=== PATIENT | female | born 1955 | race Caucasian/White ===

== ENCOUNTER → 2016-05-21 | Outpatient (CLI) | payer BC ==
--- NOTE | 2016-05-25 10:00 | BTN ---
SERVICE DATE: 05/25/2016 PATIENT #: [id number] #: NOT DICTATED IDENTIFYING INFORMATION: Zahra is a 60-year-old female, who is here today for a followup. I last saw her in November of 2015. CURRENT MEDICATIONS: Pristiq 100 mg a day, Abilify 5 mg a day. ALLERGIES: She has allergies to codeine and Demerol. SUBJECTIVE: Zahra states that she also takes gabapentin 400 in the morning and 400 at bedtime, that was prescribed by, I believe, her primary care doctor and it is to help her with sobriety. PHQ-9 score is 6, JOVANI-7 score is 7. She said she is doing pretty well. The divorce has been started and she said there is a lot of stuff that has to be done and when she has to interact with Jim, she starts to get a little bit of panicky feelings. Other than those times, she feels she is doing really well. She is going to AA on a regular basis and is getting out and seeing people, so she feels good about that. She has also recently started the Nutrisystem and she has lost about 12 pounds and that also helps her feel better about things. She is fairly close to her sons. Her and have been for 38 years and they are now going through divorce and she is going through some grieving with that. REVIEW OF SYSTEMS: She has hypothyroidism. She also has a hiatal hernia that they are looking at, that they have to repair, but they wanted her to get some weight off first. She also has some chronic anemia. Her hemoglobin is now back down to 7, so she is going to be seeing a aircraft engine mechanic supervisor. OBJECTIVE: VITAL SIGNS: Blood pressure is 124/78, heart rate is 100, respirations 18, temperature is 97.4, weight is 186.2 pounds, height 62 inches. MENTAL STATUS EXAM: Zahra' affect is euthymic. She is very pleasant, well groomed, appears her stated age. Speech is clear and appropriate. I do not see any delusions, psychosis, pressured speech, or tangential speech. She is alert and oriented x3. Recent and remote memory appear intact. Insight and judgment appear good. Eye contact is good. DIAGNOSES: Parmelee I: Dysthymia, F34.1. Parmelee II: No diagnosis. Parmelee III: Chronic anemia, hiatal hernia, and hypothyroidism. Parmelee IV: Biggest stressor right now is the divorce. Parmelee V: Current Global Assessment of Functioning score is 70. TREATMENT PLAN: She will continue with the Pristiq 100 mg a day and Abilify 5 mg a day. I am going to add a little bit of hydroxyzine pamoate 25 mg that she can take when she is going to have to be around the ex- to hopefully decrease her anxiety around him. I am going to see her back in a month. Approximately, 15 minutes of today's visit was done for some cognitive restructuring and medication information. /[id number]
== END | disposition home or self-care (01) ==
LOC: MW.CHOBGYN 13:38
PROVIDERS: ATTEND Nurse Practitioner Women's Health
DX: D64.9 Anemia, unspecified (principal)
CPT/HCPCS: 36415; 85014; 85018

== ENCOUNTER → 2016-06-15 | Outpatient (CLI) | payer BC ==
[2016-06-15 09:32] LABS: CHLORIDE,CL 107 mmol/L (98-110); SODIUM,NA 140 mmol/L (136-146)
== END ==
LOC: MW.CHIM 08:46
PROVIDERS: ATTEND Internal Medicine
DX: Z00.00 Encounter for general adult medical examination without abnormal findings (principal); D50.0 Iron deficiency anemia secondary to blood loss (chronic)
CPT/HCPCS: 36415; 80053; 82607; 82728; 83550; 85025; 86340

== ENCOUNTER 2017-11-20 18:49 | Emergency (ER) | payer SELFPAY ==
[2017-11-20] MEDS ORDERED: Sodium Chloride 0.9% 10 ML Syringe FLUSH PRN (19:22)
[2017-11-20] MEDS ORDERED: Sodium Chloride 0.9% 2.5 ML Syringe FLUSH PRN (19:22)
[2017-11-20] MEDS ORDERED: MVI, Adult with Vitamin K 10 ML, Thiamine 100 MG, Folic Acid 1 MG in Sodium Chloride 0.... IV ONE ×4 (19:23)
[2017-11-20] MEDS ORDERED: Sodium Chloride 0.9% 1,000 ML IV ONE (19:23)
--- NOTE | 2017-11-20 19:28 | EDM.PDOC ---
ED HPI GENERAL MEDICAL PROBLEM - General Chief Complaint: Drug or Alcohol Abuse Stated Complaint: INTOXICATION Time Seen by Provider: 11/20/17 19:16 - History of Present Illness INITIAL COMMENTS - FREE TEXT/NARRATIVE: HISTORY AND PHYSICAL: History of present illness: The patient is a 62-year-old female who arrives grossly intoxicated and was found on a welfare check at home sitting in an empty tub and had a bruise to her left orbital area. The patient says she is drinking on a regular basis and did drink heavily but she denies any suicidal or homicidal ideation to nursing and to me. She does have a history of depression which does make her drink heavily. Police reported that she was text in her friend that she wanted to hurt herself when they arrived for the welfare check the patient here is denying that she wants to harm herself but she does want help. She says she has done rehabilitation programs in the past but they have not been successful. She is not very forthcoming about her past medical history but per the computer she does have a long-standing history of alcohol use and abuse depression and hypertension. The patient doesn't complain of any chest pain shortness of breath abdominal pain and she is not nauseated nor she had any vomiting. She denies any extremity complaints she has no headache neck pain or back pain. The patient has a small bruise at her lower left orbit and she is unsure how that happened and it doesn't hurt her. She does not snore how she hit or if she fell. It is unclear when she last ate. It appears from the history that we are piecing together that she does live alone which is why police were sent for a welfare check. Review of systems: As per history of present illness and below otherwise all systems reviewed and negative. Past medical history: As per history of present illness and as reviewed below otherwise noncontributory. Surgical history: As per history of present illness and as reviewed below otherwise noncontributory. Social history: No reported history of drug or alcohol abuse. Family history: As per history of present illness and as reviewed below otherwise noncontributory. Physical exam: General: Well-developed well-nourished overweight female who is nontoxic and not very talkative with me. She has injected sclera and she moves all extremities spontaneously. She is tearful intermittently with my questions. HEENT: Atraumatic except for a small area of soft tissue swelling and ecchymosis at the lateral left orbit, normocephalic, pupils reactive, EOMs are intact negative for conjunctival pallor or scleral icterus, mucous membranes moist, throat clear, neck supple, nontender, trachea midline. There is no scalp defects deformities or tenderness and no midline step-offs tenderness or defects of the cervical spine Lungs: Clear to auscultation, breath sounds equal bilaterally, chest nontender. Heart: S1S2, regular rhythm and slightly tachycardic rate on my evaluation, negative for clicks, rubs, or JVD. Abdomen: Soft, nondistended, nontender. Negative for masses or hepatosplenomegaly. Negative for costovertebral tenderness. Pelvis: Stable nontender. No lateral hip tenderness Genitourinary: Deferred. Rectal: Deferred. Extremities: Atraumatic, no pedal edema, full range of motion without defects deformities or tenderness and no evidence of any soft tissue injuries that I can appreciate Neurovascular unremarkable. Neuro: Awake, alert, oriented. Motor and sensory unremarkable throughout. Exam nonfocal. Back: There are no midline step-offs tenderness or defects of the thoracic or lumbar spine no posterior rib tenderness no posterior pelvis tenderness and no evidence of any soft tissue injuries are appreciated on the skin. Diagnostics: Accu-Chek EKG CT scan of the head CBC CMP INR magnesium level UA UDS alcohol level Therapeutics: IV fluids, banana bag Teleradiology has called me and the patient has a small subdural in her left interhemispheric fissure as well as several areas of small traumatic subarachnoid the most noteworthy is in the left frontoparietal area. A c-collar was placed on this patient and the case was discussed with Dr. Tejeda at [facility] in [place] at 2050 p.m. he excepts the patient for transfer. We will arrange for a flight team to go and route. Patient remains drowsy from her intoxication but moving all extremities and following directions. Impression: Small subdural hemorrhage and traumatic subarachnoid hemorrhage status post fall left orbital contusion, Alcohol intoxication with history of alcohol abuse and depression depressive mood Definitive disposition and diagnosis as appropriate pending reevaluation and review of above. - Related Data Allergies Allergy/AdvReac Type Severity Reaction Status Date / Time codeine Allergy Nausea and Verified 11/20/17 18:52 Vomiting meperidine HCl [From Demerol] Allergy Nausea and Verified 11/20/17 18:52 Vomiting Home Meds: Home Meds Cyanocobalamin (Vitamin B-12) [Cyanocobalamin Injection] 1 ml IM Q30D 08/27/14 [ History] Fluticasone Propionate [Flonase Allergy Relief] 1 spray NS DAILY PRN 08/27/14 [ History] hydroCHLOROthiazide [Hydrochlorothiazide] 25 mg PO DAILY 08/27/14 [History] Desvenlafaxine [Pristiq] 100 mg PO DAILY 03/02/15 [History] Gabapentin [Neurontin] 200 mg PO QID 03/02/15 [History] ARIPiprazole [Abilify] 5 mg PO DAILY 06/13/15 [History] Albuterol Sulfate [Proair Hfa] 2 inh IH Q4H PRN 06/13/15 [History] amLODIPine [Norvasc] 5 mg PO DAILY 06/13/15 [History] Pantoprazole [ProTONIX] 40 mg PO ACBREAKFAST #30 tab.cr 06/15/15 [Rx] Cetirizine [ZyrTEC] 1 tab PO DAILY PRN 07/25/15 [History] Potassium Chloride [Klor-Con 10] 1 cap PO DAILY 07/25/15 [History] Past Medical History HEENT History: Reports: Allergic Rhinitis Other HEENT History: wears glasses Cardiovascular History: Reports: High Cholesterol, Hypertension Respiratory History: Reports: Asthma Gastrointestinal History: Reports: GERD Other Gastrointestinal History: gallbladder problems-states needs it out. Genitourinary History: Reports: Urinary Incontinence NURSING COORDINATOR History: Reports: Musculoskeletal History: Reports: Fibromyalgia Neurological History: Reports: None Other Neuro History: Fibromyalgia Psychiatric History: Reports: Anxiety, Depression Other Psychiatric History: etoh abuse Endocrine/Metabolic History: Reports: Obesity/BMI 30+ Hematologic History: Reports: Blood Transfusion(s) Other Hematologic History: received 4 units of blood during recent hospitalizaton Immunologic History: Reports: None Oncologic (Cancer) History: Reports: None Dermatologic History: Reports: None - Infectious Disease History Infectious Disease History: Reports: Chicken Pox - Past Surgical History Head Surgeries/Procedures: Reports: None HEENT Surgical History: Reports: Naso-Sinus Surgery, Oral Surgery Respiratory Surgical History: Reports: None Female Surgical History: Reports: Hysterectomy, Other (See Below) Endocrine Surgical History: Reports: None Musculoskeletal Surgical History: Reports: None Oncologic Surgical History: Reports: None Dermatological Surgical History: Reports: None Social & Family History - Family History Family Medical History: Unobtainable Cardiac: Reports: Heart Failure - Tobacco Use Smoking Status *Q: Unknown Ever Smoked - Caffeine Use Caffeine Use Comment: unable to obtain ED ROS GENERAL - Review of Systems Review Of Systems: ROS reveals no pertinent complaints other than HPI. ED EXAM, GENERAL - Physical Exam Exam: See Below (See dictation) Course - Vital Signs Last Recorded V/S: Last Vital Signs Temp 36.9 C 11/20/17 18:52 Pulse 118 H 11/20/17 20:12 Resp 20 11/20/17 20:12 BP 149/78 H 11/20/17 20:12 Pulse Ox 94 L 11/20/17 20:12 - Orders/Labs/Meds Orders: Active Orders 24 hr Category Date Time Status Blood Glucose Check, Bedside [RC] ONETIME Care 11/20/17 19:22 Active Cardiac Monitoring [RC] . DIRECTED Care 11/20/17 19:22 Active Communication Order [RC] STAT Care 11/20/17 20:52 Ordered EKG Documentation Completion [RC] STAT Care 11/20/17 19:22 Active Oxygen Therapy, ED [RC] ASDIRECTED Care 11/20/17 19:22 Active Pulse Oximetry [RC] ASDIRECTED Care 11/20/17 19:22 Active Head wo Cont [CT] Stat Exams 11/20/17 19:23 Taken DRUG SCREEN, URINE [URCHEM] Stat Lab 11/20/17 20:44 Received UA W/MICROSCOPIC [URIN] Stat Lab 11/20/17 20:44 Received MVI, Adult with Vitamin K [Infuvite Adult] 10 ml Med 11/20/17 19:23 Active Thiamine [Vitamin B-1] 100 mg Folic Acid 1 mg Sodium Chloride 0.9% [Normal Saline] 1,000 ml IV ONETIME Sodium Chloride 0.9% [Saline Flush] Med 11/20/17 19:22 Active 10 ml FLUSH ASDIRECTED PRN Sodium Chloride 0.9% [Saline Flush] Med 11/20/17 19:22 Active 2.5 ml FLUSH ASDIRECTED PRN Saline Lock Insert [OM.PC] Stat Oth 11/20/17 19:22 Ordered Medication Orders Multivitamins/Minerals 10 ml/Thiamine HCl 100 mg/ Folic Acid 1 mg/ Sodium Chloride 1,011.2 mls @ 150 mls/hr IV ONETIME ONE Stop: 11/21/17 02:07 Last Admin: 11/20/17 19:49 Dose: 150 mls/hr Sodium Chloride (Saline Flush) 10 ml FLUSH ASDIRECTED PRN PRN Reason: Keep Vein Open Sodium Chloride (Saline Flush) 2.5 ml FLUSH ASDIRECTED PRN PRN Reason: Keep Vein Open Labs: Laboratory Tests 11/20/17 11/20/17 11/20/17 Range/Units 19:25 19:56 19:56 WBC 6.85 (4.0-11.0) K/uL RBC 4.86 (4.30-5.90) M/uL Hgb 15.3 (12.0-16.0) g/dL Hct 47.2 H (36.0-46.0) % MCV 97.1 (80.0-98.0) fL MCH 31.5 (27.0-32.0) pg MCHC 32.4 (31.0-37.0) g/dL RDW Std Deviation 55.2 (28.0-62.0) fl RDW Coeff of Cintia 15 (11.0-15.0) % Plt Count 299 (150-400) K/uL MPV 9.70 (7.40-12.00) fL Neut % (Auto) 72.7 (48.0-80.0) % Lymph % (Auto) 23.8 (16.0-40.0) % [place] % (Auto) 2.8 (0.0-15.0) % Eos % (Auto) 0.4 (0.0-7.0) % Baso % (Auto) 0.3 (0.0-1.5) % Neut # (Auto) 5.0 (1.4-5.7) K/uL Lymph # (Auto) 1.6 (0.6-2.4) K/uL [place] # (Auto) 0.2 (0.0-0.8) K/uL Eos # (Auto) 0.0 (0.0-0.7) K/uL Baso # (Auto) 0.0 (0.0-0.1) K/uL Nucleated RBC % 0.0 /100WBC Nucleated RBCs # 0 K/uL INR 0.97 Sodium (136-145) mmol/L Potassium (3.5-5.1) mmol/L Chloride (98-107) mmol/L Carbon Dioxide (21.0-32.0) mmol/L BUN (7.0-18.0) mg/dL Creatinine (0.6-1.0) mg/dL Est Cr Clr Drug Dosing Estimated GFR (MDRD) ml/min Glucose (74-106) mg/dL POC Glucose 122 H (60-110) mg/dL Calcium (8.5-10.1) mg/dL Magnesium (1.8-2.4) mg/dL Total Bilirubin (0.2-1.0) mg/dL AST (15-37) IU/L ALT (14-63) IU/L Alkaline Phosphatase (46-116) U/L Total Protein (6.4-8.2) g/dL Albumin (3.4-5.0) g/dL Globulin (2.0-3.5) g/dL Albumin/Globulin Ratio (1.3-2.8) Ethyl Alcohol mg/dL 11/20/17 Range/Units 19:56 WBC (4.0-11.0) K/uL RBC (4.30-5.90) M/uL Hgb (12.0-16.0) g/dL Hct (36.0-46.0) % MCV (80.0-98.0) fL MCH (27.0-32.0) pg MCHC (31.0-37.0) g/dL RDW Std Deviation (28.0-62.0) fl RDW Coeff of Cintia (11.0-15.0) % Plt Count (150-400) K/uL MPV (7.40-12.00) fL Neut % (Auto) (48.0-80.0) % Lymph % (Auto) (16.0-40.0) % [place] % (Auto) (0.0-15.0) % Eos % (Auto) (0.0-7.0) % Baso % (Auto) (0.0-1.5) % Neut # (Auto) (1.4-5.7) K/uL Lymph # (Auto) (0.6-2.4) K/uL [place] # (Auto) (0.0-0.8) K/uL Eos # (Auto) (0.0-0.7) K/uL Baso # (Auto) (0.0-0.1) K/uL Nucleated RBC % /100WBC Nucleated RBCs # K/uL INR Sodium 144 (136-145) mmol/L Potassium 4.2 (3.5-5.1) mmol/L Chloride 104 (98-107) mmol/L Carbon Dioxide 28.5 (21.0-32.0) mmol/L BUN 11 (7.0-18.0) mg/dL Creatinine 0.8 (0.6-1.0) mg/dL Est Cr Clr Drug Dosing TNP Estimated GFR (MDRD) > 60.0 ml/min Glucose 136 H (74-106) mg/dL POC Glucose (60-110) mg/dL Calcium 8.8 (8.5-10.1) mg/dL Magnesium 2.3 (1.8-2.4) mg/dL Total Bilirubin 0.2 (0.2-1.0) mg/dL AST 21 (15-37) IU/L ALT 27 (14-63) IU/L Alkaline Phosphatase 98 (46-116) U/L Total Protein 8.5 H (6.4-8.2) g/dL Albumin 3.9 (3.4-5.0) g/dL Globulin 4.6 H (2.0-3.5) g/dL Albumin/Globulin Ratio 0.9 L (1.3-2.8) Ethyl Alcohol 330 mg/dL Meds: Medications Generic Name Dose Route Start Last Admin Trade Name Freq PRN Reason Stop Dose Admin Multivitamins/Minerals 10 ml/ 1,011.2 mls @ 150 mls/hr 11/20/17 19:23 19:49 Thiamine HCl 100 mg/ Folic IV 11/21/17 02:07 150 mls/hr Acid 1 mg/ Sodium Chloride ONETIME ONE Administration Sodium Chloride 10 ml 11/20/17 19:22 Saline Flush FLUSH ASDIRECTED PRN Keep Vein Open Sodium Chloride 2.5 ml 11/20/17 19:22 Saline Flush FLUSH ASDIRECTED PRN Keep Vein Open Discontinued Medications Generic Name Dose Route Start Last Admin Trade Name Lauren PRN Reason Stop Dose Admin Sodium Chloride 1,000 mls @ 999 mls/hr 11/20/17 19:23 11/20/17 19:37 Normal Saline IV 11/20/17 20:23 999 mls/hr STAT ONE Administration Departure - Departure Time of Disposition: 20:54 Disposition: DC/Tfer to Acute Hospital 02 Condition: Good Clinical Impression: Alcohol abuse, Intoxication, Subdural hemorrhage Depressed Qualifiers: Depression Type: unspecified Qualified Code(s): F32.9 - Major depressive disorder, single episode, unspecified Traumatic subarachnoid hemorrhage Qualifiers: Encounter type: initial encounter Loss of consciousness presence/duration: with LOC of unspecified duration Qualified Code(s): S06.6X9A - Traumatic subarachnoid hemorrhage with loss of consciousness of unspecified duration, initial encounter - Discharge Information Forms: ED Department Discharge - My Orders Last 24 Hours: My Active Orders 11/20/17 19:22 Blood Glucose Check, Bedside [RC] ONETIME Cardiac Monitoring [RC] . DIRECTED EKG Documentation Completion [RC] STAT Oxygen Therapy, ED [RC] ASDIRECTED Pulse Oximetry [RC] ASDIRECTED Sodium Chloride 0.9% [Saline Flush] 10 ml FLUSH ASDIRECTED PRN Sodium Chloride 0.9% [Saline Flush] 2.5 ml FLUSH ASDIRECTED PRN Saline Lock Insert [OM.PC] Stat 11/20/17 19:23 Head wo Cont [CT] Stat MVI, Adult with Vitamin K [Infuvite Adult] 10 ml Thiamine [Vitamin B-1] 100 mg Folic Acid 1 mg Sodium Chloride 0.9% [Normal Saline] 1,000 ml IV ONETIME 11/20/17 20:44 DRUG SCREEN, URINE [URCHEM] Stat UA W/MICROSCOPIC [URIN] Stat 11/20/17 20:52 Communication Order [RC] STAT - Assessment/Plan Last 24 Hours: My Active Orders 11/20/17 19:22 Blood Glucose Check, Bedside [RC] ONETIME Cardiac Monitoring [RC] . DIRECTED EKG Documentation Completion [RC] STAT Oxygen Therapy, ED [RC] ASDIRECTED Pulse Oximetry [RC] ASDIRECTED Sodium Chloride 0.9% [Saline Flush] 10 ml FLUSH ASDIRECTED PRN Sodium Chloride 0.9% [Saline Flush] 2.5 ml FLUSH ASDIRECTED PRN Saline Lock Insert [OM.PC] Stat 11/20/17 19:23 Head wo Cont [CT] Stat MVI, Adult with Vitamin K [Infuvite Adult] 10 ml Thiamine [Vitamin B-1] 100 mg Folic Acid 1 mg Sodium Chloride 0.9% [Normal Saline] 1,000 ml IV ONETIME 11/20/17 20:44 DRUG SCREEN, URINE [URCHEM] Stat UA W/MICROSCOPIC [URIN] Stat 11/20/17 20:52 Communication Order [RC] STAT
[2017-11-20 20:34] LABS: CHLORIDE,CL 104 mmol/L (98-107); SODIUM,NA 144 mmol/L (136-145)
[2017-11-20 23:28] VITALS: BP 146/89
--- NOTE | 2017-11-21 10:52 | CT ---
EXAM DATE: 11/20/17 PATIENT'S AGE: 62 Patient: DIGNA CREWS Facility: [place], [place] Site . Site : [id number] Study: CT Head [id number]/19/2018 8:33:31 PM Ordering Physician: Enriqueta Link Final Report: INDICATION: PT CAME TO ER BY EMS. WAS INTOXICATED AND FOUND IN HER BATHTUB BUT THE TUB WAS REPORTED EMPTY. REPORTED POSSIBLE THOUGHTS OF SELF HARM FROM A FRIEND. CT HEAD WITHOUT CONTRAST TECHNIQUE: Multiple axial CT images were performed through the head without intravenous contrast administration. COMPARISON: No previous studies are currently available for comparison. FINDINGS: There is a very small acute subdural hematoma in the anterior interhemispheric fissure along the left side of the falx, measuring 3 millimeters in thickness. Mild subarachnoid hemorrhage is present within the right sylvian fissure. A small amount of subarachnoid hemorrhage is seen within a sulcus over the right frontoparietal region on image 34-35 of series 201, and a trace amount of subarachnoid hemorrhage is seen over the left frontoparietal region on images 31-32 of series 201. There is questionable minimal extra-axial blood along the inferomedial frontal lobes. There is no mass effect or midline shift. Ventricles are normal in size and configuration. Brain parenchyma appears normal with unremarkable alfonso-white differentiation. There is subcutaneous edema/ hemorrhage over the lateral left periorbital region. Osseous structures are within normal limits and no fractures are seen. Included portions of the paranasal sinuses and mastoid air cells are normally aerated. IMPRESSION: 1. Small acute subdural hematoma in the anterior interhemispheric fissure along the left side of the falx measuring 3 millimeters in thickness. 2. Scattered areas of mild subarachnoid hemorrhage, greatest in the right sylvian fissure. 3. No mass effect or midline shift. 4. Mild left periorbital edema/hemorrhage. No fracture is seen. Results were called to Dr. Robison at 8:48 p.m. on 11/20/2017. ANAYELI GRIFFIN MD [employer] Dictated by Jonh Griffin MD @ 11/20/2017 8:51:01 PM Dictated by: Jonh Griffin MD @ 11/20/2017 20:53:53 (Electronic Signature) Report Signed by Proxy. MTDD
== END 2017-11-20 21:30 ==
LOC: MW.ED 18:49
DX: S06.6X9A Traumatic subarachnoid hemorrhage with loss of consciousness of unspecified duration, initial encounter (principal); S06.5X9A Traumatic subdural hemorrhage with loss of consciousness of unspecified duration, initial encounter; S05.12XA Contusion of eyeball and orbital tissues, left eye, initial encounter; F10.129 Alcohol abuse with intoxication, unspecified; F32.9 Major depressive disorder, single episode, unspecified; I10 Essential (primary) hypertension; E66.9 Obesity, unspecified; Z79.899 Other long term (current) drug therapy; Z88.5 Allergy status to narcotic agent; Y90.8 Blood alcohol level of 240 mg/100 ml or more; X58.XXXA Exposure to other specified factors, initial encounter
CPT/HCPCS: 36415; 70450; 80053; 80305; 81001; 82962; 83735; 85025; 85610; 96361; 96365; 99285; G0480; J3411; J7040

== ENCOUNTER 2019-07-15 10:11 | Inpatient (IN) | payer MEDICAID, OTHER ==
[2019-07-15] MEDS ORDERED: Sodium Chloride 0.9% 10 ML Syringe FLUSH PRN (10:14)
[2019-07-15] MEDS ORDERED: Sodium Chloride 0.9% 2.5 ML Syringe FLUSH PRN ×2 (10:14→12:59)
--- NOTE | 2019-07-15 10:16 | EDM.PDOC ---
ED HPI GENERAL MEDICAL PROBLEM - General Chief Complaint: General Stated Complaint: VERTIGO Time Seen by Provider: 07/15/19 10:15 Source of Information: Reports: Patient History Limitations: Reports: No Limitations - History of Present Illness INITIAL COMMENTS - FREE TEXT/NARRATIVE: HISTORY AND PHYSICAL: History of present illness: Patient is a 64-year-old female presents to the ED via EMS for "vertigo." Per EMS, patient was at the liquor store this morning and was unsteady on her feet so they called PD. Police pulled her over and they called EMS to bring her to the ED. Patient states she has been falling for the past 3 days. She states she just can't "get her feet underneath her" and having to hold on to the hutson to walk. She states she is not dizzy or feeling like the room is spinning. She states she has hit her head at least once during a fall. She reports a headache. Denies any fevers, chills, nausea, vomiting, diarrhea, abdominal pain , black or bloody stools, chest pain, shortness of breath. Patient slow to answer questions but alert and oriented to person, place, and time. She states she "made a mistake" this morning. States she had 5 oz of wine and took her anxiety medication this morning around 5am stating she only took one of her anxiety pills. She reports drinking on and off for years and has been drinking the past 3 days but can not tell me how much. Review of systems: As per history of present illness and below otherwise all systems reviewed and negative. Past medical history: As per history of present illness and as reviewed below otherwise noncontributory. Surgical history: As per history of present illness and as reviewed below otherwise noncontributory. Social history: No reported history of drug or alcohol abuse. Family history: As per history of present illness and as reviewed below otherwise noncontributory. Physical exam: General: Patient sitting comfortably in no acute distress and nontoxic appearing HEENT: Atraumatic, normocephalic, pupils reactive, negative for conjunctival pallor or scleral icterus, mucous membranes moist, throat clear, neck supple, nontender, trachea midline. No meningeal signs. Lungs: Clear to auscultation, breath sounds equal bilaterally, chest nontender. Heart: S1S2, regular, negative for clicks, rubs, or overt murmur. Abdomen: Soft, nondistended, nontender. Negative for masses or hepatosplenomegaly. Negative for costovertebral tenderness. No rigidity, rebound , guarding. Pelvis: Stable nontender. Genitourinary: Deferred. Rectal: positive Hemoccult Extremities: Atraumatic, negative for cords or calf pain. Neurovascular unremarkable. Neuro: Awake, alert, oriented. Cranial nerves II through XII unremarkable. Cerebellum unremarkable. Motor and sensory unremarkable throughout. Exam nonfocal. Notes: Diagnostics: CBC, CMP, troponin, PT/INR, EKG, Head CT, UDS Hemoccult positive Therapeutics: 1L NS IV 1g Rocephin IV Prescriptions: Impression: GI bleed, anemia, UTI Plan: Discussed with Dr. Bonilla, patient will be admitted to observation Definitive disposition and diagnosis as appropriate pending reevaluation and review of above. generalized Pain Score (Numeric/FACES): 5 - Related Data Allergies Allergy/AdvReac Type Severity Reaction Status Date / Time codeine Allergy Nausea and Verified 07/15/19 10:20 Vomiting meperidine HCl [From Demerol] Allergy Nausea and Verified 07/15/19 10:20 Vomiting Home Meds: Home Meds Cyanocobalamin (Vitamin B-12) [Cyanocobalamin Injection] 1 ml IM Q30D 08/27/14 [ History] Fluticasone Propionate [Flonase Allergy Relief] 1 spray NS DAILY PRN 08/27/14 [ History] hydroCHLOROthiazide [Hydrochlorothiazide] 25 mg PO DAILY 08/27/14 [History] Desvenlafaxine [Pristiq] 100 mg PO DAILY 03/02/15 [History] Gabapentin [Neurontin] 200 mg PO QID 03/02/15 [History] ARIPiprazole [Abilify] 5 mg PO DAILY 06/13/15 [History] Albuterol Sulfate [Proair Hfa] 2 inh IH Q4H PRN 06/13/15 [History] amLODIPine [Norvasc] 5 mg PO DAILY 06/13/15 [History] Pantoprazole [ProTONIX] 40 mg PO ACBREAKFAST #30 tab.cr 06/15/15 [Rx] Cetirizine [ZyrTEC] 1 tab PO DAILY PRN 07/25/15 [History] Potassium Chloride [Klor-Con 10] 1 cap PO DAILY 07/25/15 [History] Past Medical History HEENT History: Reports: Allergic Rhinitis Other HEENT History: wears glasses Cardiovascular History: Reports: High Cholesterol, Hypertension Respiratory History: Reports: Asthma Gastrointestinal History: Reports: GERD Other Gastrointestinal History: gallbladder problems-states needs it out. 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: Musculoskeletal History: Reports: Fibromyalgia Neurological History: Reports: None Other Neuro History: Fibromyalgia Psychiatric History: Reports: Anxiety, Depression Other Psychiatric History: etoh abuse Endocrine/Metabolic History: Reports: Obesity/BMI 30+ Hematologic History: Reports: Blood Transfusion(s) Other Hematologic History: received 4 units of blood during recent hospitalizaton Immunologic History: Reports: None Oncologic (Cancer) History: Reports: None Dermatologic History: Reports: None - Infectious Disease History Infectious Disease History: Reports: Chicken Pox - Past Surgical History Head Surgeries/Procedures: Reports: None HEENT Surgical History: Reports: Naso-Sinus Surgery, Oral Surgery Respiratory Surgical History: Reports: None Female Surgical History: Reports: Hysterectomy, Other (See Below) Endocrine Surgical History: Reports: None Musculoskeletal Surgical History: Reports: None Oncologic Surgical History: Reports: None Dermatological Surgical History: Reports: None Social & Family History - Family History Family Medical History: Unobtainable Cardiac: Reports: Heart Failure - Caffeine Use Caffeine Use Comment: unable to obtain ED ROS GENERAL - Review of Systems Review Of Systems: Comprehensive ROS is negative, except as noted in HPI. ED EXAM, GENERAL - Physical Exam Exam: See Below (see dictation) Course - Vital Signs Last Recorded V/S: Last Vital Signs Temp 96.6 F L 07/15/19 10:14 Pulse 85 07/15/19 11:00 Resp 18 07/15/19 11:00 BP 126/68 07/15/19 11:00 Pulse Ox 95 07/15/19 11:00 - Orders/Labs/Meds Orders: Active Orders 24 hr Category Date Time Status EKG Documentation Completion [RC] STAT Care 07/15/19 10:15 Active CULTURE URINE [RM] Stat Lab 07/15/19 11:20 Received TYPE AND SCREEN [BBK] Stat Lab 07/15/19 11:37 Received cefTRIAXone [Rocephin in Dextrose,Iso-Osm 1 GM/50 ML] 1 Med 07/15/19 12:25 Ordered gm Premix Bag 1 bag IV ONETIME Medication Orders Ceftriaxone Sodium/Dextrose 1 (gm/ Premix) 50 mls @ 100 mls/hr IV ONETIME ONE Stop: 07/15/19 12:54 Labs: Laboratory Tests 07/15/19 07/15/19 07/15/19 Range/Units 10:30 10:30 10:30 WBC 8.13 (4.0-11.0) K/uL RBC 3.06 L (4.30-5.90) M/uL Hgb 7.5 L (12.0-16.0) g/dL Hct 26.0 L (36.0-46.0) % MCV 85.0 (80.0-98.0) fL MCH 24.5 L (27.0-32.0) pg MCHC 28.8 L (31.0-37.0) g/dL RDW Std Deviation 51.3 (28.0-62.0) fl RDW Coeff of Cintia 17 H (11.0-15.0) % Plt Count 319 (150-400) K/uL MPV 8.80 (7.40-12.00) fL Neut % (Auto) 74.7 (48.0-80.0) % Lymph % (Auto) 14.8 L (16.0-40.0) % [place] % (Auto) 9.6 (0.0-15.0) % Eos % (Auto) 0.7 (0.0-7.0) % Baso % (Auto) 0.2 (0.0-1.5) % Neut # (Auto) 6.1 H (1.4-5.7) K/uL Lymph # (Auto) 1.2 (0.6-2.4) K/uL [place] # (Auto) 0.8 (0.0-0.8) K/uL Eos # (Auto) 0.1 (0.0-0.7) K/uL Baso # (Auto) 0.0 (0.0-0.1) K/uL Nucleated RBC % 0.4 /100WBC Nucleated RBCs # 0 K/uL INR 1.00 Sodium 139 (136-145) mmol/L Potassium 4.1 (3.5-5.1) mmol/L Chloride 101 (98-107) mmol/L Carbon Dioxide 23.9 (21.0-32.0) mmol/L BUN 7 (7.0-18.0) mg/dL Creatinine 0.8 (0.6-1.0) mg/dL Est Cr Clr Drug Dosing 56.93 mL/min Estimated GFR (MDRD) > 60.0 ml/min Glucose 118 H (74-106) mg/dL Calcium 8.9 (8.5-10.1) mg/dL Total Bilirubin 0.6 (0.2-1.0) mg/dL AST 357 H (15-37) IU/L ALT 219 H (14-63) IU/L Alkaline Phosphatase 87 (46-116) U/L Troponin I < 0.050 (0.000-0.056) ng/mL Total Protein 7.5 (6.4-8.2) g/dL Albumin 3.6 (3.4-5.0) g/dL Globulin 3.9 (2.6-4.0) g/dL Albumin/Globulin Ratio 0.9 (0.9-1.6) Urine Color Urine Appearance Urine pH (5.0-8.0) Ur Specific [place] (1.001-1.035) Urine Protein (NEGATIVE) mg/dL Urine Glucose (UA) (NEGATIVE) mg/dL Urine Ketones (NEGATIVE) mg/dL Urine Occult Blood (NEGATIVE) Urine Nitrite (NEGATIVE) Urine Bilirubin (NEGATIVE) Urine Urobilinogen (<2.0) EU/dL Ur Leukocyte Esterase (NEGATIVE) Urine RBC (0-2/HPF) Urine WBC (0-5/HPF) Ur Epithelial Cells (NONE-FEW) Urine Bacteria (NEGATIVE) Urine Opiates Screen (NEGATIVE) Ur Oxycodone Screen (NEGATIVE) Urine Methadone Screen (NEGATIVE) Ur Barbiturates Screen (NEGATIVE) Ur Phencyclidine Scrn (NEGATIVE) Ur Amphetamine Screen (NEGATIVE) U Methamphetamines Scrn (NEGATIVE) U Benzodiazepines Scrn (NEGATIVE) U Cocaine Metab Screen (NEGATIVE) U Marijuana (THC) Screen (NEGATIVE) Ethyl Alcohol < 3.0 mg/dL 07/15/19 07/15/19 Range/Units 11:20 11:20 WBC (4.0-11.0) K/uL RBC (4.30-5.90) M/uL Hgb (12.0-16.0) g/dL Hct (36.0-46.0) % MCV (80.0-98.0) fL MCH (27.0-32.0) pg MCHC (31.0-37.0) g/dL RDW Std Deviation (28.0-62.0) fl RDW Coeff of [place] (11.0-15.0) % Plt Count (150-400) K/uL MPV (7.40-12.00) fL Neut % (Auto) (48.0-80.0) % Lymph % (Auto) (16.0-40.0) % [place] % (Auto) (0.0-15.0) % Eos % (Auto) (0.0-7.0) % Baso % (Auto) (0.0-1.5) % Neut # (Auto) (1.4-5.7) K/uL Lymph # (Auto) (0.6-2.4) K/uL [place] # (Auto) (0.0-0.8) K/uL Eos # (Auto) (0.0-0.7) K/uL Baso # (Auto) (0.0-0.1) K/uL Nucleated RBC % /100WBC Nucleated RBCs # K/uL INR Sodium (136-145) mmol/L Potassium (3.5-5.1) mmol/L Chloride (98-107) mmol/L Carbon Dioxide (21.0-32.0) mmol/L BUN (7.0-18.0) mg/dL Creatinine (0.6-1.0) mg/dL Est Cr Clr Drug Dosing mL/min Estimated GFR (MDRD) ml/min Glucose (74-106) mg/dL Calcium (8.5-10.1) mg/dL Total Bilirubin (0.2-1.0) mg/dL AST (15-37) IU/L ALT (14-63) IU/L Alkaline Phosphatase (46-116) U/L Troponin I (0.000-0.056) ng/mL Total Protein (6.4-8.2) g/dL Albumin (3.4-5.0) g/dL Globulin (2.6-4.0) g/dL Albumin/Globulin Ratio (0.9-1.6) Urine Color YELLOW Urine Appearance SLT CLOUDY Urine pH 6.0 (5.0-8.0) Ur Specific [place] >= 1.030 (1.001-1.035) Urine Protein NEGATIVE (NEGATIVE) mg/dL Urine Glucose (UA) NEGATIVE (NEGATIVE) mg/dL Urine Ketones 15 H (NEGATIVE) mg/dL Urine Occult Blood NEGATIVE (NEGATIVE) Urine Nitrite POSITIVE H (NEGATIVE) Urine Bilirubin NEGATIVE (NEGATIVE) Urine Urobilinogen 0.2 (<2.0) EU/dL Ur Leukocyte Esterase SMALL H (NEGATIVE) Urine RBC 0-5 (0-2/HPF) Urine WBC 15-25 (0-5/HPF) Ur Epithelial Cells RARE (NONE-FEW) Urine Bacteria 3+ H (NEGATIVE) Urine Opiates Screen NEGATIVE (NEGATIVE) Ur Oxycodone Screen NEGATIVE (NEGATIVE) Urine Methadone Screen NEGATIVE (NEGATIVE) Ur Barbiturates Screen NEGATIVE (NEGATIVE) Ur Phencyclidine Scrn NEGATIVE (NEGATIVE) Ur Amphetamine Screen NEGATIVE (NEGATIVE) U Methamphetamines Scrn NEGATIVE (NEGATIVE) U Benzodiazepines Scrn POSITIVE (NEGATIVE) U Cocaine Metab Screen NEGATIVE (NEGATIVE) U Marijuana (THC) Screen NEGATIVE (NEGATIVE) Ethyl Alcohol mg/dL Meds: Medications Generic Name Dose Route Start Last Admin Trade Name Freq PRN Reason Stop Dose Admin Ceftriaxone Sodium/Dextrose 1 50 mls @ 100 mls/hr 07/15/19 12:25 gm/ Premix IV 07/15/19 12:54 ONETIME ONE Discontinued Medications Generic Name Dose Route Start Last Admin Trade Name Freq PRN Reason Stop Dose Admin Sodium Chloride 1,000 mls @ 999 mls/hr 07/15/19 10:27 07/15/19 10:35 Normal Saline IV 07/15/19 11:27 999 mls/hr STAT ONE Administration Sodium Chloride 10 ml 07/15/19 10:14 Saline Flush FLUSH ASDIRECTED PRN Keep Vein Open Sodium Chloride 2.5 ml 07/15/19 10:14 Saline Flush FLUSH ASDIRECTED PRN Keep Vein Open Departure - Departure Time of Disposition: 12:28 Disposition: Refer to Observation Condition: Good Clinical Impression: UTI (urinary tract infection) Anemia Qualifiers: Iron deficiency anemia type: chronic blood loss GI bleed Qualifiers: GI bleed type/associated pathology: unspecified gastrointestinal hemorrhage type Qualified Code(s): K92.2 - Gastrointestinal hemorrhage, unspecified - Discharge Information Referrals: PCP,None [Primary Care Provider] - Forms: ED Department Discharge Sepsis Event Note - Focused Exam Vital Signs: Vital Signs Temp Pulse Resp BP Pulse Ox 07/15/19 11:00 85 18 126/68 95 07/15/19 10:14 96.6 F L 103 H 20 141/70 H 93 L Date Exam was Performed: 07/15/19 Time Exam was Performed: 12:25 - My Orders Last 24 Hours: My Active Orders 07/15/19 10:15 EKG Documentation Completion [RC] STAT 07/15/19 11:20 CULTURE URINE [RM] Stat 07/15/19 11:37 TYPE AND SCREEN [BBK] Stat 07/15/19 12:25 cefTRIAXone [Rocephin in Dextrose,Iso-Osm 1 GM/50 ML] 1 gm Premix Bag 1 bag IV ONETIME - Assessment/Plan Last 24 Hours: My Active Orders 07/15/19 10:15 EKG Documentation Completion [RC] STAT 07/15/19 11:20 CULTURE URINE [RM] Stat 07/15/19 11:37 TYPE AND SCREEN [BBK] Stat 07/15/19 12:25 cefTRIAXone [Rocephin in Dextrose,Iso-Osm 1 GM/50 ML] 1 gm Premix Bag 1 bag IV ONETIME
[2019-07-15] MEDS ORDERED: Sodium Chloride 0.9% 1,000 ML IV ONE (10:27)
[2019-07-15 11:10] LABS: BLOOD UREA NITROGEN,BUN 7 mg/dL (7.0-18.0); CARBON DIOXIDE,CO2 23.9 mmol/L (21.0-32.0); CHLORIDE,CL 101 mmol/L (98-107); GLUCOSE RANDOM 118 mg/dL (74-106); POTASSIUM,K 4.1 mmol/L (3.5-5.1); SODIUM,NA 139 mmol/L (136-145)
--- NOTE | 2019-07-15 11:16 | CT ---
Head CT Technique: Multiple axial sections through the brain were obtained. Intravenous contrast was not utilized. Comparison: Prior head CT study of 11/20/17. Findings: Ventricles along with basal cisterns and sulci over the convexities are mildly prominent. No abnormal parenchymal densities are seen. No evidence of intracranial hemorrhage. No midline shift or mass-effect is seen. Bone window settings were reviewed. Visualized mastoid sinuses and paranasal sinuses show nothing acute. No acute calvarial abnormality is appreciated. Impression: 1. Mild generalized atrophy. 2. No acute intracranial abnormality is identified. Diagnostic code #2 This report was dictated in MDT
[2019-07-15] MEDS ORDERED: cefTRIAXone 1 GM in Premix Bag 1 BAG IV ONE (12:25)
[2019-07-15] MEDS ORDERED: Ondansetron 4 MG/2 ML SDV IVPUSH PRN (12:59)
[2019-07-15] MEDS ORDERED: LORazepam 2 MG/ML SDV IVPUSH PRN (13:09)
--- NOTE | 2019-07-15 13:13 | PCM.HP.2 ---
H&P History of Present Illness - General Date of Service: 07/15/19 Admit Problem/Dx: Admission Diagnosis/Problem Admission Diagnosis/Problem GI bleed not requiring more than 4 units of blood in 24 hours, ICU, or surgery Source of Information: Patient, Old Records History Limitations: Reports: No Limitations - History of Present Illness Initial Comments - Free Text/Narative: This 64 year old female with pmh of alcohol abuse, hypertension, hypothyroidism , anemia, anxiety, depression, and fibromyalgia presented to the ED with EMS after a plant clerk was concerned for her. The police were called because the despatching and receiving clerk though Zahra was altered and had unsteady gait. Zahra reports she made a bad mistake this morning, she drank alcohol and took her anxiety medications and depression medications together. She reports feeling more depressed with Mother's day recently and her children not reaching out to her. She reports she has been binge drinking recently, over the last 3 days. She denies bleeding, no black or bloody BMs. No coffee ground emesis. She reports feeling very lightheaded and dizzy especially when she is getting up and has been falling a lot at home. She denies chest pain or SOB. No abdominal pain. No dysuria. Denies headaches or visual concerns. She has been in treatment for alcohol in the past, but relapses frequently due to mental health concerns. She denies tobacco use or recreational drug use. In the ED no leukocytosis noted. Hgb 7.5 Hct 26.0, BMP WNL. INR 1.0, AST 357, ALT 219, ETOH <3.0, UA positive for nitrites, small LE, WBC 15-25 and +3 bacteria. U tox positive for benzodiazepines. Head CT obtained, which was negative. Hemoccult positive stool. She will be admitted with GI bleeding, UTI and alcohol withdrawal PCP, Dr Bueno generalized Pain Score (Numeric/FACES): 5 - Related Data Allergies/Adverse Reactions: Allergies Allergy/AdvReac Type Severity Reaction Status Date / Time codeine Allergy Nausea and Verified 07/15/19 10:20 Vomiting meperidine HCl [From Demerol] Allergy Nausea and Verified 07/15/19 10:20 Vomiting Home Medications: Home Meds ARIPiprazole [Abilify] 1 tab PO BEDTIME 07/15/19 [History] Albuterol [Proair HFA] 2 puff INH Q4H PRN 07/15/19 [History] Cholecalciferol (Vitamin D3) [Vitamin D] 1 tab PO DAILY 07/15/19 [History] DULoxetine [Cymbalta] 60 mg PO DAILY 07/15/19 [History] Gabapentin [Neurontin] 1 cap PO TID 07/15/19 [History] Iron 1 tab PO BID 07/15/19 [History] Levothyroxine 1 tab PO DAILY 07/15/19 [History] Omeprazole 20 mg PO DAILY 07/15/19 [History] Potassium Chloride 1 cap PO BID 07/15/19 [History] amLODIPine [Norvasc] 2 tab PO DAILY 07/15/19 [History] hydrOXYzine pamoate [Hydroxyzine Pamoate] 1 cap PO QID 07/15/19 [History] Past Medical History HEENT History: Reports: Allergic Rhinitis Other HEENT History: wears glasses Cardiovascular History: Reports: High Cholesterol, Hypertension. Denies: Afib, Blood Clots/VTE/DVT, CAD Respiratory History: Reports: Asthma. Denies: COPD Gastrointestinal History: Reports: GERD, Hiatal Hernia Other Gastrointestinal History: gallbladder problems-states needs it out. 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 TECH History: Reports: Musculoskeletal History: Reports: Fibromyalgia Neurological History: Reports: None Other Neuro History: Fibromyalgia Psychiatric History: Reports: Addiction, Anxiety, Depression Other Psychiatric History: etoh abuse Endocrine/Metabolic History: Reports: Obesity/BMI 30+ Hematologic History: Reports: Blood Transfusion(s) Other Hematologic History: received 4 units of blood during recent hospitalizaton Immunologic History: Reports: None Oncologic (Cancer) History: Reports: None Dermatologic History: Reports: None - Infectious Disease History Infectious Disease History: Reports: Chicken Pox - Past Surgical History Head Surgeries/Procedures: Reports: None HEENT Surgical History: Reports: Naso-Sinus Surgery, Oral Surgery Respiratory Surgical History: Reports: None Female Surgical History: Reports: Hysterectomy Endocrine Surgical History: Reports: None Musculoskeletal Surgical History: Reports: None Oncologic Surgical History: Reports: None Dermatological Surgical History: Reports: None Social & Family History - Family History Family Medical History: Unobtainable Cardiac: Reports: Heart Failure - Tobacco Use Smoking Status *Q: Never Smoker - Caffeine Use Caffeine Use Comment: unable to obtain - Alcohol Use Days Per Week of Alcohol Use: 3 Number of Drinks Per Day: 2 Total Drinks Per Week: 6 Alcohol Use Frequency: Binges, Daily - Recreational Drug Use Recreational Drug Use: No H&P Review of Systems - Review of Systems: Review Of Systems: See Below General: Reports: Weakness, Fatigue. Denies: Fever, Chills HEENT: Reports: Vertigo. Denies: Ear Pain, Headaches Pulmonary: Denies: Shortness of Breath, Pleuritic Chest Pain, Cough Cardiovascular: Reports: Lightheadedness. Denies: Chest Pain Gastrointestinal: Reports: No Symptoms. Denies: Abdominal Pain, Black Stool, Bloody Stool, Nausea, Vomiting Genitourinary: Reports: No Symptoms. Denies: Dysuria, Frequency, Burning Musculoskeletal: Reports: No Symptoms Skin: Reports: Bruising Psychiatric: Reports: Depression. Denies: Suicidal Ideation, Homicidal Ideation , Hallucinations (Auditory) Neurological: Reports: No Symptoms Hematologic/Lymphatic: Reports: No Symptoms Immunologic: Reports: No Symptoms Exam - Exam Exam: See Below - Vital Signs Vital Signs: Last Vital Signs Temp 96.6 F L 07/15/19 10:14 Pulse 85 07/15/19 11:00 Resp 18 07/15/19 11:00 BP 126/68 07/15/19 11:00 Pulse Ox 95 07/15/19 11:00 Weight: 90.718 kg - Exam General: Alert, Oriented, Cooperative HEENT: Conjunctiva Clear, Mucosa Moist & [place], Posterior Pharynx Clear Lungs: Clear to Auscultation, Normal Respiratory Effort Cardiovascular: Regular Rate, Regular Rhythm, Normal S1, Normal S2, Systolic Murmur GI/Abdominal Exam: Normal Bowel Sounds, Soft, Non-Tender, Other (obese abdomen) Rectal (Female) Exam: Heme + Stool Back Exam: Normal Inspection, Full Range of Motion Extremities: Normal Inspection, Normal Range of Motion, No Pedal Edema Skin: Ecchymosis (multiple bruises to bilateral loewr extremities. Abrasion to bridge of nose and bruising to face. reports falling at home) Neuro Extensive - Mental Status: Alert, Oriented x3, Normal Mood/Affect Neuro Extensive - Motor, Sensory, Reflexes: CN II-XII Intact Psychiatric: Alert, Normal Affect, Anxious, Depressed (tearful) - Patient Data Lab Results Last 24 hrs: Laboratory Results - last 24 hr 07/15/19 07/15/19 07/15/19 Range/Units 10:30 10:30 10:30 WBC 8.13 (4.0-11.0) K/uL RBC 3.06 L (4.30-5.90) M/uL Hgb 7.5 L (12.0-16.0) g/dL Hct 26.0 L (36.0-46.0) % MCV 85.0 (80.0-98.0) fL MCH 24.5 L (27.0-32.0) pg MCHC 28.8 L (31.0-37.0) g/dL RDW Std Deviation 51.3 (28.0-62.0) fl RDW Coeff of Cintia 17 H (11.0-15.0) % Plt Count 319 (150-400) K/uL MPV 8.80 (7.40-12.00) fL Neut % (Auto) 74.7 (48.0-80.0) % Lymph % (Auto) 14.8 L (16.0-40.0) % [place] % (Auto) 9.6 (0.0-15.0) % Eos % (Auto) 0.7 (0.0-7.0) % Baso % (Auto) 0.2 (0.0-1.5) % Neut # (Auto) 6.1 H (1.4-5.7) K/uL Lymph # (Auto) 1.2 (0.6-2.4) K/uL [place] # (Auto) 0.8 (0.0-0.8) K/uL Eos # (Auto) 0.1 (0.0-0.7) K/uL Baso # (Auto) 0.0 (0.0-0.1) K/uL Nucleated RBC % 0.4 /100WBC Nucleated RBCs # 0 K/uL Smear Path Review INR 1.00 Sodium 139 (136-145) mmol/L Potassium 4.1 (3.5-5.1) mmol/L Chloride 101 (98-107) mmol/L Carbon Dioxide 23.9 (21.0-32.0) mmol/L BUN 7 (7.0-18.0) mg/dL Creatinine 0.8 (0.6-1.0) mg/dL Est Cr Clr Drug Dosing 56.93 mL/min Estimated GFR (MDRD) > 60.0 ml/min Glucose 118 H (74-106) mg/dL Calcium 8.9 (8.5-10.1) mg/dL Total Bilirubin 0.6 (0.2-1.0) mg/dL AST 357 H (15-37) IU/L ALT 219 H (14-63) IU/L Alkaline Phosphatase 87 (46-116) U/L Troponin I < 0.050 (0.000-0.056) ng/mL Total Protein 7.5 (6.4-8.2) g/dL Albumin 3.6 (3.4-5.0) g/dL Globulin 3.9 (2.6-4.0) g/dL Albumin/Globulin Ratio 0.9 (0.9-1.6) Urine Color Urine Appearance Urine pH (5.0-8.0) Ur Specific [place] (1.001-1.035) Urine Protein (NEGATIVE) mg/dL Urine Glucose (UA) (NEGATIVE) mg/dL Urine Ketones (NEGATIVE) mg/dL Urine Occult Blood (NEGATIVE) Urine Nitrite (NEGATIVE) Urine Bilirubin (NEGATIVE) Urine Urobilinogen (<2.0) EU/dL Ur Leukocyte Esterase (NEGATIVE) Urine RBC (0-2/HPF) Urine WBC (0-5/HPF) Ur Epithelial Cells (NONE-FEW) Urine Bacteria (NEGATIVE) Urine Opiates Screen (NEGATIVE) Ur Oxycodone Screen (NEGATIVE) Urine Methadone Screen (NEGATIVE) Ur Barbiturates Screen (NEGATIVE) Ur Phencyclidine Scrn (NEGATIVE) Ur Amphetamine Screen (NEGATIVE) U Methamphetamines Scrn (NEGATIVE) U Benzodiazepines Scrn (NEGATIVE) U Cocaine Metab Screen (NEGATIVE) U Marijuana (THC) Screen (NEGATIVE) Ethyl Alcohol < 3.0 mg/dL Blood Type Antibody Screen Crossmatch 07/15/19 07/15/19 07/15/19 Range/Units 10:30 11:20 11:20 WBC (4.0-11.0) K/uL RBC (4.30-5.90) M/uL Hgb (12.0-16.0) g/dL Hct (36.0-46.0) % MCV (80.0-98.0) fL MCH (27.0-32.0) pg MCHC (31.0-37.0) g/dL RDW Std Deviation (28.0-62.0) fl RDW Coeff of Cintia (11.0-15.0) % Plt Count (150-400) K/uL MPV (7.40-12.00) fL Neut % (Auto) (48.0-80.0) % Lymph % (Auto) (16.0-40.0) % [place] % (Auto) (0.0-15.0) % Eos % (Auto) (0.0-7.0) % Baso % (Auto) (0.0-1.5) % Neut # (Auto) (1.4-5.7) K/uL Lymph # (Auto) (0.6-2.4) K/uL [place] # (Auto) (0.0-0.8) K/uL Eos # (Auto) (0.0-0.7) K/uL Baso # (Auto) (0.0-0.1) K/uL Nucleated RBC % /100WBC Nucleated RBCs # K/uL Smear Path Review SENT TO PATHOLOGY INR Sodium (136-145) mmol/L Potassium (3.5-5.1) mmol/L Chloride (98-107) mmol/L Carbon Dioxide (21.0-32.0) mmol/L BUN (7.0-18.0) mg/dL Creatinine (0.6-1.0) mg/dL Est Cr Clr Drug Dosing mL/min Estimated GFR (MDRD) ml/min Glucose (74-106) mg/dL Calcium (8.5-10.1) mg/dL Total Bilirubin (0.2-1.0) mg/dL AST (15-37) IU/L ALT (14-63) IU/L Alkaline Phosphatase (46-116) U/L Troponin I (0.000-0.056) ng/mL Total Protein (6.4-8.2) g/dL Albumin (3.4-5.0) g/dL Globulin (2.6-4.0) g/dL Albumin/Globulin Ratio (0.9-1.6) Urine Color YELLOW Urine Appearance SLT CLOUDY Urine pH 6.0 (5.0-8.0) Ur Specific [place] >= 1.030 (1.001-1.035) Urine Protein NEGATIVE (NEGATIVE) mg/dL Urine Glucose (UA) NEGATIVE (NEGATIVE) mg/dL Urine Ketones 15 H (NEGATIVE) mg/dL Urine Occult Blood NEGATIVE (NEGATIVE) Urine Nitrite POSITIVE H (NEGATIVE) Urine Bilirubin NEGATIVE (NEGATIVE) Urine Urobilinogen 0.2 (<2.0) EU/dL Ur Leukocyte Esterase SMALL H (NEGATIVE) Urine RBC 0-5 (0-2/HPF) Urine WBC 15-25 (0-5/HPF) Ur Epithelial Cells RARE (NONE-FEW) Urine Bacteria 3+ H (NEGATIVE) Urine Opiates Screen NEGATIVE (NEGATIVE) Ur Oxycodone Screen NEGATIVE (NEGATIVE) Urine Methadone Screen NEGATIVE (NEGATIVE) Ur Barbiturates Screen NEGATIVE (NEGATIVE) Ur Phencyclidine Scrn NEGATIVE (NEGATIVE) Ur Amphetamine Screen NEGATIVE (NEGATIVE) U Methamphetamines Scrn NEGATIVE (NEGATIVE) U Benzodiazepines Scrn POSITIVE (NEGATIVE) U Cocaine Metab Screen NEGATIVE (NEGATIVE) U Marijuana (THC) Screen NEGATIVE (NEGATIVE) Ethyl Alcohol mg/dL Blood Type Antibody Screen Crossmatch 07/15/19 Range/Units 11:37 WBC (4.0-11.0) K/uL RBC (4.30-5.90) M/uL Hgb (12.0-16.0) g/dL Hct (36.0-46.0) % MCV (80.0-98.0) fL MCH (27.0-32.0) pg MCHC (31.0-37.0) g/dL RDW Std Deviation (28.0-62.0) fl RDW Coeff of Cintia (11.0-15.0) % Plt Count (150-400) K/uL MPV (7.40-12.00) fL Neut % (Auto) (48.0-80.0) % Lymph % (Auto) (16.0-40.0) % [place] % (Auto) (0.0-15.0) % Eos % (Auto) (0.0-7.0) % Baso % (Auto) (0.0-1.5) % Neut # (Auto) (1.4-5.7) K/uL Lymph # (Auto) (0.6-2.4) K/uL [place] # (Auto) (0.0-0.8) K/uL Eos # (Auto) (0.0-0.7) K/uL Baso # (Auto) (0.0-0.1) K/uL Nucleated RBC % /100WBC Nucleated RBCs # K/uL Smear Path Review INR Sodium (136-145) mmol/L Potassium (3.5-5.1) mmol/L Chloride (98-107) mmol/L Carbon Dioxide (21.0-32.0) mmol/L BUN (7.0-18.0) mg/dL Creatinine (0.6-1.0) mg/dL Est Cr Clr Drug Dosing mL/min Estimated GFR (MDRD) ml/min Glucose (74-106) mg/dL Calcium (8.5-10.1) mg/dL Total Bilirubin (0.2-1.0) mg/dL AST (15-37) IU/L ALT (14-63) IU/L Alkaline Phosphatase (46-116) U/L Troponin I (0.000-0.056) ng/mL Total Protein (6.4-8.2) g/dL Albumin (3.4-5.0) g/dL Globulin (2.6-4.0) g/dL Albumin/Globulin Ratio (0.9-1.6) Urine Color Urine Appearance Urine pH (5.0-8.0) Ur Specific [place] (1.001-1.035) Urine Protein (NEGATIVE) mg/dL Urine Glucose (UA) (NEGATIVE) mg/dL Urine Ketones (NEGATIVE) mg/dL Urine Occult Blood (NEGATIVE) Urine Nitrite (NEGATIVE) Urine Bilirubin (NEGATIVE) Urine Urobilinogen (<2.0) EU/dL Ur Leukocyte Esterase (NEGATIVE) Urine RBC (0-2/HPF) Urine WBC (0-5/HPF) Ur Epithelial Cells (NONE-FEW) Urine Bacteria (NEGATIVE) Urine Opiates Screen (NEGATIVE) Ur Oxycodone Screen (NEGATIVE) Urine Methadone Screen (NEGATIVE) Ur Barbiturates Screen (NEGATIVE) Ur Phencyclidine Scrn (NEGATIVE) Ur Amphetamine Screen (NEGATIVE) U Methamphetamines Scrn (NEGATIVE) U Benzodiazepines Scrn (NEGATIVE) U Cocaine Metab Screen (NEGATIVE) U Marijuana (THC) Screen (NEGATIVE) Ethyl Alcohol mg/dL Blood Type O POSITIVE Antibody Screen NEGATIVE Crossmatch See Detail Result Diagrams: 07/15/19 10:30 07/15/19 10:30 Sepsis Event Note - Evaluation Sepsis Screening Result: No Definite Risk - Focused Exam Vital Signs: Vital Signs Temp Pulse Resp BP Pulse Ox 07/15/19 11:00 85 18 126/68 95 07/15/19 10:14 96.6 F L 103 H 20 141/70 H 93 L Date Exam was Performed: 07/15/19 Time Exam was Performed: 14:20 - Problem List (1) GI bleed SNOMED Code(s): 48170482 ICD Code: K92.2 - GASTROINTESTINAL HEMORRHAGE, UNSPECIFIED Status: Acute Current Visit: No Qualifiers: GI bleed type/associated pathology: unspecified gastrointestinal hemorrhage type Qualified Code(s): K92.2 - Gastrointestinal hemorrhage, unspecified (2) UTI (urinary tract infection) SNOMED Code(s): 08597030 ICD Code: N39.0 - URINARY TRACT INFECTION, SITE NOT SPECIFIED Status: Acute Current Visit: No (3) Anemia SNOMED Code(s): 384392034 ICD Code: D64.9 - ANEMIA, UNSPECIFIED Status: Acute Priority: High Current Visit: No Qualifiers: Iron deficiency anemia type: chronic blood loss (4) HTN (hypertension) SNOMED Code(s): 46169273 ICD Code: I10 - ESSENTIAL (PRIMARY) HYPERTENSION Status: Chronic Current Visit: Yes Qualifiers: Hypertension type: essential hypertension Qualified Code(s): I10 - Essential (primary) hypertension (5) Anxiety SNOMED Code(s): 65306440 ICD Code: F41.9 - ANXIETY DISORDER, UNSPECIFIED Status: Chronic Current Visit: Yes (6) Hypothyroidism SNOMED Code(s): 43655753 ICD Code: E03.9 - HYPOTHYROIDISM, UNSPECIFIED Status: Chronic Current Visit: Yes (7) Restless leg syndrome SNOMED Code(s): 48460705 ICD Code: G25.81 - RESTLESS LEGS SYNDROME Status: Chronic Current Visit: Yes (8) Alcohol abuse SNOMED Code(s): 31083310 ICD Code: F10.10 - ALCOHOL ABUSE, UNCOMPLICATED Status: Chronic Priority : Low Current Visit: No (9) Depressed SNOMED Code(s): 58475696 ICD Code: F32.9 - MAJOR DEPRESSIVE DISORDER, SINGLE EPISODE, UNSPECIFIED Status: Chronic Current Visit: No Qualifiers: Depression Type: unspecified Qualified Code(s): F32.9 - Major depressive disorder, single episode, unspecified Problem List Initiated/Reviewed/Updated: Yes Orders Last 24hrs: Active Orders 24 hr Category Date Time Status Patient Status [ADT] Stat ADT 07/15/19 12:56 Active Antiembolic Devices [RC] PER UNIT ROUTINE Care 07/15/19 13:00 Ordered CIWAA Assessment [RC] Q4H Care 07/15/19 13:04 Ordered Communication Order [RC] ROUTINE Care 07/15/19 12:58 Active Communication Order [RC] ROUTINE Care 07/15/19 13:11 Ordered EKG Documentation Completion [RC] STAT Care 07/15/19 10:15 Active Intake and Output [RC] QSHIFT Care 07/15/19 13:00 Ordered Notify Provider Consults [RC] ASDIRECTED Care 07/15/19 12:59 Ordered Oxygen Therapy [RC] PRN Care 07/15/19 13:00 Ordered Telemetry Monitoring [Cardiac Monitoring] [RC] . Care 07/15/19 12:58 Active DIRECTED Up With Assistance [RC] ASDIRECTED Care 07/15/19 12:59 Ordered VTE/DVT Education [RC] PER UNIT ROUTINE Care 07/15/19 13:00 Ordered Vital Signs [RC] Q4H Care 07/15/19 13:00 Ordered Consult to Physician [CONS] Routine Cons 07/15/19 12:58 Ordered Clear Liquid Diet [DIET] Diet 07/15/19 Lunch Ordered Abdomen Ltd [US] Urgent Exams 07/15/19 12:59 Ordered CBC WITH AUTO DIFF [HEME] AM Lab 07/16/19 05:11 Ordered CBC WITH AUTO DIFF [HEME] AM Lab 07/17/19 05:11 Ordered CBC WITH AUTO DIFF [HEME] AM Lab 07/18/19 05:11 Ordered COMPREHENSIVE METABOLIC PN,CMP [CHEM] AM Lab 07/16/19 05:11 Ordered COMPREHENSIVE METABOLIC PN,CMP [CHEM] AM Lab 07/17/19 05:11 Ordered COMPREHENSIVE METABOLIC PN,CMP [CHEM] AM Lab 07/18/19 05:11 Ordered CULTURE BLOOD [BC] Stat Lab 07/15/19 12:51 Ordered CULTURE BLOOD [BC] Stat Lab 07/15/19 12:51 Ordered CULTURE URINE [RM] Stat Lab 07/15/19 11:20 Received FERRITIN [CHEM] Stat Lab 07/15/19 10:30 Received FOLIC ACID [CHEM] Routine Lab 07/15/19 11:37 Received HEPATITIS PANEL (4) [REF] Routine Lab 07/15/19 12:35 Ordered IRON/TIBC [CHEM] Routine Lab 07/15/19 10:30 Received MAGNESIUM [CHEM] AM Lab 07/16/19 05:11 Ordered MAGNESIUM [CHEM] AM Lab 07/17/19 05:11 Ordered MAGNESIUM [CHEM] AM Lab 07/18/19 05:11 Ordered PHOSPHORUS [CHEM] AM Lab 07/16/19 05:11 Ordered PHOSPHORUS [CHEM] AM Lab 07/17/19 05:11 Ordered PHOSPHORUS [CHEM] AM Lab 07/18/19 05:11 Ordered RED BLOOD CELLS LP [BBK] Routine Lab 07/15/19 13:11 Ordered RETICULOCYTE COUNT [HEME] Routine Lab 07/15/19 10:30 Received TRANSFERRIN [CHEM] Routine Lab 07/15/19 10:30 Received TYPE AND SCREEN [BBK] Stat Lab 07/15/19 11:37 Results VITAMIN B12 [CHEM] Routine Lab 07/15/19 11:37 Received Folic Acid Med 07/15/19 13:15 Ordered 1 mg SUBCUT DAILY LORazepam [Ativan] Med 07/15/19 13:09 Ordered See Protocol IVPUSH Q4H PRN Ondansetron [Zofran] Med 07/15/19 12:59 Ordered 4 mg IVPUSH Q4H PRN Pantoprazole [ProTONIX IV] 40 mg Med 07/15/19 12:45 Active Sodium Chloride 0.9% [Normal Saline] 10 ml IV Q12H Sodium Chloride 0.9% [Saline Flush] Med 07/15/19 12:59 Ordered 2.5 ml FLUSH ASDIRECTED PRN Thiamine [Vitamin B-1] 100 mg Med 07/15/19 13:15 Ordered Sodium Chloride 0.9% [Normal Saline] 100 ml IV DAILY cefTRIAXone [Rocephin in Dextrose,Iso-Osm 1 GM/50 ML] 1 Med 07/15/19 13:15 Ordered gm Premix Bag 1 bag IV Q24H Blood Culture x2 Reflex Set [OM.PC] Stat Oth 07/15/19 12:51 Ordered Saline Lock Insert [OM.PC] Routine Oth 07/15/19 12:59 Ordered Sequential Compression Device [OM.PC] Per Unit Routine Oth 07/15/19 13:00 Ordered Transfuse Red Blood Cells [COMM] Routine Oth 07/15/19 13:10 Ordered Resuscitation Status Routine Resus Stat 07/15/19 12:59 Ordered Medication Orders Folic Acid (Folic Acid) 1 mg SUBCUT DAILY KAILYN Pantoprazole Sodium 40 mg/ (Sodium Chloride) 10 mls @ 300 mls/hr IV Q12H KAILYN Ceftriaxone Sodium/Dextrose 1 (gm/ Premix) 50 mls @ 100 mls/hr IV Q24H KAILYN Thiamine HCl 100 mg/ Sodium (Chloride) 101 mls @ 202 mls/hr IV DAILY KAILYN Lorazepam (Ativan) 0 mg IVPUSH Q4H PRN; Protocol PRN Reason: CIWAA Ondansetron HCl (Zofran) 4 mg IVPUSH Q4H PRN PRN Reason: Nausea Sodium Chloride (Saline Flush) 2.5 ml FLUSH ASDIRECTED PRN PRN Reason: Keep Vein Open Assessment/Plan Comment:: This 64 year female admitted with acute GI bleeding, UTI and alcohol withdrawal 1. Acute GI bleeding, likely upper - Consult Dr Smart, general surgery - Plan for dual endoscopy Saturday, will start prep per Dr Smart instructions - CL diet - Protonix 40 mg BID IV - Transfuse to goal of 10 hgb. 2 units PRBCs now - Hemoccult positive in ED - Iron studies and peripheral smear for anemia - Poor IV access, Dr Smart to place central line - Monitor on telemetry 2. UTI - UC and BC obtained in ED - Rocephin 1 gm IV daily 3. Alcohol withdrawal - CIWAA with Ativan Protocol PRN - Thiamine and folic acid supplementation 4. Anxiety/depression - Continue home medications - Discuss further psychiatric needs when more alert in am, consider telepysch consult if patient agrees 5. HTN: - Stable, monitor with GI bleeding VTE prophylaxis: SCDs only due to acute bleeding Code Status: Full code Dispo: 3 days - Mortality Measure Prognosis:: Good
--- NOTE | 2019-07-15 13:37 | PCM.SN.2 ---
- Free Text/Narrative Note: Called by [employer]UDIES DIRECTOR for IV access. Pt has multiple IV attempts previously. Rt AC attempted x 2 with 20g IV without success. No other veins are appreciated at this time. Called to Dr Smart and discussed with him. He will return at [address] CVL.
[2019-07-15] MEDS: cefTRIAXone 1 GM in Premix Bag 1 BAG IV SCH (14:33)
[2019-07-15] MEDS: Folic Acid 50 MG/10 ML MDV SUBCUT SCH (14:40)
[2019-07-15] MEDS: Pantoprazole 40 MG in Sodium Chloride 0.9% 10 ML IV SCH (14:42)
--- NOTE | 2019-07-15 14:58 | PCM.SN.2 ---
- Free Text/Narrative Note: a 20G iv was in. Will put off CVL placement for the time being; plan continue the same. agressive resucsitation; plan dual scope Saturday;
[2019-07-15] MEDS ORDERED: Iron Sucrose Complex 200 MG in Sodium Chloride 0.9% 100 ML IV ONE (15:00)
[2019-07-15] MEDS: Thiamine 100 MG in Sodium Chloride 0.9% 100 ML IV SCH (15:14)
[2019-07-15] MEDS ORDERED: hydrOXYzine Pamoate 25 MG Cap PO PRN (15:52)
--- NOTE | 2019-07-15 16:58 | US ---
Addendum: Voice recognition error identified within the impression. 1st sentence of the impression should read as follows: 1. Enlarged left lobe of the liver is noted. No discrete mass is appreciated within the liver. Difficult to exclude early cirrhosis. --- Addendum1 above dictated on [07/18/2019 11:22] by [Mary Bradshaw, Logan Palacio] --- --- Addendum1 above signed on [07/18/2019 11:22] by [Mary Bradshaw Hilton J.] --- --- Original report below dictated on [07/15/2019 15:55] by [Mary Bradshaw Hilton J.] --- --- Original report below signed on [07/15/2019 15:56] by [Mary Bradshaw, Logan Palacio] --- Limited abdominal ultrasound: Multiple real-time images of the upper right abdomen were obtained. Visualized pancreas shows no discrete abnormality. Single large gallstone is seen within the gallbladder measuring 2.1 cm. Gallbladder shows no wall thickening or biliary duct dilatation. Right kidney shows no hydronephrosis or mass. Right kidney measures 9.5 cm in length. Enlarged left lobe of the liver is noted. Impression: 1. Enlarged left lota but of the liver is noted. No discrete mass is appreciated within the liver. Difficult to exclude early cirrhosis. 2. Single large gallstone without gallbladder wall thickening or biliary duct dilatation. 3. No additional abnormality appreciated on right upper quadrant abdominal ultrasound. Diagnostic code #3 This report was dictated in MDT --- Addendum1 signed ---
[2019-07-15] MEDS: Nystatin Topical Powder 15 GM Bottle TOP SCH (17:26)
[2019-07-15] MEDS: ARIPiprazole 10 MG Tab PO SCH (22:01)
[2019-07-15] MEDS: Gabapentin 300 MG Cap PO SCH (22:02)
[2019-07-16] MEDS: Pantoprazole 40 MG in Sodium Chloride 0.9% 10 ML IV SCH ×2 (00:31→14:51)
[2019-07-16] MEDS: Nystatin Topical Powder 15 GM Bottle TOP SCH ×5 (00:32→23:56)
[2019-07-16 06:18] LABS: BLOOD UREA NITROGEN,BUN 5 mg/dL (7.0-18.0); CARBON DIOXIDE,CO2 27.4 mmol/L (21.0-32.0); CHLORIDE,CL 103 mmol/L (98-107); GLUCOSE RANDOM 109 mg/dL (74-106); POTASSIUM,K 3.6 mmol/L (3.5-5.1); SODIUM,NA 137 mmol/L (136-145)
[2019-07-16] MEDS: Gabapentin 300 MG Cap PO SCH ×3 (06:27→21:20)
[2019-07-16] MEDS: Levothyroxine 150 MCG Tab PO SCH (06:27)
[2019-07-16] MEDS ORDERED: Iron Sucrose Complex 200 MG in Sodium Chloride 0.9% 100 ML IV ONE (07:57)
--- NOTE | 2019-07-16 07:58 | PCM.PN ---
- General Info Date of Service: 07/16/19 Admission Dx/Problem (Free Text): Admission Diagnosis/Problem Admission Diagnosis/Problem GI bleed not requiring more than 4 units of blood in 24 hours, ICU, or surgery Subjective Update: Sleepy today, feeling better. No concerns this morning, asking for chicken broth. Functional Status: Reports: Pain Controlled, Ambulating, Urinating - Review of Systems HEENT: Reports: No Symptoms. Denies: Headaches, Sore Throat Pulmonary: Reports: No Symptoms. Denies: Shortness of Breath Cardiovascular: Reports: No Symptoms. Denies: Chest Pain Gastrointestinal: Reports: No Symptoms. Denies: Abdominal Pain, Nausea, Vomiting Genitourinary: Reports: No Symptoms Musculoskeletal: Reports: No Symptoms Skin: Reports: No Symptoms Neurological: Reports: No Symptoms Psychiatric: Reports: No Symptoms - Patient Data Vitals - Most Recent: Last Vital Signs Temp 98.7 F 07/16/19 04:00 Pulse 75 07/16/19 04:00 Resp 18 07/16/19 04:00 BP 130/83 07/16/19 04:00 Pulse Ox 95 07/16/19 04:00 Weight - Most Recent: 88.9 kg I&O - Last 24 Hours: Intake & Output 07/15/19 07/16/19 07/16/19 22:59 06:59 14:59 Intake Total 760 350 Output Total 0 Balance 760 350 Lab Results Last 24 Hours: Laboratory Results - last 24 hr 07/15/19 07/15/19 07/15/19 Range/Units 10:30 10:30 10:30 WBC 8.13 (4.0-11.0) K/uL RBC 3.06 L (4.30-5.90) M/uL Hgb 7.5 L (12.0-16.0) g/dL Hct 26.0 L (36.0-46.0) % MCV 85.0 (80.0-98.0) fL MCH 24.5 L (27.0-32.0) pg MCHC 28.8 L (31.0-37.0) g/dL RDW Std Deviation 51.3 (28.0-62.0) fl RDW Coeff of Cintia 17 H (11.0-15.0) % Plt Count 319 (150-400) K/uL MPV 8.80 (7.40-12.00) fL Neut % (Auto) 74.7 (48.0-80.0) % Lymph % (Auto) 14.8 L (16.0-40.0) % [place] % (Auto) 9.6 (0.0-15.0) % Eos % (Auto) 0.7 (0.0-7.0) % Baso % (Auto) 0.2 (0.0-1.5) % Neut # (Auto) 6.1 H (1.4-5.7) K/uL Lymph # (Auto) 1.2 (0.6-2.4) K/uL [place] # (Auto) 0.8 (0.0-0.8) K/uL Eos # (Auto) 0.1 (0.0-0.7) K/uL Baso # (Auto) 0.0 (0.0-0.1) K/uL Nucleated RBC % 0.4 /100WBC Nucleated RBCs # 0 K/uL Smear Path Review Absolute Retic (20-80) K/uL Percent Retic (0.5-1.5) % Immature Retic Fraction % INR 1.00 Sodium 139 (136-145) mmol/L Potassium 4.1 (3.5-5.1) mmol/L Chloride 101 (98-107) mmol/L Carbon Dioxide 23.9 (21.0-32.0) mmol/L BUN 7 (7.0-18.0) mg/dL Creatinine 0.8 (0.6-1.0) mg/dL Est Cr Clr Drug Dosing 56.93 mL/min Estimated GFR (MDRD) > 60.0 ml/min Glucose 118 H (74-106) mg/dL Calcium 8.9 (8.5-10.1) mg/dL Phosphorus (2.6-4.7) mg/dL Magnesium (1.8-2.4) mg/dL Iron (50-175) ug/dL TIBC (250-450) ug/dL % Saturation (20-55) % Transferrin Ferritin (8-252) ng/mL Total Bilirubin 0.6 (0.2-1.0) mg/dL AST 357 H (15-37) IU/L ALT 219 H (14-63) IU/L Alkaline Phosphatase 87 (46-116) U/L Troponin I < 0.050 (0.000-0.056) ng/mL Total Protein 7.5 (6.4-8.2) g/dL Albumin 3.6 (3.4-5.0) g/dL Globulin 3.9 (2.6-4.0) g/dL Albumin/Globulin Ratio 0.9 (0.9-1.6) Vitamin B12 (193-986) pg/mL Folate (8.60-58.90) ng/mL Urine Color Urine Appearance Urine pH (5.0-8.0) Ur Specific [place] (1.001-1.035) Urine Protein (NEGATIVE) mg/dL Urine Glucose (UA) (NEGATIVE) mg/dL Urine Ketones (NEGATIVE) mg/dL Urine Occult Blood (NEGATIVE) Urine Nitrite (NEGATIVE) Urine Bilirubin (NEGATIVE) Urine Urobilinogen (<2.0) EU/dL Ur Leukocyte Esterase (NEGATIVE) Urine RBC (0-2/HPF) Urine WBC (0-5/HPF) Ur Epithelial Cells (NONE-FEW) Urine Bacteria (NEGATIVE) Urine Opiates Screen (NEGATIVE) Ur Oxycodone Screen (NEGATIVE) Urine Methadone Screen (NEGATIVE) Ur Barbiturates Screen (NEGATIVE) Ur Phencyclidine Scrn (NEGATIVE) Ur Amphetamine Screen (NEGATIVE) U Methamphetamines Scrn (NEGATIVE) U Benzodiazepines Scrn (NEGATIVE) U Cocaine Metab Screen (NEGATIVE) U Marijuana (THC) Screen (NEGATIVE) Ethyl Alcohol < 3.0 mg/dL SARS-CoV-2 RNA (RT-PCR) (NEGATIVE) Blood Type Antibody Screen Crossmatch 07/15/19 07/15/19 07/15/19 Range/Units 10:30 10:30 10:30 WBC (4.0-11.0) K/uL RBC 3.06 L (4.30-5.90) M/uL Hgb (12.0-16.0) g/dL Hct (36.0-46.0) % MCV (80.0-98.0) fL MCH (27.0-32.0) pg MCHC (31.0-37.0) g/dL RDW Std Deviation (28.0-62.0) fl RDW Coeff of Cintia (11.0-15.0) % Plt Count (150-400) K/uL MPV (7.40-12.00) fL Neut % (Auto) (48.0-80.0) % Lymph % (Auto) (16.0-40.0) % [place] % (Auto) (0.0-15.0) % Eos % (Auto) (0.0-7.0) % Baso % (Auto) (0.0-1.5) % Neut # (Auto) (1.4-5.7) K/uL Lymph # (Auto) (0.6-2.4) K/uL [place] # (Auto) (0.0-0.8) K/uL Eos # (Auto) (0.0-0.7) K/uL Baso # (Auto) (0.0-0.1) K/uL Nucleated RBC % /100WBC Nucleated RBCs # K/uL Smear Path Review SENT TO PATHOLOGY Absolute Retic 65.50 (20-80) K/uL Percent Retic 2.1 H (0.5-1.5) % Immature Retic Fraction 18 % INR Sodium (136-145) mmol/L Potassium (3.5-5.1) mmol/L Chloride (98-107) mmol/L Carbon Dioxide (21.0-32.0) mmol/L BUN (7.0-18.0) mg/dL Creatinine (0.6-1.0) mg/dL Est Cr Clr Drug Dosing mL/min Estimated GFR (MDRD) ml/min Glucose (74-106) mg/dL Calcium (8.5-10.1) mg/dL Phosphorus (2.6-4.7) mg/dL Magnesium (1.8-2.4) mg/dL Iron 15 L (50-175) ug/dL TIBC 425 (250-450) ug/dL % Saturation 3.53 L (20-55) % Transferrin 297.5 Ferritin 134 (8-252) ng/mL Total Bilirubin (0.2-1.0) mg/dL AST (15-37) IU/L ALT (14-63) IU/L Alkaline Phosphatase (46-116) U/L Troponin I (0.000-0.056) ng/mL Total Protein (6.4-8.2) g/dL Albumin (3.4-5.0) g/dL Globulin (2.6-4.0) g/dL Albumin/Globulin Ratio (0.9-1.6) Vitamin B12 (193-986) pg/mL Folate (8.60-58.90) ng/mL Urine Color Urine Appearance Urine pH (5.0-8.0) Ur Specific [place] (1.001-1.035) Urine Protein (NEGATIVE) mg/dL Urine Glucose (UA) (NEGATIVE) mg/dL Urine Ketones (NEGATIVE) mg/dL Urine Occult Blood (NEGATIVE) Urine Nitrite (NEGATIVE) Urine Bilirubin (NEGATIVE) Urine Urobilinogen (<2.0) EU/dL Ur Leukocyte Esterase (NEGATIVE) Urine RBC (0-2/HPF) Urine WBC (0-5/HPF) Ur Epithelial Cells (NONE-FEW) Urine Bacteria (NEGATIVE) Urine Opiates Screen (NEGATIVE) Ur Oxycodone Screen (NEGATIVE) Urine Methadone Screen (NEGATIVE) Ur Barbiturates Screen (NEGATIVE) Ur Phencyclidine Scrn (NEGATIVE) Ur Amphetamine Screen (NEGATIVE) U Methamphetamines Scrn (NEGATIVE) U Benzodiazepines Scrn (NEGATIVE) U Cocaine Metab Screen (NEGATIVE) U Marijuana (THC) Screen (NEGATIVE) Ethyl Alcohol mg/dL SARS-CoV-2 RNA (RT-PCR) (NEGATIVE) Blood Type Antibody Screen Crossmatch 07/15/19 07/15/19 07/15/19 Range/Units 11:20 11:20 11:37 WBC (4.0-11.0) K/uL RBC (4.30-5.90) M/uL Hgb (12.0-16.0) g/dL Hct (36.0-46.0) % MCV (80.0-98.0) fL MCH (27.0-32.0) pg MCHC (31.0-37.0) g/dL RDW Std Deviation (28.0-62.0) fl RDW Coeff of Cintia (11.0-15.0) % Plt Count (150-400) K/uL MPV (7.40-12.00) fL Neut % (Auto) (48.0-80.0) % Lymph % (Auto) (16.0-40.0) % [place] % (Auto) (0.0-15.0) % Eos % (Auto) (0.0-7.0) % Baso % (Auto) (0.0-1.5) % Neut # (Auto) (1.4-5.7) K/uL Lymph # (Auto) (0.6-2.4) K/uL [place] # (Auto) (0.0-0.8) K/uL Eos # (Auto) (0.0-0.7) K/uL Baso # (Auto) (0.0-0.1) K/uL Nucleated RBC % /100WBC Nucleated RBCs # K/uL Smear Path Review Absolute Retic (20-80) K/uL Percent Retic (0.5-1.5) % Immature Retic Fraction % INR Sodium (136-145) mmol/L Potassium (3.5-5.1) mmol/L Chloride (98-107) mmol/L Carbon Dioxide (21.0-32.0) mmol/L BUN (7.0-18.0) mg/dL Creatinine (0.6-1.0) mg/dL Est Cr Clr Drug Dosing mL/min Estimated GFR (MDRD) ml/min Glucose (74-106) mg/dL Calcium (8.5-10.1) mg/dL Phosphorus (2.6-4.7) mg/dL Magnesium (1.8-2.4) mg/dL Iron (50-175) ug/dL TIBC (250-450) ug/dL % Saturation (20-55) % Transferrin Ferritin (8-252) ng/mL Total Bilirubin (0.2-1.0) mg/dL AST (15-37) IU/L ALT (14-63) IU/L Alkaline Phosphatase (46-116) U/L Troponin I (0.000-0.056) ng/mL Total Protein (6.4-8.2) g/dL Albumin (3.4-5.0) g/dL Globulin (2.6-4.0) g/dL Albumin/Globulin Ratio (0.9-1.6) Vitamin B12 (193-986) pg/mL Folate (8.60-58.90) ng/mL Urine Color YELLOW Urine Appearance SLT CLOUDY Urine pH 6.0 (5.0-8.0) Ur Specific [place] >= 1.030 (1.001-1.035) Urine Protein NEGATIVE (NEGATIVE) mg/dL Urine Glucose (UA) NEGATIVE (NEGATIVE) mg/dL Urine Ketones 15 H (NEGATIVE) mg/dL Urine Occult Blood NEGATIVE (NEGATIVE) Urine Nitrite POSITIVE H (NEGATIVE) Urine Bilirubin NEGATIVE (NEGATIVE) Urine Urobilinogen 0.2 (<2.0) EU/dL Ur Leukocyte Esterase SMALL H (NEGATIVE) Urine RBC 0-5 (0-2/HPF) Urine WBC 15-25 (0-5/HPF) Ur Epithelial Cells RARE (NONE-FEW) Urine Bacteria 3+ H (NEGATIVE) Urine Opiates Screen NEGATIVE (NEGATIVE) Ur Oxycodone Screen NEGATIVE (NEGATIVE) Urine Methadone Screen NEGATIVE (NEGATIVE) Ur Barbiturates Screen NEGATIVE (NEGATIVE) Ur Phencyclidine Scrn NEGATIVE (NEGATIVE) Ur Amphetamine Screen NEGATIVE (NEGATIVE) U Methamphetamines Scrn NEGATIVE (NEGATIVE) U Benzodiazepines Scrn POSITIVE (NEGATIVE) U Cocaine Metab Screen NEGATIVE (NEGATIVE) U Marijuana (THC) Screen NEGATIVE (NEGATIVE) Ethyl Alcohol mg/dL SARS-CoV-2 RNA (RT-PCR) (NEGATIVE) Blood Type O POSITIVE Antibody Screen NEGATIVE Crossmatch See Detail 07/15/19 07/15/19 07/16/19 Range/Units 11:37 15:30 00:31 WBC (4.0-11.0) K/uL RBC (4.30-5.90) M/uL Hgb 9.2 L (12.0-16.0) g/dL Hct 29.3 L (36.0-46.0) % MCV (80.0-98.0) fL MCH (27.0-32.0) pg MCHC (31.0-37.0) g/dL RDW Std Deviation (28.0-62.0) fl RDW Coeff of Cintia (11.0-15.0) % Plt Count (150-400) K/uL MPV (7.40-12.00) fL Neut % (Auto) (48.0-80.0) % Lymph % (Auto) (16.0-40.0) % [place] % (Auto) (0.0-15.0) % Eos % (Auto) (0.0-7.0) % Baso % (Auto) (0.0-1.5) % Neut # (Auto) (1.4-5.7) K/uL Lymph # (Auto) (0.6-2.4) K/uL [place] # (Auto) (0.0-0.8) K/uL Eos # (Auto) (0.0-0.7) K/uL Baso # (Auto) (0.0-0.1) K/uL Nucleated RBC % /100WBC Nucleated RBCs # K/uL Smear Path Review Absolute Retic (20-80) K/uL Percent Retic (0.5-1.5) % Immature Retic Fraction % INR Sodium (136-145) mmol/L Potassium (3.5-5.1) mmol/L Chloride (98-107) mmol/L Carbon Dioxide (21.0-32.0) mmol/L BUN (7.0-18.0) mg/dL Creatinine (0.6-1.0) mg/dL Est Cr Clr Drug Dosing mL/min Estimated GFR (MDRD) ml/min Glucose (74-106) mg/dL Calcium (8.5-10.1) mg/dL Phosphorus (2.6-4.7) mg/dL Magnesium (1.8-2.4) mg/dL Iron (50-175) ug/dL TIBC (250-450) ug/dL % Saturation (20-55) % Transferrin Ferritin (8-252) ng/mL Total Bilirubin (0.2-1.0) mg/dL AST (15-37) IU/L ALT (14-63) IU/L Alkaline Phosphatase (46-116) U/L Troponin I (0.000-0.056) ng/mL Total Protein (6.4-8.2) g/dL Albumin (3.4-5.0) g/dL Globulin (2.6-4.0) g/dL Albumin/Globulin Ratio (0.9-1.6) Vitamin B12 1455 H (193-986) pg/mL Folate 17.90 (8.60-58.90) ng/mL Urine Color Urine Appearance Urine pH (5.0-8.0) Ur Specific [place] (1.001-1.035) Urine Protein (NEGATIVE) mg/dL Urine Glucose (UA) (NEGATIVE) mg/dL Urine Ketones (NEGATIVE) mg/dL Urine Occult Blood (NEGATIVE) Urine Nitrite (NEGATIVE) Urine Bilirubin (NEGATIVE) Urine Urobilinogen (<2.0) EU/dL Ur Leukocyte Esterase (NEGATIVE) Urine RBC (0-2/HPF) Urine WBC (0-5/HPF) Ur Epithelial Cells (NONE-FEW) Urine Bacteria (NEGATIVE) Urine Opiates Screen (NEGATIVE) Ur Oxycodone Screen (NEGATIVE) Urine Methadone Screen (NEGATIVE) Ur Barbiturates Screen (NEGATIVE) Ur Phencyclidine Scrn (NEGATIVE) Ur Amphetamine Screen (NEGATIVE) U Methamphetamines Scrn (NEGATIVE) U Benzodiazepines Scrn (NEGATIVE) U Cocaine Metab Screen (NEGATIVE) U Marijuana (THC) Screen (NEGATIVE) Ethyl Alcohol mg/dL SARS-CoV-2 RNA (RT-PCR) NEGATIVE (NEGATIVE) Blood Type Antibody Screen Crossmatch 07/16/19 07/16/19 Range/Units 05:43 05:43 WBC 6.50 (4.0-11.0) K/uL RBC 3.66 L (4.30-5.90) M/uL Hgb 9.4 L (12.0-16.0) g/dL Hct 30.9 L (36.0-46.0) % MCV 84.4 (80.0-98.0) fL MCH 25.7 L (27.0-32.0) pg MCHC 30.4 L (31.0-37.0) g/dL RDW Std Deviation 48.1 (28.0-62.0) fl RDW Coeff of Cintia 16 H (11.0-15.0) % Plt Count 198 (150-400) K/uL MPV 9.30 (7.40-12.00) fL Neut % (Auto) 69.5 (48.0-80.0) % Lymph % (Auto) 17.4 (16.0-40.0) % [place] % (Auto) 9.4 (0.0-15.0) % Eos % (Auto) 3.4 (0.0-7.0) % Baso % (Auto) 0.3 (0.0-1.5) % Neut # (Auto) 4.5 (1.4-5.7) K/uL Lymph # (Auto) 1.1 (0.6-2.4) K/uL [place] # (Auto) 0.6 (0.0-0.8) K/uL Eos # (Auto) 0.2 (0.0-0.7) K/uL Baso # (Auto) 0.0 (0.0-0.1) K/uL Nucleated RBC % 0.0 /100WBC Nucleated RBCs # 0 K/uL Smear Path Review Absolute Retic (20-80) K/uL Percent Retic (0.5-1.5) % Immature Retic Fraction % INR Sodium 137 (136-145) mmol/L Potassium 3.6 (3.5-5.1) mmol/L Chloride 103 (98-107) mmol/L Carbon Dioxide 27.4 (21.0-32.0) mmol/L BUN 5 L (7.0-18.0) mg/dL Creatinine 0.8 (0.6-1.0) mg/dL Est Cr Clr Drug Dosing 56.93 mL/min Estimated GFR (MDRD) > 60.0 ml/min Glucose 109 H (74-106) mg/dL Calcium 8.0 L (8.5-10.1) mg/dL Phosphorus 3.5 (2.6-4.7) mg/dL Magnesium 2.1 (1.8-2.4) mg/dL Iron (50-175) ug/dL TIBC (250-450) ug/dL % Saturation (20-55) % Transferrin Ferritin (8-252) ng/mL Total Bilirubin 1.0 (0.2-1.0) mg/dL AST 151 H (15-37) IU/L ALT 155 H (14-63) IU/L Alkaline Phosphatase 73 (46-116) U/L Troponin I (0.000-0.056) ng/mL Total Protein 6.2 L (6.4-8.2) g/dL Albumin 2.7 L (3.4-5.0) g/dL Globulin 3.5 (2.6-4.0) g/dL Albumin/Globulin Ratio 0.8 L (0.9-1.6) Vitamin B12 (193-986) pg/mL Folate (8.60-58.90) ng/mL Urine Color Urine Appearance Urine pH (5.0-8.0) Ur Specific [place] (1.001-1.035) Urine Protein (NEGATIVE) mg/dL Urine Glucose (UA) (NEGATIVE) mg/dL Urine Ketones (NEGATIVE) mg/dL Urine Occult Blood (NEGATIVE) Urine Nitrite (NEGATIVE) Urine Bilirubin (NEGATIVE) Urine Urobilinogen (<2.0) EU/dL Ur Leukocyte Esterase (NEGATIVE) Urine RBC (0-2/HPF) Urine WBC (0-5/HPF) Ur Epithelial Cells (NONE-FEW) Urine Bacteria (NEGATIVE) Urine Opiates Screen (NEGATIVE) Ur Oxycodone Screen (NEGATIVE) Urine Methadone Screen (NEGATIVE) Ur Barbiturates Screen (NEGATIVE) Ur Phencyclidine Scrn (NEGATIVE) Ur Amphetamine Screen (NEGATIVE) U Methamphetamines Scrn (NEGATIVE) U Benzodiazepines Scrn (NEGATIVE) U Cocaine Metab Screen (NEGATIVE) U Marijuana (THC) Screen (NEGATIVE) Ethyl Alcohol mg/dL SARS-CoV-2 RNA (RT-PCR) (NEGATIVE) Blood Type Antibody Screen Crossmatch Kel Results Last 24 Hours: Microbiology 07/15/19 15:02 Anaerobic Blood Culture - Final Blood - Venous - Lab Draw 07/15/19 13:08 Anaerobic Blood Culture - Final Blood - Venous Med Orders - Current: Current Medications Albuterol/Ipratropium (Duoneb 3.0-0.5 Mg/3 Ml) 3 ml NEB Q4HRRT PRN PRN Reason: SOB/wheezing Aripiprazole (Abilify) 5 mg PO BEDTIME [facility] Last Admin: 07/15/19 22:01 Dose: 5 mg Bisacodyl (Dulcolax) 20 mg PO ONETIME ONE Stop: 07/16/19 14:01 Duloxetine HCl (Cymbalta) 60 mg PO DAILY [facility] Folic Acid (Folic Acid) 1 mg SUBCUT DAILY [facility] Last Admin: 07/15/19 14:40 Dose: 1 mg Gabapentin (Neurontin) 300 mg PO TID [facility] Last Admin: 07/16/19 06:27 Dose: 300 mg Hydroxyzine Pamoate (Vistaril) 25 mg PO QID PRN PRN Reason: Anxiety Pantoprazole Sodium 40 mg/ (Sodium Chloride) 10 mls @ 300 mls/hr IV Q12H [facility] Last Admin: 07/16/19 00:31 Dose: 300 mls/hr Ceftriaxone Sodium/Dextrose 1 (gm/ Premix) 50 mls @ 100 mls/hr IV Q24H [facility] Last Admin: 07/15/19 14:33 Dose: 100 mls/hr Thiamine HCl 100 mg/ Sodium (Chloride) 101 mls @ 202 mls/hr IV DAILY [facility] Last Admin: 07/15/19 15:14 Dose: 202 mls/hr Iron Sucrose 200 mg/ Sodium (Chloride) 110 mls @ 400 mls/hr IV ONETIME ONE Stop: 07/16/19 08:12 Levothyroxine Sodium (Levothyroxine) 150 mcg PO DAILY@0700 [facility] Last Admin: 07/16/19 06:27 Dose: 150 mcg Lorazepam (Ativan) 0 mg IVPUSH Q4H PRN; Protocol PRN Reason: CIWAA Nystatin (Nystop) 0 gm TOP QID [facility] Last Admin: 07/16/19 06:27 Dose: 1 applic Ondansetron HCl (Zofran) 4 mg IVPUSH Q4H PRN PRN Reason: Nausea Polyethylene Glycol (Miralax) 238 gm PO ONETIME ONE Stop: 07/16/19 14:01 Sodium Chloride (Saline Flush) 2.5 ml FLUSH ASDIRECTED PRN PRN Reason: Keep Vein Open Discontinued Medications Sodium Chloride (Normal Saline) 1,000 mls @ 999 mls/hr IV STAT ONE Stop: 07/15/19 11:27 Last Admin: 07/15/19 10:35 Dose: 999 mls/hr Ceftriaxone Sodium/Dextrose 1 (gm/ Premix) 50 mls @ 100 mls/hr IV ONETIME ONE Stop: 07/15/19 12:54 Last Admin: 07/15/19 14:02 Dose: Not Given Iron Sucrose 200 mg/ Sodium (Chloride) 110 mls @ 400 mls/hr IV ONETIME ONE Stop: 07/15/19 15:16 Last Admin: 07/15/19 15:49 Dose: 400 mls/hr Sodium Chloride (Saline Flush) 10 ml FLUSH ASDIRECTED PRN PRN Reason: Keep Vein Open Sodium Chloride (Saline Flush) 2.5 ml FLUSH ASDIRECTED PRN PRN Reason: Keep Vein Open - Exam General: Alert, Oriented, Cooperative, Other (sleepy, but easily arousable and oriented) Lungs: Clear to Auscultation, Normal Respiratory Effort Cardiovascular: Regular Rate, Regular Rhythm GI/Abdominal Exam: Normal Bowel Sounds, Soft, Non-Tender, Other (obese abdomen) Back Exam: Normal Inspection, Full Range of Motion Extremities: Normal Inspection, Normal Range of Motion Skin: Ecchymosis (brusing continues, no new brusing noted.) Neurological: No New Focal Deficit Psy/Mental Status: Alert, Normal Affect, Normal Mood Sepsis Event Note - Evaluation Sepsis Screening Result: No Definite Risk - Focused Exam Vital Signs: Vital Signs Temp Temp Pulse Resp BP Pulse Ox 07/16/19 04:00 98.7 F 75 18 130/83 95 07/16/19 00:00 98.2 F 82 18 129/63 96 07/15/19 22:56 98 F 82 18 130/63 96 07/15/19 20:31 98.4 F 86 17 128/60 96 07/15/19 20:16 98.2 F 84 17 129/74 96 07/15/19 20:01 98 F 86 18 130/69 96 07/15/19 20:00 97.9 F 86 18 130/69 96 Date Exam was Performed: 07/16/19 Time Exam was Performed: 10:38 - Problem List & Annotations (1) GI bleed SNOMED Code(s): 60799268 Code(s): K92.2 - GASTROINTESTINAL HEMORRHAGE, UNSPECIFIED Status: Acute Current Visit: No Qualifiers: GI bleed type/associated pathology: unspecified gastrointestinal hemorrhage type Qualified Code(s): K92.2 - Gastrointestinal hemorrhage, unspecified (2) UTI (urinary tract infection) SNOMED Code(s): 62733779 Code(s): N39.0 - URINARY TRACT INFECTION, SITE NOT SPECIFIED Status: Acute Current Visit: No (3) Anemia SNOMED Code(s): 986293704 Code(s): D64.9 - ANEMIA, UNSPECIFIED Status: Acute Priority: High Current Visit: No Qualifiers: Iron deficiency anemia type: chronic blood loss (4) HTN (hypertension) SNOMED Code(s): 60201262 Code(s): I10 - ESSENTIAL (PRIMARY) HYPERTENSION Status: Chronic Current Visit: Yes Qualifiers: Hypertension type: essential hypertension Qualified Code(s): I10 - Essential (primary) hypertension (5) Anxiety SNOMED Code(s): 27728435 Code(s): F41.9 - ANXIETY DISORDER, UNSPECIFIED Status: Chronic Current Visit: Yes (6) Hypothyroidism SNOMED Code(s): 78245599 Code(s): E03.9 - HYPOTHYROIDISM, UNSPECIFIED Status: Chronic Current Visit: Yes (7) Restless leg syndrome SNOMED Code(s): 84588518 Code(s): G25.81 - RESTLESS LEGS SYNDROME Status: Chronic Current Visit: Yes (8) Alcohol abuse SNOMED Code(s): 32058094 Code(s): F10.10 - ALCOHOL ABUSE, UNCOMPLICATED Status: Chronic Priority: Low Current Visit: No (9) Depressed SNOMED Code(s): 06428311 Code(s): F32.9 - MAJOR DEPRESSIVE DISORDER, SINGLE EPISODE, UNSPECIFIED Status: Chronic Current Visit: No Qualifiers: Depression Type: unspecified Qualified Code(s): F32.9 - Major depressive disorder, single episode, unspecified - Problem List Review Problem List Initiated/Reviewed/Updated: Yes - My Orders Last 24 Hours: My Active Orders 07/15/19 11:37 RED BLOOD CELLS LP [BBK] Routine 07/15/19 12:45 Pantoprazole [ProTONIX IV] 40 mg Sodium Chloride 0.9% [Normal Saline] 10 ml IV Q12H 07/15/19 12:51 Blood Culture x2 Reflex Set [OM.PC] Stat 07/15/19 12:56 Patient Status [ADT] Stat 07/15/19 12:58 Communication Order [RC] ROUTINE Telemetry Monitoring [Cardiac Monitoring] [RC] Q8H Consult to Physician [CONS] Routine 07/15/19 12:59 Notify Provider Consults [RC] ASDIRECTED Up With Assistance [RC] DAILY Ondansetron [Zofran] 4 mg IVPUSH Q4H PRN Sodium Chloride 0.9% [Saline Flush] 2.5 ml FLUSH ASDIRECTED PRN Saline Lock Insert [OM.PC] Routine Resuscitation Status Routine 07/15/19 13:00 Antiembolic Devices [RC] PER UNIT ROUTINE Intake and Output [RC] Q12H Oxygen Therapy [RC] PRN VTE/DVT Education [RC] PER UNIT ROUTINE Vital Signs [RC] Q4H Sequential Compression Device [OM.PC] Per Unit Routine 07/15/19 13:04 CIWAA Assessment [RC] Q4H 07/15/19 13:08 CULTURE BLOOD [BC] Stat HEPATITIS PANEL (4) [REF] Routine 07/15/19 13:09 LORazepam [Ativan] See Protocol IVPUSH Q4H PRN 07/15/19 13:10 Transfuse Red Blood Cells [COMM] Routine 07/15/19 13:11 Communication Order [RC] ROUTINE 07/15/19 13:15 Folic Acid 1 mg SUBCUT DAILY Thiamine [Vitamin B-1] 100 mg Sodium Chloride 0.9% [Normal Saline] 100 ml IV DAILY cefTRIAXone [Rocephin in Dextrose,Iso-Osm 1 GM/50 ML] 1 gm Premix Bag 1 bag IV Q24H 07/15/19 13:52 H PYLORI STOOL ANTIGEN [MREF] Routine 07/15/19 14:21 Albuterol/Ipratropium [DuoNeb 3.0-0.5 MG/3 ML] 3 ml NEB Q4HRRT PRN 07/15/19 14:22 RT Aerosol Therapy [RC] ASDIRECTED 07/15/19 15:02 CULTURE BLOOD [BC] Stat 07/15/19 15:52 hydrOXYzine pamoate [Vistaril] 25 mg PO QID PRN 07/15/19 18:00 Nystatin [Nystop] See Dose Instructions TOP QID 07/15/19 21:00 ARIPiprazole [Abilify] 5 mg PO BEDTIME 07/15/19 22:00 Gabapentin [Neurontin] 300 mg PO TID 07/15/19 Lunch Clear Liquid Diet [DIET] 07/16/19 07:00 Levothyroxine 150 mcg PO DAILY@0700 07/16/19 07:57 Iron Sucrose Complex [Venofer] 200 mg Sodium Chloride 0.9% [Normal Saline] 100 ml IV ONETIME 07/16/19 09:00 DULoxetine [Cymbalta] 60 mg PO DAILY 07/17/19 05:11 CBC WITH AUTO DIFF [HEME] AM COMPREHENSIVE METABOLIC PN,CMP [CHEM] AM MAGNESIUM [CHEM] AM PHOSPHORUS [CHEM] AM 07/18/19 05:11 CBC WITH AUTO DIFF [HEME] AM COMPREHENSIVE METABOLIC PN,CMP [CHEM] AM MAGNESIUM [CHEM] AM PHOSPHORUS [CHEM] AM - Plan Plan:: This 64 year female admitted with acute GI bleeding, UTI and alcohol withdrawal 1. Acute GI bleeding, likely upper - Consult Dr Smart, general surgery - Plan for dual endoscopy Saturday, will start prep per Dr Smart instructions this afternoon - CL diet, NPO this evening - Protonix 40 mg BID IV - Transfuse to goal of 10 hgb. 1 more unit today. - Hemoccult positive in ED - Iron studies show anemia of chronic disease, will supplement iron IV and restart PO supplementation. peripheral smear pending - IV access obtained, no central line needed. - Monitor on telemetry 2. UTI - UC and BC obtained in ED - Rocephin 1 gm IV daily 3. Alcohol withdrawal - CIWAA with Ativan Protocol PRN - Thiamine and folic acid supplementation - Transaminitis noted, likely related to alcohol use. RUQ US shows fatty infiltration, single gallstone with no gallbladder wall thickening. Transaminitis improving today, no elevated bilirubin and no abdominal pain. Hepatitis panel pending. 4. Anxiety/depression - Continue home medications - Discuss further psychiatric needs when more awake, consider telepsych consult if patient agrees 5. HTN: - Stable, monitor with GI bleeding VTE prophylaxis: SCDs only due to acute bleeding Code Status: Full code Dispo: 3 days
[2019-07-16] MEDS: Folic Acid 50 MG/10 ML MDV SUBCUT SCH (08:23)
[2019-07-16] MEDS: Thiamine 100 MG in Sodium Chloride 0.9% 100 ML IV SCH (08:24)
[2019-07-16] MEDS: DULoxetine 60 MG Cap PO SCH (08:24)
[2019-07-16] MEDS ORDERED: Bisacodyl 5 MG Tab PO ONE (14:00)
[2019-07-16] MEDS ORDERED: Polyethylene Glycol 3350 Powder 17 GM Packet PO ONE (14:00)
--- NOTE | 2019-07-16 14:03 | CONS ---
DATE OF CONSULTATION: 07/15/2019 DATE OF : 1955 PRIMARY CARE PHYSICIAN: None PCP REASON FOR CONSULTATION: The patient's consult was called, and the patient was seen shortly after. Consulting question is anemic to 7.5. HISTORY OF PRESENT ILLNESS: The patient is a 64-year-old obese lady and has history of a dual scope [address] Alvarez and found to have basically essentially nothing and now presented to the emergency room with several-day history of loose energy and emergency room workup noted to have H and H of 7.5. The patient denied bright red blood per rectum, denied black tarry stool, denied abdominal pain. The previous colonoscopy showed diverticulosis. PAST MEDICAL HISTORY: Significant for no IA, CVA, hypertension, diabetes, none of those. The patient has history of stomach ulcer and hiatal hernia. FAMILY HISTORY: No malignant hyperthermia. ALLERGIES: Please refer to nursing for details. MEDICATION: Please refer to nursing for details. SURGERIES: Unknown. PHYSICAL EXAMINATION: GENERAL: A very pleasant lady, lying in bed, comfortable, in no acute distress. HEENT: Normocephalic and atraumatic. Sclerae are anicteric. LUNGS: Clear to auscultation. HEART: Regular rate and rhythm. ABDOMEN: Obese, protuberant. No hernia appreciated and nontender. LABORATORY DATA: H and H of 7.5. IMPRESS: Anemic with history of gastric ulcer and diverticulosis. Would benefit from a dual scope. Please proceed with gastrointestinal bleeding protocol, transfuse to above 10. Strict in and out, monitor urine output, and two IV access, avoid anticoagulation. If the patient is resuscitated, would benefit from dual scope on Saturday. Plan is discussed with Dr. Bonilla and Ximena. As always, thank you for the kind referral. JOE / AJ /[id number]
[2019-07-16] MEDS: cefTRIAXone 1 GM in Premix Bag 1 BAG IV SCH (14:56)
--- NOTE | 2019-07-16 16:13 | PCM.SURGPN ---
- General Info Date of Service: 07/16/19 - Review of Systems General: Reports: No Symptoms - Patient Data Vitals - Most Recent: Last Vital Signs Temp 98.3 F 07/16/19 14:35 Pulse 77 07/16/19 14:35 Resp 18 07/16/19 14:35 BP 155/78 H 07/16/19 14:35 Pulse Ox 95 07/16/19 14:35 Weight - Most Recent: 195 lb 15.855 oz I&O - Last 24 Hours: Intake & Output 07/16/19 07/16/19 07/16/19 06:59 14:59 22:59 Intake Total 350 350 Balance 350 350 Lab Results Last 24 Hrs: Laboratory Results - last 24 hr 07/15/19 07/15/19 07/16/19 Range/Units 11:37 15:30 00:31 WBC (4.0-11.0) K/uL RBC (4.30-5.90) M/uL Hgb 9.2 L (12.0-16.0) g/dL Hct 29.3 L (36.0-46.0) % MCV (80.0-98.0) fL MCH (27.0-32.0) pg MCHC (31.0-37.0) g/dL RDW Std Deviation (28.0-62.0) fl RDW Coeff of Cint[place] (11.0-15.0) % Plt Count (150-400) K/uL MPV (7.40-12.00) fL Neut % (Auto) (48.0-80.0) % Lymph % (Auto) (16.0-40.0) % [place] % (Auto) (0.0-15.0) % Eos % (Auto) (0.0-7.0) % Baso % (Auto) (0.0-1.5) % Neut # (Auto) (1.4-5.7) K/uL Lymph # (Auto) (0.6-2.4) K/uL [place] # (Auto) (0.0-0.8) K/uL Eos # (Auto) (0.0-0.7) K/uL Baso # (Auto) (0.0-0.1) K/uL Nucleated RBC % /100WBC Nucleated RBCs # K/uL Sodium (136-145) mmol/L Potassium (3.5-5.1) mmol/L Chloride (98-107) mmol/L Carbon Dioxide (21.0-32.0) mmol/L BUN (7.0-18.0) mg/dL Creatinine (0.6-1.0) mg/dL Est Cr Clr Drug Dosing mL/min Estimated GFR (MDRD) ml/min Glucose (74-106) mg/dL Calcium (8.5-10.1) mg/dL Phosphorus (2.6-4.7) mg/dL Magnesium (1.8-2.4) mg/dL Total Bilirubin (0.2-1.0) mg/dL AST (15-37) IU/L ALT (14-63) IU/L Alkaline Phosphatase (46-116) U/L Total Protein (6.4-8.2) g/dL Albumin (3.4-5.0) g/dL Globulin (2.6-4.0) g/dL Albumin/Globulin Ratio (0.9-1.6) SARS-CoV-2 RNA (RT-PCR) NEGATIVE (NEGATIVE) Blood Type O POSITIVE Antibody Screen NEGATIVE Crossmatch See Detail 07/16/19 07/16/19 Range/Units 05:43 05:43 WBC 6.50 (4.0-11.0) K/uL RBC 3.66 L (4.30-5.90) M/uL Hgb 9.4 L (12.0-16.0) g/dL Hct 30.9 L (36.0-46.0) % MCV 84.4 (80.0-98.0) fL MCH 25.7 L (27.0-32.0) pg MCHC 30.4 L (31.0-37.0) g/dL RDW Std Deviation 48.1 (28.0-62.0) fl RDW Coeff of Cintia 16 H (11.0-15.0) % Plt Count 198 (150-400) K/uL MPV 9.30 (7.40-12.00) fL Neut % (Auto) 69.5 (48.0-80.0) % Lymph % (Auto) 17.4 (16.0-40.0) % [place] % (Auto) 9.4 (0.0-15.0) % Eos % (Auto) 3.4 (0.0-7.0) % Baso % (Auto) 0.3 (0.0-1.5) % Neut # (Auto) 4.5 (1.4-5.7) K/uL Lymph # (Auto) 1.1 (0.6-2.4) K/uL [place] # (Auto) 0.6 (0.0-0.8) K/uL Eos # (Auto) 0.2 (0.0-0.7) K/uL Baso # (Auto) 0.0 (0.0-0.1) K/uL Nucleated RBC % 0.0 /100WBC Nucleated RBCs # 0 K/uL Sodium 137 (136-145) mmol/L Potassium 3.6 (3.5-5.1) mmol/L Chloride 103 (98-107) mmol/L Carbon Dioxide 27.4 (21.0-32.0) mmol/L BUN 5 L (7.0-18.0) mg/dL Creatinine 0.8 (0.6-1.0) mg/dL Est Cr Clr Drug Dosing 56.93 mL/min Estimated GFR (MDRD) > 60.0 ml/min Glucose 109 H (74-106) mg/dL Calcium 8.0 L (8.5-10.1) mg/dL Phosphorus 3.5 (2.6-4.7) mg/dL Magnesium 2.1 (1.8-2.4) mg/dL Total Bilirubin 1.0 (0.2-1.0) mg/dL AST 151 H (15-37) IU/L ALT 155 H (14-63) IU/L Alkaline Phosphatase 73 (46-116) U/L Total Protein 6.2 L (6.4-8.2) g/dL Albumin 2.7 L (3.4-5.0) g/dL Globulin 3.5 (2.6-4.0) g/dL Albumin/Globulin Ratio 0.8 L (0.9-1.6) SARS-CoV-2 RNA (RT-PCR) (NEGATIVE) Blood Type Antibody Screen Crossmatch Kel Results Last 24 Hrs: Microbiology 07/15/19 15:02 Aerobic Blood Culture - Preliminary Blood - Venous - Lab Draw NO GROWTH AFTER 1 DAY Anaerobic Blood Culture - Final 07/15/19 13:08 Aerobic Blood Culture - Preliminary Blood - Venous NO GROWTH AFTER 1 DAY Anaerobic Blood Culture - Final Med Orders - Current: Current Medications Albuterol/Ipratropium (Duoneb 3.0-0.5 Mg/3 Ml) 3 ml NEB Q4HRRT PRN PRN Reason: SOB/wheezing Aripiprazole (Abilify) 5 mg PO BEDTIME [facility] Last Admin: 07/15/19 22:01 Dose: 5 mg Duloxetine HCl (Cymbalta) 60 mg PO DAILY [facility] Last Admin: 07/16/19 08:24 Dose: 60 mg Folic Acid (Folic Acid) 1 mg SUBCUT DAILY [facility] Last Admin: 07/16/19 08:23 Dose: 1 mg Gabapentin (Neurontin) 300 mg PO TID [facility] Last Admin: 07/16/19 14:10 Dose: 300 mg Hydroxyzine Pamoate (Vistaril) 25 mg PO QID PRN PRN Reason: Anxiety Pantoprazole Sodium 40 mg/ (Sodium Chloride) 10 mls @ 300 mls/hr IV Q12H [facility] Last Admin: 07/16/19 14:51 Dose: 300 mls/hr Ceftriaxone Sodium/Dextrose 1 (gm/ Premix) 50 mls @ 100 mls/hr IV Q24H [facility] Last Admin: 07/16/19 14:56 Dose: 100 mls/hr Thiamine HCl 100 mg/ Sodium (Chloride) 101 mls @ 202 mls/hr IV DAILY [facility] Last Admin: 07/16/19 08:24 Dose: 202 mls/hr Levothyroxine Sodium (Levothyroxine) 150 mcg PO DAILY@0700 [facility] Last Admin: 07/16/19 06:27 Dose: 150 mcg Lorazepam (Ativan) 0 mg IVPUSH Q4H PRN; Protocol PRN Reason: CIWAA Nystatin (Nystop) 0 gm TOP QID [facility] Last Admin: 07/16/19 12:32 Dose: 1 applic Ondansetron HCl (Zofran) 4 mg IVPUSH Q4H PRN PRN Reason: Nausea Sodium Chloride (Saline Flush) 2.5 ml FLUSH ASDIRECTED PRN PRN Reason: Keep Vein Open Discontinued Medications Bisacodyl (Dulcolax) 20 mg PO ONETIME ONE Stop: 07/16/19 14:01 Last Admin: 07/16/19 14:11 Dose: 20 mg Sodium Chloride (Normal Saline) 1,000 mls @ 999 mls/hr IV STAT ONE Stop: 07/15/19 11:27 Last Admin: 07/15/19 10:35 Dose: 999 mls/hr Ceftriaxone Sodium/Dextrose 1 (gm/ Premix) 50 mls @ 100 mls/hr IV ONETIME ONE Stop: 07/15/19 12:54 Last Admin: 07/15/19 14:02 Dose: Not Given Iron Sucrose 200 mg/ Sodium (Chloride) 110 mls @ 400 mls/hr IV ONETIME ONE Stop: 07/15/19 15:16 Last Admin: 07/15/19 15:49 Dose: 400 mls/hr Iron Sucrose 200 mg/ Sodium (Chloride) 110 mls @ 400 mls/hr IV ONETIME ONE Stop: 07/16/19 08:12 Last Admin: 07/16/19 08:43 Dose: 400 mls/hr Polyethylene Glycol (Miralax) 238 gm PO ONETIME ONE Stop: 07/16/19 14:01 Last Admin: 07/16/19 14:11 Dose: 238 gm Sodium Chloride (Saline Flush) 10 ml FLUSH ASDIRECTED PRN PRN Reason: Keep Vein Open Sodium Chloride (Saline Flush) 2.5 ml FLUSH ASDIRECTED PRN PRN Reason: Keep Vein Open - Exam GI/Abdominal Exam: Normal Bowel Sounds, Soft, Non-Tender, No Distention Sepsis Event Note - Evaluation Sepsis Screening Result: No Definite Risk - Focused Exam Vital Signs: Vital Signs Temp Temp Pulse Resp BP Pulse Ox Pulse Ox 07/16/19 14:35 98.3 F 77 18 155/78 H 95 07/16/19 11:39 97.8 F 83 19 153/73 H 07/16/19 11:35 99 07/16/19 11:24 97.9 F 80 19 141/78 H 99 07/16/19 08:00 97.4 F 74 18 151/82 H 98 Date Exam was Performed: 07/16/19 Time Exam was Performed: 16:12 - Problem List Review Problem List Initiated/Reviewed/Updated: Yes - My Orders Last 24 Hours: Active Orders 24 hr Category Date Time Status Communication Order [RC] ROUTINE Care 07/16/19 14:59 Active Verify Patient Consent Obtain [RC] ASDIRECTED Care 07/17/19 05:00 Active NPO [Nothing Per Oral Diet] [DIET] Diet 07/17/19 Breakfast Active Nothing per Oral After Midnight Diet [DIET] Diet 07/16/19 Dinner Active CBC WITH AUTO DIFF [HEME] AM Lab 07/17/19 05:11 Ordered CBC WITH AUTO DIFF [HEME] AM Lab 07/18/19 05:11 Ordered COMPREHENSIVE METABOLIC PN,CMP [CHEM] AM Lab 07/17/19 05:11 Ordered COMPREHENSIVE METABOLIC PN,CMP [CHEM] AM Lab 07/18/19 05:11 Ordered MAGNESIUM [CHEM] AM Lab 07/17/19 05:11 Ordered MAGNESIUM [CHEM] AM Lab 07/18/19 05:11 Ordered PHOSPHORUS [CHEM] AM Lab 07/17/19 05:11 Ordered PHOSPHORUS [CHEM] AM Lab 07/18/19 05:11 Ordered ARIPiprazole [Abilify] Med 07/15/19 21:00 Active 5 mg PO BEDTIME DULoxetine [Cymbalta] Med 07/16/19 09:00 Active 60 mg PO DAILY Gabapentin [Neurontin] Med 07/15/19 22:00 Active 300 mg PO TID Levothyroxine Med 07/16/19 07:00 Active 150 mcg PO DAILY@0700 Nystatin [Nystop] Med 07/15/19 18:00 Active See Dose Instructions TOP QID hydrOXYzine pamoate [Vistaril] Med 07/15/19 15:52 Active 25 mg PO QID PRN Transfuse Red Blood Cells [COMM] Routine Oth 07/16/19 10:37 Ordered Medication Orders Albuterol/Ipratropium (Duoneb 3.0-0.5 Mg/3 Ml) 3 ml NEB Q4HRRT PRN PRN Reason: SOB/wheezing Aripiprazole (Abilify) 5 mg PO BEDTIME [facility] Last Admin: 07/15/19 22:01 Dose: 5 mg Duloxetine HCl (Cymbalta) 60 mg PO DAILY [facility] Last Admin: 07/16/19 08:24 Dose: 60 mg Folic Acid (Folic Acid) 1 mg SUBCUT DAILY [facility] Last Admin: 07/16/19 08:23 Dose: 1 mg Admin: 07/15/19 14:40 Dose: 1 mg Gabapentin (Neurontin) 300 mg PO TID [facility] Last Admin: 07/16/19 14:10 Dose: 300 mg Admin: 07/16/19 06:27 Dose: 300 mg Admin: 07/15/19 22:02 Dose: 300 mg Hydroxyzine Pamoate (Vistaril) 25 mg PO QID PRN PRN Reason: Anxiety Pantoprazole Sodium 40 mg/ (Sodium Chloride) 10 mls @ 300 mls/hr IV Q12H [facility] Last Admin: 07/16/19 14:51 Dose: 300 mls/hr Infusion: 07/16/19 00:33 Dose: 300 mls/hr Admin: 07/16/19 00:31 Dose: 300 mls/hr Infusion: 07/15/19 14:44 Dose: 300 mls/hr Admin: 07/15/19 14:42 Dose: 300 mls/hr Ceftriaxone Sodium/Dextrose 1 (gm/ Premix) 50 mls @ 100 mls/hr IV Q24H [facility] Last Admin: 07/16/19 14:56 Dose: 100 mls/hr Infusion: 07/15/19 15:03 Dose: 100 mls/hr Admin: 07/15/19 14:33 Dose: 100 mls/hr Thiamine HCl 100 mg/ Sodium (Chloride) 101 mls @ 202 mls/hr IV DAILY [facility] Last Admin: 07/16/19 08:24 Dose: 202 mls/hr Infusion: 07/15/19 15:44 Dose: 202 mls/hr Admin: 07/15/19 15:14 Dose: 202 mls/hr Levothyroxine Sodium (Levothyroxine) 150 mcg PO DAILY@0700 [facility] Last Admin: 07/16/19 06:27 Dose: 150 mcg Lorazepam (Ativan) 0 mg IVPUSH Q4H PRN; Protocol PRN Reason: CIWAA Nystatin (Nystop) 0 gm TOP QID [facility] Last Admin: 07/16/19 12:32 Dose: 1 applic Admin: 07/16/19 06:27 Dose: 1 applic Admin: 07/16/19 00:32 Dose: 1 applic Admin: 07/15/19 17:26 Dose: 1 applic Ondansetron HCl (Zofran) 4 mg IVPUSH Q4H PRN PRN Reason: Nausea Sodium Chloride (Saline Flush) 2.5 ml FLUSH ASDIRECTED PRN PRN Reason: Keep Vein Open - Assessment Assessment (Free Text/Narrative):: dual scope tomorrow, colonoscopy bowel prep today - Plan Plan (Free Text/Narrative):: dual scope tomorrow, colonoscopy bowel prep today
[2019-07-16] MEDS: Albuterol/Ipratropium 3.0-0.5 MG/3 ML Neb Soln NEB PRN (17:58)
[2019-07-16] MEDS: ARIPiprazole 10 MG Tab PO SCH (21:19)
[2019-07-17] MEDS: Pantoprazole 40 MG in Sodium Chloride 0.9% 10 ML IV SCH ×2 (00:30→13:09)
[2019-07-17] MEDS: Nystatin Topical Powder 15 GM Bottle TOP SCH ×3 (05:52→18:35)
[2019-07-17 05:59] LABS: BLOOD UREA NITROGEN,BUN 4 mg/dL (7.0-18.0); CARBON DIOXIDE,CO2 26.3 mmol/L (21.0-32.0); CHLORIDE,CL 103 mmol/L (98-107); GLUCOSE RANDOM 104 mg/dL (74-106); POTASSIUM,K 3.3 mmol/L (3.5-5.1); SODIUM,NA 139 mmol/L (136-145)
[2019-07-17] MEDS: Gabapentin 300 MG Cap PO SCH ×3 (06:13→21:10)
[2019-07-17] MEDS ORDERED: Lidocaine 2% 5 ML SDV ONE (07:22)
[2019-07-17] MEDS ORDERED: Midazolam 1 MG/ML 2 ML SDV ONE (07:22)
[2019-07-17] MEDS ORDERED: Propofol 200 MG/20 ML SDV ONE (07:22)
[2019-07-17] MEDS ORDERED: fentaNYL 100 MCG/2 ML SDV ONE (07:22)
[2019-07-17] MEDS ORDERED: Sodium Chloride 0.9% with KCl 1,000 ML IV ONE (08:12)
--- NOTE | 2019-07-17 08:16 | PCM.PN ---
- General Info Date of Service: 07/17/19 Admission Dx/Problem (Free Text): Admission Diagnosis/Problem Admission Diagnosis/Problem GI bleed not requiring more than 4 units of blood in 24 hours, ICU, or surgery Subjective Update: Feeling improved today, no chest pain or SOB. Feels tired but better. Had rough night with stools for colonoscopy prep. Denies concerns now. Functional Status: Reports: Pain Controlled, Tolerating Diet, Ambulating, Urinating - Review of Systems General: Reports: Weakness, Fatigue HEENT: Reports: No Symptoms Pulmonary: Reports: No Symptoms. Denies: Shortness of Breath Cardiovascular: Reports: No Symptoms. Denies: Chest Pain Gastrointestinal: Reports: No Symptoms. Denies: Abdominal Pain, Nausea, Vomiting Genitourinary: Reports: No Symptoms. Denies: Dysuria, Frequency, Burning Musculoskeletal: Reports: No Symptoms Skin: Reports: No Symptoms Neurological: Reports: No Symptoms Psychiatric: Reports: No Symptoms - Patient Data Vitals - Most Recent: Last Vital Signs Temp 97.6 F 07/17/19 07:15 Pulse 75 07/17/19 07:15 Resp 20 07/17/19 07:15 BP 135/69 07/17/19 07:15 Pulse Ox 94 L 07/17/19 07:15 Weight - Most Recent: 88.9 kg I&O - Last 24 Hours: Intake & Output 07/16/19 07/17/19 07/17/19 22:59 06:59 14:59 Intake Total 1400 210 Output Total 447 645 Balance 953 -435 Lab Results Last 24 Hours: Laboratory Results - last 24 hr 07/15/19 07/17/19 07/17/19 Range/Units 11:37 05:25 05:25 WBC 6.73 (4.0-11.0) K/uL RBC 4.22 L (4.30-5.90) M/uL Hgb 11.0 L (12.0-16.0) g/dL Hct 36.1 (36.0-46.0) % MCV 85.5 (80.0-98.0) fL MCH 26.1 L (27.0-32.0) pg MCHC 30.5 L (31.0-37.0) g/dL RDW Std Deviation 49.2 (28.0-62.0) fl RDW Coeff of Cintia 16 H (11.0-15.0) % Plt Count 198 (150-400) K/uL MPV 9.30 (7.40-12.00) fL Neut % (Auto) 65.7 (48.0-80.0) % Lymph % (Auto) 19.8 (16.0-40.0) % [place] % (Auto) 11.3 (0.0-15.0) % Eos % (Auto) 3.1 (0.0-7.0) % Baso % (Auto) 0.1 (0.0-1.5) % Neut # (Auto) 4.4 (1.4-5.7) K/uL Lymph # (Auto) 1.3 (0.6-2.4) K/uL [place] # (Auto) 0.8 (0.0-0.8) K/uL Eos # (Auto) 0.2 (0.0-0.7) K/uL Baso # (Auto) 0.0 (0.0-0.1) K/uL Nucleated RBC % 0.8 /100WBC Nucleated RBCs # 0 K/uL Sodium 139 (136-145) mmol/L Potassium 3.3 L (3.5-5.1) mmol/L Chloride 103 (98-107) mmol/L Carbon Dioxide 26.3 (21.0-32.0) mmol/L BUN 4 L (7.0-18.0) mg/dL Creatinine 0.8 (0.6-1.0) mg/dL Est Cr Clr Drug Dosing 56.93 mL/min Estimated GFR (MDRD) > 60.0 ml/min Glucose 104 (74-106) mg/dL Calcium 8.4 L (8.5-10.1) mg/dL Phosphorus 4.4 (2.6-4.7) mg/dL Magnesium 2.0 (1.8-2.4) mg/dL Total Bilirubin 0.6 (0.2-1.0) mg/dL AST 58 H (15-37) IU/L ALT 120 H (14-63) IU/L Alkaline Phosphatase 82 (46-116) U/L Total Protein 6.6 (6.4-8.2) g/dL Albumin 2.9 L (3.4-5.0) g/dL Globulin 3.7 (2.6-4.0) g/dL Albumin/Globulin Ratio 0.8 L (0.9-1.6) Blood Type O POSITIVE Antibody Screen NEGATIVE Crossmatch See Detail Kel Results Last 24 Hours: Microbiology 07/15/19 11:20 Urine Culture - Final Urine, Clean Catch Escherichia Coli 07/15/19 15:02 Aerobic Blood Culture - Preliminary Blood - Venous - Lab Draw NO GROWTH AFTER 1 DAY Anaerobic Blood Culture - Final 07/15/19 13:08 Aerobic Blood Culture - Preliminary Blood - Venous NO GROWTH AFTER 1 DAY Anaerobic Blood Culture - Final Med Orders - Current: Current Medications Albuterol/Ipratropium (Duoneb 3.0-0.5 Mg/3 Ml) 3 ml NEB Q4HRRT PRN PRN Reason: SOB/wheezing Last Admin: 07/16/19 17:58 Dose: 3 ml Aripiprazole (Abilify) 5 mg PO BEDTIME [facility] Last Admin: 07/16/19 21:19 Dose: 5 mg Duloxetine HCl (Cymbalta) 60 mg PO DAILY [facility] Last Admin: 07/16/19 08:24 Dose: 60 mg Folic Acid (Folic Acid) 1 mg SUBCUT DAILY [facility] Last Admin: 07/16/19 08:23 Dose: 1 mg Gabapentin (Neurontin) 300 mg PO TID [facility] Last Admin: 07/17/19 06:13 Dose: Not Given Hydroxyzine Pamoate (Vistaril) 25 mg PO QID PRN PRN Reason: Anxiety Pantoprazole Sodium 40 mg/ (Sodium Chloride) 10 mls @ 300 mls/hr IV Q12H [facility] Last Admin: 07/17/19 00:30 Dose: 300 mls/hr Ceftriaxone Sodium/Dextrose 1 (gm/ Premix) 50 mls @ 100 mls/hr IV Q24H [facility] Last Admin: 07/16/19 14:56 Dose: 100 mls/hr Thiamine HCl 100 mg/ Sodium (Chloride) 101 mls @ 202 mls/hr IV DAILY [facility] Last Admin: 07/16/19 08:24 Dose: 202 mls/hr Potassium Chloride/Sodium Chloride (Normal Saline With 40 Meq Kcl) 1,000 mls @ 125 mls/hr IV ONETIME ONE Stop: 07/17/19 16:11 Levothyroxine Sodium (Levothyroxine) 150 mcg PO DAILY@0700 [facility] Last Admin: 07/16/19 06:27 Dose: 150 mcg Lorazepam (Ativan) 0 mg IVPUSH Q4H PRN; Protocol PRN Reason: CIWAA Nystatin (Nystop) 0 gm TOP QID [facility] Last Admin: 07/17/19 05:52 Dose: 1 applic Ondansetron HCl (Zofran) 4 mg IVPUSH Q4H PRN PRN Reason: Nausea Sodium Chloride (Saline Flush) 2.5 ml FLUSH ASDIRECTED PRN PRN Reason: Keep Vein Open Discontinued Medications Bisacodyl (Dulcolax) 20 mg PO ONETIME ONE Stop: 07/16/19 14:01 Last Admin: 07/16/19 14:11 Dose: 20 mg Fentanyl (Sublimaze) Confirm Administered Dose 100 mcg .ROUTE .STK-MED ONE Stop: 07/17/19 07:23 Sodium Chloride (Normal Saline) 1,000 mls @ 999 mls/hr IV STAT ONE Stop: 07/15/19 11:27 Last Admin: 07/15/19 10:35 Dose: 999 mls/hr Ceftriaxone Sodium/Dextrose 1 (gm/ Premix) 50 mls @ 100 mls/hr IV ONETIME ONE Stop: 07/15/19 12:54 Last Admin: 07/15/19 14:02 Dose: Not Given Iron Sucrose 200 mg/ Sodium (Chloride) 110 mls @ 400 mls/hr IV ONETIME ONE Stop: 07/15/19 15:16 Last Admin: 07/15/19 15:49 Dose: 400 mls/hr Iron Sucrose 200 mg/ Sodium (Chloride) 110 mls @ 400 mls/hr IV ONETIME ONE Stop: 07/16/19 08:12 Last Admin: 07/16/19 08:43 Dose: 400 mls/hr Lidocaine (Xylocaine-Mpf 2%) Confirm Administered Dose 5 ml .ROUTE .STK-MED ONE Stop: 07/17/19 07:23 Midazolam HCl (Versed 1 Mg/Ml) Confirm Administered Dose 2 mg .ROUTE .STK-MED ONE Stop: 07/17/19 07:23 Polyethylene Glycol (Miralax) 238 gm PO ONETIME ONE Stop: 07/16/19 14:01 Last Admin: 07/16/19 14:11 Dose: 238 gm Propofol (Diprivan 20 Ml) Confirm Administered Dose 400 mg .ROUTE .crobo-MED ONE Stop: 07/17/19 07:23 Sodium Chloride (Saline Flush) 10 ml FLUSH ASDIRECTED PRN PRN Reason: Keep Vein Open Sodium Chloride (Saline Flush) 2.5 ml FLUSH ASDIRECTED PRN PRN Reason: Keep Vein Open - Exam General: Alert, Oriented, Other (slow at times to respond, but alert) Lungs: Clear to Auscultation, Normal Respiratory Effort Cardiovascular: Regular Rate, Regular Rhythm GI/Abdominal Exam: Normal Bowel Sounds, Soft, Non-Tender Extremities: Normal Inspection, Normal Range of Motion, Non-Tender, No Pedal Edema Neurological: No New Focal Deficit Psy/Mental Status: Alert, Normal Affect, Normal Mood Sepsis Event Note - Evaluation Sepsis Screening Result: No Definite Risk - Focused Exam Vital Signs: Vital Signs Temp Pulse Resp BP Pulse Ox 07/17/19 07:15 97.6 F 75 20 135/69 94 L 07/17/19 04:33 97.9 F 74 17 125/71 95 07/16/19 23:49 97.1 F 80 18 125/76 94 L Date Exam was Performed: 07/17/19 Time Exam was Performed: 10:14 - Problem List & Annotations (1) GI bleed SNOMED Code(s): 95293072 Code(s): K92.2 - GASTROINTESTINAL HEMORRHAGE, UNSPECIFIED Status: Acute Current Visit: No Qualifiers: GI bleed type/associated pathology: unspecified gastrointestinal hemorrhage type Qualified Code(s): K92.2 - Gastrointestinal hemorrhage, unspecified (2) UTI (urinary tract infection) SNOMED Code(s): 27026565 Code(s): N39.0 - URINARY TRACT INFECTION, SITE NOT SPECIFIED Status: Acute Current Visit: No (3) Anemia SNOMED Code(s): 616823364 Code(s): D64.9 - ANEMIA, UNSPECIFIED Status: Acute Priority: High Current Visit: No Qualifiers: Iron deficiency anemia type: chronic blood loss (4) HTN (hypertension) SNOMED Code(s): 18458148 Code(s): I10 - ESSENTIAL (PRIMARY) HYPERTENSION Status: Chronic Current Visit: Yes Qualifiers: Hypertension type: essential hypertension Qualified Code(s): I10 - Essential (primary) hypertension (5) Anxiety SNOMED Code(s): 60108183 Code(s): F41.9 - ANXIETY DISORDER, UNSPECIFIED Status: Chronic Current Visit: Yes (6) Hypothyroidism SNOMED Code(s): 47420318 Code(s): E03.9 - HYPOTHYROIDISM, UNSPECIFIED Status: Chronic Current Visit: Yes (7) Restless leg syndrome SNOMED Code(s): 75144887 Code(s): G25.81 - RESTLESS LEGS SYNDROME Status: Chronic Current Visit: Yes (8) Alcohol abuse SNOMED Code(s): 44577215 Code(s): F10.10 - ALCOHOL ABUSE, UNCOMPLICATED Status: Chronic Priority: Low Current Visit: No (9) Depressed SNOMED Code(s): 59104884 Code(s): F32.9 - MAJOR DEPRESSIVE DISORDER, SINGLE EPISODE, UNSPECIFIED Status: Chronic Current Visit: No Qualifiers: Depression Type: unspecified Qualified Code(s): F32.9 - Major depressive disorder, single episode, unspecified - Problem List Review Problem List Initiated/Reviewed/Updated: Yes - My Orders Last 24 Hours: My Active Orders 07/16/19 09:00 DULoxetine [Cymbalta] 60 mg PO DAILY 07/16/19 10:37 Transfuse Red Blood Cells [COMM] Routine 07/17/19 00:45 H PYLORI STOOL ANTIGEN [MREF] Routine 07/17/19 08:12 Sodium Chloride 0.9% with KCl [Normal Saline with 40 mEq KCl] 1,000 ml IV ONETIME 07/18/19 05:11 CBC WITH AUTO DIFF [HEME] AM COMPREHENSIVE METABOLIC PN,CMP [CHEM] AM MAGNESIUM [CHEM] AM PHOSPHORUS [CHEM] AM - Plan Plan:: This 64 year female admitted with acute GI bleeding, UTI and alcohol withdrawal 1. Acute GI bleeding, likely upper - Consult Dr Smart, general surgery, surgery canceled due to elevated TSH - Follow up with Dr Smart in 1-2 weeks. - FL diet, advance as tolerated. - Protonix 40 mg BID IV - Hemoccult positive in ED - Iron studies show anemia of chronic disease, will supplement iron IV and restart PO supplementation. peripheral smear pending - Monitor on telemetry 2. UTI - UC E coli ruff sensitive. BC negative. - Rocephin 1 gm IV daily 3. Alcohol withdrawal - CIWAA with Ativan Protocol PRN - Thiamine and folic acid supplementation - Transaminitis improving. 4. Anxiety/depression - Continue home medications - Discuss further psychiatric needs when more awake, consider telepsych consult if patient agrees 5. HTN: - Stable, monitor with GI bleeding 6. Hypothyroidism - TSH 66.50, T4 0.56 , T3 1.35 - Reports she has not taken Synthroid for over 1 month, Last clinic check in may TSH 20. - Continue Levothyroxine 150 mg daily - Will need recheck in clinic 4-6 weeks VTE prophylaxis: SCDs only due to acute bleeding Code Status: Full code Dispo: 3 days
[2019-07-17] MEDS: Levothyroxine 150 MCG Tab PO SCH (09:09)
[2019-07-17] MEDS: DULoxetine 60 MG Cap PO SCH (09:09)
[2019-07-17] MEDS: Thiamine 100 MG in Sodium Chloride 0.9% 100 ML IV SCH (09:10)
[2019-07-17] MEDS: Folic Acid 50 MG/10 ML MDV SUBCUT SCH (09:10)
--- NOTE | 2019-07-17 09:11 | PCM.SURGPN ---
- General Info Date of Service: 07/17/19 - Review of Systems General: Reports: No Symptoms (talking v slow; vtach captured yesterday; this morning lytes were normal; denied pain) - Patient Data Vitals - Most Recent: Last Vital Signs Temp 97.6 F 07/17/19 07:15 Pulse 75 07/17/19 07:15 Resp 20 07/17/19 07:15 BP 135/69 07/17/19 07:15 Pulse Ox 94 L 07/17/19 07:15 Weight - Most Recent: 195 lb 15.855 oz I&O - Last 24 Hours: Intake & Output 07/16/19 07/17/19 07/17/19 22:59 06:59 14:59 Intake Total 1400 210 Output Total 447 645 Balance 953 -435 Lab Results Last 24 Hrs: Laboratory Results - last 24 hr 07/15/19 07/17/19 07/17/19 Range/Units 11:37 05:25 05:25 WBC 6.73 (4.0-11.0) K/uL RBC 4.22 L (4.30-5.90) M/uL Hgb 11.0 L (12.0-16.0) g/dL Hct 36.1 (36.0-46.0) % MCV 85.5 (80.0-98.0) fL MCH 26.1 L (27.0-32.0) pg MCHC 30.5 L (31.0-37.0) g/dL RDW Std Deviation 49.2 (28.0-62.0) fl RDW Coeff of Cint[place] 16 H (11.0-15.0) % Plt Count 198 (150-400) K/uL MPV 9.30 (7.40-12.00) fL Neut % (Auto) 65.7 (48.0-80.0) % Lymph % (Auto) 19.8 (16.0-40.0) % [place] % (Auto) 11.3 (0.0-15.0) % Eos % (Auto) 3.1 (0.0-7.0) % Baso % (Auto) 0.1 (0.0-1.5) % Neut # (Auto) 4.4 (1.4-5.7) K/uL Lymph # (Auto) 1.3 (0.6-2.4) K/uL [place] # (Auto) 0.8 (0.0-0.8) K/uL Eos # (Auto) 0.2 (0.0-0.7) K/uL Baso # (Auto) 0.0 (0.0-0.1) K/uL Nucleated RBC % 0.8 /100WBC Nucleated RBCs # 0 K/uL Sodium 139 (136-145) mmol/L Potassium 3.3 L (3.5-5.1) mmol/L Chloride 103 (98-107) mmol/L Carbon Dioxide 26.3 (21.0-32.0) mmol/L BUN 4 L (7.0-18.0) mg/dL Creatinine 0.8 (0.6-1.0) mg/dL Est Cr Clr Drug Dosing 56.93 mL/min Estimated GFR (MDRD) > 60.0 ml/min Glucose 104 (74-106) mg/dL Calcium 8.4 L (8.5-10.1) mg/dL Phosphorus 4.4 (2.6-4.7) mg/dL Magnesium 2.0 (1.8-2.4) mg/dL Total Bilirubin 0.6 (0.2-1.0) mg/dL AST 58 H (15-37) IU/L ALT 120 H (14-63) IU/L Alkaline Phosphatase 82 (46-116) U/L Total Protein 6.6 (6.4-8.2) g/dL Albumin 2.9 L (3.4-5.0) g/dL Globulin 3.7 (2.6-4.0) g/dL Albumin/Globulin Ratio 0.8 L (0.9-1.6) Free T4 (0.76-1.46) ng/dL TSH 3rd Generation (0.36-3.74) uIU/mL Blood Type O POSITIVE Antibody Screen NEGATIVE Crossmatch See Detail 07/17/19 Range/Units 05:25 WBC (4.0-11.0) K/uL RBC (4.30-5.90) M/uL Hgb (12.0-16.0) g/dL Hct (36.0-46.0) % MCV (80.0-98.0) fL MCH (27.0-32.0) pg MCHC (31.0-37.0) g/dL RDW Std Deviation (28.0-62.0) fl RDW Coeff of [place]intia (11.0-15.0) % Plt Count (150-400) K/uL MPV (7.40-12.00) fL Neut % (Auto) (48.0-80.0) % Lymph % (Auto) (16.0-40.0) % [place] % (Auto) (0.0-15.0) % Eos % (Auto) (0.0-7.0) % Baso % (Auto) (0.0-1.5) % Neut # (Auto) (1.4-5.7) K/uL Lymph # (Auto) (0.6-2.4) K/uL [place] # (Auto) (0.0-0.8) K/uL Eos # (Auto) (0.0-0.7) K/uL Baso # (Auto) (0.0-0.1) K/uL Nucleated RBC % /100WBC Nucleated RBCs # K/uL Sodium (136-145) mmol/L Potassium (3.5-5.1) mmol/L Chloride (98-107) mmol/L Carbon Dioxide (21.0-32.0) mmol/L BUN (7.0-18.0) mg/dL Creatinine (0.6-1.0) mg/dL Est Cr Clr Drug Dosing mL/min Estimated GFR (MDRD) ml/min Glucose (74-106) mg/dL Calcium (8.5-10.1) mg/dL Phosphorus (2.6-4.7) mg/dL Magnesium (1.8-2.4) mg/dL Total Bilirubin (0.2-1.0) mg/dL AST (15-37) IU/L ALT (14-63) IU/L Alkaline Phosphatase (46-116) U/L Total Protein (6.4-8.2) g/dL Albumin (3.4-5.0) g/dL Globulin (2.6-4.0) g/dL Albumin/Globulin Ratio (0.9-1.6) Free T4 0.56 L (0.76-1.46) ng/dL TSH 3rd Generation 66.50 H (0.36-3.74) uIU/mL Blood Type Antibody Screen Crossmatch Kel Results Last 24 Hrs: Microbiology 07/15/19 11:20 Urine Culture - Final Urine, Clean Catch Escherichia Coli 07/15/19 15:02 Aerobic Blood Culture - Preliminary Blood - Venous - Lab Draw NO GROWTH AFTER 1 DAY Anaerobic Blood Culture - Final 07/15/19 13:08 Aerobic Blood Culture - Preliminary Blood - Venous NO GROWTH AFTER 1 DAY Anaerobic Blood Culture - Final Med Orders - Current: Current Medications Albuterol/Ipratropium (Duoneb 3.0-0.5 Mg/3 Ml) 3 ml NEB Q4HRRT PRN PRN Reason: SOB/wheezing Last Admin: 07/16/19 17:58 Dose: 3 ml Aripiprazole (Abilify) 5 mg PO BEDTIME [facility] Last Admin: 07/16/19 21:19 Dose: 5 mg Duloxetine HCl (Cymbalta) 60 mg PO DAILY [facility] Last Admin: 07/16/19 08:24 Dose: 60 mg Folic Acid (Folic Acid) 1 mg SUBCUT DAILY [facility] Last Admin: 07/16/19 08:23 Dose: 1 mg Gabapentin (Neurontin) 300 mg PO TID [facility] Last Admin: 07/17/19 06:13 Dose: Not Given Hydroxyzine Pamoate (Vistaril) 25 mg PO QID PRN PRN Reason: Anxiety Pantoprazole Sodium 40 mg/ (Sodium Chloride) 10 mls @ 300 mls/hr IV Q12H [facility] Last Admin: 07/17/19 00:30 Dose: 300 mls/hr Ceftriaxone Sodium/Dextrose 1 (gm/ Premix) 50 mls @ 100 mls/hr IV Q24H [facility] Last Admin: 07/16/19 14:56 Dose: 100 mls/hr Thiamine HCl 100 mg/ Sodium (Chloride) 101 mls @ 202 mls/hr IV DAILY [facility] Last Admin: 07/16/19 08:24 Dose: 202 mls/hr Potassium Chloride/Sodium Chloride (Normal Saline With 40 Meq Kcl) 1,000 mls @ 125 mls/hr IV ONETIME ONE Stop: 07/17/19 16:11 Levothyroxine Sodium (Levothyroxine) 150 mcg PO DAILY@0700 [facility] Last Admin: 07/16/19 06:27 Dose: 150 mcg Lorazepam (Ativan) 0 mg IVPUSH Q4H PRN; Protocol PRN Reason: CIWAA Nystatin (Nystop) 0 gm TOP QID KAILYN Last Admin: 07/17/19 05:52 Dose: 1 applic Ondansetron HCl (Zofran) 4 mg IVPUSH Q4H PRN PRN Reason: Nausea Sodium Chloride (Saline Flush) 2.5 ml FLUSH ASDIRECTED PRN PRN Reason: Keep Vein Open Discontinued Medications Bisacodyl (Dulcolax) 20 mg PO ONETIME ONE Stop: 07/16/19 14:01 Last Admin: 07/16/19 14:11 Dose: 20 mg Fentanyl (Sublimaze) Confirm Administered Dose 100 mcg .ROUTE .STK-MED ONE Stop: 07/17/19 07:23 Sodium Chloride (Normal Saline) 1,000 mls @ 999 mls/hr IV STAT ONE Stop: 07/15/19 11:27 Last Admin: 07/15/19 10:35 Dose: 999 mls/hr Ceftriaxone Sodium/Dextrose 1 (gm/ Premix) 50 mls @ 100 mls/hr IV ONETIME ONE Stop: 07/15/19 12:54 Last Admin: 07/15/19 14:02 Dose: Not Given Iron Sucrose 200 mg/ Sodium (Chloride) 110 mls @ 400 mls/hr IV ONETIME ONE Stop: 07/15/19 15:16 Last Admin: 07/15/19 15:49 Dose: 400 mls/hr Iron Sucrose 200 mg/ Sodium (Chloride) 110 mls @ 400 mls/hr IV ONETIME ONE Stop: 07/16/19 08:12 Last Admin: 07/16/19 08:43 Dose: 400 mls/hr Lidocaine (Xylocaine-Mpf 2%) Confirm Administered Dose 5 ml .ROUTE .STK-MED ONE Stop: 07/17/19 07:23 Midazolam HCl (Versed 1 Mg/Ml) Confirm Administered Dose 2 mg .ROUTE .STK-MED ONE Stop: 07/17/19 07:23 Polyethylene Glycol (Miralax) 238 gm PO ONETIME ONE Stop: 07/16/19 14:01 Last Admin: 07/16/19 14:11 Dose: 238 gm Propofol (Diprivan 20 Ml) Confirm Administered Dose 400 mg .ROUTE .STK-MED ONE Stop: 05/15/20 07:23 Sodium Chloride (Saline Flush) 10 ml FLUSH ASDIRECTED PRN PRN Reason: Keep Vein Open Sodium Chloride (Saline Flush) 2.5 ml FLUSH ASDIRECTED PRN PRN Reason: Keep Vein Open - Exam Neck: Supple Lungs: Clear to Auscultation Cardiovascular: Regular Rate GI/Abdominal Exam: Soft, No Distention Sepsis Event Note - Evaluation Sepsis Screening Result: No Definite Risk - Focused Exam Vital Signs: Vital Signs Temp Pulse Resp BP Pulse Ox 07/17/19 07:15 97.6 F 75 20 135/69 94 L 07/17/19 04:33 97.9 F 74 17 125/71 95 07/16/19 23:49 97.1 F 80 18 125/76 94 L Date Exam was Performed: 07/17/19 Time Exam was Performed: 09:06 - Problem List Review Problem List Initiated/Reviewed/Updated: Yes - My Orders Last 24 Hours: Active Orders 24 hr Category Date Time Status Communication Order [RC] ROUTINE Care 07/16/19 14:59 Active NPO [Nothing Per Oral Diet] [DIET] Diet 07/17/19 Breakfast Active Nothing per Oral After Midnight Diet [DIET] Diet 07/16/19 Dinner Active CBC WITH AUTO DIFF [HEME] AM Lab 07/18/19 05:11 Ordered COMPREHENSIVE METABOLIC PN,CMP [CHEM] AM Lab 07/18/19 05:11 Ordered H PYLORI STOOL ANTIGEN [MREF] Routine Lab 07/17/19 00:45 Received MAGNESIUM [CHEM] AM Lab 07/18/19 05:11 Ordered PHOSPHORUS [CHEM] AM Lab 07/18/19 05:11 Ordered T3 FREE [CHEM] Stat Lab 07/17/19 05:25 Received DULoxetine [Cymbalta] Med 07/16/19 09:00 Active 60 mg PO DAILY Sodium Chloride 0.9% with KCl [Normal Saline with 40 Med 07/17/19 08:12 Active mEq KCl] 1,000 ml IV ONETIME Transfuse Red Blood Cells [COMM] Routine Oth 07/16/19 10:37 Ordered Medication Orders Albuterol/Ipratropium (Duoneb 3.0-0.5 Mg/3 Ml) 3 ml NEB Q4HRRT PRN PRN Reason: SOB/wheezing Last Admin: 07/16/19 17:58 Dose: 3 ml Aripiprazole (Abilify) 5 mg PO BEDTIME [facility] Last Admin: 07/16/19 21:19 Dose: 5 mg Admin: 07/15/19 22:01 Dose: 5 mg Duloxetine HCl (Cymbalta) 60 mg PO DAILY [facility] Last Admin: 07/16/19 08:24 Dose: 60 mg Folic Acid (Folic Acid) 1 mg SUBCUT DAILY [facility] Last Admin: 07/16/19 08:23 Dose: 1 mg Admin: 07/15/19 14:40 Dose: 1 mg Gabapentin (Neurontin) 300 mg PO TID [facility] Last Admin: 07/17/19 06:13 Dose: Admin: 07/16/19 21:20 Dose: 300 mg Admin: 07/16/19 14:10 Dose: 300 mg Admin: 07/16/19 06:27 Dose: 300 mg Admin: 07/15/19 22:02 Dose: 300 mg Hydroxyzine Pamoate (Vistaril) 25 mg PO QID PRN PRN Reason: Anxiety Pantoprazole Sodium 40 mg/ (Sodium Chloride) 10 mls @ 300 mls/hr IV Q12H [facility] Last Admin: 07/17/19 00:30 Dose: 300 mls/hr Infusion: 07/16/19 14:53 Dose: 300 mls/hr Admin: 07/16/19 14:51 Dose: 300 mls/hr Infusion: 07/16/19 00:33 Dose: 300 mls/hr Admin: 07/16/19 00:31 Dose: 300 mls/hr Infusion: 07/15/19 14:44 Dose: 300 mls/hr Admin: 07/15/19 14:42 Dose: 300 mls/hr Ceftriaxone Sodium/Dextrose 1 (gm/ Premix) 50 mls @ 100 mls/hr IV Q24H [facility] Last Admin: 07/16/19 14:56 Dose: 100 mls/hr Infusion: 07/15/19 15:03 Dose: 100 mls/hr Admin: 07/15/19 14:33 Dose: 100 mls/hr Thiamine HCl 100 mg/ Sodium (Chloride) 101 mls @ 202 mls/hr IV DAILY [facility] Last Admin: 07/16/19 08:24 Dose: 202 mls/hr Infusion: 07/15/19 15:44 Dose: 202 mls/hr Admin: 07/15/19 15:14 Dose: 202 mls/hr Potassium Chloride/Sodium Chloride (Normal Saline With 40 Meq Kcl) 1,000 mls @ 125 mls/hr IV ONETIME ONE Stop: 07/17/19 16:11 Levothyroxine Sodium (Levothyroxine) 150 mcg PO DAILY@0700 [facility] Last Admin: 07/16/19 06:27 Dose: 150 mcg Lorazepam (Ativan) 0 mg IVPUSH Q4H PRN; Protocol PRN Reason: CIWAA Nystatin (Nystop) 0 gm TOP QID [facility] Last Admin: 07/17/19 05:52 Dose: 1 applic Admin: 07/16/19 23:56 Dose: 1 applic Admin: 07/16/19 18:40 Dose: 1 applic Admin: 07/16/19 12:32 Dose: 1 applic Admin: 07/16/19 06:27 Dose: 1 applic Admin: 07/16/19 00:32 Dose: 1 applic Admin: 07/15/19 17:26 Dose: 1 applic Ondansetron HCl (Zofran) 4 mg IVPUSH Q4H PRN PRN Reason: Nausea Sodium Chloride (Saline Flush) 2.5 ml FLUSH ASDIRECTED PRN PRN Reason: Keep Vein Open - Assessment Assessment (Free Text/Narrative):: pt received 3 prbc, h/h went from 7.4 to 11.2, no hx of black tarry stool since admission; no drop in h/h, no "hard core" signs of bleeding; tsh 66, procedure cancelled; need more tune up; if discharged; fu w me 1 - 2 wks for possible outpatient endoscope; tks for the consult; will sign off; recall if question. - Plan Plan (Free Text/Narrative):: pt received 3 prbc, h/h went from 7.4 to 11.2, no hx of black tarry stool since admission; no drop in h/h, no "hard core" signs of bleeding; tsh 66, procedure cancelled; need more tune up; if discharged; fu w me 1 - 2 wks for possible outpatient endoscope; tks for the consult; will sign off; recall if question.
--- NOTE | 2019-07-17 09:34 | PCM.PREANE ---
Preanesthetic Assessment - Anesthesia/Transfusion/Family Hx Anesthesia History: Prior Anesthesia Without Reaction Family History of Anesthesia Reaction: No Transfusion History: Prior Transfusion Without Reaction - Review of Systems General: No Symptoms Pulmonary: No Symptoms Cardiovascular: No Symptoms Gastrointestinal: No Symptoms Neurological: Confusion, Pre-Existing Deficit, Trouble Speaking Other: Reports: None - Physical Assessment NPO Status Date: 07/04/19 NPO Status Time: 23:00 Vital Signs: Last Vital Signs Temp 97.6 F 07/17/19 07:15 Pulse 75 07/17/19 07:15 Resp 20 07/17/19 07:15 BP 135/69 07/17/19 07:15 Pulse Ox 94 L 07/17/19 07:15 Height: 5 ft 2 in Weight: 88.9 kg ASA Class: 3 Mental Status: Alert & Oriented x3 Airway Class: Mallampati = 2 Dentition: Reports: Normal Dentition Thyro-Mental Finger Breadths: 2 Mouth Opening Finger Breadths: 2 ROM/Head Extension: Full Lungs: Clear to Auscultation, Normal Respiratory Effort Cardiovascular: Regular Rate, Regular Rhythm - Lab Values: Laboratory Last Values WBC 6.73 K/uL (4.0-11.0) 07/17/19 05:25 RBC 4.22 M/uL (4.30-5.90) L 07/17/19 05:25 Hgb 11.0 g/dL (12.0-16.0) L 07/17/19 05:25 Hct 36.1 % (36.0-46.0) 07/17/19 05:25 MCV 85.5 fL (80.0-98.0) 07/17/19 05:25 MCH 26.1 pg (27.0-32.0) L 07/17/19 05:25 MCHC 30.5 g/dL (31.0-37.0) L 07/17/19 05:25 RDW Std Deviation 49.2 fl (28.0-62.0) 07/17/19 05:25 RDW Coeff of Cintia 16 % (11.0-15.0) H 07/17/19 05:25 Plt Count 198 K/uL (150-400) 07/17/19 05:25 MPV 9.30 fL (7.40-12.00) 07/17/19 05:25 Neut % (Auto) 65.7 % (48.0-80.0) 07/17/19 05:25 Lymph % (Auto) 19.8 % (16.0-40.0) 07/17/19 05:25 [place] % (Auto) 11.3 % (0.0-15.0) 07/17/19 05:25 Eos % (Auto) 3.1 % (0.0-7.0) 07/17/19 05:25 Baso % (Auto) 0.1 % (0.0-1.5) 07/17/19 05:25 Neut # (Auto) 4.4 K/uL (1.4-5.7) 07/17/19 05:25 Lymph # (Auto) 1.3 K/uL (0.6-2.4) 07/17/19 05:25 [place] # (Auto) 0.8 K/uL (0.0-0.8) 07/17/19 05:25 Eos # (Auto) 0.2 K/uL (0.0-0.7) 07/17/19 05:25 Baso # (Auto) 0.0 K/uL (0.0-0.1) 07/17/19 05:25 Nucleated RBC % 0.8 /100WBC 07/17/19 05:25 Nucleated RBCs # 0 K/uL 07/17/19 05:25 Smear Path Review SENT TO PATHOLOGY 07/15/19 10:30 Absolute Retic 65.50 K/uL (20-80) 07/15/19 10:30 Percent Retic 2.1 % (0.5-1.5) H 07/15/19 10:30 Immature Retic Fraction 18 % 07/15/19 10:30 INR 1.00 07/15/19 10:30 Sodium 139 mmol/L (136-145) 07/17/19 05:25 Potassium 3.3 mmol/L (3.5-5.1) L 07/17/19 05:25 Chloride 103 mmol/L (98-107) 07/17/19 05:25 Carbon Dioxide 26.3 mmol/L (21.0-32.0) 07/17/19 05:25 BUN 4 mg/dL (7.0-18.0) L 07/17/19 05:25 Creatinine 0.8 mg/dL (0.6-1.0) 07/17/19 05:25 Est Cr Clr Drug Dosing 56.93 mL/min 07/17/19 05:25 Estimated GFR (MDRD) > 60.0 ml/min 07/17/19 05:25 Glucose 104 mg/dL (74-106) 07/17/19 05:25 Calcium 8.4 mg/dL (8.5-10.1) L 07/17/19 05:25 Phosphorus 4.4 mg/dL (2.6-4.7) 07/17/19 05:25 Magnesium 2.0 mg/dL (1.8-2.4) 07/17/19 05:25 Iron 15 ug/dL (50-175) L 07/15/19 10:30 TIBC 425 ug/dL (250-450) 07/15/19 10:30 % Saturation 3.53 % (20-55) L 07/15/19 10:30 Transferrin 297.5 07/15/19 10:30 Ferritin 134 ng/mL (8-252) 07/15/19 10:30 Total Bilirubin 0.6 mg/dL (0.2-1.0) 07/17/19 05:25 AST 58 IU/L (15-37) H 07/17/19 05:25 ALT 120 IU/L (14-63) H 07/17/19 05:25 Alkaline Phosphatase 82 U/L (46-116) 07/17/19 05:25 Troponin I < 0.050 ng/mL (0.000-0.056) 07/15/19 10:30 Total Protein 6.6 g/dL (6.4-8.2) 07/17/19 05:25 Albumin 2.9 g/dL (3.4-5.0) L 07/17/19 05:25 Globulin 3.7 g/dL (2.6-4.0) 07/17/19 05:25 Albumin/Globulin Ratio 0.8 (0.9-1.6) L 07/17/19 05:25 Vitamin B12 1455 pg/mL (193-986) H 07/15/19 11:37 Folate 17.90 ng/mL (8.60-58.90) 07/15/19 11:37 Free T4 0.56 ng/dL (0.76-1.46) L 07/17/19 05:25 Free T3 1.35 pg/mL (2.18-3.98) L 07/17/19 05:25 TSH 3rd Generation 66.50 uIU/mL (0.36-3.74) H 07/17/19 05:25 Urine Color YELLOW 07/15/19 11:20 Urine Appearance SLT CLOUDY 07/15/19 11:20 Urine pH 6.0 (5.0-8.0) 07/15/19 11:20 Ur Specific [place] >= 1.030 (1.001-1.035) 07/15/19 11:20 Urine Protein NEGATIVE mg/dL (NEGATIVE) 07/15/19 11:20 Urine Glucose (UA) NEGATIVE mg/dL (NEGATIVE) 07/15/19 11:20 Urine Ketones 15 mg/dL (NEGATIVE) H 07/15/19 11:20 Urine Occult Blood NEGATIVE (NEGATIVE) 07/15/19 11:20 Urine Nitrite POSITIVE (NEGATIVE) H 07/15/19 11:20 Urine Bilirubin NEGATIVE (NEGATIVE) 07/15/19 11:20 Urine Urobilinogen 0.2 EU/dL (<2.0) 07/15/19 11:20 Ur Leukocyte Esterase SMALL (NEGATIVE) H 07/15/19 11:20 Urine RBC 0-5 (0-2/HPF) 07/15/19 11:20 Urine WBC 15-25 (0-5/HPF) 07/15/19 11:20 Ur Epithelial Cells RARE (NONE-FEW) 07/15/19 11:20 Urine Bacteria 3+ (NEGATIVE) H 07/15/19 11:20 Urine Opiates Screen NEGATIVE (NEGATIVE) 07/15/19 11:20 Ur Oxycodone Screen NEGATIVE (NEGATIVE) 07/15/19 11:20 Urine Methadone Screen NEGATIVE (NEGATIVE) 07/15/19 11:20 Ur Barbiturates Screen NEGATIVE (NEGATIVE) 07/15/19 11:20 Ur Phencyclidine Scrn NEGATIVE (NEGATIVE) 07/15/19 11:20 Ur Amphetamine Screen NEGATIVE (NEGATIVE) 07/15/19 11:20 U Methamphetamines Scrn NEGATIVE (NEGATIVE) 07/15/19 11:20 U Benzodiazepines Scrn POSITIVE (NEGATIVE) 07/15/19 11:20 U Cocaine Metab Screen NEGATIVE (NEGATIVE) 07/15/19 11:20 U Marijuana (THC) Screen NEGATIVE (NEGATIVE) 07/15/19 11:20 Ethyl Alcohol < 3.0 mg/dL 07/15/19 10:30 Hepatitis A IgM Ab Negative (Negative) 07/15/19 13:08 Hep Bs Antigen Negative (Negative) 07/15/19 13:08 Hep B Core IgM Ab Negative (Negative) 07/15/19 13:08 Hepatitis C Antibody <0.1 s/co ratio (0.0-0.9) 07/15/19 13:08 SARS-CoV-2 RNA (RT-PCR) NEGATIVE (NEGATIVE) 07/15/19 15:30 Blood Type O POSITIVE 07/15/19 11:37 Antibody Screen NEGATIVE 07/15/19 11:37 Crossmatch See Detail 07/15/19 11:37 - Allergies Allergies/Adverse Reactions: Allergies Allergy/AdvReac Type Severity Reaction Status Date / Time codeine Allergy Nausea and Verified 07/15/19 14:28 Vomiting meperidine HCl [From Demerol] Allergy Nausea and Verified 07/15/19 14:28 Vomiting - Anesthesia Plan Free Text/Narrative:: During interview of patient it is noted she remains very sedate appearing. Her responses to questions are significantly slow ans slurred. However, she is answering questions appropriately. After reviewing her chart TSH, T3, and T4 were ordered. During my interview she said Dr Bueno checked them in February and said "They are terrible". After obtaining labs it was noted that her TSH is significantly elevated at 66 and T3/T4 levels are low. Discussed with Dr Smart. At this time Dr Smart says the patient is stable with no acute signs of continued GI bleed. We will cancel surgery and re-evaluate at a later date. - Acknowledgements Anesthesia Type Planned: MAC Pt an Appropriate Candidate for the Planned Anesthesia: No Alternatives and Risks of Anesthesia Discussed w Pt/Guardian: Yes Pt/Guardian Understands and Agrees with Anesthesia Plan: Yes PreAnesthesia Questionnaire HEENT History: Reports: Allergic Rhinitis Other HEENT History: wears glasses Cardiovascular History: Reports: High Cholesterol, Hypertension Respiratory History: Reports: Asthma Gastrointestinal History: Reports: GERD, Hiatal Hernia Other Gastrointestinal History: gallbladder problems-states needs it out. 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: Musculoskeletal History: Reports: Fibromyalgia Neurological History: Reports: None Other Neuro History: Fibromyalgia Psychiatric History: Reports: Addiction, Anxiety, Depression Other Psychiatric History: etoh abuse Endocrine/Metabolic History: Reports: Obesity/BMI 30+ Hematologic History: Reports: Blood Transfusion(s) Other Hematologic History: received 4 units of blood during recent hospitalizaton Immunologic History: Reports: None Oncologic (Cancer) History: Reports: None Dermatologic History: Reports: None - Infectious Disease History Infectious Disease History: Reports: Chicken Pox - Past Surgical History Head Surgeries/Procedures: Reports: None HEENT Surgical History: Reports: Naso-Sinus Surgery, Oral Surgery Respiratory Surgical History: Reports: None Female Surgical History: Reports: Hysterectomy Endocrine Surgical History: Reports: None Musculoskeletal Surgical History: Reports: None Oncologic Surgical History: Reports: None Dermatological Surgical History: Reports: None - SUBSTANCE USE Smoking Status *Q: Never Smoker Tobacco Use Within Last Twelve Months: No Days Per Week of Alcohol Use: 3 Number of Drinks Per Day: 3 Total Drinks Per Week: 9 Date of Last Drink: 07/15/19 Time of Last Drink: 04:00 Recreational Drug Use History: No - HOME MEDS Home Medications: Home Meds ARIPiprazole [Abilify] 1 tab PO BEDTIME 07/15/19 [History] Albuterol [Proair HFA] 2 puff INH Q4H PRN 07/15/19 [History] Cholecalciferol (Vitamin D3) [Vitamin D] 1 tab PO DAILY 07/15/19 [History] DULoxetine [Cymbalta] 60 mg PO DAILY 07/15/19 [History] Gabapentin [Neurontin] 1 cap PO TID 07/15/19 [History] Iron 1 tab PO BID 07/15/19 [History] Levothyroxine 1 tab PO DAILY 07/15/19 [History] Omeprazole 20 mg PO DAILY 07/15/19 [History] Potassium Chloride 1 cap PO BID 07/15/19 [History] amLODIPine [Norvasc] 2 tab PO DAILY 07/15/19 [History] hydrOXYzine pamoate [Hydroxyzine Pamoate] 1 cap PO QID 07/15/19 [History] - CURRENT (IN HOUSE) MEDS Current Meds: Current Medications Albuterol/Ipratropium (Duoneb 3.0-0.5 Mg/3 Ml) 3 ml NEB Q4HRRT PRN PRN Reason: SOB/wheezing Last Admin: 07/16/19 17:58 Dose: 3 ml Aripiprazole (Abilify) 5 mg PO BEDTIME [facility] Last Admin: 07/16/19 21:19 Dose: 5 mg Duloxetine HCl (Cymbalta) 60 mg PO DAILY [facility] Last Admin: 07/17/19 09:09 Dose: 60 mg Folic Acid (Folic Acid) 1 mg SUBCUT DAILY [facility] Last Admin: 07/17/19 09:10 Dose: 1 mg Gabapentin (Neurontin) 300 mg PO TID [facility] Last Admin: 07/17/19 06:13 Dose: Not Given Hydroxyzine Pamoate (Vistaril) 25 mg PO QID PRN PRN Reason: Anxiety Pantoprazole Sodium 40 mg/ (Sodium Chloride) 10 mls @ 300 mls/hr IV Q12H [facility] Last Admin: 07/17/19 00:30 Dose: 300 mls/hr Ceftriaxone Sodium/Dextrose 1 (gm/ Premix) 50 mls @ 100 mls/hr IV Q24H [facility] Last Admin: 07/16/19 14:56 Dose: 100 mls/hr Thiamine HCl 100 mg/ Sodium (Chloride) 101 mls @ 202 mls/hr IV DAILY [facility] Last Admin: 07/17/19 09:10 Dose: 202 mls/hr Potassium Chloride/Sodium Chloride (Normal Saline With 40 Meq Kcl) 1,000 mls @ 125 mls/hr IV ONETIME ONE Stop: 07/17/19 16:11 Levothyroxine Sodium (Levothyroxine) 150 mcg PO DAILY@0700 [facility] Last Admin: 07/17/19 09:09 Dose: 150 mcg Lorazepam (Ativan) 0 mg IVPUSH Q4H PRN; Protocol PRN Reason: CIWAA Nystatin (Nystop) 0 gm TOP QID [facility] Last Admin: 07/17/19 05:52 Dose: 1 applic Ondansetron HCl (Zofran) 4 mg IVPUSH Q4H PRN PRN Reason: Nausea Sodium Chloride (Saline Flush) 2.5 ml FLUSH ASDIRECTED PRN PRN Reason: Keep Vein Open Discontinued Medications Bisacodyl (Dulcolax) 20 mg PO ONETIME ONE Stop: 07/16/19 14:01 Last Admin: 07/16/19 14:11 Dose: 20 mg Fentanyl (Sublimaze) Confirm Administered Dose 100 mcg .ROUTE .STK-MED ONE Stop: 07/17/19 07:23 Sodium Chloride (Normal Saline) 1,000 mls @ 999 mls/hr IV STAT ONE Stop: 07/15/19 11:27 Last Admin: 07/15/19 10:35 Dose: 999 mls/hr Ceftriaxone Sodium/Dextrose 1 (gm/ Premix) 50 mls @ 100 mls/hr IV ONETIME ONE Stop: 07/15/19 12:54 Last Admin: 07/15/19 14:02 Dose: Not Given Iron Sucrose 200 mg/ Sodium (Chloride) 110 mls @ 400 mls/hr IV ONETIME ONE Stop: 07/15/19 15:16 Last Admin: 07/15/19 15:49 Dose: 400 mls/hr Iron Sucrose 200 mg/ Sodium (Chloride) 110 mls @ 400 mls/hr IV ONETIME ONE Stop: 07/16/19 08:12 Last Admin: 07/16/19 08:43 Dose: 400 mls/hr Lidocaine (Xylocaine-Mpf 2%) Confirm Administered Dose 5 ml .ROUTE .STK-MED ONE Stop: 07/17/19 07:23 Midazolam HCl (Versed 1 Mg/Ml) Confirm Administered Dose 2 mg .ROUTE .STK-MED ONE Stop: 07/17/19 07:23 Polyethylene Glycol (Miralax) 238 gm PO ONETIME ONE Stop: 07/16/19 14:01 Last Admin: 07/16/19 14:11 Dose: 238 gm Propofol (Diprivan 20 Ml) Confirm Administered Dose 400 mg .ROUTE .STK-MED ONE Stop: 07/17/19 07:23 Sodium Chloride (Saline Flush) 10 ml FLUSH ASDIRECTED PRN PRN Reason: Keep Vein Open Sodium Chloride (Saline Flush) 2.5 ml FLUSH ASDIRECTED PRN PRN Reason: Keep Vein Open
[2019-07-17] MEDS: cefTRIAXone 1 GM in Premix Bag 1 BAG IV SCH (13:10)
[2019-07-17] MEDS: ARIPiprazole 10 MG Tab PO SCH (21:10)
[2019-07-17] MEDS: Albuterol/Ipratropium 3.0-0.5 MG/3 ML Neb Soln NEB PRN (21:20)
[2019-07-18] MEDS: Nystatin Topical Powder 15 GM Bottle TOP SCH ×5 (01:00→23:09)
[2019-07-18] MEDS: Pantoprazole 40 MG in Sodium Chloride 0.9% 10 ML IV SCH ×3 (01:45→23:59)
[2019-07-18] MEDS: Gabapentin 300 MG Cap PO SCH ×3 (07:00→21:12)
[2019-07-18 07:01] LABS: BLOOD UREA NITROGEN,BUN 6 mg/dL (7.0-18.0); CARBON DIOXIDE,CO2 26.6 mmol/L (21.0-32.0); CHLORIDE,CL 105 mmol/L (98-107); GLUCOSE RANDOM 115 mg/dL (74-106); POTASSIUM,K 3.4 mmol/L (3.5-5.1); SODIUM,NA 139 mmol/L (136-145)
[2019-07-18] MEDS: Levothyroxine 150 MCG Tab PO SCH (07:12)
[2019-07-18] MEDS: Albuterol/Ipratropium 3.0-0.5 MG/3 ML Neb Soln NEB PRN ×3 (07:25→23:08)
[2019-07-18] MEDS: Thiamine 100 MG in Sodium Chloride 0.9% 100 ML IV SCH (09:24)
[2019-07-18] MEDS: DULoxetine 60 MG Cap PO SCH (09:24)
[2019-07-18] MEDS: Folic Acid 50 MG/10 ML MDV SUBCUT SCH (09:32)
--- NOTE | 2019-07-18 12:19 | PCM.SN.2 ---
- Free Text/Narrative Note: to do peripheral i.v. on the patient in room 224. Two peripheral i.v. placed. Both 22 gauge, one in right and the other one in the left wrist. Secured in place.
--- NOTE | 2019-07-18 12:25 | CR ---
Chest: Portable view of the chest was obtained. Comparison: Prior chest x-ray of 12/20/15. Large hiatal hernia is noted. Mild atelectasis or pneumonia is noted within the left lung base. Lungs otherwise are clear. Bony structures are grossly intact. Impression: 1. Large hiatal hernia with mild left basilar atelectasis or pneumonia 2. Nothing acute is otherwise seen. Diagnostic code #3 This report was dictated in MDT
[2019-07-18] MEDS: cefTRIAXone 1 GM in Premix Bag 1 BAG IV SCH (13:12)
--- NOTE | 2019-07-18 13:57 | PCM.PN ---
- General Info Date of Service: 07/18/19 - Review of Systems Systems Review Comment:: patient reports some wheezing, denies any abdominal pain - Patient Data Vitals - Most Recent: Last Vital Signs Temp 36.3 C 07/18/19 11:00 Pulse 84 07/18/19 11:00 Resp 18 07/18/19 11:00 BP 120/78 07/18/19 11:00 Pulse Ox 94 L 07/18/19 11:00 Weight - Most Recent: 88.9 kg I&O - Last 24 Hours: Intake & Output 07/17/19 07/18/19 07/18/19 22:59 06:59 14:59 Intake Total 360 470 160 Output Total 1012 400 Balance -652 70 160 Lab Results Last 24 Hours: Laboratory Results - last 24 hr 07/18/19 07/18/19 Range/Units 06:00 06:00 WBC 3.90 L (4.0-11.0) K/uL RBC 4.00 L (4.30-5.90) M/uL Hgb 10.4 L (12.0-16.0) g/dL Hct 34.8 L (36.0-46.0) % MCV 87.0 (80.0-98.0) fL MCH 26.0 L (27.0-32.0) pg MCHC 29.9 L (31.0-37.0) g/dL RDW Std Deviation 51.3 (28.0-62.0) fl RDW Coeff of Cintia 16 H (11.0-15.0) % Plt Count 224 (150-400) K/uL MPV 9.30 (7.40-12.00) fL Neut % (Auto) 48.4 (48.0-80.0) % Lymph % (Auto) 30.5 (16.0-40.0) % [place] % (Auto) 14.1 (0.0-15.0) % Eos % (Auto) 6.7 (0.0-7.0) % Baso % (Auto) 0.3 (0.0-1.5) % Neut # (Auto) 1.9 (1.4-5.7) K/uL Lymph # (Auto) 1.2 (0.6-2.4) K/uL [place] # (Auto) 0.6 (0.0-0.8) K/uL Eos # (Auto) 0.3 (0.0-0.7) K/uL Baso # (Auto) 0.0 (0.0-0.1) K/uL Nucleated RBC % 0.0 /100WBC Nucleated RBCs # 0 K/uL Sodium 139 (136-145) mmol/L Potassium 3.4 L (3.5-5.1) mmol/L Chloride 105 (98-107) mmol/L Carbon Dioxide 26.6 (21.0-32.0) mmol/L BUN 6 L (7.0-18.0) mg/dL Creatinine 0.9 (0.6-1.0) mg/dL Est Cr Clr Drug Dosing 50.60 mL/min Estimated GFR (MDRD) > 60.0 ml/min Glucose 115 H (74-106) mg/dL Calcium 8.3 L (8.5-10.1) mg/dL Phosphorus 4.7 (2.6-4.7) mg/dL Magnesium 1.8 (1.8-2.4) mg/dL Total Bilirubin 0.4 (0.2-1.0) mg/dL AST 32 (15-37) IU/L ALT 85 H (14-63) IU/L Alkaline Phosphatase 74 (46-116) U/L Total Protein 6.3 L (6.4-8.2) g/dL Albumin 2.7 L (3.4-5.0) g/dL Globulin 3.6 (2.6-4.0) g/dL Albumin/Globulin Ratio 0.8 L (0.9-1.6) Kel Results Last 24 Hours: Microbiology 07/15/19 13:08 Aerobic Blood Culture - Preliminary Blood - Venous NO GROWTH AFTER 3 DAYS Anaerobic Blood Culture - Final 07/15/19 15:02 Aerobic Blood Culture - Preliminary Blood - Venous - Lab Draw NO GROWTH AFTER 2 DAYS Anaerobic Blood Culture - Final Med Orders - Current: Current Medications Albuterol/Ipratropium (Duoneb 3.0-0.5 Mg/3 Ml) 3 ml NEB Q4HRRT PRN PRN Reason: SOB/wheezing Last Admin: 07/18/19 11:24 Dose: 3 ml Aripiprazole (Abilify) 5 mg PO BEDTIME KAILYN Last Admin: 07/17/19 21:10 Dose: 5 mg Duloxetine HCl (Cymbalta) 60 mg PO DAILY [facility] Last Admin: 07/18/19 09:24 Dose: 60 mg Folic Acid (Folic Acid) 1 mg SUBCUT DAILY [facility] Last Admin: 07/18/19 09:32 Dose: 1 mg Gabapentin (Neurontin) 300 mg PO TID [facility] Last Admin: 07/18/19 13:11 Dose: 300 mg Hydroxyzine Pamoate (Vistaril) 25 mg PO QID PRN PRN Reason: Anxiety Pantoprazole Sodium 40 mg/ (Sodium Chloride) 10 mls @ 300 mls/hr IV Q12H [facility] Last Admin: 07/18/19 12:11 Dose: 300 mls/hr Ceftriaxone Sodium/Dextrose 1 (gm/ Premix) 50 mls @ 100 mls/hr IV Q24H [facility] Last Admin: 07/18/19 13:12 Dose: 100 mls/hr Thiamine HCl 100 mg/ Sodium (Chloride) 101 mls @ 202 mls/hr IV DAILY [facility] Last Admin: 07/18/19 09:24 Dose: 202 mls/hr Levothyroxine Sodium (Levothyroxine) 150 mcg PO DAILY@0700 [facility] Last Admin: 07/18/19 07:12 Dose: 150 mcg Lorazepam (Ativan) 0 mg IVPUSH Q4H PRN; Protocol PRN Reason: CIWAA Nystatin (Nystop) 0 gm TOP QID [facility] Last Admin: 07/18/19 12:10 Dose: 1 applic Ondansetron HCl (Zofran) 4 mg IVPUSH Q4H PRN PRN Reason: Nausea Sodium Chloride (Saline Flush) 2.5 ml FLUSH ASDIRECTED PRN PRN Reason: Keep Vein Open Discontinued Medications Bisacodyl (Dulcolax) 20 mg PO ONETIME ONE Stop: 07/16/19 14:01 Last Admin: 07/16/19 14:11 Dose: 20 mg Fentanyl (Sublimaze) Confirm Administered Dose 100 mcg .ROUTE .STK-MED ONE Stop: 07/17/19 07:23 Sodium Chloride (Normal Saline) 1,000 mls @ 999 mls/hr IV STAT ONE Stop: 07/15/19 11:27 Last Admin: 07/15/19 10:35 Dose: 999 mls/hr Ceftriaxone Sodium/Dextrose 1 (gm/ Premix) 50 mls @ 100 mls/hr IV ONETIME ONE Stop: 07/15/19 12:54 Last Admin: 07/15/19 14:02 Dose: Not Given Iron Sucrose 200 mg/ Sodium (Chloride) 110 mls @ 400 mls/hr IV ONETIME ONE Stop: 07/15/19 15:16 Last Admin: 07/15/19 15:49 Dose: 400 mls/hr Iron Sucrose 200 mg/ Sodium (Chloride) 110 mls @ 400 mls/hr IV ONETIME ONE Stop: 07/16/19 08:12 Last Admin: 07/16/19 08:43 Dose: 400 mls/hr Potassium Chloride/Sodium Chloride (Normal Saline With 40 Meq Kcl) 1,000 mls @ 125 mls/hr IV ONETIME ONE Stop: 07/17/19 16:11 Last Admin: 07/17/19 09:49 Dose: 125 mls/hr Lidocaine (Xylocaine-Mpf 2%) Confirm Administered Dose 5 ml .ROUTE .STK-MED ONE Stop: 07/17/19 07:23 Midazolam HCl (Versed 1 Mg/Ml) Confirm Administered Dose 2 mg .ROUTE .STK-MED ONE Stop: 07/17/19 07:23 Polyethylene Glycol (Miralax) 238 gm PO ONETIME ONE Stop: 07/16/19 14:01 Last Admin: 07/16/19 14:11 Dose: 238 gm Propofol (Diprivan 20 Ml) Confirm Administered Dose 400 mg .ROUTE .STK-MED ONE Stop: 07/17/19 07:23 Sodium Chloride (Saline Flush) 10 ml FLUSH ASDIRECTED PRN PRN Reason: Keep Vein Open Sodium Chloride (Saline Flush) 2.5 ml FLUSH ASDIRECTED PRN PRN Reason: Keep Vein Open - Exam General: Alert, Oriented Neck: Supple Lungs: Normal Respiratory Effort, Wheezing Cardiovascular: Regular Rate, Regular Rhythm GI/Abdominal Exam: Normal Bowel Sounds, Soft, Non-Tender, No Distention Extremities: Normal Inspection, Non-Tender, No Pedal Edema Skin: Warm, Dry, Intact Neurological: No New Focal Deficit Sepsis Event Note - Evaluation Sepsis Screening Result: No Definite Risk - Focused Exam Vital Signs: Vital Signs Temp Pulse Resp BP Pulse Ox 07/18/19 11:00 36.3 C 84 18 120/78 94 L 07/18/19 07:36 35.8 C L 76 14 139/92 H 95 07/18/19 04:00 36.6 C 76 19 127/77 94 L Date Exam was Performed: 07/18/19 Time Exam was Performed: 13:51 - Problem List Review Problem List Initiated/Reviewed/Updated: Yes - Plan Plan:: This 64 year female admitted with acute GI bleeding, UTI and alcohol withdrawal. Patient does have intermitent delerium uncertain if this is due to acute illness vs alcohol withdrawal, will continue to monitor closely. 1. Acute GI bleeding, likely upper - Consult Dr Smart, general surgery, surgery canceled due to elevated TSH - Follow up with Dr Smart in 1-2 weeks. - FL diet, - Protonix 40 mg BID IV - Hemoccult positive in ED - Iron studies show anemia of chronic disease, will supplement iron IV and restart PO supplementation. peripheral smear pending - Monitor on telemetry 2. UTI - UC E coli ruff sensitive. BC negative. - Rocephin 1 gm IV daily 3. Alcohol withdrawal - CIWAA with Ativan Protocol PRN - Thiamine and folic acid supplementation - Transaminitis improving. 4. Anxiety/depression - Continue home medications - Discuss further psychiatric needs when more awake, consider telepsych consult if patient agrees 5. HTN: - Stable, monitor with GI bleeding 6. Hypothyroidism - TSH 66.50, T4 0.56 , T3 1.35 - Reports she has not taken Synthroid for over 1 month, Last clinic check in may TSH 20. - Continue Levothyroxine 150 mg daily - Will need recheck in clinic 4-6 weeks 7. Asthma - duonebs q 4 hrs prn, will check chest x-ray VTE prophylaxis: SCDs only due to acute bleeding Code Status: Full code Dispo: 3 days
[2019-07-18] MEDS: ARIPiprazole 10 MG Tab PO SCH (21:12)
[2019-07-19 05:49] LABS: BLOOD UREA NITROGEN,BUN 5 mg/dL (7.0-18.0); CARBON DIOXIDE,CO2 32.6 mmol/L (21.0-32.0); CHLORIDE,CL 106 mmol/L (98-107); GLUCOSE RANDOM 98 mg/dL (74-106); POTASSIUM,K 3.9 mmol/L (3.5-5.1); SODIUM,NA 142 mmol/L (136-145)
[2019-07-19] MEDS: Levothyroxine 150 MCG Tab PO SCH (06:30)
[2019-07-19] MEDS: Nystatin Topical Powder 15 GM Bottle TOP SCH ×4 (06:30→23:37)
[2019-07-19] MEDS: Gabapentin 300 MG Cap PO SCH ×3 (06:30→22:06)
[2019-07-19] MEDS: Albuterol/Ipratropium 3.0-0.5 MG/3 ML Neb Soln NEB PRN ×2 (08:20→14:21)
[2019-07-19] MEDS: DULoxetine 60 MG Cap PO SCH (08:52)
[2019-07-19] MEDS: Folic Acid 50 MG/10 ML MDV SUBCUT SCH (08:52)
--- NOTE | 2019-07-19 09:02 | PCM.PN ---
- General Info Date of Service: 07/19/19 Subjective Update: Patient very wheezy even when speaking. Improved after breathing treatment. Requiring oxygen. Tolerating oral diet. - Review of Systems General: Reports: No Symptoms HEENT: Reports: No Symptoms Pulmonary: Reports: Wheezing Cardiovascular: Reports: No Symptoms Gastrointestinal: Reports: No Symptoms Genitourinary: Reports: No Symptoms Musculoskeletal: Reports: No Symptoms Skin: Reports: No Symptoms Neurological: Reports: No Symptoms Psychiatric: Reports: No Symptoms - Patient Data Vitals - Most Recent: Last Vital Signs Temp 97.4 F 07/19/19 04:11 Pulse 77 07/19/19 04:11 Resp 17 07/19/19 04:11 BP 134/73 07/19/19 04:11 Pulse Ox 94 L 07/19/19 04:11 Weight - Most Recent: 88.9 kg I&O - Last 24 Hours: Intake & Output 07/18/19 07/19/19 07/19/19 22:59 06:59 14:59 Intake Total 300 800 Output Total 0 Balance 300 800 Lab Results Last 24 Hours: Laboratory Results - last 24 hr 07/15/19 07/19/19 07/19/19 Range/Units 11:37 05:05 05:05 WBC 4.47 (4.0-11.0) K/uL RBC 4.25 L (4.30-5.90) M/uL Hgb 11.3 L (12.0-16.0) g/dL Hct 37.3 (36.0-46.0) % MCV 87.8 (80.0-98.0) fL MCH 26.6 L (27.0-32.0) pg MCHC 30.3 L (31.0-37.0) g/dL RDW Std Deviation 51.6 (28.0-62.0) fl RDW Coeff of Cintia 17 H (11.0-15.0) % Plt Count 228 (150-400) K/uL MPV 9.40 (7.40-12.00) fL Neut % (Auto) 48.1 (48.0-80.0) % Lymph % (Auto) 29.1 (16.0-40.0) % [place] % (Auto) 15.2 H (0.0-15.0) % Eos % (Auto) 7.4 H (0.0-7.0) % Baso % (Auto) 0.2 (0.0-1.5) % Neut # (Auto) 2.2 (1.4-5.7) K/uL Lymph # (Auto) 1.3 (0.6-2.4) K/uL [place] # (Auto) 0.7 (0.0-0.8) K/uL Eos # (Auto) 0.3 (0.0-0.7) K/uL Baso # (Auto) 0.0 (0.0-0.1) K/uL Nucleated RBC % 0.0 /100WBC Nucleated RBCs # 0 K/uL Sodium 142 (136-145) mmol/L Potassium 3.9 (3.5-5.1) mmol/L Chloride 106 (98-107) mmol/L Carbon Dioxide 32.6 H (21.0-32.0) mmol/L BUN 5 L (7.0-18.0) mg/dL Creatinine 0.9 (0.6-1.0) mg/dL Est Cr Clr Drug Dosing 50.60 mL/min Estimated GFR (MDRD) > 60.0 ml/min Glucose 98 (74-106) mg/dL Calcium 8.4 L (8.5-10.1) mg/dL Total Bilirubin 0.4 (0.2-1.0) mg/dL AST 25 (15-37) IU/L ALT 72 H (14-63) IU/L Alkaline Phosphatase 72 (46-116) U/L Total Protein 6.2 L (6.4-8.2) g/dL Albumin 2.9 L (3.4-5.0) g/dL Globulin 3.3 (2.6-4.0) g/dL Albumin/Globulin Ratio 0.9 (0.9-1.6) Crossmatch See Detail Kel Results Last 24 Hours: Microbiology 07/15/19 15:02 Aerobic Blood Culture - Preliminary Blood - Venous - Lab Draw NO GROWTH AFTER 3 DAYS Anaerobic Blood Culture - Final 07/15/19 13:08 Aerobic Blood Culture - Preliminary Blood - Venous NO GROWTH AFTER 3 DAYS Anaerobic Blood Culture - Final Med Orders - Current: Current Medications Albuterol/Ipratropium (Duoneb 3.0-0.5 Mg/3 Ml) 3 ml NEB Q4HRRT PRN PRN Reason: SOB/wheezing Last Admin: 07/19/19 08:20 Dose: 3 ml Aripiprazole (Abilify) 5 mg PO BEDTIME [facility] Last Admin: 07/18/19 21:12 Dose: 5 mg Duloxetine HCl (Cymbalta) 60 mg PO DAILY [facility] Last Admin: 07/18/19 09:24 Dose: 60 mg Folic Acid (Folic Acid) 1 mg SUBCUT DAILY [facility] Last Admin: 07/18/19 09:32 Dose: 1 mg Gabapentin (Neurontin) 300 mg PO TID [facility] Last Admin: 07/19/19 06:30 Dose: 300 mg Hydroxyzine Pamoate (Vistaril) 25 mg PO QID PRN PRN Reason: Anxiety Pantoprazole Sodium 40 mg/ (Sodium Chloride) 10 mls @ 300 mls/hr IV Q12H [facility] Last Admin: 07/18/19 23:59 Dose: 300 mls/hr Ceftriaxone Sodium/Dextrose 1 (gm/ Premix) 50 mls @ 100 mls/hr IV Q24H [facility] Last Admin: 07/18/19 13:12 Dose: 100 mls/hr Thiamine HCl 100 mg/ Sodium (Chloride) 101 mls @ 202 mls/hr IV DAILY [facility] Last Admin: 07/18/19 09:24 Dose: 202 mls/hr Levothyroxine Sodium (Levothyroxine) 150 mcg PO DAILY@0700 [facility] Last Admin: 07/19/19 06:30 Dose: 150 mcg Lorazepam (Ativan) 0 mg IVPUSH Q4H PRN; Protocol PRN Reason: CIWAA Nystatin (Nystop) 0 gm TOP QID [facility] Last Admin: 07/19/19 06:30 Dose: 1 applic Ondansetron HCl (Zofran) 4 mg IVPUSH Q4H PRN PRN Reason: Nausea Sodium Chloride (Saline Flush) 2.5 ml FLUSH ASDIRECTED PRN PRN Reason: Keep Vein Open Discontinued Medications Bisacodyl (Dulcolax) 20 mg PO ONETIME ONE Stop: 07/16/19 14:01 Last Admin: 07/16/19 14:11 Dose: 20 mg Fentanyl (Sublimaze) Confirm Administered Dose 100 mcg .ROUTE .STK-MED ONE Stop: 07/17/19 07:23 Sodium Chloride (Normal Saline) 1,000 mls @ 999 mls/hr IV STAT ONE Stop: 07/15/19 11:27 Last Admin: 07/15/19 10:35 Dose: 999 mls/hr Ceftriaxone Sodium/Dextrose 1 (gm/ Premix) 50 mls @ 100 mls/hr IV ONETIME ONE Stop: 07/15/19 12:54 Last Admin: 07/15/19 14:02 Dose: Not Given Iron Sucrose 200 mg/ Sodium (Chloride) 110 mls @ 400 mls/hr IV ONETIME ONE Stop: 07/15/19 15:16 Last Admin: 07/15/19 15:49 Dose: 400 mls/hr Iron Sucrose 200 mg/ Sodium (Chloride) 110 mls @ 400 mls/hr IV ONETIME ONE Stop: 07/16/19 08:12 Last Admin: 07/16/19 08:43 Dose: 400 mls/hr Potassium Chloride/Sodium Chloride (Normal Saline With 40 Meq Kcl) 1,000 mls @ 125 mls/hr IV ONETIME ONE Stop: 07/17/19 16:11 Last Admin: 07/17/19 09:49 Dose: 125 mls/hr Lidocaine (Xylocaine-Mpf 2%) Confirm Administered Dose 5 ml .ROUTE .STK-MED ONE Stop: 07/17/19 07:23 Midazolam HCl (Versed 1 Mg/Ml) Confirm Administered Dose 2 mg .ROUTE .STK-MED ONE Stop: 07/17/19 07:23 Polyethylene Glycol (Miralax) 238 gm PO ONETIME ONE Stop: 07/16/19 14:01 Last Admin: 07/16/19 14:11 Dose: 238 gm Propofol (Diprivan 20 Ml) Confirm Administered Dose 400 mg .ROUTE .STK-MED ONE Stop: 07/17/19 07:23 Sodium Chloride (Saline Flush) 10 ml FLUSH ASDIRECTED PRN PRN Reason: Keep Vein Open Sodium Chloride (Saline Flush) 2.5 ml FLUSH ASDIRECTED PRN PRN Reason: Keep Vein Open - Exam General: Alert Lungs: Wheezing GI/Abdominal Exam: Normal Bowel Sounds, Soft, Non-Tender, No Distention Extremities: No Pedal Edema Skin: Warm, Dry, Intact Neurological: No New Focal Deficit Psy/Mental Status: Alert, Normal Affect, Normal Mood Sepsis Event Note - Evaluation Sepsis Screening Result: No Definite Risk - Focused Exam Vital Signs: Vital Signs Temp Pulse Resp BP Pulse Ox 07/19/19 04:11 97.4 F 77 17 134/73 94 L 07/18/19 23:40 97.1 F 87 19 126/71 95 Date Exam was Performed: 07/19/19 Time Exam was Performed: 11:48 - Problem List Review Problem List Initiated/Reviewed/Updated: Yes - Plan Plan:: This 64 year female admitted with acute GI bleeding, UTI and alcohol withdrawal. Patient does have intermittent delirium uncertain if this is due to acute illness vs alcohol withdrawal, will continue to monitor closely. 1. Acute GI bleeding, likely upper s/p 3 units PRBCs- Hemoglobin stable and improving. - Consult Dr Smart, general surgery, surgery canceled due to elevated TSH - Follow up with Dr Smart in 1-2 weeks. - Advance to soft diet - Protonix 40 mg BID IV - Hemoccult positive in ED - Iron studies show anemia of chronic disease, continue PO iron supplementation. peripheral smear pending - Monitor on telemetry 2. UTI - UC E coli ruff sensitive. BC negative. - Rocephin 1 gm IV daily 3. Alcohol withdrawal- CIWAAs have been 0, not requiring treatment with Ativan - CIWAA with Ativan Protocol PRN - Thiamine and folic acid supplementation - Transaminitis improving. 4. Anxiety/depression - Continue home medications - Discuss further psychiatric needs when more awake, consider telepsych consult if patient agrees 5. HTN: - Stable, monitor with GI bleeding 6. Hypothyroidism - TSH 66.50, T4 0.56 , T3 1.35 - Reports she has not taken Synthroid for over 1 month, Last clinic check in may TSH 20. - Continue Levothyroxine 150 mg daily - Will need recheck in clinic 4-6 weeks 7. Asthma - CXR yesterday revealed atelectasis vs pneumonia (no white count or fever but requiring oxygen) - duonebs q 4 hrs prn - Will start Solumedrol 40 mg BID - Will start montelukast VTE prophylaxis: SCDs only due to acute bleeding Code Status: Full code Dispo: 3 days
[2019-07-19] MEDS: Thiamine 100 MG in Sodium Chloride 0.9% 100 ML IV SCH (09:14)
[2019-07-19] MEDS: Pantoprazole 40 MG in Sodium Chloride 0.9% 10 ML IV SCH ×2 (12:24→23:45)
[2019-07-19] MEDS: methylPREDNISolone Sodium Succinate 40 MG/1 ML SDV IVPUSH SCH ×2 (12:29→23:37)
[2019-07-19] MEDS: cefTRIAXone 1 GM in Premix Bag 1 BAG IV SCH (12:30)
[2019-07-19] MEDS ORDERED: Fluconazole 100 MG Tab PO ONE (13:28)
[2019-07-19] MEDS ORDERED: Albuterol/Ipratropium 3.0-0.5 MG/3 ML Neb Soln NEB ONE (14:58)
[2019-07-19] MEDS: Albuterol/Ipratropium 3.0-0.5 MG/3 ML Neb Soln NEB SCH ×2 (17:43→21:23)
[2019-07-19] MEDS: ARIPiprazole 10 MG Tab PO SCH (20:38)
[2019-07-19] MEDS: Montelukast 10 MG Tab PO SCH (20:38)
[2019-07-20] MEDS: Albuterol/Ipratropium 3.0-0.5 MG/3 ML Neb Soln NEB SCH ×6 (02:28→21:08)
[2019-07-20 06:32] LABS: BLOOD UREA NITROGEN,BUN 8 mg/dL (7.0-18.0); CARBON DIOXIDE,CO2 31.9 mmol/L (21.0-32.0); CHLORIDE,CL 103 mmol/L (98-107); GLUCOSE RANDOM 183 mg/dL (74-106); SODIUM,NA 142 mmol/L (136-145)
[2019-07-20] MEDS: Gabapentin 300 MG Cap PO SCH ×3 (06:37→21:17)
[2019-07-20] MEDS: Levothyroxine 150 MCG Tab PO SCH (06:37)
[2019-07-20] MEDS: Nystatin Topical Powder 15 GM Bottle TOP SCH ×3 (06:38→18:21)
--- NOTE | 2019-07-20 11:38 | PCM.PN ---
- General Info Date of Service: 07/20/19 Admission Dx/Problem (Free Text): Admission Diagnosis/Problem Admission Diagnosis/Problem GI bleed not requiring more than 4 units of blood in 24 hours, ICU, or surgery Subjective Update: Feeling improved daily, no concerns today. Feeling stronger and stronger. No further dark stools. No bleeding. No chest pain. SOB is improved today as well. Functional Status: Reports: Pain Controlled, Tolerating Diet, Ambulating, Urinating - Review of Systems General: Reports: Weakness, Malaise. Denies: Fever HEENT: Reports: No Symptoms Pulmonary: Reports: No Symptoms. Denies: Shortness of Breath, Cough Cardiovascular: Reports: No Symptoms. Denies: Chest Pain Gastrointestinal: Reports: No Symptoms. Denies: Abdominal Pain, Nausea, Vomiting Genitourinary: Reports: No Symptoms Musculoskeletal: Reports: No Symptoms Skin: Reports: No Symptoms Neurological: Reports: No Symptoms Psychiatric: Reports: No Symptoms - Patient Data Vitals - Most Recent: Last Vital Signs Temp 97.8 F 07/20/19 07:54 Pulse 89 07/20/19 07:54 Resp 18 07/20/19 07:54 BP 126/68 07/20/19 07:54 Pulse Ox 95 07/20/19 07:54 Weight - Most Recent: 88.9 kg I&O - Last 24 Hours: Intake & Output 07/19/19 07/20/19 07/20/19 22:59 06:59 14:59 Intake Total 680 450 Output Total 880 1200 Balance -200 -750 Lab Results Last 24 Hours: Laboratory Results - last 24 hr 07/20/19 07/20/19 Range/Units 05:45 05:45 WBC 4.77 (4.0-11.0) K/uL RBC 4.07 L (4.30-5.90) M/uL Hgb 10.5 L (12.0-16.0) g/dL Hct 35.9 L (36.0-46.0) % MCV 88.2 (80.0-98.0) fL MCH 25.8 L (27.0-32.0) pg MCHC 29.2 L (31.0-37.0) g/dL RDW Std Deviation 52.0 (28.0-62.0) fl RDW Coeff of Cintia 17 H (11.0-15.0) % Plt Count 251 (150-400) K/uL MPV 9.70 (7.40-12.00) fL Neut % (Auto) 91.9 H (48.0-80.0) % Lymph % (Auto) 7.3 L (16.0-40.0) % [place] % (Auto) 0.8 (0.0-15.0) % Eos % (Auto) 0.0 (0.0-7.0) % Baso % (Auto) 0.0 (0.0-1.5) % Neut # (Auto) 4.4 (1.4-5.7) K/uL Lymph # (Auto) 0.4 L (0.6-2.4) K/uL [place] # (Auto) 0.0 (0.0-0.8) K/uL Eos # (Auto) 0.0 (0.0-0.7) K/uL Baso # (Auto) 0.0 (0.0-0.1) K/uL Nucleated RBC % 0.0 /100WBC Nucleated RBCs # 0 K/uL Sodium 142 (136-145) mmol/L Potassium 4.0 (3.5-5.1) mmol/L Chloride 103 (98-107) mmol/L Carbon Dioxide 31.9 (21.0-32.0) mmol/L BUN 8 (7.0-18.0) mg/dL Creatinine 0.9 (0.6-1.0) mg/dL Est Cr Clr Drug Dosing 50.60 mL/min Estimated GFR (MDRD) > 60.0 ml/min Glucose 183 H (74-106) mg/dL Calcium 8.6 (8.5-10.1) mg/dL Phosphorus 3.4 (2.6-4.7) mg/dL Magnesium 1.9 (1.8-2.4) mg/dL Total Bilirubin 0.3 (0.2-1.0) mg/dL AST 22 (15-37) IU/L ALT 62 (14-63) IU/L Alkaline Phosphatase 71 (46-116) U/L Total Protein 6.9 (6.4-8.2) g/dL Albumin 3.0 L (3.4-5.0) g/dL Globulin 3.9 (2.6-4.0) g/dL Albumin/Globulin Ratio 0.8 L (0.9-1.6) Kel Results Last 24 Hours: Microbiology 07/17/19 00:45 Helicobacter pylori Antigen - Final Stool / Feces 07/15/19 15:02 Aerobic Blood Culture - Preliminary Blood - Venous - Lab Draw NO GROWTH AFTER 4 DAYS Anaerobic Blood Culture - Final 07/15/19 13:08 Aerobic Blood Culture - Preliminary Blood - Venous NO GROWTH AFTER 4 DAYS Anaerobic Blood Culture - Final Med Orders - Current: Current Medications Albuterol/Ipratropium (Duoneb 3.0-0.5 Mg/3 Ml) 3 ml NEB Q4HRRT [facility] Last Admin: 07/20/19 09:09 Dose: 3 ml Aripiprazole (Abilify) 5 mg PO BEDTIME [facility] Last Admin: 07/19/19 20:38 Dose: 5 mg Duloxetine HCl (Cymbalta) 60 mg PO DAILY [facility] Last Admin: 07/19/19 08:52 Dose: 60 mg Folic Acid (Folic Acid) 1 mg SUBCUT DAILY [facility] Last Admin: 07/19/19 08:52 Dose: 1 mg Gabapentin (Neurontin) 300 mg PO TID [facility] Last Admin: 07/20/19 06:37 Dose: 300 mg Hydroxyzine Pamoate (Vistaril) 25 mg PO QID PRN PRN Reason: Anxiety Pantoprazole Sodium 40 mg/ (Sodium Chloride) 10 mls @ 300 mls/hr IV Q12H [facility] Last Admin: 07/19/19 23:45 Dose: 300 mls/hr Ceftriaxone Sodium/Dextrose 1 (gm/ Premix) 50 mls @ 100 mls/hr IV Q24H [facility] Last Admin: 07/19/19 12:30 Dose: 100 mls/hr Thiamine HCl 100 mg/ Sodium (Chloride) 101 mls @ 202 mls/hr IV DAILY [facility] Last Admin: 07/19/19 09:14 Dose: 202 mls/hr Levothyroxine Sodium (Levothyroxine) 150 mcg PO DAILY@0700 [facility] Last Admin: 07/20/19 06:37 Dose: 150 mcg Lorazepam (Ativan) 0 mg IVPUSH Q4H PRN; Protocol PRN Reason: CIWAA Methylprednisolone Sodium Succinate (Solu-Medrol) 40 mg IVPUSH Q12H [facility] Last Admin: 07/19/19 23:37 Dose: 40 mg Montelukast Sodium (Singulair) 10 mg PO BEDTIME [facility] Last Admin: 07/19/19 20:38 Dose: 10 mg Nystatin (Nystop) 0 gm TOP QID [facility] Last Admin: 07/20/19 06:38 Dose: 1 applic Ondansetron HCl (Zofran) 4 mg IVPUSH Q4H PRN PRN Reason: Nausea Sodium Chloride (Saline Flush) 2.5 ml FLUSH ASDIRECTED PRN PRN Reason: Keep Vein Open Discontinued Medications Albuterol/Ipratropium (Duoneb 3.0-0.5 Mg/3 Ml) 3 ml NEB Q4HRRT PRN PRN Reason: SOB/wheezing Last Admin: 07/19/19 14:21 Dose: 3 ml Albuterol/Ipratropium (Duoneb 3.0-0.5 Mg/3 Ml) 3 ml NEB ONETIME ONE Stop: 07/19/19 14:59 Last Admin: 07/19/19 15:02 Dose: 3 ml Bisacodyl (Dulcolax) 20 mg PO ONETIME ONE Stop: 07/16/19 14:01 Last Admin: 07/16/19 14:11 Dose: 20 mg Fentanyl (Sublimaze) Confirm Administered Dose 100 mcg .ROUTE .STK-MED ONE Stop: 07/17/19 07:23 Fluconazole (Diflucan) 150 mg PO ONETIME ONE Stop: 07/19/19 13:29 Last Admin: 07/19/19 14:14 Dose: 150 mg Sodium Chloride (Normal Saline) 1,000 mls @ 999 mls/hr IV STAT ONE Stop: 07/15/19 11:27 Last Admin: 07/15/19 10:35 Dose: 999 mls/hr Ceftriaxone Sodium/Dextrose 1 (gm/ Premix) 50 mls @ 100 mls/hr IV ONETIME ONE Stop: 07/15/19 12:54 Last Admin: 07/15/19 14:02 Dose: Not Given Iron Sucrose 200 mg/ Sodium (Chloride) 110 mls @ 400 mls/hr IV ONETIME ONE Stop: 07/15/19 15:16 Last Admin: 07/15/19 15:49 Dose: 400 mls/hr Iron Sucrose 200 mg/ Sodium (Chloride) 110 mls @ 400 mls/hr IV ONETIME ONE Stop: 07/16/19 08:12 Last Admin: 07/16/19 08:43 Dose: 400 mls/hr Potassium Chloride/Sodium Chloride (Normal Saline With 40 Meq Kcl) 1,000 mls @ 125 mls/hr IV ONETIME ONE Stop: 07/17/19 16:11 Last Admin: 07/17/19 09:49 Dose: 125 mls/hr Lidocaine (Xylocaine-Mpf 2%) Confirm Administered Dose 5 ml .ROUTE .STK-MED ONE Stop: 07/17/19 07:23 Midazolam HCl (Versed 1 Mg/Ml) Confirm Administered Dose 2 mg .ROUTE .STK-MED ONE Stop: 07/17/19 07:23 Polyethylene Glycol (Miralax) 238 gm PO ONETIME ONE Stop: 07/16/19 14:01 Last Admin: 07/16/19 14:11 Dose: 238 gm Propofol (Diprivan 20 Ml) Confirm Administered Dose 400 mg .ROUTE .STK-MED ONE Stop: 07/17/19 07:23 Sodium Chloride (Saline Flush) 10 ml FLUSH ASDIRECTED PRN PRN Reason: Keep Vein Open Sodium Chloride (Saline Flush) 2.5 ml FLUSH ASDIRECTED PRN PRN Reason: Keep Vein Open - Exam General: Alert, Oriented, Cooperative, No Acute Distress Lungs: Clear to Auscultation, Normal Respiratory Effort Cardiovascular: Regular Rate, Regular Rhythm GI/Abdominal Exam: Normal Bowel Sounds, Soft, Non-Tender Back Exam: Normal Inspection, Full Range of Motion Extremities: Normal Inspection, Normal Range of Motion, Non-Tender, No Pedal Edema Skin: Ecchymosis (arms and legs, healing) Neurological: No New Focal Deficit Psy/Mental Status: Alert, Normal Affect, Normal Mood Sepsis Event Note - Evaluation Sepsis Screening Result: No Definite Risk - Focused Exam Vital Signs: Vital Signs Temp Pulse Resp BP Pulse Ox 07/20/19 07:54 97.8 F 89 18 126/68 95 07/20/19 04:00 98.2 F 95 16 135/70 93 L 07/19/19 23:53 97.9 F 109 H 17 123/54 L 94 L Date Exam was Performed: 07/20/19 Time Exam was Performed: 12:12 - Problem List & Annotations (1) GI bleed SNOMED Code(s): 46741324 Code(s): K92.2 - GASTROINTESTINAL HEMORRHAGE, UNSPECIFIED Status: Acute Current Visit: No Qualifiers: GI bleed type/associated pathology: unspecified gastrointestinal hemorrhage type Qualified Code(s): K92.2 - Gastrointestinal hemorrhage, unspecified (2) UTI (urinary tract infection) SNOMED Code(s): 09168072 Code(s): N39.0 - URINARY TRACT INFECTION, SITE NOT SPECIFIED Status: Acute Current Visit: No (3) Anemia SNOMED Code(s): 562156297 Code(s): D64.9 - ANEMIA, UNSPECIFIED Status: Acute Priority: High Current Visit: No Qualifiers: Iron deficiency anemia type: chronic blood loss (4) HTN (hypertension) SNOMED Code(s): 03568322 Code(s): I10 - ESSENTIAL (PRIMARY) HYPERTENSION Status: Chronic Current Visit: Yes Qualifiers: Hypertension type: essential hypertension Qualified Code(s): I10 - Essential (primary) hypertension (5) Anxiety SNOMED Code(s): 55267638 Code(s): F41.9 - ANXIETY DISORDER, UNSPECIFIED Status: Chronic Current Visit: Yes (6) Hypothyroidism SNOMED Code(s): 09301911 Code(s): E03.9 - HYPOTHYROIDISM, UNSPECIFIED Status: Chronic Current Visit: Yes (7) Restless leg syndrome SNOMED Code(s): 06316651 Code(s): G25.81 - RESTLESS LEGS SYNDROME Status: Chronic Current Visit: Yes (8) Alcohol abuse SNOMED Code(s): 20565465 Code(s): F10.10 - ALCOHOL ABUSE, UNCOMPLICATED Status: Chronic Priority: Low Current Visit: No (9) Depressed SNOMED Code(s): 44116393 Code(s): F32.9 - MAJOR DEPRESSIVE DISORDER, SINGLE EPISODE, UNSPECIFIED Status: Chronic Current Visit: No Qualifiers: Depression Type: unspecified Qualified Code(s): F32.9 - Major depressive disorder, single episode, unspecified - Problem List Review Problem List Initiated/Reviewed/Updated: Yes - My Orders Last 24 Hours: My Active Orders 07/20/19 Lunch Regular Diet [DIET] - Plan Plan:: This 64 year female admitted with acute GI bleeding, UTI and alcohol withdrawal. Patient does have intermittent delirium uncertain if this is due to acute illness vs alcohol withdrawal, will continue to monitor closely. 1. Acute GI bleeding, likely upper s/p 3 units PRBCs- Hemoglobin stable and improving. - Consult Dr Smart, general surgery, surgery canceled due to elevated TSH - Follow up with Dr Smart in 1-2 weeks. - Tolerating soft diet - Protonix 40 mg BID IV - Hemoccult positive in ED - Iron studies show anemia of chronic disease, continue PO iron supplementation. peripheral smear pending - Monitor on telemetry 2. UTI - Abx course completed. Rocephin discontinued 3. Alcohol withdrawal- CIWAAs have been 0, not requiring treatment with Ativan - CIWAA with Ativan Protocol PRN - Thiamine and folic acid supplementation - Transaminitis improving. 4. Anxiety/depression - Continue home medications - Discuss further psychiatric needs when more awake, consider telepsych consult if patient agrees 5. HTN: - Stable, monitor with GI bleeding 6. Hypothyroidism - TSH 66.50, T4 0.56 , T3 1.35 - Continue Levothyroxine 150 mg daily - Will need recheck in clinic 4-6 weeks 7. Asthma - CXR revealed atelectasis vs pneumonia (no white count or fever but requiring oxygen) - duonebs q 4 hrs prn - Levaquin 750 PO daily - Prednisone 40 mg daily - Continue montelukast VTE prophylaxis: SCDs only due to acute bleeding Code Status: Full code Dispo: 3 days
[2019-07-20] MEDS: DULoxetine 60 MG Cap PO SCH (12:08)
[2019-07-20] MEDS: Thiamine 100 MG in Sodium Chloride 0.9% 100 ML IV SCH (12:09)
[2019-07-20] MEDS: Folic Acid 50 MG/10 ML MDV SUBCUT SCH (12:15)
[2019-07-20] MEDS: methylPREDNISolone Sodium Succinate 40 MG/1 ML SDV IVPUSH SCH (12:20)
--- NOTE | 2019-07-20 13:38 | PCM.SURGPN ---
- General Info Date of Service: 07/20/19 Functional Status: Reports: Pain Controlled (called back to see pt re endoscopic plan; pt sleeping comfortably with her hands behind her head, "go home sign") - Patient Data Vitals - Most Recent: Last Vital Signs Temp 97.8 F 07/20/19 07:54 Pulse 89 07/20/19 07:54 Resp 18 07/20/19 07:54 BP 126/68 07/20/19 07:54 Pulse Ox 95 07/20/19 07:54 Weight - Most Recent: 195 lb 15.855 oz I&O - Last 24 Hours: Intake & Output 07/19/19 07/20/19 07/20/19 22:59 06:59 14:59 Intake Total 680 450 Output Total 880 1200 Balance -200 -750 Lab Results Last 24 Hrs: Laboratory Results - last 24 hr 07/20/19 07/20/19 Range/Units 05:45 05:45 WBC 4.77 (4.0-11.0) K/uL RBC 4.07 L (4.30-5.90) M/uL Hgb 10.5 L (12.0-16.0) g/dL Hct 35.9 L (36.0-46.0) % MCV 88.2 (80.0-98.0) fL MCH 25.8 L (27.0-32.0) pg MCHC 29.2 L (31.0-37.0) g/dL RDW Std Deviation 52.0 (28.0-62.0) fl RDW Coeff of Cintia 17 H (11.0-15.0) % Plt Count 251 (150-400) K/uL MPV 9.70 (7.40-12.00) fL Neut % (Auto) 91.9 H (48.0-80.0) % Lymph % (Auto) 7.3 L (16.0-40.0) % [place] % (Auto) 0.8 (0.0-15.0) % Eos % (Auto) 0.0 (0.0-7.0) % Baso % (Auto) 0.0 (0.0-1.5) % Neut # (Auto) 4.4 (1.4-5.7) K/uL Lymph # (Auto) 0.4 L (0.6-2.4) K/uL [place] # (Auto) 0.0 (0.0-0.8) K/uL Eos # (Auto) 0.0 (0.0-0.7) K/uL Baso # (Auto) 0.0 (0.0-0.1) K/uL Nucleated RBC % 0.0 /100WBC Nucleated RBCs # 0 K/uL Sodium 142 (136-145) mmol/L Potassium 4.0 (3.5-5.1) mmol/L Chloride 103 (98-107) mmol/L Carbon Dioxide 31.9 (21.0-32.0) mmol/L BUN 8 (7.0-18.0) mg/dL Creatinine 0.9 (0.6-1.0) mg/dL Est Cr Clr Drug Dosing 50.60 mL/min Estimated GFR (MDRD) > 60.0 ml/min Glucose 183 H (74-106) mg/dL Calcium 8.6 (8.5-10.1) mg/dL Phosphorus 3.4 (2.6-4.7) mg/dL Magnesium 1.9 (1.8-2.4) mg/dL Total Bilirubin 0.3 (0.2-1.0) mg/dL AST 22 (15-37) IU/L ALT 62 (14-63) IU/L Alkaline Phosphatase 71 (46-116) U/L Total Protein 6.9 (6.4-8.2) g/dL Albumin 3.0 L (3.4-5.0) g/dL Globulin 3.9 (2.6-4.0) g/dL Albumin/Globulin Ratio 0.8 L (0.9-1.6) Kel Results Last 24 Hrs: Microbiology 07/17/19 00:45 Helicobacter pylori Antigen - Final Stool / Feces 07/15/19 15:02 Aerobic Blood Culture - Preliminary Blood - Venous - Lab Draw NO GROWTH AFTER 4 DAYS Anaerobic Blood Culture - Final 07/15/19 13:08 Aerobic Blood Culture - Preliminary Blood - Venous NO GROWTH AFTER 4 DAYS Anaerobic Blood Culture - Final Med Orders - Current: Current Medications Albuterol/Ipratropium (Duoneb 3.0-0.5 Mg/3 Ml) 3 ml NEB Q4HRRT [facility] Last Admin: 07/20/19 09:09 Dose: 3 ml Aripiprazole (Abilify) 5 mg PO BEDTIME [facility] Last Admin: 07/19/19 20:38 Dose: 5 mg Duloxetine HCl (Cymbalta) 60 mg PO DAILY [facility] Last Admin: 07/20/19 12:08 Dose: 60 mg Folic Acid (Folic Acid) 1 mg SUBCUT DAILY [facility] Last Admin: 07/20/19 12:15 Dose: 1 mg Gabapentin (Neurontin) 300 mg PO TID [facility] Last Admin: 07/20/19 06:37 Dose: 300 mg Hydroxyzine Pamoate (Vistaril) 25 mg PO QID PRN PRN Reason: Anxiety Pantoprazole Sodium 40 mg/ (Sodium Chloride) 10 mls @ 300 mls/hr IV Q12H [facility] Last Admin: 07/19/19 23:45 Dose: 300 mls/hr Thiamine HCl 100 mg/ Sodium (Chloride) 101 mls @ 202 mls/hr IV DAILY [facility] Last Admin: 07/20/19 12:09 Dose: 202 mls/hr Levofloxacin (Levaquin) 750 mg PO Q24H [facility] Levothyroxine Sodium (Levothyroxine) 150 mcg PO DAILY@0700 [facility] Last Admin: 07/20/19 06:37 Dose: 150 mcg Lorazepam (Ativan) 0 mg IVPUSH Q4H PRN; Protocol PRN Reason: CIWAA Montelukast Sodium (Singulair) 10 mg PO BEDTIME [facility] Last Admin: 07/19/19 20:38 Dose: 10 mg Nystatin (Nystop) 0 gm TOP QID [facility] Last Admin: 07/20/19 06:38 Dose: 1 applic Ondansetron HCl (Zofran) 4 mg IVPUSH Q4H PRN PRN Reason: Nausea Prednisone (Prednisone) 40 mg PO WITHBREAKFAST [facility] Sodium Chloride (Saline Flush) 2.5 ml FLUSH ASDIRECTED PRN PRN Reason: Keep Vein Open Discontinued Medications Albuterol/Ipratropium (Duoneb 3.0-0.5 Mg/3 Ml) 3 ml NEB Q4HRRT PRN PRN Reason: SOB/wheezing Last Admin: 07/19/19 14:21 Dose: 3 ml Albuterol/Ipratropium (Duoneb 3.0-0.5 Mg/3 Ml) 3 ml NEB ONETIME ONE Stop: 07/19/19 14:59 Last Admin: 07/19/19 15:02 Dose: 3 ml Bisacodyl (Dulcolax) 20 mg PO ONETIME ONE Stop: 07/16/19 14:01 Last Admin: 07/16/19 14:11 Dose: 20 mg Fentanyl (Sublimaze) Confirm Administered Dose 100 mcg .ROUTE .STK-MED ONE Stop: 07/17/19 07:23 Fluconazole (Diflucan) 150 mg PO ONETIME ONE Stop: 07/19/19 13:29 Last Admin: 07/19/19 14:14 Dose: 150 mg Sodium Chloride (Normal Saline) 1,000 mls @ 999 mls/hr IV STAT ONE Stop: 07/15/19 11:27 Last Admin: 07/15/19 10:35 Dose: 999 mls/hr Ceftriaxone Sodium/Dextrose 1 (gm/ Premix) 50 mls @ 100 mls/hr IV ONETIME ONE Stop: 07/15/19 12:54 Last Admin: 07/15/19 14:02 Dose: Not Given Ceftriaxone Sodium/Dextrose 1 (gm/ Premix) 50 mls @ 100 mls/hr IV Q24H [facility] Last Admin: 07/19/19 12:30 Dose: 100 mls/hr Iron Sucrose 200 mg/ Sodium (Chloride) 110 mls @ 400 mls/hr IV ONETIME ONE Stop: 07/15/19 15:16 Last Admin: 07/15/19 15:49 Dose: 400 mls/hr Iron Sucrose 200 mg/ Sodium (Chloride) 110 mls @ 400 mls/hr IV ONETIME ONE Stop: 07/16/19 08:12 Last Admin: 07/16/19 08:43 Dose: 400 mls/hr Potassium Chloride/Sodium Chloride (Normal Saline With 40 Meq Kcl) 1,000 mls @ 125 mls/hr IV ONETIME ONE Stop: 07/17/19 16:11 Last Admin: 07/17/19 09:49 Dose: 125 mls/hr Lidocaine (Xylocaine-Mpf 2%) Confirm Administered Dose 5 ml .ROUTE .STK-MED ONE Stop: 07/17/19 07:23 Methylprednisolone Sodium Succinate (Solu-Medrol) 40 mg IVPUSH Q12H [facility] Last Admin: 07/20/19 12:20 Dose: Not Given Midazolam HCl (Versed 1 Mg/Ml) Confirm Administered Dose 2 mg .ROUTE .STK-MED ONE Stop: 07/17/19 07:23 Polyethylene Glycol (Miralax) 238 gm PO ONETIME ONE Stop: 07/16/19 14:01 Last Admin: 07/16/19 14:11 Dose: 238 gm Propofol (Diprivan 20 Ml) Confirm Administered Dose 400 mg .ROUTE .STK-MED ONE Stop: 07/17/19 07:23 Sodium Chloride (Saline Flush) 10 ml FLUSH ASDIRECTED PRN PRN Reason: Keep Vein Open Sodium Chloride (Saline Flush) 2.5 ml FLUSH ASDIRECTED PRN PRN Reason: Keep Vein Open - Exam GI/Abdominal Exam: Soft, Non-Tender, No Distention Sepsis Event Note - Evaluation Sepsis Screening Result: No Definite Risk - Focused Exam Vital Signs: Vital Signs Temp Pulse Resp BP Pulse Ox 07/20/19 07:54 97.8 F 89 18 126/68 95 07/20/19 04:00 98.2 F 95 16 135/70 93 L Date Exam was Performed: 07/20/19 Time Exam was Performed: 13:31 - Problem List Review Problem List Initiated/Reviewed/Updated: Yes - My Orders Last 24 Hours: Active Orders 24 hr Category Date Time Status RT Aerosol Therapy [RC] ASDIRECTED Care 07/19/19 14:58 Active Regular Diet [DIET] Diet 07/20/19 Lunch Active Albuterol/Ipratropium [DuoNeb 3.0-0.5 MG/3 ML] Med 07/19/19 18:00 Active 3 ml NEB Q4HRRT Montelukast [Singulair] Med 07/19/19 21:00 Active 10 mg PO BEDTIME levoFLOXacin [Levaquin] Med 07/20/19 12:15 Active 750 mg PO Q24H predniSONE Med 07/21/19 08:00 Active 40 mg PO WITHBREAKFAST Medication Orders Albuterol/Ipratropium (Duoneb 3.0-0.5 Mg/3 Ml) 3 ml NEB Q4HRRT [facility] Last Admin: 07/20/19 09:09 Dose: 3 ml Admin: 07/20/19 05:39 Dose: 3 ml Admin: 07/20/19 02:28 Dose: 3 ml Admin: 07/19/19 21:23 Dose: 3 ml Admin: 07/19/19 17:43 Dose: 3 ml Aripiprazole (Abilify) 5 mg PO BEDTIME [facility] Last Admin: 07/19/19 20:38 Dose: 5 mg Admin: 07/18/19 21:12 Dose: 5 mg Admin: 07/17/19 21:10 Dose: 5 mg Admin: 07/16/19 21:19 Dose: 5 mg Admin: 07/15/19 22:01 Dose: 5 mg Duloxetine HCl (Cymbalta) 60 mg PO DAILY [facility] Last Admin: 07/20/19 12:08 Dose: 60 mg Admin: 07/19/19 08:52 Dose: 60 mg Admin: 07/18/19 09:24 Dose: 60 mg Admin: 07/17/19 09:09 Dose: 60 mg Admin: 07/16/19 08:24 Dose: 60 mg Folic Acid (Folic Acid) 1 mg SUBCUT DAILY [facility] Last Admin: 07/20/19 12:15 Dose: 1 mg Admin: 07/19/19 08:52 Dose: 1 mg Admin: 07/18/19 09:32 Dose: 1 mg Admin: 07/17/19 09:10 Dose: 1 mg Admin: 07/16/19 08:23 Dose: 1 mg Admin: 07/15/19 14:40 Dose: 1 mg Gabapentin (Neurontin) 300 mg PO TID [facility] Last Admin: 07/20/19 06:37 Dose: 300 mg Admin: 07/19/19 22:06 Dose: 300 mg Admin: 07/19/19 14:14 Dose: 300 mg Admin: 07/19/19 06:30 Dose: 300 mg Admin: 07/18/19 21:12 Dose: 300 mg Admin: 07/18/19 13:11 Dose: 300 mg Admin: 07/18/19 07:00 Dose: 300 mg Admin: 07/17/19 21:10 Dose: 300 mg Admin: 07/17/19 13:09 Dose: 300 mg Admin: 07/17/19 06:13 Dose: Admin: 07/16/19 21:20 Dose: 300 mg Admin: 07/16/19 14:10 Dose: 300 mg Admin: 07/16/19 06:27 Dose: 300 mg Admin: 07/15/19 22:02 Dose: 300 mg Hydroxyzine Pamoate (Vistaril) 25 mg PO QID PRN PRN Reason: Anxiety Pantoprazole Sodium 40 mg/ (Sodium Chloride) 10 mls @ 300 mls/hr IV Q12H [facility] Last Admin: 07/19/19 23:45 Dose: 300 mls/hr Infusion: 07/19/19 12:26 Dose: 300 mls/hr Admin: 07/19/19 12:24 Dose: 300 mls/hr Infusion: 07/19/19 00:01 Dose: 300 mls/hr Admin: 07/18/19 23:59 Dose: 300 mls/hr Infusion: 07/18/19 12:13 Dose: 300 mls/hr Admin: 07/18/19 12:11 Dose: 300 mls/hr Infusion: 07/18/19 01:47 Dose: 300 mls/hr Admin: 07/18/19 01:45 Dose: 300 mls/hr Infusion: 07/17/19 13:11 Dose: 300 mls/hr Admin: 07/17/19 13:09 Dose: 300 mls/hr Infusion: 07/17/19 00:32 Dose: 300 mls/hr Admin: 07/17/19 00:30 Dose: 300 mls/hr Infusion: 07/16/19 14:53 Dose: 300 mls/hr Admin: 07/16/19 14:51 Dose: 300 mls/hr Infusion: 07/16/19 00:33 Dose: 300 mls/hr Admin: 07/16/19 00:31 Dose: 300 mls/hr Infusion: 07/15/19 14:44 Dose: 300 mls/hr Admin: 07/15/19 14:42 Dose: 300 mls/hr Thiamine HCl 100 mg/ Sodium (Chloride) 101 mls @ 202 mls/hr IV DAILY [facility] Last Admin: 07/20/19 12:09 Dose: 202 mls/hr Infusion: 07/19/19 09:44 Dose: 202 mls/hr Admin: 07/19/19 09:14 Dose: 202 mls/hr Infusion: 07/18/19 09:54 Dose: 202 mls/hr Admin: 07/18/19 09:24 Dose: 202 mls/hr Infusion: 07/17/19 09:40 Dose: 202 mls/hr Admin: 07/17/19 09:10 Dose: 202 mls/hr Infusion: 07/16/19 08:54 Dose: 202 mls/hr Admin: 07/16/19 08:24 Dose: 202 mls/hr Infusion: 07/15/19 15:44 Dose: 202 mls/hr Admin: 07/15/19 15:14 Dose: 202 mls/hr Levofloxacin (Levaquin) 750 mg PO Q24H [facility] Levothyroxine Sodium (Levothyroxine) 150 mcg PO DAILY@0700 [facility] Last Admin: 07/20/19 06:37 Dose: 150 mcg Admin: 07/19/19 06:30 Dose: 150 mcg Admin: 07/18/19 07:12 Dose: 150 mcg Admin: 07/17/19 09:09 Dose: 150 mcg Admin: 07/16/19 06:27 Dose: 150 mcg Lorazepam (Ativan) 0 mg IVPUSH Q4H PRN; Protocol PRN Reason: CIWAA Montelukast Sodium (Singulair) 10 mg PO BEDTIME [facility] Last Admin: 07/19/19 20:38 Dose: 10 mg Nystatin (Nystop) 0 gm TOP QID [facility] Last Admin: 07/20/19 06:38 Dose: 1 applic Admin: 07/19/19 23:37 Dose: 1 applic Admin: 07/19/19 18:34 Dose: 1 applic Admin: 07/19/19 12:47 Dose: 1 applic Admin: 07/19/19 06:30 Dose: 1 applic Admin: 07/18/19 23:09 Dose: 1 applic Admin: 07/18/19 18:28 Dose: 1 applic Admin: 07/18/19 12:10 Dose: 1 applic Admin: 07/18/19 07:00 Dose: 1 applic Admin: 07/18/19 01:00 Dose: 1 applic Admin: 07/17/19 18:35 Dose: 1 applic Admin: 07/17/19 11:54 Dose: 1 applic Admin: 07/17/19 05:52 Dose: 1 applic Admin: 07/16/19 23:56 Dose: 1 applic Admin: 07/16/19 18:40 Dose: 1 applic Admin: 07/16/19 12:32 Dose: 1 applic Admin: 07/16/19 06:27 Dose: 1 applic Admin: 07/16/19 00:32 Dose: 1 applic Admin: 07/15/19 17:26 Dose: 1 applic Ondansetron HCl (Zofran) 4 mg IVPUSH Q4H PRN PRN Reason: Nausea Prednisone (Prednisone) 40 mg PO WITHBREAKFAST KAILYN Sodium Chloride (Saline Flush) 2.5 ml FLUSH ASDIRECTED PRN PRN Reason: Keep Vein Open - Assessment Assessment (Free Text/Narrative):: pt clinically doing fine, h/h stable X 72 hrs; denied abd pain; cought on telemetry pt is in and out of Vtach, and hx of alcoholism, and TSH of 66, pt is NOT a candidate for elective procedure X 6 months; in the event of active bleeding, with her clinical setup, probably transfer to higher level of care would be the best interest for the patient; if discharge, cardiology follow up or work up would be benefitial; thanks for the consult and care of this pleasant lady; recall if question - Plan Plan (Free Text/Narrative):: pt clinically doing fine, h/h stable X 72 hrs; denied abd pain; cought on telemetry pt is in and out of Vtach, and hx of alcoholism, and TSH of 66, pt is NOT a candidate for elective procedure X 6 months; in the event of active bleeding, with her clinical setup, probably transfer to higher level of care would be the best interest for the patient; if discharge, cardiology follow up or work up would be benefitial; thanks for the consult and care of this pleasant lady; recall if question
[2019-07-20] MEDS: Levofloxacin 500 MG Tab PO SCH (13:41)
[2019-07-20] MEDS: Pantoprazole 40 MG in Sodium Chloride 0.9% 10 ML IV SCH (13:42)
[2019-07-20] MEDS ORDERED: Aluminum Hydroxide/Magnesium Hydroxide/Simethicone Susp 30 ML Cup PO PRN (20:42)
[2019-07-20] MEDS: Montelukast 10 MG Tab PO SCH (21:17)
[2019-07-20] MEDS: ARIPiprazole 10 MG Tab PO SCH (21:17)
[2019-07-21] MEDS: Pantoprazole 40 MG in Sodium Chloride 0.9% 10 ML IV SCH ×2 (00:51→11:46)
[2019-07-21] MEDS: Nystatin Topical Powder 15 GM Bottle TOP SCH ×4 (00:52→17:16)
[2019-07-21] MEDS: Albuterol/Ipratropium 3.0-0.5 MG/3 ML Neb Soln NEB SCH ×6 (02:30→21:08)
[2019-07-21] MEDS: Levothyroxine 150 MCG Tab PO SCH (06:20)
[2019-07-21] MEDS: Gabapentin 300 MG Cap PO SCH ×3 (06:21→22:09)
[2019-07-21 06:44] LABS: BLOOD UREA NITROGEN,BUN 18 mg/dL (7.0-18.0); CARBON DIOXIDE,CO2 32.5 mmol/L (21.0-32.0); CHLORIDE,CL 105 mmol/L (98-107); GLUCOSE RANDOM 123 mg/dL (74-106); POTASSIUM,K 3.6 mmol/L (3.5-5.1); SODIUM,NA 143 mmol/L (136-145)
[2019-07-21] MEDS: predniSONE 20 MG Tab PO SCH (08:56)
[2019-07-21] MEDS: DULoxetine 60 MG Cap PO SCH (08:56)
[2019-07-21] MEDS: Folic Acid 50 MG/10 ML MDV SUBCUT SCH (08:57)
[2019-07-21] MEDS: Thiamine 100 MG in Sodium Chloride 0.9% 100 ML IV SCH (09:30)
--- NOTE | 2019-07-21 11:29 | PCM.PN ---
- General Info Date of Service: 07/21/19 Admission Dx/Problem (Free Text): Admission Diagnosis/Problem Admission Diagnosis/Problem GI bleed not requiring more than 4 units of blood in 24 hours, ICU, or surgery Subjective Update: Feeling ok today, continues to be very slow. Denies chest pain. Having some dyspnea. Functional Status: Reports: Pain Controlled, Tolerating Diet, Ambulating - Review of Systems General: Reports: No Symptoms. Denies: Fatigue, Malaise HEENT: Reports: No Symptoms Pulmonary: Reports: No Symptoms. Denies: Shortness of Breath, Cough, Sputum Cardiovascular: Reports: No Symptoms. Denies: Chest Pain Gastrointestinal: Reports: No Symptoms. Denies: Abdominal Pain, Nausea, Vomiting Genitourinary: Reports: No Symptoms. Denies: Dysuria, Frequency Musculoskeletal: Reports: No Symptoms Neurological: Reports: No Symptoms Psychiatric: Reports: No Symptoms - Patient Data Vitals - Most Recent: Last Vital Signs Temp 97.2 F 07/21/19 08:04 Pulse 79 07/21/19 08:04 Resp 16 07/21/19 08:04 BP 143/76 H 07/21/19 08:04 Pulse Ox 91 L 07/21/19 08:04 Weight - Most Recent: 88.9 kg I&O - Last 24 Hours: Intake & Output 07/20/19 07/21/19 07/21/19 22:59 06:59 14:59 Intake Total 840 700 100 Output Total 840 650 Balance 0 50 100 Lab Results Last 24 Hours: Laboratory Results - last 24 hr 07/21/19 07/21/19 Range/Units 06:18 06:18 WBC 8.31 (4.0-11.0) K/uL RBC 4.07 L (4.30-5.90) M/uL Hgb 10.8 L (12.0-16.0) g/dL Hct 36.4 (36.0-46.0) % MCV 89.4 (80.0-98.0) fL MCH 26.5 L (27.0-32.0) pg MCHC 29.7 L (31.0-37.0) g/dL RDW Std Deviation 54.3 (28.0-62.0) fl RDW Coeff of Cintia 18 H (11.0-15.0) % Plt Count 167 (150-400) K/uL MPV 10.20 (7.40-12.00) fL Neut % (Auto) 70.3 (48.0-80.0) % Lymph % (Auto) 19.7 (16.0-40.0) % [place]pie % (Auto) 8.5 (0.0-15.0) % Eos % (Auto) 1.1 (0.0-7.0) % Baso % (Auto) 0.4 (0.0-1.5) % Neut # (Auto) 5.8 H (1.4-5.7) K/uL Lymph # (Auto) 1.6 (0.6-2.4) K/uL [place]pie # (Auto) 0.7 (0.0-0.8) K/uL Eos # (Auto) 0.1 (0.0-0.7) K/uL Baso # (Auto) 0.0 (0.0-0.1) K/uL Nucleated RBC % 0.0 /100WBC Nucleated RBCs # 0 K/uL Sodium 143 (136-145) mmol/L Potassium 3.6 (3.5-5.1) mmol/L Chloride 105 (98-107) mmol/L Carbon Dioxide 32.5 H (21.0-32.0) mmol/L BUN 18 (7.0-18.0) mg/dL Creatinine 0.8 (0.6-1.0) mg/dL Est Cr Clr Drug Dosing 56.93 mL/min Estimated GFR (MDRD) > 60.0 ml/min Glucose 123 H (74-106) mg/dL Calcium 8.4 L (8.5-10.1) mg/dL Kel Results Last 24 Hours: Microbiology 07/15/19 15:02 Aerobic Blood Culture - Final Blood - Venous - Lab Draw NO GROWTH AFTER 5 DAYS Anaerobic Blood Culture - Final 07/15/19 13:08 Aerobic Blood Culture - Final Blood - Venous NO GROWTH AFTER 5 DAYS Anaerobic Blood Culture - Final 07/17/19 00:45 Helicobacter pylori Antigen - Final Stool / Feces Med Orders - Current: Current Medications Al Hydroxide/Mg Hydroxide (Mag-Al Plus) 30 ml PO Q4H PRN PRN Reason: Heartburn Last Admin: 07/20/19 21:17 Dose: 30 ml Albuterol/Ipratropium (Duoneb 3.0-0.5 Mg/3 Ml) 3 ml NEB Q4HRRT [facility] Last Admin: 07/21/19 09:30 Dose: 3 ml Aripiprazole (Abilify) 5 mg PO BEDTIME [facility] Last Admin: 07/20/19 21:17 Dose: 5 mg Duloxetine HCl (Cymbalta) 60 mg PO DAILY [facility] Last Admin: 07/21/19 08:56 Dose: 60 mg Folic Acid (Folic Acid) 1 mg SUBCUT DAILY [facility] Last Admin: 07/21/19 08:57 Dose: 1 mg Gabapentin (Neurontin) 300 mg PO TID [facility] Last Admin: 07/21/19 06:21 Dose: 300 mg Hydroxyzine Pamoate (Vistaril) 25 mg PO QID PRN PRN Reason: Anxiety Pantoprazole Sodium 40 mg/ (Sodium Chloride) 10 mls @ 300 mls/hr IV Q12H [facility] Last Admin: 07/21/19 00:51 Dose: 300 mls/hr Thiamine HCl 100 mg/ Sodium (Chloride) 101 mls @ 202 mls/hr IV DAILY [facility] Last Admin: 07/21/19 09:30 Dose: 202 mls/hr Levofloxacin (Levaquin) 750 mg PO Q24H [facility] Last Admin: 07/20/19 13:41 Dose: 750 mg Levothyroxine Sodium (Levothyroxine) 150 mcg PO DAILY@0700 [facility] Last Admin: 07/21/19 06:20 Dose: 150 mcg Lorazepam (Ativan) 0 mg IVPUSH Q4H PRN; Protocol PRN Reason: CIWAA Montelukast Sodium (Singulair) 10 mg PO BEDTIME [facility] Last Admin: 07/20/19 21:17 Dose: 10 mg Nystatin (Nystop) 0 gm TOP QID [facility] Last Admin: 07/21/19 06:21 Dose: 1 applic Ondansetron HCl (Zofran) 4 mg IVPUSH Q4H PRN PRN Reason: Nausea Prednisone (Prednisone) 40 mg PO WITHBREAKFAST [facility] Last Admin: 07/21/19 08:56 Dose: 40 mg Sodium Chloride (Saline Flush) 2.5 ml FLUSH ASDIRECTED PRN PRN Reason: Keep Vein Open Discontinued Medications Albuterol/Ipratropium (Duoneb 3.0-0.5 Mg/3 Ml) 3 ml NEB Q4HRRT PRN PRN Reason: SOB/wheezing Last Admin: 07/19/19 14:21 Dose: 3 ml Albuterol/Ipratropium (Duoneb 3.0-0.5 Mg/3 Ml) 3 ml NEB ONETIME ONE Stop: 07/19/19 14:59 Last Admin: 07/19/19 15:02 Dose: 3 ml Bisacodyl (Dulcolax) 20 mg PO ONETIME ONE Stop: 07/16/19 14:01 Last Admin: 07/16/19 14:11 Dose: 20 mg Fentanyl (Sublimaze) Confirm Administered Dose 100 mcg .ROUTE .STK-MED ONE Stop: 07/17/19 07:23 Fluconazole (Diflucan) 150 mg PO ONETIME ONE Stop: 07/19/19 13:29 Last Admin: 07/19/19 14:14 Dose: 150 mg Sodium Chloride (Normal Saline) 1,000 mls @ 999 mls/hr IV STAT ONE Stop: 07/15/19 11:27 Last Admin: 07/15/19 10:35 Dose: 999 mls/hr Ceftriaxone Sodium/Dextrose 1 (gm/ Premix) 50 mls @ 100 mls/hr IV ONETIME ONE Stop: 07/15/19 12:54 Last Admin: 07/15/19 14:02 Dose: Not Given Ceftriaxone Sodium/Dextrose 1 (gm/ Premix) 50 mls @ 100 mls/hr IV Q24H [facility] Last Admin: 07/19/19 12:30 Dose: 100 mls/hr Iron Sucrose 200 mg/ Sodium (Chloride) 110 mls @ 400 mls/hr IV ONETIME ONE Stop: 07/15/19 15:16 Last Admin: 07/15/19 15:49 Dose: 400 mls/hr Iron Sucrose 200 mg/ Sodium (Chloride) 110 mls @ 400 mls/hr IV ONETIME ONE Stop: 07/16/19 08:12 Last Admin: 07/16/19 08:43 Dose: 400 mls/hr Potassium Chloride/Sodium Chloride (Normal Saline With 40 Meq Kcl) 1,000 mls @ 125 mls/hr IV ONETIME ONE Stop: 07/17/19 16:11 Last Admin: 07/17/19 09:49 Dose: 125 mls/hr Lidocaine (Xylocaine-Mpf 2%) Confirm Administered Dose 5 ml .ROUTE .STK-MED ONE Stop: 07/17/19 07:23 Methylprednisolone Sodium Succinate (Solu-Medrol) 40 mg IVPUSH Q12H [facility] Last Admin: 07/20/19 12:20 Dose: Not Given Midazolam HCl (Versed 1 Mg/Ml) Confirm Administered Dose 2 mg .ROUTE .STK-MED ONE Stop: 07/17/19 07:23 Polyethylene Glycol (Miralax) 238 gm PO ONETIME ONE Stop: 07/16/19 14:01 Last Admin: 07/16/19 14:11 Dose: 238 gm Propofol (Diprivan 20 Ml) Confirm Administered Dose 400 mg .ROUTE .STK-MED ONE Stop: 07/17/19 07:23 Sodium Chloride (Saline Flush) 10 ml FLUSH ASDIRECTED PRN PRN Reason: Keep Vein Open Sodium Chloride (Saline Flush) 2.5 ml FLUSH ASDIRECTED PRN PRN Reason: Keep Vein Open - Exam General: Alert, Oriented, Cooperative, No Acute Distress Lungs: Clear to Auscultation, Normal Respiratory Effort Cardiovascular: Regular Rate, Regular Rhythm GI/Abdominal Exam: Normal Bowel Sounds, Soft, Non-Tender Extremities: Normal Inspection, Normal Range of Motion, Non-Tender, No Pedal Edema Neurological: No New Focal Deficit Psy/Mental Status: Alert, Normal Affect, Normal Mood Sepsis Event Note - Evaluation Sepsis Screening Result: No Definite Risk - Focused Exam Vital Signs: Vital Signs Temp Pulse Resp BP Pulse Ox 07/21/19 08:04 97.2 F 79 16 143/76 H 91 L 07/21/19 06:07 93 L 07/21/19 04:03 92 L 07/21/19 04:00 98.3 F 86 20 137/65 88 L 07/21/19 00:00 98.2 F 90 16 126/69 92 L Date Exam was Performed: 07/21/19 Time Exam was Performed: 13:31 - Problem List & Annotations (1) GI bleed SNOMED Code(s): 36652209 Code(s): K92.2 - GASTROINTESTINAL HEMORRHAGE, UNSPECIFIED Status: Acute Current Visit: No Qualifiers: GI bleed type/associated pathology: unspecified gastrointestinal hemorrhage type Qualified Code(s): K92.2 - Gastrointestinal hemorrhage, unspecified (2) UTI (urinary tract infection) SNOMED Code(s): 15306921 Code(s): N39.0 - URINARY TRACT INFECTION, SITE NOT SPECIFIED Status: Acute Current Visit: No (3) Anemia SNOMED Code(s): 743887866 Code(s): D64.9 - ANEMIA, UNSPECIFIED Status: Acute Priority: High Current Visit: No Qualifiers: Iron deficiency anemia type: chronic blood loss (4) HTN (hypertension) SNOMED Code(s): 34123119 Code(s): I10 - ESSENTIAL (PRIMARY) HYPERTENSION Status: Chronic Current Visit: Yes Qualifiers: Hypertension type: essential hypertension Qualified Code(s): I10 - Essential (primary) hypertension (5) Anxiety SNOMED Code(s): 77388306 Code(s): F41.9 - ANXIETY DISORDER, UNSPECIFIED Status: Chronic Current Visit: Yes (6) Hypothyroidism SNOMED Code(s): 26356916 Code(s): E03.9 - HYPOTHYROIDISM, UNSPECIFIED Status: Chronic Current Visit: Yes (7) Restless leg syndrome SNOMED Code(s): 01575835 Code(s): G25.81 - RESTLESS LEGS SYNDROME Status: Chronic Current Visit: Yes (8) Alcohol abuse SNOMED Code(s): 35792233 Code(s): F10.10 - ALCOHOL ABUSE, UNCOMPLICATED Status: Chronic Priority: Low Current Visit: No (9) Depressed SNOMED Code(s): 14110017 Code(s): F32.9 - MAJOR DEPRESSIVE DISORDER, SINGLE EPISODE, UNSPECIFIED Status: Chronic Current Visit: No Qualifiers: Depression Type: unspecified Qualified Code(s): F32.9 - Major depressive disorder, single episode, unspecified - Problem List Review Problem List Initiated/Reviewed/Updated: Yes - My Orders Last 24 Hours: My Active Orders 07/20/19 12:15 levoFLOXacin [Levaquin] 750 mg PO Q24H 07/20/19 Lunch Regular Diet [DIET] 07/21/19 08:00 predniSONE 40 mg PO WITHBREAKFAST 07/21/19 09:00 May Shower [RC] ASDIRECTED - Plan Plan:: This 64 year female admitted with acute GI bleeding, UTI and alcohol withdrawal. Patient does have intermittent delirium uncertain if this is due to acute illness vs alcohol withdrawal, will continue to monitor closely. 1. Acute GI bleeding, likely upper s/p 3 units PRBCs- Hemoglobin stable - Follow up with Dr Smart in 1-2 weeks. - Tolerating soft diet - Protonix 40 mg BID IV 2. Hypothyroidism - TSH 66.50, T4 0.56 , T3 1.35 - Continues to be very slowly likely secondary to hypothyroidism, will start Levothyroxine 112.5 IV daily and monitor. - Will need recheck in clinic 4-6 weeks 3. Alcohol withdrawal- CIWAAs have been 0, not requiring treatment with Ativan - CIWAA with Ativan Protocol PRN - Thiamine and folic acid supplementation 4. Anxiety/depression - Continue home medications 5. HTN: - Stable, monitor with GI bleeding 6. Asthma - CXR revealed atelectasis vs pneumonia (no white count or fever but requiring oxygen) - duonebs q 4 hrs prn - Levaquin 750 PO daily - Prednisone 40 mg daily - Continue montelukast VTE prophylaxis: SCDs only due to acute bleeding Code Status: Full code Dispo: 3 days
[2019-07-21] MEDS: Levofloxacin 500 MG Tab PO SCH (11:45)
[2019-07-21] MEDS ORDERED: Levothyroxine 100 MCG Vial IV SCH (12:00)
[2019-07-21] MEDS: SODIUM CHLORIDE 0.9% IV SCH (13:08)
[2019-07-21] MEDS: LEVOTHYROXINE IV SCH (13:08)
[2019-07-21] MEDS: Montelukast 10 MG Tab PO SCH (20:40)
[2019-07-21] MEDS: ARIPiprazole 10 MG Tab PO SCH (20:40)
[2019-07-22] MEDS: Pantoprazole 40 MG in Sodium Chloride 0.9% 10 ML IV SCH ×3 (00:32→23:48)
[2019-07-22] MEDS: Nystatin Topical Powder 15 GM Bottle TOP SCH ×5 (00:36→23:43)
[2019-07-22] MEDS: Albuterol/Ipratropium 3.0-0.5 MG/3 ML Neb Soln NEB SCH ×6 (01:40→21:28)
[2019-07-22] MEDS: Gabapentin 300 MG Cap PO SCH ×3 (05:40→21:16)
[2019-07-22 06:35] LABS: BLOOD UREA NITROGEN,BUN 16 mg/dL (7.0-18.0); CARBON DIOXIDE,CO2 31.9 mmol/L (21.0-32.0); CHLORIDE,CL 104 mmol/L (98-107); GLUCOSE RANDOM 129 mg/dL (74-106); POTASSIUM,K 3.5 mmol/L (3.5-5.1); SODIUM,NA 141 mmol/L (136-145)
[2019-07-22] MEDS: predniSONE 20 MG Tab PO SCH (09:41)
[2019-07-22] MEDS: DULoxetine 60 MG Cap PO SCH (09:42)
[2019-07-22] MEDS: Folic Acid 50 MG/10 ML MDV SUBCUT SCH (09:42)
[2019-07-22] MEDS: Thiamine 100 MG in Sodium Chloride 0.9% 100 ML IV SCH (09:44)
[2019-07-22] MEDS: SODIUM CHLORIDE 0.9% IV SCH (10:41)
[2019-07-22] MEDS: LEVOTHYROXINE IV SCH (10:41)
--- NOTE | 2019-07-22 12:45 | PCM.PN ---
- General Info Date of Service: 07/22/19 Admission Dx/Problem (Free Text): Admission Diagnosis/Problem Admission Diagnosis/Problem GI bleed, hypothyroidism Subjective Update: Doing well, continues to improve daily. No chest pain, shortness of breath improved. Slowness improving Functional Status: Reports: Pain Controlled, Tolerating Diet, Ambulating, Urinating - Review of Systems General: Reports: Fatigue, Malaise HEENT: Reports: No Symptoms. Denies: Headaches, Sore Throat Pulmonary: Reports: No Symptoms. Denies: Shortness of Breath Cardiovascular: Reports: No Symptoms. Denies: Chest Pain Gastrointestinal: Reports: No Symptoms. Denies: Abdominal Pain, Nausea, Vomiting Genitourinary: Reports: No Symptoms. Denies: Dysuria, Frequency, Burning Musculoskeletal: Reports: No Symptoms Skin: Reports: No Symptoms Neurological: Reports: Dizziness (continues to improve) Psychiatric: Reports: No Symptoms - Patient Data Vitals - Most Recent: Last Vital Signs Temp 98.7 F 07/22/19 08:00 Pulse 87 07/22/19 08:00 Resp 20 07/22/19 08:00 BP 134/74 07/22/19 08:00 Pulse Ox 96 07/22/19 08:00 Weight - Most Recent: 88.9 kg I&O - Last 24 Hours: Intake & Output 07/21/19 07/22/19 07/22/19 22:59 06:59 14:59 Intake Total 660 750 Output Total 400 600 Balance 260 150 Lab Results Last 24 Hours: Laboratory Results - last 24 hr 07/22/19 07/22/19 Range/Units 05:37 05:37 WBC 7.35 (4.0-11.0) K/uL RBC 3.91 L (4.30-5.90) M/uL Hgb 10.4 L (12.0-16.0) g/dL Hct 35.0 L (36.0-46.0) % MCV 89.5 (80.0-98.0) fL MCH 26.6 L (27.0-32.0) pg MCHC 29.7 L (31.0-37.0) g/dL RDW Std Deviation 56.3 (28.0-62.0) fl RDW Coeff of Cintia 18 H (11.0-15.0) % Plt Count 248 (150-400) K/uL MPV 9.40 (7.40-12.00) fL Neut % (Auto) 76.3 (48.0-80.0) % Lymph % (Auto) 15.4 L (16.0-40.0) % [place] % (Auto) 8.2 (0.0-15.0) % Eos % (Auto) 0.0 (0.0-7.0) % Baso % (Auto) 0.1 (0.0-1.5) % Neut # (Auto) 5.6 (1.4-5.7) K/uL Lymph # (Auto) 1.1 (0.6-2.4) K/uL [place] # (Auto) 0.6 (0.0-0.8) K/uL Eos # (Auto) 0.0 (0.0-0.7) K/uL Baso # (Auto) 0.0 (0.0-0.1) K/uL Nucleated RBC % 0.0 /100WBC Nucleated RBCs # 0 K/uL Sodium 141 (136-145) mmol/L Potassium 3.5 (3.5-5.1) mmol/L Chloride 104 (98-107) mmol/L Carbon Dioxide 31.9 (21.0-32.0) mmol/L BUN 16 (7.0-18.0) mg/dL Creatinine 0.8 (0.6-1.0) mg/dL Est Cr Clr Drug Dosing 56.93 mL/min Estimated GFR (MDRD) > 60.0 ml/min Glucose 129 H (74-106) mg/dL Calcium 9.0 (8.5-10.1) mg/dL Med Orders - Current: Current Medications Al Hydroxide/Mg Hydroxide (Mag-Al Plus) 30 ml PO Q4H PRN PRN Reason: Heartburn Last Admin: 07/20/19 21:17 Dose: 30 ml Albuterol/Ipratropium (Duoneb 3.0-0.5 Mg/3 Ml) 3 ml NEB Q4HRRT [facility] Last Admin: 07/22/19 09:57 Dose: 3 ml Aripiprazole (Abilify) 5 mg PO BEDTIME [facility] Last Admin: 07/21/19 20:40 Dose: 5 mg Duloxetine HCl (Cymbalta) 60 mg PO DAILY [facility] Last Admin: 07/22/19 09:42 Dose: 60 mg Folic Acid (Folic Acid) 1 mg SUBCUT DAILY [facility] Last Admin: 07/22/19 09:42 Dose: 1 mg Gabapentin (Neurontin) 300 mg PO TID [facility] Last Admin: 07/22/19 05:40 Dose: 300 mg Hydroxyzine Pamoate (Vistaril) 25 mg PO QID PRN PRN Reason: Anxiety Pantoprazole Sodium 40 mg/ (Sodium Chloride) 10 mls @ 300 mls/hr IV Q12H [facility] Last Admin: 07/22/19 00:32 Dose: 300 mls/hr Thiamine HCl 100 mg/ Sodium (Chloride) 101 mls @ 202 mls/hr IV DAILY [facility] Last Admin: 07/22/19 09:44 Dose: 202 mls/hr Levothyroxine Sodium 112 mcg/ (Sodium Chloride) 5.6 mls @ 112 mls/hr IV DAILY [facility] Last Admin: 07/22/19 10:41 Dose: 112 mls/hr Levofloxacin (Levaquin) 750 mg PO Q24H [facility] Last Admin: 07/21/19 11:45 Dose: 750 mg Lorazepam (Ativan) 0 mg IVPUSH Q4H PRN; Protocol PRN Reason: CIWAA Montelukast Sodium (Singulair) 10 mg PO BEDTIME [facility] Last Admin: 07/21/19 20:40 Dose: 10 mg Nystatin (Nystop) 0 gm TOP QID [facility] Last Admin: 07/22/19 05:40 Dose: 1 applic Ondansetron HCl (Zofran) 4 mg IVPUSH Q4H PRN PRN Reason: Nausea Prednisone (Prednisone) 40 mg PO WITHBREAKFAST [facility] Last Admin: 07/22/19 09:41 Dose: 40 mg Sodium Chloride (Saline Flush) 2.5 ml FLUSH ASDIRECTED PRN PRN Reason: Keep Vein Open Discontinued Medications Albuterol/Ipratropium (Duoneb 3.0-0.5 Mg/3 Ml) 3 ml NEB Q4HRRT PRN PRN Reason: SOB/wheezing Last Admin: 07/19/19 14:21 Dose: 3 ml Albuterol/Ipratropium (Duoneb 3.0-0.5 Mg/3 Ml) 3 ml NEB ONETIME ONE Stop: 07/19/19 14:59 Last Admin: 07/19/19 15:02 Dose: 3 ml Bisacodyl (Dulcolax) 20 mg PO ONETIME ONE Stop: 07/16/19 14:01 Last Admin: 07/16/19 14:11 Dose: 20 mg Fentanyl (Sublimaze) Confirm Administered Dose 100 mcg .ROUTE .STK-MED ONE Stop: 07/17/19 07:23 Fluconazole (Diflucan) 150 mg PO ONETIME ONE Stop: 07/19/19 13:29 Last Admin: 07/19/19 14:14 Dose: 150 mg Sodium Chloride (Normal Saline) 1,000 mls @ 999 mls/hr IV STAT ONE Stop: 07/15/19 11:27 Last Admin: 07/15/19 10:35 Dose: 999 mls/hr Ceftriaxone Sodium/Dextrose 1 (gm/ Premix) 50 mls @ 100 mls/hr IV ONETIME ONE Stop: 07/15/19 12:54 Last Admin: 07/15/19 14:02 Dose: Not Given Ceftriaxone Sodium/Dextrose 1 (gm/ Premix) 50 mls @ 100 mls/hr IV Q24H [facility] Last Admin: 07/19/19 12:30 Dose: 100 mls/hr Iron Sucrose 200 mg/ Sodium (Chloride) 110 mls @ 400 mls/hr IV ONETIME ONE Stop: 07/15/19 15:16 Last Admin: 07/15/19 15:49 Dose: 400 mls/hr Iron Sucrose 200 mg/ Sodium (Chloride) 110 mls @ 400 mls/hr IV ONETIME ONE Stop: 07/16/19 08:12 Last Admin: 07/16/19 08:43 Dose: 400 mls/hr Potassium Chloride/Sodium Chloride (Normal Saline With 40 Meq Kcl) 1,000 mls @ 125 mls/hr IV ONETIME ONE Stop: 07/17/19 16:11 Last Admin: 07/17/19 09:49 Dose: 125 mls/hr Levothyroxine Sodium (Levothyroxine) 150 mcg PO DAILY@0700 [facility] Last Admin: 07/21/19 06:20 Dose: 150 mcg Levothyroxine Sodium (Synthroid) 112.5 mcg IV DAILY [facility] Last Admin: 07/21/19 13:08 Dose: Not Given Lidocaine (Xylocaine-Mpf 2%) Confirm Administered Dose 5 ml .ROUTE .STK-MED ONE Stop: 07/17/19 07:23 Methylprednisolone Sodium Succinate (Solu-Medrol) 40 mg IVPUSH Q12H [facility] Last Admin: 07/20/19 12:20 Dose: Not Given Midazolam HCl (Versed 1 Mg/Ml) Confirm Administered Dose 2 mg .ROUTE .STK-MED ONE Stop: 07/17/19 07:23 Polyethylene Glycol (Miralax) 238 gm PO ONETIME ONE Stop: 07/16/19 14:01 Last Admin: 07/16/19 14:11 Dose: 238 gm Propofol (Diprivan 20 Ml) Confirm Administered Dose 400 mg .ROUTE .STK-MED ONE Stop: 07/17/19 07:23 Sodium Chloride (Saline Flush) 10 ml FLUSH ASDIRECTED PRN PRN Reason: Keep Vein Open Sodium Chloride (Saline Flush) 2.5 ml FLUSH ASDIRECTED PRN PRN Reason: Keep Vein Open - Exam General: Alert, Oriented, Cooperative, No Acute Distress Lungs: Normal Respiratory Effort, Crackles (fine to L base, improving) Cardiovascular: Regular Rate, Regular Rhythm, No Murmurs GI/Abdominal Exam: Normal Bowel Sounds, Soft, Non-Tender Extremities: Normal Inspection, Normal Range of Motion, Non-Tender, No Pedal Edema Neurological: No New Focal Deficit Psy/Mental Status: Alert, Normal Affect, Normal Mood Sepsis Event Note - Evaluation Sepsis Screening Result: No Definite Risk - Focused Exam Vital Signs: Vital Signs Temp Pulse Resp BP BP Pulse Ox 07/22/19 08:00 98.7 F 87 20 134/74 96 07/22/19 04:46 85 144/73 H 07/22/19 04:00 96.1 F L 81 20 160/89 H 96 Date Exam was Performed: 07/22/19 Time Exam was Performed: 12:47 - Problem List & Annotations (1) GI bleed SNOMED Code(s): 39055259 Code(s): K92.2 - GASTROINTESTINAL HEMORRHAGE, UNSPECIFIED Status: Acute Current Visit: No Qualifiers: GI bleed type/associated pathology: unspecified gastrointestinal hemorrhage type Qualified Code(s): K92.2 - Gastrointestinal hemorrhage, unspecified (2) UTI (urinary tract infection) SNOMED Code(s): 71739769 Code(s): N39.0 - URINARY TRACT INFECTION, SITE NOT SPECIFIED Status: Acute Current Visit: No (3) Anemia SNOMED Code(s): 977262165 Code(s): D64.9 - ANEMIA, UNSPECIFIED Status: Acute Priority: High Current Visit: No Qualifiers: Iron deficiency anemia type: chronic blood loss (4) HTN (hypertension) SNOMED Code(s): 10035758 Code(s): I10 - ESSENTIAL (PRIMARY) HYPERTENSION Status: Chronic Current Visit: Yes Qualifiers: Hypertension type: essential hypertension Qualified Code(s): I10 - Essential (primary) hypertension (5) Anxiety SNOMED Code(s): 85606877 Code(s): F41.9 - ANXIETY DISORDER, UNSPECIFIED Status: Chronic Current Visit: Yes (6) Hypothyroidism SNOMED Code(s): 93013995 Code(s): E03.9 - HYPOTHYROIDISM, UNSPECIFIED Status: Chronic Current Visit: Yes (7) Restless leg syndrome SNOMED Code(s): 36027985 Code(s): G25.81 - RESTLESS LEGS SYNDROME Status: Chronic Current Visit: Yes (8) Alcohol abuse SNOMED Code(s): 27142247 Code(s): F10.10 - ALCOHOL ABUSE, UNCOMPLICATED Status: Chronic Priority: Low Current Visit: No (9) Depressed SNOMED Code(s): 12370670 Code(s): F32.9 - MAJOR DEPRESSIVE DISORDER, SINGLE EPISODE, UNSPECIFIED Status: Chronic Current Visit: No Qualifiers: Depression Type: unspecified Qualified Code(s): F32.9 - Major depressive disorder, single episode, unspecified - Problem List Review Problem List Initiated/Reviewed/Updated: Yes - My Orders Last 24 Hours: My Active Orders 07/21/19 12:15 Levothyroxine [Synthroid] 112 mcg Sodium Chloride 0.9% [Normal Saline] 5.6 ml IV DAILY 07/23/19 05:11 BMP [BASIC METABOLIC PANEL,BMP] [CHEM] AM CBC WITH AUTO DIFF [HEME] AM - Plan Plan:: This 64 year female admitted with acute GI bleeding, UTI and alcohol withdrawal. Patient does have intermittent delirium uncertain if this is due to acute illness vs alcohol withdrawal, will continue to monitor closely. 1. Acute GI bleeding, likely upper s/p 3 units PRBCs- Hemoglobin stable - Follow up with Dr Smart in 1-2 weeks. - Tolerating soft diet - Protonix 40 mg BID IV 2. Hypothyroidism - TSH 66.50, T4 0.56 , T3 1.35 - Continue Levothyroxine 112.5 IV daily and monitor. - Will need recheck in clinic 4-6 weeks 3. Alcohol withdrawal- CIWAAs have been 0, not requiring treatment with Ativan - CIWAA with Ativan Protocol PRN - Thiamine and folic acid supplementation 4. Anxiety/depression - Continue home medications 5. HTN: - Stable, monitor with GI bleeding 6. Asthma - CXR revealed atelectasis vs pneumonia (no white count or fever but requiring oxygen) - duonebs q 4 hrs prn - Levaquin 750 PO daily - Prednisone 40 mg daily - Continue montelukast VTE prophylaxis: SCDs only due to acute bleeding Code Status: Full code Dispo: likely DC on Saturday
[2019-07-22] MEDS: Levofloxacin 500 MG Tab PO SCH (12:57)
[2019-07-22] MEDS: Montelukast 10 MG Tab PO SCH (21:16)
[2019-07-22] MEDS: ARIPiprazole 10 MG Tab PO SCH (21:16)
[2019-07-23] MEDS: Albuterol/Ipratropium 3.0-0.5 MG/3 ML Neb Soln NEB SCH ×3 (02:17→09:20)
[2019-07-23] MEDS: Nystatin Topical Powder 15 GM Bottle TOP SCH ×3 (05:56→18:15)
[2019-07-23] MEDS: Gabapentin 300 MG Cap PO SCH ×3 (05:57→22:06)
[2019-07-23 07:24] LABS: BLOOD UREA NITROGEN,BUN 21 mg/dL (7.0-18.0); CARBON DIOXIDE,CO2 29.7 mmol/L (21.0-32.0); CHLORIDE,CL 105 mmol/L (98-107); GLUCOSE RANDOM 112 mg/dL (74-106); POTASSIUM,K 3.2 mmol/L (3.5-5.1); SODIUM,NA 142 mmol/L (136-145)
--- NOTE | 2019-07-23 08:12 | PCM.PN ---
- General Info Date of Service: 07/23/19 Admission Dx/Problem (Free Text): Admission Diagnosis/Problem Admission Diagnosis/Problem GI bleed, hypothyroidism Subjective Update: Continues to improve daily, feeling better today. Fatigued but improved. No chest pain. SOB is better. No black stools. passing flatus Functional Status: Reports: Pain Controlled, Tolerating Diet, Ambulating, Urinating - Review of Systems General: Reports: Fatigue, Malaise. Denies: Weakness Pulmonary: Reports: No Symptoms. Denies: Shortness of Breath Cardiovascular: Reports: No Symptoms. Denies: Chest Pain Gastrointestinal: Reports: No Symptoms. Denies: Abdominal Pain, Nausea, Vomiting Genitourinary: Reports: No Symptoms. Denies: Dysuria, Frequency, Burning Neurological: Reports: No Symptoms. Denies: Confusion Psychiatric: Reports: No Symptoms. Denies: Confusion - Patient Data Vitals - Most Recent: Last Vital Signs Temp 98 F 07/23/19 04:00 Pulse 85 07/23/19 04:00 Resp 18 07/23/19 04:00 BP 130/71 07/23/19 04:00 Pulse Ox 92 L 07/23/19 04:00 Weight - Most Recent: 88.9 kg I&O - Last 24 Hours: Intake & Output 07/22/19 07/23/19 07/23/19 22:59 06:59 14:59 Intake Total 800 500 Output Total 500 450 Balance 300 50 Lab Results Last 24 Hours: Laboratory Results - last 24 hr 07/23/19 07/23/19 Range/Units 06:49 06:49 WBC 6.68 (4.0-11.0) K/uL RBC 4.33 (4.30-5.90) M/uL Hgb 11.5 L (12.0-16.0) g/dL Hct 38.8 (36.0-46.0) % MCV 89.6 (80.0-98.0) fL MCH 26.6 L (27.0-32.0) pg MCHC 29.6 L (31.0-37.0) g/dL RDW Std Deviation 58.4 (28.0-62.0) fl RDW Coeff of Cintia 19 H (11.0-15.0) % Plt Count 247 (150-400) K/uL MPV 9.90 (7.40-12.00) fL Neut % (Auto) 61.5 (48.0-80.0) % Lymph % (Auto) 28.7 (16.0-40.0) % [place] % (Auto) 9.6 (0.0-15.0) % Eos % (Auto) 0.1 (0.0-7.0) % Baso % (Auto) 0.1 (0.0-1.5) % Neut # (Auto) 4.1 (1.4-5.7) K/uL Lymph # (Auto) 1.9 (0.6-2.4) K/uL [place] # (Auto) 0.6 (0.0-0.8) K/uL Eos # (Auto) 0.0 (0.0-0.7) K/uL Baso # (Auto) 0.0 (0.0-0.1) K/uL Nucleated RBC % 0.0 /100WBC Nucleated RBCs # 0 K/uL Sodium 142 (136-145) mmol/L Potassium 3.2 L (3.5-5.1) mmol/L Chloride 105 (98-107) mmol/L Carbon Dioxide 29.7 (21.0-32.0) mmol/L BUN 21 H (7.0-18.0) mg/dL Creatinine 0.8 (0.6-1.0) mg/dL Est Cr Clr Drug Dosing 56.93 mL/min Estimated GFR (MDRD) > 60.0 ml/min Glucose 112 H (74-106) mg/dL Calcium 9.0 (8.5-10.1) mg/dL Med Orders - Current: Current Medications Al Hydroxide/Mg Hydroxide (Mag-Al Plus) 30 ml PO Q4H PRN PRN Reason: Heartburn Last Admin: 07/20/19 21:17 Dose: 30 ml Albuterol/Ipratropium (Duoneb 3.0-0.5 Mg/3 Ml) 3 ml NEB Q4HRRT [facility] Last Admin: 07/23/19 05:56 Dose: 3 ml Aripiprazole (Abilify) 5 mg PO BEDTIME [facility] Last Admin: 07/22/19 21:16 Dose: 5 mg Duloxetine HCl (Cymbalta) 60 mg PO DAILY [facility] Last Admin: 07/22/19 09:42 Dose: 60 mg Folic Acid (Folic Acid) 1 mg SUBCUT DAILY [facility] Last Admin: 07/22/19 09:42 Dose: 1 mg Gabapentin (Neurontin) 300 mg PO TID [facility] Last Admin: 07/23/19 05:57 Dose: 300 mg Hydroxyzine Pamoate (Vistaril) 25 mg PO QID PRN PRN Reason: Anxiety Pantoprazole Sodium 40 mg/ (Sodium Chloride) 10 mls @ 300 mls/hr IV Q12H [facility] Last Admin: 07/22/19 23:48 Dose: 300 mls/hr Thiamine HCl 100 mg/ Sodium (Chloride) 101 mls @ 202 mls/hr IV DAILY [facility] Last Admin: 07/22/19 09:44 Dose: 202 mls/hr Levothyroxine Sodium 112 mcg/ (Sodium Chloride) 5.6 mls @ 112 mls/hr IV DAILY [facility] Last Admin: 07/22/19 10:41 Dose: 112 mls/hr Levofloxacin (Levaquin) 750 mg PO Q24H [facility] Last Admin: 07/22/19 12:57 Dose: 750 mg Lorazepam (Ativan) 0 mg IVPUSH Q4H PRN; Protocol PRN Reason: CIWAA Montelukast Sodium (Singulair) 10 mg PO BEDTIME [facility] Last Admin: 07/22/19 21:16 Dose: 10 mg Nystatin (Nystop) 0 gm TOP QID [facility] Last Admin: 07/23/19 05:56 Dose: 1 applic Ondansetron HCl (Zofran) 4 mg IVPUSH Q4H PRN PRN Reason: Nausea Potassium Chloride (Klor-Con M20) 40 meq PO BID@0800,1200 [facility] Stop: 07/24/19 08:01 Prednisone (Prednisone) 40 mg PO WITHBREAKFAST [facility] Last Admin: 07/22/19 09:41 Dose: 40 mg Sodium Chloride (Saline Flush) 2.5 ml FLUSH ASDIRECTED PRN PRN Reason: Keep Vein Open Discontinued Medications Albuterol/Ipratropium (Duoneb 3.0-0.5 Mg/3 Ml) 3 ml NEB Q4HRRT PRN PRN Reason: SOB/wheezing Last Admin: 07/19/19 14:21 Dose: 3 ml Albuterol/Ipratropium (Duoneb 3.0-0.5 Mg/3 Ml) 3 ml NEB ONETIME ONE Stop: 07/19/19 14:59 Last Admin: 07/19/19 15:02 Dose: 3 ml Bisacodyl (Dulcolax) 20 mg PO ONETIME ONE Stop: 07/16/19 14:01 Last Admin: 07/16/19 14:11 Dose: 20 mg Fentanyl (Sublimaze) Confirm Administered Dose 100 mcg .ROUTE .STK-MED ONE Stop: 07/17/19 07:23 Fluconazole (Diflucan) 150 mg PO ONETIME ONE Stop: 07/19/19 13:29 Last Admin: 07/19/19 14:14 Dose: 150 mg Sodium Chloride (Normal Saline) 1,000 mls @ 999 mls/hr IV STAT ONE Stop: 07/15/19 11:27 Last Admin: 07/15/19 10:35 Dose: 999 mls/hr Ceftriaxone Sodium/Dextrose 1 (gm/ Premix) 50 mls @ 100 mls/hr IV ONETIME ONE Stop: 07/15/19 12:54 Last Admin: 07/15/19 14:02 Dose: Not Given Ceftriaxone Sodium/Dextrose 1 (gm/ Premix) 50 mls @ 100 mls/hr IV Q24H [facility] Last Admin: 07/19/19 12:30 Dose: 100 mls/hr Iron Sucrose 200 mg/ Sodium (Chloride) 110 mls @ 400 mls/hr IV ONETIME ONE Stop: 07/15/19 15:16 Last Admin: 07/15/19 15:49 Dose: 400 mls/hr Iron Sucrose 200 mg/ Sodium (Chloride) 110 mls @ 400 mls/hr IV ONETIME ONE Stop: 07/16/19 08:12 Last Admin: 07/16/19 08:43 Dose: 400 mls/hr Potassium Chloride/Sodium Chloride (Normal Saline With 40 Meq Kcl) 1,000 mls @ 125 mls/hr IV ONETIME ONE Stop: 07/17/19 16:11 Last Admin: 07/17/19 09:49 Dose: 125 mls/hr Levothyroxine Sodium (Levothyroxine) 150 mcg PO DAILY@0700 [facility] Last Admin: 07/21/19 06:20 Dose: 150 mcg Levothyroxine Sodium (Synthroid) 112.5 mcg IV DAILY [facility] Last Admin: 07/21/19 13:08 Dose: Not Given Lidocaine (Xylocaine-Mpf 2%) Confirm Administered Dose 5 ml .ROUTE .STK-MED ONE Stop: 07/17/19 07:23 Methylprednisolone Sodium Succinate (Solu-Medrol) 40 mg IVPUSH Q12H [facility] Last Admin: 07/20/19 12:20 Dose: Not Given Midazolam HCl (Versed 1 Mg/Ml) Confirm Administered Dose 2 mg .ROUTE .STK-MED ONE Stop: 07/17/19 07:23 Polyethylene Glycol (Miralax) 238 gm PO ONETIME ONE Stop: 07/16/19 14:01 Last Admin: 07/16/19 14:11 Dose: 238 gm Propofol (Diprivan 20 Ml) Confirm Administered Dose 400 mg .ROUTE .STK-MED ONE Stop: 07/17/19 07:23 Sodium Chloride (Saline Flush) 10 ml FLUSH ASDIRECTED PRN PRN Reason: Keep Vein Open Sodium Chloride (Saline Flush) 2.5 ml FLUSH ASDIRECTED PRN PRN Reason: Keep Vein Open - Exam General: Alert, Oriented, Cooperative, No Acute Distress Lungs: Clear to Auscultation, Normal Respiratory Effort Cardiovascular: Regular Rate, Regular Rhythm GI/Abdominal Exam: Normal Bowel Sounds, Soft, Non-Tender Back Exam: Normal Inspection, Full Range of Motion Extremities: Normal Inspection, Normal Range of Motion, Non-Tender, Pedal Edema Neurological: No New Focal Deficit Psy/Mental Status: Alert, Normal Affect, Normal Mood Sepsis Event Note - Evaluation Sepsis Screening Result: No Definite Risk - Focused Exam Vital Signs: Vital Signs Temp Pulse Resp BP Pulse Ox 07/23/19 04:00 98 F 85 18 130/71 92 L 07/22/19 23:44 96.1 F L 91 18 122/71 91 L Date Exam was Performed: 07/23/19 Time Exam was Performed: 13:07 - Problem List & Annotations (1) GI bleed SNOMED Code(s): 15112482 Code(s): K92.2 - GASTROINTESTINAL HEMORRHAGE, UNSPECIFIED Status: Acute Current Visit: No Qualifiers: GI bleed type/associated pathology: unspecified gastrointestinal hemorrhage type Qualified Code(s): K92.2 - Gastrointestinal hemorrhage, unspecified (2) UTI (urinary tract infection) SNOMED Code(s): 52223253 Code(s): N39.0 - URINARY TRACT INFECTION, SITE NOT SPECIFIED Status: Acute Current Visit: No (3) Anemia SNOMED Code(s): 997470063 Code(s): D64.9 - ANEMIA, UNSPECIFIED Status: Acute Priority: High Current Visit: No Qualifiers: Iron deficiency anemia type: chronic blood loss (4) HTN (hypertension) SNOMED Code(s): 15041486 Code(s): I10 - ESSENTIAL (PRIMARY) HYPERTENSION Status: Chronic Current Visit: Yes Qualifiers: Hypertension type: essential hypertension Qualified Code(s): I10 - Essential (primary) hypertension (5) Anxiety SNOMED Code(s): 23153314 Code(s): F41.9 - ANXIETY DISORDER, UNSPECIFIED Status: Chronic Current Visit: Yes (6) Hypothyroidism SNOMED Code(s): 14617429 Code(s): E03.9 - HYPOTHYROIDISM, UNSPECIFIED Status: Chronic Current Visit: Yes (7) Restless leg syndrome SNOMED Code(s): 32985588 Code(s): G25.81 - RESTLESS LEGS SYNDROME Status: Chronic Current Visit: Yes (8) Alcohol abuse SNOMED Code(s): 76377000 Code(s): F10.10 - ALCOHOL ABUSE, UNCOMPLICATED Status: Chronic Priority: Low Current Visit: No (9) Depressed SNOMED Code(s): 70014325 Code(s): F32.9 - MAJOR DEPRESSIVE DISORDER, SINGLE EPISODE, UNSPECIFIED Status: Chronic Current Visit: No Qualifiers: Depression Type: unspecified Qualified Code(s): F32.9 - Major depressive disorder, single episode, unspecified - Problem List Review Problem List Initiated/Reviewed/Updated: Yes - My Orders Last 24 Hours: My Active Orders 07/22/19 13:13 Bottom Man Discontinue [Cardiac Monitoring Discontinue] [RC] Click to Edit 07/23/19 12:00 Potassium Chloride [Klor-Con M20] 40 meq PO BID@0800,1200 - Plan Plan:: This 64 year female admitted with acute GI bleeding, UTI and alcohol withdrawal. Patient does have intermittent delirium uncertain if this is due to acute illness vs alcohol withdrawal, will continue to monitor closely. 1. Acute GI bleeding, likely upper s/p 3 units PRBCs- Hemoglobin stable - Follow up with Dr Smart in 1-2 weeks. - Tolerating diet - Change to PO Protonix 2. Hypothyroidism - Initial TSH 66.50, repeat today after 3 doses IV Levothyroxine 3.43 - Restart PO Levothyroxine 150 mcg daily - Will need recheck in clinic 4-6 weeks 3. Alcohol withdrawal- CIWAAs have been 0, not requiring treatment with Ativan - CIWAA with Ativan Protocol PRN - Thiamine and folic acid supplementation 4. Anxiety/depression - Continue home medications 5. HTN: - Stable, monitor with GI bleeding 6. Asthma - duonebs q 4 hrs prn - Levaquin 750 PO daily - Prednisone 40 mg daily - Continue montelukast VTE prophylaxis: SCDs only due to acute bleeding Code Status: Full code Dispo: likely DC on Saturday Updated son Federico yesterday regarding admission and treatment plan along with discharge plans for Saturday with Home health.
[2019-07-23] MEDS: predniSONE 20 MG Tab PO SCH (09:27)
[2019-07-23] MEDS: DULoxetine 60 MG Cap PO SCH (09:27)
[2019-07-23] MEDS: LEVOTHYROXINE IV SCH (09:28)
[2019-07-23] MEDS: SODIUM CHLORIDE 0.9% IV SCH (09:28)
[2019-07-23] MEDS: Thiamine 100 MG in Sodium Chloride 0.9% 100 ML IV SCH (09:28)
[2019-07-23] MEDS: Folic Acid 50 MG/10 ML MDV SUBCUT SCH (09:35)
[2019-07-23] MEDS ORDERED: Albuterol/Ipratropium 3.0-0.5 MG/3 ML Neb Soln NEB PRN (12:55)
[2019-07-23] MEDS: Levofloxacin 500 MG Tab PO SCH (13:08)
[2019-07-23] MEDS: Potassium Chloride 20 MEQ Tab.ER PO SCH (13:10)
[2019-07-23] MEDS: Iron Polysaccharides Complex 150 MG Cap PO SCH (15:02)
[2019-07-23] MEDS: Pantoprazole 40 MG in Sodium Chloride 0.9% 10 ML IV SCH (15:32)
[2019-07-23] MEDS: Pantoprazole 40 MG Tab.CR PO SCH (18:15)
[2019-07-23] MEDS: Montelukast 10 MG Tab PO SCH (20:19)
[2019-07-23] MEDS: ARIPiprazole 10 MG Tab PO SCH (20:19)
[2019-07-24] MEDS: Nystatin Topical Powder 15 GM Bottle TOP SCH ×3 (00:34→11:25)
[2019-07-24] MEDS: Gabapentin 300 MG Cap PO SCH ×2 (06:34→13:36)
[2019-07-24 07:22] LABS: BLOOD UREA NITROGEN,BUN 20 mg/dL (7.0-18.0); CARBON DIOXIDE,CO2 30.9 mmol/L (21.0-32.0); CHLORIDE,CL 105 mmol/L (98-107); GLUCOSE RANDOM 114 mg/dL (74-106); POTASSIUM,K 3.5 mmol/L (3.5-5.1); SODIUM,NA 141 mmol/L (136-145)
[2019-07-24] MEDS ORDERED: Levothyroxine 150 MCG Tab PO SCH (07:30)
[2019-07-24] MEDS: predniSONE 20 MG Tab PO SCH (09:32)
[2019-07-24] MEDS: Pantoprazole 40 MG Tab.CR PO SCH (09:33)
[2019-07-24] MEDS: Iron Polysaccharides Complex 150 MG Cap PO SCH (09:34)
[2019-07-24] MEDS: DULoxetine 60 MG Cap PO SCH (09:34)
[2019-07-24] MEDS: Potassium Chloride 20 MEQ Tab.ER PO SCH (09:34)
[2019-07-24] MEDS: Folic Acid 50 MG/10 ML MDV SUBCUT SCH (09:35)
[2019-07-24] MEDS ORDERED: amLODIPine 5 MG Tab PO SCH (11:00)
[2019-07-24] MEDS: Thiamine 100 MG in Sodium Chloride 0.9% 100 ML IV SCH (11:19)
[2019-07-24] MEDS: Levofloxacin 500 MG Tab PO SCH (11:24)
--- NOTE | 2019-07-24 12:45 | PCM.DCSUM1 ---
Discharge Summary - Hospital Course Brief History: This 64 year old female with pmh of alcohol abuse, hypertension, hypothyroidism, anemia, anxiety, depression, and fibromyalgia presented to the ED with EMS after a patent clerk was concerned for her. The police were called because the order make up clerk though Zahra was altered and had unsteady gait. Zahra reports she made a bad mistake this morning, she drank alcohol and took her anxiety medications and depression medications together. She reports feeling more depressed with Mother's day recently and her children not reaching out to her. She reports she has been binge drinking recently, over the last 3 days. She denies bleeding, no black or bloody BMs. No coffee ground emesis. She reports feeling very lightheaded and dizzy especially when she is getting up and has been falling a lot at home. She denies chest pain or SOB. No abdominal pain. No dysuria. Denies headaches or visual concerns. She has been in treatment for alcohol in the past, but relapses frequently due to mental health concerns. She denies tobacco use or recreational drug use. In the ED no leukocytosis noted. Hgb 7.5 Hct 26.0, BMP WNL. INR 1.0, AST 357, ALT 219, ETOH <3.0, UA positive for nitrites, small LE, WBC 15-25 and +3 bacteria. U tox positive for benzodiazepines. Head CT obtained, which was negative. Hemoccult positive stool. She will be admitted with GI bleeding, UTI and alcohol withdrawal Diagnosis: Stroke: No - Discharge Data Discharge Date: 07/24/19 Discharge Disposition: Home, W Home Health Agency 06 Condition: Stable - Referral to Home Health Date of Face to Face Encounter: 07/24/19 Reason for Homebound Status: She is unable to drive at this time due to slowness from hypothyroidism. She needs assistance of walker to help with ambulation and assist of caregive as well. Primary Care Physician: PCP None Skilled Need: She is in need of senior living to assess medication compliance as well as vital signs. She is in need of PT to evaluate and treat for strenghtening, ambulation and gait instability. OT would be beneficial to do home safety assessment as well and evaluate ability to perform ADLs. - Discharge Diagnosis/Problem(s) (1) GI bleed SNOMED Code(s): 56511340 ICD Code: K92.2 - GASTROINTESTINAL HEMORRHAGE, UNSPECIFIED Status: Acute Current Visit: No Qualifiers: GI bleed type/associated pathology: unspecified gastrointestinal hemorrhage type Qualified Code(s): K92.2 - Gastrointestinal hemorrhage, unspecified (2) UTI (urinary tract infection) SNOMED Code(s): 36017575 ICD Code: N39.0 - URINARY TRACT INFECTION, SITE NOT SPECIFIED Status: Acute Current Visit: No (3) Anemia SNOMED Code(s): 425882280 ICD Code: D64.9 - ANEMIA, UNSPECIFIED Status: Acute Priority: High Current Visit: No Qualifiers: Iron deficiency anemia type: chronic blood loss (4) HTN (hypertension) SNOMED Code(s): 63774769 ICD Code: I10 - ESSENTIAL (PRIMARY) HYPERTENSION Status: Chronic Current Visit: Yes Qualifiers: Hypertension type: essential hypertension Qualified Code(s): I10 - Essential (primary) hypertension (5) Anxiety SNOMED Code(s): 15335349 ICD Code: F41.9 - ANXIETY DISORDER, UNSPECIFIED Status: Chronic Current Visit: Yes (6) Hypothyroidism SNOMED Code(s): 01908715 ICD Code: E03.9 - HYPOTHYROIDISM, UNSPECIFIED Status: Chronic Current Visit: Yes (7) Restless leg syndrome SNOMED Code(s): 00262941 ICD Code: G25.81 - RESTLESS LEGS SYNDROME Status: Chronic Current Visit: Yes (8) Alcohol abuse SNOMED Code(s): 96622848 ICD Code: F10.10 - ALCOHOL ABUSE, UNCOMPLICATED Status: Chronic Priority : Low Current Visit: No (9) Depressed SNOMED Code(s): 29324152 ICD Code: F32.9 - MAJOR DEPRESSIVE DISORDER, SINGLE EPISODE, UNSPECIFIED Status: Chronic Current Visit: No Qualifiers: Depression Type: unspecified Qualified Code(s): F32.9 - Major depressive disorder, single episode, unspecified (10) Gait instability SNOMED Code(s): 42232189 ICD Code: R26.81 - UNSTEADINESS ON FEET Status: Acute Current Visit: Yes - Patient Summary/Data Consults: Consultations 07/15/19 12:58 Consult to Physician [CONS] Routine 07/17/19 09:38 Consult to Physical Therapy [PT Evaluation and Treatment] [CONS] Routine Hospital Course: Admitting Diagnoses: AMS GI bleeding UTI Alcohol withdrawal Discharge Diagnoses: AMS- resolved Hypothyroidism GI Bleeding Pneumonia Gait instability Alcohol withdrawal Other pmh: Anxiety Depression Alcohol abuse HTN Restless legs Zahra was admitted secondary to AMS, alcohol withdrawal, GI bleeding and UTI. For UTI, she was treated with Rocephin, UC returned with ruff sensitive E coli and complete treatment course. BC negative. AMS, was assumed at first to be alcohol mixed with benzodiazepines she took at home as she was being worked up for possible endoscopy, TSH was noted to be quite elevated at 66. She was started Levothyroxine PO. After she had little improvement, she was transitioned to 4 days of IV Levothyroxine, with significant improvement in mentation and slowness. She was counseled heavily on staying on her medications. This was also conveyed to her son, who she live with Federico. For GI bleeding, she was treated with Protonix and bowel rest, endoscopies canceled due to TSH. She was transfused with 3 units total or PRBCs and today hgb has remained stable at 11.5. No further bleeding. She is to continue Protonix BID x 1 month and follow up with Dr Smart, general surgeon for outpatient scopes. She will be discharged home today, son Federico updated on medications and need for her to follow up with PCP as well as general surgery. She was also noted to have pneumonia, she was treated with Levaquin 750 mg, continued to improved with dyspnea. She will have 2 days left upon discharge of Levaquin treatment. She is to return to the ED or clinic if concerns should arise No significant alcohol withdrawal noted. She is provided with resources for sobriety. Son has discarded all alcohol in the room. - Patient Instructions Diet: Regular Diet as Tolerated Activity: As Tolerated Driving: Do Not Drive Showering/Bathing: May Shower Notify Provider of: Fever, Increased Pain, Swelling and Redness, Drainage, Nausea and/or Vomiting Other/Special Instructions: Please provide alcohol cessation resources: AA meetings, Human services, and Celebrate recovery - Discharge Plan *PRESCRIPTION DRUG MONITORING PROGRAM REVIEWED*: Not Applicable *COPY OF PRESCRIPTION DRUG MONITORING REPORT IN PATIENT BONNIE: Not Applicable Prescriptions/Med Rec: Folic Acid 1 mg PO DAILY #30 tab levoFLOXacin [Levaquin] 750 mg PO DAILY #2 tablet Levothyroxine 1 tab PO DAILY #30 tablet Montelukast [Singulair] 10 mg PO BEDTIME #30 tablet Pantoprazole [ProTONIX] 40 mg PO BIDMEALS #60 tab.cr Thiamine [Vitamin B-1] 100 mg PO BEDTIME #30 tab Home Medications: Home Meds ARIPiprazole [Abilify] 1 tab PO BEDTIME 07/15/19 [History] Albuterol [Proair HFA] 2 puff INH Q4H PRN 07/15/19 [History] Cholecalciferol (Vitamin D3) [Vitamin D] 1 tab PO DAILY 07/15/19 [History] DULoxetine [Cymbalta] 60 mg PO DAILY 07/15/19 [History] Gabapentin [Neurontin] 1 cap PO TID 07/15/19 [History] Iron 1 tab PO BID 07/15/19 [History] Omeprazole 20 mg PO DAILY 07/15/19 [History] Potassium Chloride 1 cap PO BID 07/15/19 [History] amLODIPine [Norvasc] 2 tab PO DAILY 07/15/19 [History] hydrOXYzine pamoate [Hydroxyzine Pamoate] 1 cap PO QID 07/15/19 [History] Folic Acid 1 mg PO DAILY #30 tab 07/24/19 [Rx] Levothyroxine 1 tab PO DAILY #30 tablet 07/24/19 [Rx] Montelukast [Singulair] 10 mg PO BEDTIME #30 tablet 07/24/19 [Rx] Pantoprazole [ProTONIX] 40 mg PO BIDMEALS #60 tab.cr 07/24/19 [Rx] Thiamine [Vitamin B-1] 100 mg PO BEDTIME #30 tab 07/24/19 [Rx] levoFLOXacin [Levaquin] 750 mg PO DAILY #2 tablet 07/24/19 [Rx] Oxygen Therapy Mode: Room Air Patient Handouts: Levothyroxine tablets, Montelukast oral tablets, Hypothyroidism, Thiamine, Vitamin B1 tablets, Hypertension, Adult, [id number] , Pantoprazole tablets, Levofloxacin tablets, Folic Acid, Vitamin B9 tablets Referrals: Jose L Smart MD [Physician] - 08/06/19 10:30 am (show up 15 min early, follow up for eval on scheduling an EGD and Colonoscopy) Zack Bueno MD [Physician] - 07/31/19 10:00 am (show up 15 min early) - Discharge Summary/Plan Comment DC Time >30 min.: Yes (Discussion with son and patient to arrange DC) - Patient Data Vitals - Most Recent: Last Vital Signs Temp 98.7 F 07/24/19 08:55 Pulse 95 07/24/19 08:55 Resp 16 07/24/19 08:55 BP 171/84 H 07/24/19 11:05 Pulse Ox 95 07/24/19 09:00 Weight - Most Recent: 88.9 kg I&O - Last 24 hours: Intake & Output 07/23/19 07/24/19 07/24/19 22:59 06:59 14:59 Intake Total 540 350 Output Total 1250 750 Balance -710 -400 Lab Results - Last 24 hrs: Laboratory Results - last 24 hr 07/24/19 Range/Units 06:24 Sodium 141 (136-145) mmol/L Potassium 3.5 (3.5-5.1) mmol/L Chloride 105 (98-107) mmol/L Carbon Dioxide 30.9 (21.0-32.0) mmol/L BUN 20 H (7.0-18.0) mg/dL Creatinine 0.8 (0.6-1.0) mg/dL Est Cr Clr Drug Dosing 56.93 mL/min Estimated GFR (MDRD) > 60.0 ml/min Glucose 114 H (74-106) mg/dL Calcium 8.9 (8.5-10.1) mg/dL Magnesium 2.0 (1.8-2.4) mg/dL Med Orders - Current: Current Medications Al Hydroxide/Mg Hydroxide (Mag-Al Plus) 30 ml PO Q4H PRN PRN Reason: Heartburn Last Admin: 07/20/19 21:17 Dose: 30 ml Albuterol/Ipratropium (Duoneb 3.0-0.5 Mg/3 Ml) 3 ml NEB Q4HRRT PRN PRN Reason: SOB/wheezing Amlodipine Besylate (Norvasc) 10 mg PO DAILY [facility] Last Admin: 07/24/19 11:05 Dose: 10 mg Aripiprazole (Abilify) 5 mg PO BEDTIME KAILYN Last Admin: 07/23/19 20:19 Dose: 5 mg Duloxetine HCl (Cymbalta) 60 mg PO DAILY [facility] Last Admin: 07/24/19 09:34 Dose: 60 mg Folic Acid (Folic Acid) 1 mg SUBCUT DAILY [facility] Last Admin: 07/24/19 09:35 Dose: 0.2 mg Gabapentin (Neurontin) 300 mg PO TID [facility] Last Admin: 07/24/19 06:34 Dose: 300 mg Hydroxyzine Pamoate (Vistaril) 25 mg PO QID PRN PRN Reason: Anxiety Thiamine HCl 100 mg/ Sodium (Chloride) 101 mls @ 202 mls/hr IV DAILY [facility] Last Admin: 07/24/19 11:19 Dose: 202 mls/hr Levofloxacin (Levaquin) 750 mg PO Q24H [facility] Last Admin: 07/24/19 11:24 Dose: 750 mg Levothyroxine Sodium (Levothyroxine) 150 mcg PO ACBREAKFAST [facility] Last Admin: 07/24/19 06:34 Dose: 150 mcg Lorazepam (Ativan) 0 mg IVPUSH Q4H PRN; Protocol PRN Reason: CIWAA Montelukast Sodium (Singulair) 10 mg PO BEDTIME [facility] Last Admin: 07/23/19 20:19 Dose: 10 mg Nystatin (Nystop) 0 gm TOP QID [facility] Last Admin: 07/24/19 11:25 Dose: 1 applic Ondansetron HCl (Zofran) 4 mg IVPUSH Q4H PRN PRN Reason: Nausea Pantoprazole Sodium (Protonix) 40 mg PO BIDMEALS [facility] Last Admin: 07/24/19 09:33 Dose: 40 mg Polysaccharide Iron Complex (Ferrex 150) 150 mg PO DAILY [facility] Last Admin: 07/24/19 09:34 Dose: 150 mg Prednisone (Prednisone) 40 mg PO WITHBREAKFAST [facility] Last Admin: 07/24/19 09:32 Dose: 40 mg Sodium Chloride (Saline Flush) 2.5 ml FLUSH ASDIRECTED PRN PRN Reason: Keep Vein Open Discontinued Medications Albuterol/Ipratropium (Duoneb 3.0-0.5 Mg/3 Ml) 3 ml NEB Q4HRRT PRN PRN Reason: SOB/wheezing Last Admin: 07/19/19 14:21 Dose: 3 ml Albuterol/Ipratropium (Duoneb 3.0-0.5 Mg/3 Ml) 3 ml NEB Q4HRRT [facility] Last Admin: 07/23/19 09:20 Dose: 3 ml Albuterol/Ipratropium (Duoneb 3.0-0.5 Mg/3 Ml) 3 ml NEB ONETIME ONE Stop: 07/19/19 14:59 Last Admin: 07/19/19 15:02 Dose: 3 ml Bisacodyl (Dulcolax) 20 mg PO ONETIME ONE Stop: 07/16/19 14:01 Last Admin: 07/16/19 14:11 Dose: 20 mg Fentanyl (Sublimaze) Confirm Administered Dose 100 mcg .ROUTE .STK-MED ONE Stop: 07/17/19 07:23 Fluconazole (Diflucan) 150 mg PO ONETIME ONE Stop: 07/19/19 13:29 Last Admin: 07/19/19 14:14 Dose: 150 mg Sodium Chloride (Normal Saline) 1,000 mls @ 999 mls/hr IV STAT ONE Stop: 07/15/19 11:27 Last Admin: 07/15/19 10:35 Dose: 999 mls/hr Ceftriaxone Sodium/Dextrose 1 (gm/ Premix) 50 mls @ 100 mls/hr IV ONETIME ONE Stop: 07/15/19 12:54 Last Admin: 07/15/19 14:02 Dose: Not Given Pantoprazole Sodium 40 mg/ (Sodium Chloride) 10 mls @ 300 mls/hr IV Q12H [facility] Last Admin: 07/23/19 15:32 Dose: Not Given Ceftriaxone Sodium/Dextrose 1 (gm/ Premix) 50 mls @ 100 mls/hr IV Q24H [facility] Last Admin: 07/19/19 12:30 Dose: 100 mls/hr Iron Sucrose 200 mg/ Sodium (Chloride) 110 mls @ 400 mls/hr IV ONETIME ONE Stop: 07/15/19 15:16 Last Admin: 07/15/19 15:49 Dose: 400 mls/hr Iron Sucrose 200 mg/ Sodium (Chloride) 110 mls @ 400 mls/hr IV ONETIME ONE Stop: 07/16/19 08:12 Last Admin: 07/16/19 08:43 Dose: 400 mls/hr Potassium Chloride/Sodium Chloride (Normal Saline With 40 Meq Kcl) 1,000 mls @ 125 mls/hr IV ONETIME ONE Stop: 07/17/19 16:11 Last Admin: 07/17/19 09:49 Dose: 125 mls/hr Levothyroxine Sodium 112 mcg/ (Sodium Chloride) 5.6 mls @ 112 mls/hr IV DAILY [facility] Last Admin: 07/23/19 09:28 Dose: 112 mls/hr Levothyroxine Sodium (Levothyroxine) 150 mcg PO DAILY@0700 [facility] Last Admin: 07/21/19 06:20 Dose: 150 mcg Levothyroxine Sodium (Synthroid) 112.5 mcg IV DAILY [facility] Last Admin: 07/21/19 13:08 Dose: Not Given Lidocaine (Xylocaine-Mpf 2%) Confirm Administered Dose 5 ml .ROUTE .STK-MED ONE Stop: 07/17/19 07:23 Methylprednisolone Sodium Succinate (Solu-Medrol) 40 mg IVPUSH Q12H [facility] Last Admin: 07/20/19 12:20 Dose: Not Given Midazolam HCl (Versed 1 Mg/Ml) Confirm Administered Dose 2 mg .ROUTE .STK-MED ONE Stop: 07/17/19 07:23 Polyethylene Glycol (Miralax) 238 gm PO ONETIME ONE Stop: 07/16/19 14:01 Last Admin: 07/16/19 14:11 Dose: 238 gm Potassium Chloride (Klor-Con M20) 40 meq PO BID@0800,1200 [facility] Stop: 07/24/19 08:01 Last Admin: 07/24/19 09:34 Dose: 40 meq Propofol (Diprivan 20 Ml) Confirm Administered Dose 400 mg .ROUTE .STK-MED ONE Stop: 07/17/19 07:23 Sodium Chloride (Saline Flush) 10 ml FLUSH ASDIRECTED PRN PRN Reason: Keep Vein Open Sodium Chloride (Saline Flush) 2.5 ml FLUSH ASDIRECTED PRN PRN Reason: Keep Vein Open - Exam General: Reports: Alert, Oriented, Cooperative, Other (slow in response, but much improved since admission) Lungs: Reports: Clear to Auscultation, Normal Respiratory Effort Cardiovascular: Reports: Regular Rate, Regular Rhythm GI/Abdominal Exam: Normal Bowel Sounds, Soft, Non-Tender Back Exam: Reports: Normal Inspection, Full Range of Motion Extremities: Normal Inspection, Normal Range of Motion, Non-Tender Skin: Reports: Ecchymosis (bruising to arms and legs all stages of healing.) Psy/Mental Status: Reports: Alert, Normal Affect, Normal Mood
[2019-07-24 12:47] VITALS: BP 168/90; PULSE 71
== END 2019-07-24 13:50 | disposition home health service (06) | DRG 377 ==
LOC: MW.ED 10:11 → MW.MS 12:29 → UNDOADMOB 12:29 → INTOOBSV 12:29 → OBSVTOIN 12:29 → MW.MS 13:04
PROVIDERS: ADMIT Internal Medicine; ATTEND Internal Medicine
PROC: 30233N1 Transfusion of Nonautologous Red Blood Cells into Peripheral Vein, Percutaneous Approach (ICD-10-PCS; principal; 2019-07-15)
DX: K92.2 Gastrointestinal hemorrhage, unspecified (principal); J18.9 Pneumonia, unspecified organism; N39.0 Urinary tract infection, site not specified; F10.239 Alcohol dependence with withdrawal, unspecified; D50.0 Iron deficiency anemia secondary to blood loss (chronic); F41.9 Anxiety disorder, unspecified; E03.9 Hypothyroidism, unspecified; G25.81 Restless legs syndrome; F32.9 Major depressive disorder, single episode, unspecified; R26.81 Unsteadiness on feet; B96.20 Unspecified Escherichia coli [E. coli] as the cause of diseases classified elsewhere; E78.00 Pure hypercholesterolemia, unspecified; K21.9 Gastro-esophageal reflux disease without esophagitis; Z88.5 Allergy status to narcotic agent; Z88.8 Allergy status to other drugs, medicaments and biological substances; Z79.890 Hormone replacement therapy; Z79.899 Other long term (current) drug therapy
CPT/HCPCS: 36410; 36415; 36430; 70450; 70450-26; 71045; 71045-26; 76705; 76705-26; 80048; 80053; 80074; 80305-QW; 80307; 81001; 82607; 82728; 82746; 83550; 83735; 84100; 84439; 84443; 84481; 84484; 85014; 85018; 85025; 85045; 85610; 86850; 86900; 86901; 86902; 86920; 86921; 86922; 87040; 87086; 87088; 87186; 87338; 88104; 93005; 94640; 96360; 97110-GP; 97161-GP; 97530-GP; 99283; 99285-25; A9270-GY; C9113; J0696; J1756; J2001; J2250; J2704; J2920; J3010; J3411; J3480; J7030; J7050; J7620-GY; P9016; U0002

== ENCOUNTER 2019-11-25 07:47 | Day surgery (SDC) | payer MEDICAID ==
[~2019-11-25 07:47] MED LIST: Lactated Ringers 1,000 ML IV SCH; Lidocaine 2% 5 ML SDV ONE; Midazolam 1 MG/ML 2 ML SDV ONE; fentaNYL 100 MCG/2 ML SDV ONE
[2019-11-25] MEDS ORDERED: Propofol 200 MG/20 ML SDV ONE ×2 (08:09→09:55)
--- NOTE | 2019-11-25 08:28 | PCM.PREANE ---
Preanesthetic Assessment - Anesthesia/Transfusion/Family Hx Anesthesia History: Prior Anesthesia Without Reaction Family History of Anesthesia Reaction: No Transfusion History: Prior Transfusion Without Reaction - Review of Systems General: No Symptoms Pulmonary: No Symptoms Cardiovascular: No Symptoms Other: Reports: None - Physical Assessment NPO Status Date: 11/24/19 Height: 5 ft 2 in Weight: 84.822 kg ASA Class: 2 Mental Status: Alert & Oriented x3 Airway Class: Mallampati = 2 Dentition: Reports: Normal Dentition Lungs: Clear to Auscultation, Normal Respiratory Effort Cardiovascular: Regular Rate, Regular Rhythm - Allergies Allergies/Adverse Reactions: Allergies Allergy/AdvReac Type Severity Reaction Status Date / Time codeine Allergy Nausea and Verified 11/19/19 11:05 Vomiting meperidine HCl [From Demerol] Allergy Nausea and Verified 11/19/19 11:05 Vomiting - Blood Blood Available: No - Acknowledgements Anesthesia Type Planned: General Anesthesia (tiva) Pt an Appropriate Candidate for the Planned Anesthesia: Yes Alternatives and Risks of Anesthesia Discussed w Pt/Guardian: Yes Pt/Guardian Understands and Agrees with Anesthesia Plan: Yes Additional Comments: PMH: fibrommyalgia- on gabipentin, asthma- slightly worse recently because of smoke in the atmosphere, using rescue inhaler, no inhaled or oral steroids, no office or ED visits, htn, remote hx of NSVT- on no meds, gerd PLAN: tiva PreAnesthesia Questionnaire HEENT History: Reports: Other (See Below) Other HEENT History: wears glasses Cardiovascular History: Reports: Arrhythmia, Hypertension Other Cardiovascular History: hx of V-Tach "during menopause"- not now Respiratory History: Reports: Asthma Other Respiratory History: rarely uses rescue inhaler- mostly allergy related Gastrointestinal History: Reports: Diverticulosis, GERD, GI Bleed, Hiatal Hernia Other Gastrointestinal History: gallbladder problems-states needs it out. Genitourinary History: Reports: Urinary Incontinence EQUIPMENT LEAD History: Reports: Musculoskeletal History: Reports: Fibromyalgia Neurological History: Reports: Brain Injury Other Neuro History: hx of subdural hematoma from a fall 2 years ago Psychiatric History: Reports: Anxiety, Depression Other Psychiatric History: etoh abuse Endocrine/Metabolic History: Reports: Hypothyroidism, Obesity/BMI 30+ Hematologic History: Reports: Blood Transfusion(s) Other Hematologic History: received 4 units of blood during recent hospitalizaton Immunologic History: Reports: None Oncologic (Cancer) History: Reports: None Dermatologic History: Reports: None - Infectious Disease History Infectious Disease History: Reports: Chicken Pox - Past Surgical History Head Surgeries/Procedures: Reports: None HEENT Surgical History: Reports: Naso-Sinus Surgery, Oral Surgery Other HEENT Surgeries/Procedures: oral surgery to remove broken tooth GI Surgical History: Reports: Colonoscopy, EGD Female Surgical History: Reports: Hysterectomy, Other (See Below) Other Female Surgeries/Procedures: hx of pelvic laparoscopy and bladder repair - SUBSTANCE USE Smoking Status *Q: Never Smoker Recreational Drug Use History: No - HOME MEDS Home Medications: Home Meds ARIPiprazole [Abilify] 5 mg PO BEDTIME 07/15/19 [History] Albuterol [Proair HFA] 1 - 2 puff INH Q4H PRN 07/15/19 [History] Cholecalciferol (Vitamin D3) [Vitamin D] 5,000 unit PO DAILY 07/15/19 [History] DULoxetine [Cymbalta] 60 mg PO BEDTIME 07/15/19 [History] Gabapentin [Neurontin] 300 mg PO TID 07/15/19 [History] Omeprazole 20 mg PO DAILY 07/15/19 [History] Potassium Chloride 10 meq PO BID 07/15/19 [History] amLODIPine [Norvasc] 10 mg PO QAM 07/15/19 [History] hydrOXYzine pamoate [Hydroxyzine Pamoate] 25 mg PO QID 07/15/19 [History] Thiamine [Vitamin B-1] 100 mg PO BEDTIME #30 tab 07/24/19 [Rx] Cetirizine [ZyrTEC] 10 mg PO DAILY 11/19/19 [History] Cyanocobalamin (Vitamin B-12) [Cyanocobalamin Injection] 1,000 mcg IM ASDIRECTED 11/19/19 [History] Diclofenac Sodium [Voltaren 1% Gel] 2 gm TOP BID PRN 11/19/19 [History] Ferrous Gluconate [Iron] 240 mg PO BID 11/19/19 [History] Fluticasone Propionate [Flonase Allergy Relief] 1 - 2 sprays NASBOTH DAILY PRN 11/19/19 [History] Levothyroxine 150 mcg PO QAM 11/19/19 [History] hydroCHLOROthiazide [Hydrochlorothiazide] 25 mg PO QAM 11/19/19 [History] - CURRENT (IN HOUSE) MEDS Current Meds: Current Medications Lactated Ringer's (Ringers, Lactated) 1,000 mls @ 125 mls/hr IV ASDIRECTED KAILYN Discontinued Medications Fentanyl (Sublimaze) Confirm Administered Dose 100 mcg .ROUTE .STK-MED ONE Stop: 11/25/19 07:30 Lidocaine (Xylocaine-Mpf 2%) Confirm Administered Dose 5 ml .ROUTE .STK-MED ONE Stop: 11/25/19 07:30 Midazolam HCl (Versed 1 Mg/Ml) Confirm Administered Dose 2 mg .ROUTE .STK-MED ONE Stop: 11/25/19 07:30 Propofol (Diprivan 20 Ml) Confirm Administered Dose 200 mg .ROUTE .STK-MED ONE Stop: 11/25/19 08:10
--- NOTE | 2019-11-25 10:34 | PCM.OPNOTE ---
- General Post-Op/Procedure Note Condition: Good
--- NOTE | 2019-11-25 10:55 | PCM.POSTAN ---
POST ANESTHESIA ASSESSMENT - MENTAL STATUS Mental Status: Alert, Oriented - VITAL SIGNS Vital Signs: Last Vital Signs Temp 97.3 F 11/25/19 08:15 Pulse 73 11/25/19 10:36 Resp 14 11/25/19 10:36 BP 113/71 11/25/19 10:36 Pulse Ox 95 11/25/19 10:36 - RESPIRATORY Respiratory Status: Respiratory Rate WNL, Airway Patent, O2 Saturation Stable - CARDIOVASCULAR CV Status: Pulse Rate WNL, Blood Pressure Stable - GASTROINTESTINAL GI Status: No Symptoms - POST OP HYDRATION Hydration Status: Adequate & Stable
--- NOTE | 2019-11-25 10:56 | PCM48HPAN ---
Post Anesthesia Note - EVALUATION WITHIN 48HRS OF ANESTHETIC Vital Signs in Normal Range: Yes Patient Participated in Evaluation: Yes Respiratory Function Stable: Yes Airway Patent: Yes Cardiovascular Function Stable: Yes Hydration Status Stable: Yes Pain Control Satisfactory: Yes Nausea and Vomiting Control Satisfactory: Yes Mental Status Recovered: Yes Vital Signs: Last Vital Signs Temp 97.3 F 11/25/19 08:15 Pulse 73 11/25/19 10:36 Resp 14 11/25/19 10:36 BP 113/71 11/25/19 10:36 Pulse Ox 95 11/25/19 10:36
--- NOTE | 2019-11-25 11:19 | PCM.OPNOTE ---
- General Post-Op/Procedure Note Date of Surgery/Procedure: 11/25/19 Operative Procedure(s): egd w bx. colonoscopy Findings: see [id number] Pre Op Diagnosis: anemia Post-Op Diagnosis: Same Anesthesia Technique: Moderate Sedation Primary Surgeon: Jose L Smart Pathology: egd bx Complications: None Condition: Good Free Text/Narrative:: Intake & Output 11/24/19 11/25/19 11/25/19 22:59 06:59 14:59 Intake Total 500 Balance 500
[2019-11-25 11:42] VITALS: BP 122/60; PULSE 67
--- NOTE | 2019-11-25 14:16 | OR ---
SURGEON: Jose L Smart MD DATE OF PROCEDURE: 11/25/2019 PREOPERATIVE DIAGNOSIS: Anemic. POSTOPERATIVE DIAGNOSIS: Anemic. PROCEDURES PERFORMED: Esophagogastroduodenoscopy with biopsy and colonoscopy. DESCRIPTION OF PROCEDURE: EGD: The patient was taken to the endoscopy room, and with the CHEMICAL PLANT TECHNICAL DIRECTOR, Diprivan was administered. A well-lubricated EGD scope was gently inserted through the oropharynx, down the esophagus, passing through the gastroesophageal junction, into the stomach. The mucosa was examined upon the passage. Any etiology will be noted. Once in the stomach, we continued to advance to the distal antrum, passed through the pylorus into the second portion of the duodenum. Again, the mucosa was examined for any abnormality and etiology. The scope was then retrieved back to the stomach and then retroflexed to look at the fundus of the stomach. If a biopsy was indicated, we will biopsy the antrum, body, and gastroesophageal junction. The air will be sucked out while the scope is retrieved to reduce the patient's discomfort. The patient tolerated the procedure well. There were no intraoperative complications. Dr. Smart was present through the whole procedure. Prior to surgery, a time-out had been called, the patient identified, procedure identified and antibiotic administered. The patient was taken to the endoscopy room. A time out was called, patient identified, and procedure identified. Diprivan was then administrated. Patient went from awake to sleep, hearing doctor talking or door closing is normal. Perineum inspection and digital examination were then performed. A well- lubricated colonoscope was gently inserted through the rectum, advanced past the rectosigmoid junction, the descending colon, splenic flexure, transverse colon, hepatic flexure, ascending colon, arrived to the cecum. Cecum was identified as dictated in the finding. Then the scope was carefully withdrawn while attention was paid to the mucosal surface for any abnormality. Air will be sucked out during the scope withdrawal. At the rectum, retroflexed to examine any rectal diseases, fistula or hemorrhoids. Patient tolerated procedure well. There were no intraoperative complications, and Dr. Smart was present throughout the whole procedure. FINDINGS: EGD findings: 1. The patient is easily sedated with CHEMICAL PLANT TECHNICAL DIRECTOR and Diprivan, the patient is soundly snoring. 2. Proximal esophagus and oropharynx are free of disease, inflammation. GE junction is at 30 instead of 40 because of a large hiatal hernia. Stomach rugae are normal in appearance. Antrum is normal in appearance. Duodenum is grossly normal. Retroflexed look at the fundus of the stomach, the patient has a large hiatal hernia, very large. Biopsy done at antrum, body, and GE junction and sucked out the gas while scope pulling out. During the whole study, there is no bile, food particle, blood, or ulcer observed. Colonoscopy findings: 1. The patient is easily sedated with CHEMICAL PLANT TECHNICAL DIRECTOR and Diprivan, the patient is soundly snoring. 2. Bowel prep is marginally acceptable. Large amount of liquid stool, almost like semi-formed stool coating the mucosa and a quite large amount of stool ball too. Requiring constant irrigation and because of the color looks coffee-ground. Stool guaiac was sent. We went all the way to the cecum indicated by ileocecal fold, one-to-one indentation, appendiceal orifice. ScopeGuide pointing south. Light emittance is not observed. The colonoscopy is very compromised because of the large amount of opaque liquid stool. The patient would benefit from repeat colonoscopy 18 months from today because of the marginally acceptable bowel prep. The patient has a large amount of diverticula in the left colon and the right colon, nothing in the transverse colon. Some of the pseudo-lumen of the diverticula is even bigger than the true lumen. There are no signs or symptoms of diverticulitis or inflammation. No polyp, mass, growth, AV malformation, bleeding noted, but the stool is quite coffee-ground. The patient has moderate external hemorrhoids and some internal hemorrhoids. The patient would benefit from repeat colonoscopy 18 months from now because of the marginally acceptable bowel prep or if clinically indicated otherwise. JOE / AJ /[id number] [id number]
== END 2019-11-25 11:15 | disposition home or self-care (01) ==
LOC: MW.SDS 07:47
PROVIDERS: ATTEND Surgery
DX: K64.4 Residual hemorrhoidal skin tags (principal); K44.9 Diaphragmatic hernia without obstruction or gangrene; K57.30 Diverticulosis of large intestine without perforation or abscess without bleeding; K64.8 Other hemorrhoids; D50.9 Iron deficiency anemia, unspecified; F41.9 Anxiety disorder, unspecified; F32.9 Major depressive disorder, single episode, unspecified; E78.5 Hyperlipidemia, unspecified; M79.7 Fibromyalgia; E03.9 Hypothyroidism, unspecified; Z88.5 Allergy status to narcotic agent; Z79.899 Other long term (current) drug therapy
CPT/HCPCS: 43239; 45378; J2001; J2250; J2704; J7120; 00813; 88305; 88312; J3010

== ENCOUNTER 2019-12-25 06:30 | Observation (INO) | payer MEDICAID ==
[~2019-12-25 06:30] MED LIST changes: -Lactated Ringers 1,000 ML IV SCH; -Lidocaine 2% 5 ML SDV ONE; -Midazolam 1 MG/ML 2 ML SDV ONE; +cefOXitin 2 GM in Premix Bag 1 BAG IV ONE; -fentaNYL 100 MCG/2 ML SDV ONE
[2019-12-25] MEDS: Lactated Ringers 1,000 ML IV SCH ×3 (07:13→20:45)
[2019-12-25] MEDS ORDERED: Glycopyrrolate 0.2 MG/ML SDV ONE (07:16)
[2019-12-25] MEDS ORDERED: Ondansetron 4 MG/2 ML SDV ONE (07:16)
[2019-12-25] MEDS ORDERED: Lidocaine 2% 5 ML SDV ONE (07:16)
[2019-12-25] MEDS ORDERED: fentaNYL 250 MCG/5 ML SDV ONE (07:17)
[2019-12-25] MEDS ORDERED: Propofol 200 MG/20 ML SDV ONE (07:17)
[2019-12-25] MEDS ORDERED: Bupivacaine 25%/EPINEPHrine/PF 30 ML ONE (07:17)
[2019-12-25] MEDS ORDERED: Midazolam 1 MG/ML 2 ML SDV ONE (07:17)
[2019-12-25] MEDS ORDERED: Rocuronium Bromide 50 MG/5 ML Syringe ONE (07:17)
[2019-12-25] MEDS ORDERED: Scopolamine 1.5 MG Transdermal Patch TRDERM PRN (07:19)
--- NOTE | 2019-12-25 07:25 | PCM.PREANE ---
Preanesthetic Assessment - Anesthesia/Transfusion/Family Hx Anesthesia History: Prior Anesthesia Without Reaction Family History of Anesthesia Reaction: No Transfusion History: Prior Transfusion Without Reaction Intubation History: Unknown - Review of Systems General: No Symptoms Pulmonary: No Symptoms Cardiovascular: No Symptoms Gastrointestinal: Other (gall stones) Neurological: No Symptoms Other: Reports: None - Physical Assessment Vital Signs: Last Vital Signs Temp 36.6 C 12/25/19 07:00 Pulse 88 12/25/19 07:00 Resp 16 12/25/19 07:00 BP 120/72 12/25/19 07:00 Pulse Ox 94 L 12/25/19 07:00 Height: 5 ft 2 in Weight: 80.739 kg ASA Class: 3 Mental Status: Alert & Oriented x3 Airway Class: Mallampati = 2 Dentition: Reports: [place](s) (x1 upper left and x1 lower right), Bridge (x1 tooth left lower (back)) Thyro-Mental Finger Breadths: 3 Mouth Opening Finger Breadths: 2 (small mouth) ROM/Head Extension: Limited/Partial Lungs: Clear to Auscultation, Normal Respiratory Effort Cardiovascular: Regular Rate, Regular Rhythm - Allergies Allergies/Adverse Reactions: Allergies Allergy/AdvReac Type Severity Reaction Status Date / Time codeine Allergy Nausea and Verified 12/21/19 15:11 Vomiting meperidine HCl [From Demerol] Allergy Nausea and Verified 12/21/19 15:11 Vomiting - Blood Blood Available: No - Anesthesia Plan Pre-Op Medication Ordered: None - Acknowledgements Anesthesia Type Planned: General Anesthesia Pt an Appropriate Candidate for the Planned Anesthesia: Yes Alternatives and Risks of Anesthesia Discussed w Pt/Guardian: Yes Pt/Guardian Understands and Agrees with Anesthesia Plan: Yes PreAnesthesia Questionnaire HEENT History: Reports: Impaired Vision Other HEENT History: wears glasses Cardiovascular History: Reports: Arrhythmia, High Cholesterol, Hypertension Other Cardiovascular History: hx of V-Tach "during menopause"- not now Respiratory History: Reports: Asthma Other Respiratory History: rarely uses rescue inhaler- mostly allergy related Gastrointestinal History: Reports: Cholelithiasis, Diverticulosis, GERD, GI Bleed, Hiatal Hernia Genitourinary History: Reports: Urinary Incontinence 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: Musculoskeletal History: Reports: Fibromyalgia Neurological History: Reports: Brain Injury Other Neuro History: hx of small subdural hematoma from a fall 2 years ago- no symptoms or therapy required Psychiatric History: Reports: Anxiety, Depression Other Psychiatric History: etoh abuse Endocrine/Metabolic History: Reports: Hypothyroidism, Obesity/BMI 30+ (BMI 32.6) Hematologic History: Reports: Blood Transfusion(s) Other Hematologic History: received 4 units of blood during recent hospitalizaton Immunologic History: Reports: None Oncologic (Cancer) History: Reports: None Dermatologic History: Reports: None - Infectious Disease History Infectious Disease History: Reports: None - Past Surgical History Head Surgeries/Procedures: Reports: None HEENT Surgical History: Reports: Naso-Sinus Surgery, Oral Surgery Other HEENT Surgeries/Procedures: oral surgery to remove broken tooth Cardiovascular Surgical History: Reports: None Respiratory Surgical History: Reports: None GI Surgical History: Reports: Colonoscopy, EGD Female Surgical History: Reports: Hysterectomy, Other (See Below) Other Female Surgeries/Procedures: hx of pelvic laparoscopy and bladder repair Endocrine Surgical History: Reports: None Neurological Surgical History: Reports: None Musculoskeletal Surgical History: Reports: None Oncologic Surgical History: Reports: None Dermatological Surgical History: Reports: None - SUBSTANCE USE Tobacco Use Status *Q: Never Tobacco User - HOME MEDS Home Medications: Home Meds ARIPiprazole [Abilify] 5 mg PO BEDTIME 07/15/19 [History] Albuterol [Proair HFA] 1 - 2 puff INH Q4H PRN 07/15/19 [History] Cholecalciferol (Vitamin D3) [Vitamin D] 5,000 unit PO DAILY 07/15/19 [History] DULoxetine [Cymbalta] 60 mg PO BEDTIME 07/15/19 [History] Gabapentin [Neurontin] 100 mg PO TID 07/15/19 [History] Omeprazole 20 mg PO DAILY 07/15/19 [History] Potassium Chloride 10 meq PO BID 07/15/19 [History] amLODIPine [Norvasc] 10 mg PO QAM 07/15/19 [History] hydrOXYzine pamoate [Hydroxyzine Pamoate] 25 mg PO TID 07/15/19 [History] Cetirizine [ZyrTEC] 20 mg PO DAILY 11/19/19 [History] Cyanocobalamin (Vitamin B-12) [Cyanocobalamin Injection] 1,000 mcg IM ASDIRECTED 11/19/19 [History] Diclofenac Sodium [Voltaren 1% Gel] 2 gm TOP BID PRN 11/19/19 [History] Ferrous Gluconate [Iron] 240 mg PO BID 11/19/19 [History] Fluticasone Propionate [Flonase Allergy Relief] 1 - 2 sprays NASBOTH DAILY PRN 11/19/19 [History] Levothyroxine 150 mcg PO QAM 11/19/19 [History] hydroCHLOROthiazide [Hydrochlorothiazide] 25 mg PO QAM 11/19/19 [History] Ascorbic Acid [Vitamin C] 1 tab PO DAILY 12/21/19 [History] Thiamine [Vitamin B-1] 100 mg PO DAILY 12/21/19 [History] - CURRENT (IN HOUSE) MEDS Current Meds: Current Medications Lactated Ringer's (Ringers, Lactated) 1,000 mls @ 125 mls/hr IV ASDIRECTED [facility] Last Admin: 12/25/19 07:13 Dose: 125 mls/hr Documented by: Scopolamine (Transderm-Scop) 1.5 mg TRDERM Q72H PRN PRN Reason: Nausea Discontinued Medications Cefoxitin Sodium 2 gm/ Premix 50 mls @ 100 mls/hr IV ONETIME ONE Stop: 12/25/19 05:29
[2019-12-25 07:49] LABS: BLOOD UREA NITROGEN,BUN 18 mg/dL (7.0-18.0); CARBON DIOXIDE,CO2 28.4 mmol/L (21.0-32.0); CHLORIDE,CL 104 mmol/L (98-107); GLUCOSE RANDOM 150 mg/dL (74-106); POTASSIUM,K 3.8 mmol/L (3.5-5.1); SODIUM,NA 140 mmol/L (136-145)
[2019-12-25] MEDS ORDERED: Albuterol 6.7 GM Inhaler INH ONE (07:55)
[2019-12-25] MEDS ORDERED: Sodium Chloride 0.9% 20 ML ONE (08:04)
[2019-12-25] MEDS ORDERED: cefOXitin 1 GM Vial ONE (08:04)
[2019-12-25] MEDS ORDERED: ePHEDrine 50 MG/ML SDV ONE (08:17)
[2019-12-25] MEDS ORDERED: Vasopressin 20 Units/1 ML MDV ONE (08:18)
[2019-12-25] MEDS ORDERED: Labetalol 100 MG/20 ML MDV ONE (08:34)
[2019-12-25] MEDS ORDERED: Octyl 2-Cyanoacrylate 1 Tube ONE (08:42)
[2019-12-25] MEDS ORDERED: 50% Dextrose in Water 50 ML Syringe IVPUSH PRN (09:09)
[2019-12-25] MEDS ORDERED: Albuterol 0.083% 2.5 MG/3 ML Neb Soln NEB PRN (09:09)
[2019-12-25] MEDS ORDERED: fentaNYL 100 MCG/2 ML SDV IVPUSH PRN (09:09)
[2019-12-25] MEDS ORDERED: EPINEPHrine 1:10,000 1 MG/10 ML Syringe IVPUSH PRN (09:09)
[2019-12-25] MEDS ORDERED: Naloxone 0.4 MG/ML Syringe IVPUSH PRN (09:09)
[2019-12-25] MEDS ORDERED: Atropine 0.1 MG/ML 10 ML Syringe IVPUSH PRN ×2 (09:09)
--- NOTE | 2019-12-25 09:52 | PCM.OPNOTE ---
- General Post-Op/Procedure Note Date of Surgery/Procedure: 12/25/19 Operative Procedure(s): lap cecy Findings: gb distended yellow and green, with large gall stones; liver cirrhotic in appearance; liver needle bx done;[id number] Condition: Good
[2019-12-25] MEDS ORDERED: Ondansetron 4 MG/2 ML SDV IVPUSH PRN (09:54)
--- NOTE | 2019-12-25 10:41 | PCM.POSTAN ---
POST ANESTHESIA ASSESSMENT - MENTAL STATUS Mental Status: Alert, Oriented - VITAL SIGNS Vital Signs: Last Vital Signs Temp 36.4 C 12/25/19 09:41 Pulse 92 12/25/19 10:30 Resp 13 12/25/19 10:30 BP 131/75 12/25/19 10:30 Pulse Ox 94 L 12/25/19 10:30 - RESPIRATORY Respiratory Status: Respiratory Rate WNL, Airway Patent, O2 Saturation Stable, Supplemental Oxygen - CARDIOVASCULAR CV Status: Pulse Rate WNL, Blood Pressure Stable - GASTROINTESTINAL GI Status: No Symptoms - PAIN Pain Score: 4 - POST OP HYDRATION Hydration Status: Adequate & Stable - OBSERVATIONS Free Text/Narrative:: No anesthesia problems
[2019-12-25] MEDS: Acetaminophen/oxyCODONE 325-5 MG Tab PO PRN ×2 (11:38→15:56)
--- NOTE | 2019-12-25 12:15 | OR ---
SURGEON: Jose L Smart MD DATE OF PROCEDURE: 12/25/2019 PREOPERATIVE DIAGNOSIS: Chronic cholecystitis. POSTOPERATIVE DIAGNOSIS: Chronic cholecystitis. PROCEDURE PROPOSED: Laparoscopic cholecystectomy. PROCEDURE PERFORMED: Laparoscopic cholecystectomy. PRIMARY SURGEON: Jose L Smart MD COMPLICATIONS: None. FINDINGS: Gallbladder was yellow and green and consistent with chronic cholecystitis and large gallstone. Wall is not thickened. Liver is very very cirrhotic in gross appearance and a little biopsy was done. During this surgery, the patient has four times of non-perfusing SVT up to a pulse of 150 to 180. Did not lose a pulse and postop went to ICU, consult with Dr. Bonilla for further workup. At the end of the surgery, a piece of Surgicel was inserted for hemostasis. PROCEDURE NOTE: The patient was taken to the operating room and placed in the supine position. After the intubation of general endotracheal anesthesia, the patient's abdomen was prepped and draped in the usual sterile fashion. Using Optiview, a 12 mm trocar was placed supraumbilically and then followed with pneumoperitoneum. A 5 mm trocar was placed in the epigastrium and two 5 mm trocars placed in the right upper quadrant. The placement of the last three trocars was done under direct video supervision. Upon gaining entrance to the abdominal cavity, an extensive examination was then performed. The gallbladder was located and identified and retracted to the dome of the liver at the triangle of Calot. The cystic duct was clipped three more times and then using the endoscopic clip, was transected with placement of the endoscopic clip and transection was performed with care, ensuring the posterior prong of the instruments were clearly visualized prior to exercising the procedure. The gallbladder was dissected using electrocautery out of the liver bed and then removed using endoscopic bag through the umbilical site. The gallbladder was removed en bloc and there was no bile spillage and this was then followed with extensive irrigation until the bile was clear from blood and bile. A piece of surgicell was placed for hemostasis The trocars were then removed under direct video supervision. The 12 mm umbilical site was then closed with deep stitches using 0 Vicryl followed with proximal stitches using 3-0 Vicryl and Dermabond. The other three trocar sites were closed with 3-0 Vicryl followed with approximation of skin with Dermabond. The patient was then awakened and extubated and transferred to the recovery room in hemodynamically stable condition. At the conclusion of the surgery, before closing the abdominal wound, instrument count and sponge count were done and were correct. The patient tolerated the procedure well and there were no intraoperative complications. Dr. Smart was present through the whole procedure. Just before surgery, a timeout was called. The patient was identified and procedure identified and procedure started. Intraoperative findings as dictated above. JOE / AJ /[id number]
--- NOTE | 2019-12-25 13:17 | PCM.CONS ---
H&P History of Present Illness - General Date of Service: 12/25/19 Admit Problem/Dx: Admission Diagnosis/Problem Admission Diagnosis/Problem Supraventricular tachycardia Source of Information: Patient, Old Records History Limitations: Reports: No Limitations - History of Present Illness Initial Comments - Free Text/Narative: This 64-year-old female with PMH of alcohol abuse, hypertension, hypothyroidism, anemia, anxiety, depression and fibromyalgia presented today for laparoscopic cholecystectomy with Dr. Smart. During the procedure she was noted to go into non sustained SVT which appeared non perfusing per pulse ox. She converted easily. Dr Smart consulted Hospitalist service to monitor post-operatively. Zahra recently arrived to ICU from PACU, she just came off Bipap. She is alert and oriented, doing well. reports mild RUQ pain. Denies chest pain or SOB. Reports she has had a history of palpitations in the past, which was worked up by Dr Fong. Zio patch 09/28/2019 SVT x 10 episodes longest 14 beats, SR 51-138 avg 82 PVC/PAC< 1% no NSVT noted. no afib noted. 4 triggered events SVT/SR. No medications changes. She reports she has not had any chest pain re cently. Reports intermittent palpitations, but hasn't noticed them for awhile. ECHO in September showed LVEF 65-70% impaired relaxation, mild LVH. Has been feeling well otherwise. Reports she has not drank alcohol since July when she was admitted for GI bleed, hypothyroidism and alcohol intoxication. - Related Data Allergies/Adverse Reactions: Allergies Allergy/AdvReac Type Severity Reaction Status Date / Time codeine Allergy Nausea and Verified 12/21/19 15:11 Vomiting meperidine HCl [From Demerol] Allergy Nausea and Verified 12/21/19 15:11 Vomiting Home Medications: Home Meds ARIPiprazole [Abilify] 5 mg PO BEDTIME 07/15/19 [History] Albuterol [Proair HFA] 1 - 2 puff INH Q4H PRN 07/15/19 [History] Cholecalciferol (Vitamin D3) [Vitamin D] 5,000 unit PO DAILY 07/15/19 [History] DULoxetine [Cymbalta] 60 mg PO BEDTIME 07/15/19 [History] Gabapentin [Neurontin] 100 mg PO TID 07/15/19 [History] Omeprazole 20 mg PO DAILY 07/15/19 [History] Potassium Chloride 10 meq PO BID 07/15/19 [History] amLODIPine [Norvasc] 10 mg PO QAM 07/15/19 [History] hydrOXYzine pamoate [Hydroxyzine Pamoate] 25 mg PO TID 07/15/19 [History] Cetirizine [ZyrTEC] 20 mg PO DAILY 11/19/19 [History] Cyanocobalamin (Vitamin B-12) [Cyanocobalamin Injection] 1,000 mcg IM ASDIRECTED 11/19/19 [History] Diclofenac Sodium [Voltaren 1% Gel] 2 gm TOP BID PRN 11/19/19 [History] Ferrous Gluconate [Iron] 240 mg PO BID 11/19/19 [History] Fluticasone Propionate [Flonase Allergy Relief] 1 - 2 sprays NASBOTH DAILY PRN 11/19/19 [History] Levothyroxine 150 mcg PO QAM 11/19/19 [History] hydroCHLOROthiazide [Hydrochlorothiazide] 25 mg PO QAM 11/19/19 [History] Ascorbic Acid [Vitamin C] 1 tab PO DAILY 12/21/19 [History] Thiamine [Vitamin B-1] 100 mg PO DAILY 12/21/19 [History] Past Medical History HEENT History: Reports: Impaired Vision Other HEENT History: wears glasses Cardiovascular History: Reports: Arrhythmia, High Cholesterol, Hypertension Other Cardiovascular History: hx of V-Tach "during menopause"- not now Respiratory History: Reports: Asthma Other Respiratory History: rarely uses rescue inhaler- mostly allergy related Gastrointestinal History: Reports: Cholelithiasis, Diverticulosis, GERD, GI Bleed, Hiatal Hernia Genitourinary History: Reports: Urinary 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 [employer]ILITIES History: Reports: Musculoskeletal History: Reports: Fibromyalgia Neurological History: Reports: Brain Injury Other Neuro History: hx of small subdural hematoma from a fall 2 years ago- no symptoms or therapy required Psychiatric History: Reports: Anxiety, Depression Other Psychiatric History: etoh abuse Endocrine/Metabolic History: Reports: Hypothyroidism, Obesity/BMI 30+ (BMI 32.6) Hematologic History: Reports: Blood Transfusion(s) Other Hematologic History: received 4 units of blood during recent hospitalizaton Immunologic History: Reports: None Oncologic (Cancer) History: Reports: None Dermatologic History: Reports: None - Infectious Disease History Infectious Disease History: Reports: None - Past Surgical History Head Surgeries/Procedures: Reports: None HEENT Surgical History: Reports: Naso-Sinus Surgery, Oral Surgery Other HEENT Surgeries/Procedures: oral surgery to remove broken tooth Cardiovascular Surgical History: Reports: None Respiratory Surgical History: Reports: None GI Surgical History: Reports: Colonoscopy, EGD Female Surgical History: Reports: Hysterectomy, Other (See Below) Other Female Surgeries/Procedures: hx of pelvic laparoscopy and bladder repair Endocrine Surgical History: Reports: None Neurological Surgical History: Reports: None Musculoskeletal Surgical History: Reports: None Oncologic Surgical History: Reports: None Dermatological Surgical History: Reports: None Social & Family History - Family History Family Medical History: Unobtainable Cardiac: Reports: Heart Failure - Tobacco Use Tobacco Use Status *Q: Never Tobacco User - Caffeine Use Caffeine Use: Reports: Coffee, Soda Caffeine Use Comment: unable to obtain - Alcohol Use Alcohol Use History: No Alcohol Use Comment: has been sober since july 2019 - Recreational Drug Use Recreational Drug Use: No Drug Use in Last 12 Months: No H&P Review of Systems - Review of Systems: Review Of Systems: See Below General: Reports: No Symptoms. Denies: Fever, Chills, Malaise, Weakness Pulmonary: Reports: No Symptoms. Denies: Shortness of Breath Cardiovascular: Reports: No Symptoms. Denies: Chest Pain Gastrointestinal: Reports: No Symptoms, Abdominal Pain, Black Stool. Denies: Nausea, Vomiting Genitourinary: Reports: No Symptoms. Denies: Dysuria, Frequency, Burning Skin: Reports: No Symptoms Psychiatric: Reports: No Symptoms Neurological: Reports: No Symptoms Hematologic/Lymphatic: Reports: No Symptoms Immunologic: Reports: No Symptoms Exam - Exam Exam: See Below - Vital Signs Vital Signs: Last Vital Signs Temp 96.8 F L 12/25/19 10:55 Pulse 92 12/25/19 10:30 Resp 13 12/25/19 10:30 BP 117/76 12/25/19 10:55 Pulse Ox 92 L 12/25/19 10:55 Weight: 80.739 kg - Exam General: Alert, Oriented, Cooperative Lungs: Clear to Auscultation, Normal Respiratory Effort Cardiovascular: Regular Rate, Regular Rhythm GI/Abdominal Exam: Normal Bowel Sounds, Soft, Non-Tender Extremities: Normal Inspection, Normal Range of Motion, Non-Tender, No Pedal Edema Neuro Extensive - Mental Status: Alert, Oriented x3 Psychiatric: Alert, Normal Affect, Normal Mood - Patient Data Lab Results Last 24 hrs: Laboratory Results - last 24 hr 12/25/19 12/25/19 12/25/19 Range/Units 07:26 07:26 07:26 WBC (4.0-11.0) K/uL RBC (4.30-5.90) M/uL Hgb (12.0-16.0) g/dL Hct (36.0-46.0) % MCV (80.0-98.0) fL MCH (27.0-32.0) pg MCHC (31.0-37.0) g/dL RDW Std Deviation (28.0-62.0) fl RDW Coeff of Cintia (11.0-15.0) % Plt Count (150-400) K/uL MPV (7.40-12.00) fL Nucleated RBC % /100WBC Nucleated RBCs # K/uL Sodium 140 (136-145) mmol/L Potassium 3.8 (3.5-5.1) mmol/L Chloride 104 (98-107) mmol/L Carbon Dioxide 28.4 (21.0-32.0) mmol/L BUN 18 (7.0-18.0) mg/dL Creatinine 0.7 (0.6-1.0) mg/dL Est Cr Clr Drug Dosing 65.06 mL/min Estimated GFR (MDRD) > 60.0 ml/min Glucose 150 H (74-106) mg/dL Calcium 8.9 (8.5-10.1) mg/dL Magnesium 1.9 (1.8-2.4) mg/dL TSH 3rd Generation 0.77 (0.36-3.74) uIU/mL 12/25/19 Range/Units 10:10 WBC 8.97 (4.0-11.0) K/uL RBC 4.38 (4.30-5.90) M/uL Hgb 13.4 (12.0-16.0) g/dL Hct 41.9 (36.0-46.0) % MCV 95.7 (80.0-98.0) fL MCH 30.6 (27.0-32.0) pg MCHC 32.0 (31.0-37.0) g/dL RDW Std Deviation 55.4 (28.0-62.0) fl RDW Coeff of Cintia 16 H (11.0-15.0) % Plt Count 221 (150-400) K/uL MPV 9.60 (7.40-12.00) fL Nucleated RBC % 0.0 /100WBC Nucleated RBCs # 0 K/uL Sodium (136-145) mmol/L Potassium (3.5-5.1) mmol/L Chloride (98-107) mmol/L Carbon Dioxide (21.0-32.0) mmol/L BUN (7.0-18.0) mg/dL Creatinine (0.6-1.0) mg/dL Est Cr Clr Drug Dosing mL/min Estimated GFR (MDRD) ml/min Glucose (74-106) mg/dL Calcium (8.5-10.1) mg/dL Magnesium (1.8-2.4) mg/dL TSH 3rd Generation (0.36-3.74) uIU/mL Result Diagrams: 12/25/19 10:10 12/25/19 07:26 Sepsis Event Note - Focused Exam Vital Signs: Vital Signs Temp Pulse Resp BP Pulse Ox 12/25/19 10:55 96.8 F L 117/76 92 L 12/25/19 10:30 92 13 131/75 94 L 12/25/19 10:25 93 13 125/76 94 L 12/25/19 10:20 94 11 L 132/78 95 12/25/19 10:15 96 14 136/79 94 L 12/25/19 10:10 98 15 135/78 94 L 12/25/19 10:05 97 14 139/85 94 L 12/25/19 10:00 101 H 14 142/84 H 93 L 12/25/19 09:55 105 H 14 137/83 94 L 12/25/19 09:50 102 H 14 147/88 H 93 L 12/25/19 09:44 103 H 15 150/87 H 95 12/25/19 09:41 97.5 F 108 H 15 144/84 H 97 12/25/19 07:00 97.9 F 88 16 120/72 94 L Consult PN Assessment/Plan POD#: 0 Procedures: Procedures ASSAY OF FERRITIN (06/15/16) ASSAY OF FOLIC ACID SERUM (12/19/15) ASSAY OF FREE THYROXINE (10/10/15) ASSAY OF MAGNESIUM (11/20/17) ASSAY OF SERUM POTASSIUM (10/16/13) ASSAY THYROID STIM HORMONE (04/09/17) AUTOMATED RETICULOCYTE COUNT (03/16/16) BLOOD TRANSFUSION SERVICE (02/12/17) BLOOD TYPE ANTIGEN DONOR EA (02/12/17) BLOOD TYPING SEROLOGIC ABO (02/12/17) BLOOD TYPING SEROLOGIC RH(D) (02/12/17) CHEST X-RAY 1 VIEW FRONTAL (08/13/14) CHEST X-RAY 2VW FRONTAL&LATL (12/20/15) COMPATIBILITY TEST ANTIGLOB (02/12/17) COMPATIBILITY TEST INCUBATE (02/12/17) COMPATIBILITY TEST SPIN (02/12/17) COMPLETE CBC AUTOMATED (04/09/17) COMPLETE CBC W/AUTO DIFF WBC (10/27/19) COMPREHEN METABOLIC PANEL (10/27/19) CT HEAD/BRAIN W/O DYE (11/20/17) CYTOPATH FL NONGYN SMEARS (12/19/15) DIAGNOSTIC COLONOSCOPY (11/25/19) DRUG TEST PRSMV DIR OPT OBS (11/20/17) EGD BIOPSY SINGLE/MULTIPLE (11/25/19) ELECTROCARDIOGRAM TRACING (06/12/14) EMERGENCY DEPT VISIT (11/20/17) EMERGENCY DEPT VISIT (08/27/14) EMERGENCY DEPT VISIT (08/13/14) EMERGENCY DEPT VISIT (08/13/14) FREE ASSAY (FT-3) (10/10/15) GLUCOSE BLOOD TEST (11/20/17) HEMATOCRIT (05/21/16) HEMOGLOBIN (05/21/16) HYDRATE IV INFUSION ADD-ON (11/20/17) INTRINSIC FACTOR ANTIBODY (02/12/17) IRON BINDING TEST (02/12/17) LIPID PANEL (04/09/17) MICROSOMAL ANTIBODY EACH (10/10/15) OCCULT BLD FECES 1-3 TESTS (12/04/19) PROTHROMBIN TIME (11/20/17) RBC ANTIBODY IDENTIFICATION (06/15/16) RBC ANTIBODY SCREEN (02/12/17) ROUTINE VENIPUNCTURE (10/27/19) SARS-COV2 COVID-19 AMP PRB (12/22/19) THER/PROPH/DIAG INJ IV PUSH (08/13/14) THER/PROPH/DIAG IV INF ADDON (02/28/17) THER/PROPH/DIAG IV INF INIT (11/20/17) THROMBOPLASTIN TIME PARTIAL (12/19/15) THYROGLOBULIN ANTIBODY (10/10/15) TTE W/DOPPLER COMPLETE (09/14/19) TX/PRO/DX INJ NEW DRUG ADDON (03/01/15) TX/PRO/DX INJ SAME DRUG RELIGION INSTRUCTOR (03/01/15) URINALYSIS AUTO W/SCOPE (11/20/17) VITAMIN B-12 (04/09/17) X-RAY EXAM OF ABDOMEN (03/16/16) (1) History of alcohol abuse SNOMED Code(s): 209306183 Code(s): F10.11 - ALCOHOL ABUSE, IN REMISSION Current Visit: Yes (2) S/P cholecystectomy SNOMED Code(s): 935384140, 75718617, 834054324 Code(s): Z90.49 - ACQUIRED ABSENCE OF OTHER SPECIFIED PARTS OF DIGESTIVE TRACT Current Visit: Yes (3) Anxiety SNOMED Code(s): 71632698 Code(s): F41.9 - ANXIETY DISORDER, UNSPECIFIED Current Visit: No (4) Depressed SNOMED Code(s): 78215387 Code(s): F32.9 - MAJOR DEPRESSIVE DISORDER, SINGLE EPISODE, UNSPECIFIED Current Visit: No Qualifiers: Depression Type: unspecified Qualified Code(s): F32.9 - Major depressive disorder, single episode, unspecified (5) HTN (hypertension) SNOMED Code(s): 56175783 Code(s): I10 - ESSENTIAL (PRIMARY) HYPERTENSION Current Visit: No Qualifiers: Hypertension type: essential hypertension Qualified Code(s): I10 - Essential (primary) hypertension (6) Hypothyroidism SNOMED Code(s): 63548720 Code(s): E03.9 - HYPOTHYROIDISM, UNSPECIFIED Current Visit: No (7) Restless leg syndrome SNOMED Code(s): 82094844 Code(s): G25.81 - RESTLESS LEGS SYNDROME Current Visit: No Problem List Initiated/Reviewed/Updated: Yes My Orders Last 24 Hours: My Active Orders 12/25/19 12:07 Echo Comp wo Cont [US] Urgent 12/25/19 12:09 Height and Weight [RC] DAILY Up With Assistance [RC] ASDIRECTED VTE/DVT Education [RC] PER UNIT ROUTINE Vital Signs [RC] Q1HR 12/25/19 12:10 Cardiac Monitoring [RC] CONTINUOUS Intake and Output [RC] QSHIFT 12/26/19 05:11 BASIC METABOLIC PANEL,BMP [CHEM] AM MAGNESIUM [CHEM] AM Plan: This 64 year old female admitted s/p cholecystectomy secondary to SVT noted intraoperatively. Hospitalist team consulted. 1. S/P cholecystectomy - Orders per Dr Smart 2. 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 3. HTN/Hypothyroidism - Recommend restarting home medications. VTE prophylaxis: recommended when deemed appropriate by Dr Smart
[2019-12-25] MEDS: Carboxymethylcellulose Sodium 0.5% Ophth Soln 0.4 ML UD Box of 30 EYERT PRN (18:53)
[2019-12-25] MEDS: DULoxetine 60 MG Cap PO SCH (20:05)
[2019-12-25] MEDS: ARIPiprazole 10 MG Tab PO SCH (20:06)
[2019-12-25] MEDS: Thiamine 100 MG Tab PO SCH (20:06)
[2019-12-25] MEDS: Folic Acid 1 MG Tab PO SCH (20:06)
[2019-12-26] MEDS: Acetaminophen/oxyCODONE 325-5 MG Tab PO PRN ×6 (00:07→20:28)
[2019-12-26] MEDS: Carboxymethylcellulose Sodium 0.5% Ophth Soln 0.4 ML UD Box of 30 EYERT PRN (01:20)
[2019-12-26] MEDS: Lactated Ringers 1,000 ML IV SCH (04:56)
[2019-12-26 06:54] LABS: BLOOD UREA NITROGEN,BUN 7 mg/dL (7.0-18.0); CARBON DIOXIDE,CO2 31.2 mmol/L (21.0-32.0); CHLORIDE,CL 104 mmol/L (98-107); GLUCOSE RANDOM 109 mg/dL (74-106); POTASSIUM,K 3.6 mmol/L (3.5-5.1); SODIUM,NA 140 mmol/L (136-145)
[2019-12-26] MEDS: Pantoprazole 40 MG in Sodium Chloride 0.9% 10 ML IV SCH (08:35)
[2019-12-26] MEDS: Hydrochlorothiazide 25 MG Tab PO SCH ×2 (08:36→08:38)
[2019-12-26] MEDS: Levothyroxine 150 MCG Tab PO SCH (08:36)
[2019-12-26] MEDS: amLODIPine 5 MG Tab PO SCH (08:36)
--- NOTE | 2019-12-26 10:01 | PCM.SURGPN ---
- General Info Date of Service: 12/26/19 Date of Surgery/Procedure: 12/26/19 Functional Status: Reports: Pain Controlled - Review of Systems General: Reports: No Symptoms (denied SOB/chest pain. javan clear yesterday) - Patient Data Vitals - Most Recent: Last Vital Signs Temp 98.4 F 12/26/19 04:00 Pulse 92 12/25/19 10:30 Resp 13 12/26/19 08:00 BP 114/58 L 12/26/19 08:36 Pulse Ox 90 L 12/26/19 08:00 Weight - Most Recent: 179 lb 2.291 oz I&O - Last 24 Hours: Intake & Output 12/25/19 12/26/19 12/26/19 22:59 06:59 14:59 Intake Total 1998 2679 Output Total 3280 Balance 1599 -600 Lab Results Last 24 Hrs: Laboratory Results - last 24 hr 12/25/19 12/25/19 12/26/19 Range/Units 07:26 10:10 06:15 WBC 8.97 (4.0-11.0) K/uL RBC 4.38 (4.30-5.90) M/uL Hgb 13.4 (12.0-16.0) g/dL Hct 41.9 (36.0-46.0) % MCV 95.7 (80.0-98.0) fL MCH 30.6 (27.0-32.0) pg MCHC 32.0 (31.0-37.0) g/dL RDW Std Deviation 55.4 (28.0-62.0) fl RDW Coeff of Cintia 16 H (11.0-15.0) % Plt Count 221 (150-400) K/uL MPV 9.60 (7.40-12.00) fL Nucleated RBC % 0.0 /100WBC Nucleated RBCs # 0 K/uL Sodium 140 (136-145) mmol/L Potassium 3.6 (3.5-5.1) mmol/L Chloride 104 (98-107) mmol/L Carbon Dioxide 31.2 (21.0-32.0) mmol/L BUN 7 (7.0-18.0) mg/dL Creatinine 0.7 (0.6-1.0) mg/dL Est Cr Clr Drug Dosing 65.06 mL/min Estimated GFR (MDRD) > 60.0 ml/min Glucose 109 H (74-106) mg/dL Calcium 8.3 L (8.5-10.1) mg/dL Magnesium 1.8 (1.8-2.4) mg/dL TSH 3rd Generation 0.77 (0.36-3.74) uIU/mL Med Orders - Current: Current Medications Amlodipine Besylate (Norvasc) 10 mg PO DAILY [facility] Last Admin: 12/26/19 08:36 Dose: 10 mg Documented by: Aripiprazole (Abilify) 5 mg PO BEDTIME [facility] Last Admin: 12/25/19 20:06 Dose: 5 mg Documented by: Artificial Tears (Refresh Plus 0.5%) 1 each EYERT ASDIRECTED PRN PRN Reason: Dry Eyes Last Admin: 12/26/19 01:20 Dose: 1 drop Documented by: Duloxetine HCl (Cymbalta) 60 mg PO BEDTIME [facility] Last Admin: 12/25/19 20:05 Dose: 60 mg Documented by: Fentanyl (Sublimaze) 50 - 100 mcg IVPUSH Q5M PRN PRN Reason: Pain Last Admin: 12/25/19 10:31 Dose: 50 mcg Documented by: Folic Acid (Folic Acid) 1 mg PO BEDTIME [facility] Last Admin: 12/25/19 20:06 Dose: 1 mg Documented by: Hydrochlorothiazide (Hydrochlorothiazide) 25 mg PO DAILY [facility] Last Admin: 12/26/19 08:38 Dose: Not Given Documented by: Lactated Ringer's (Ringers, Lactated) 1,000 mls @ 125 mls/hr IV ASDIRECTED [facility] Last Admin: 12/26/19 04:56 Dose: 125 mls/hr Documented by: Pantoprazole Sodium 40 mg/ (Sodium Chloride) 10 mls @ 300 mls/hr IV DAILY [facility] Last Admin: 12/26/19 08:35 Dose: 300 mls/hr Documented by: Levothyroxine Sodium (Levothyroxine) 150 mcg PO ACBREAKFAST [facility] Last Admin: 12/26/19 08:36 Dose: 150 mcg Documented by: Ondansetron HCl (Zofran) 4 mg IVPUSH Q8H PRN PRN Reason: Nausea/Vomiting Oxycodone/Acetaminophen (Percocet 325-5 Mg) 1 tab PO Q4H PRN PRN Reason: Pain Last Admin: 12/26/19 08:41 Dose: 1 tab Documented by: Scopolamine (Transderm-Scop) 1.5 mg TRDERM Q72H PRN PRN Reason: Nausea Last Admin: 12/25/19 07:29 Dose: 1.5 mg Documented by: Thiamine HCl (Vitamin B-1) 100 mg PO BEDTIME [facility] Last Admin: 12/25/19 20:06 Dose: 100 mg Documented by: Discontinued Medications Albuterol (Proventil Hfa) Confirm Administered Dose 6.7 gm INH .STK-MED ONE Stop: 12/25/19 07:56 Albuterol (Proventil Neb Soln) 2.5 mg NEB ONETIME PRN PRN Reason: Wheezing Atropine Sulfate (Atropine 0.1 Mg/Ml) 0.5 mg IVPUSH ASDIRECTED PRN PRN Reason: Hypo-perfusion Atropine Sulfate (Atropine 0.1 Mg/Ml) 1 mg IVPUSH ASDIRECTED PRN PRN Reason: Hypo-Perfusion Cefoxitin Sodium (Mefoxin) Confirm Administered Dose 2 gm .ROUTE .STK-MED ONE Stop: 12/25/19 08:05 Dextrose/Water (Dextrose 50% In Water) 50 ml IVPUSH ASDIRECTED PRN PRN Reason: Hypoglycemia Ephedrine Sulfate (Ephedrine Sulfate) Confirm Administered Dose 50 mg .ROUTE .STK-MED ONE Stop: 12/25/19 08:18 Epinephrine HCl (Epinephrine 1:10,000) 1 mg IVPUSH ASDIRECTED PRN PRN Reason: ACLS Guidelines Fentanyl (Sublimaze) Confirm Administered Dose 250 mcg .ROUTE .STK-MED ONE Stop: 12/25/19 07:18 Glycopyrrolate (Robinul) Confirm Administered Dose 0.4 mg .ROUTE .STK-MED ONE Stop: 12/25/19 07:17 Cefoxitin Sodium 2 gm/ Premix 50 mls @ 100 mls/hr IV ONETIME ONE Stop: 12/25/19 05:29 Last Admin: 12/25/19 11:19 Dose: Not Given Documented by: Lactated Ringer's (Ringers, Lactated) 1,000 mls @ 125 mls/hr IV ASDIRECTED [facility] Last Admin: 12/25/19 20:45 Dose: 125 mls/hr Documented by: Bupivacaine HCl/Epinephrine Bitart (Sensorc Mpf 0.25%-Epi 1:[id number]) Confirm Administered Dose 30 mls @ as directed .ROUTE .STK-MED ONE Stop: 12/25/19 07:18 Sodium Chloride (Normal Saline) Confirm Administered Dose 20 mls @ as directed .ROUTE .STK-MED ONE Stop: 12/25/19 08:05 Labetalol HCl (Normodyne) Confirm Administered Dose 100 mg .ROUTE .STK-MED ONE Stop: 12/25/19 08:35 Lidocaine (Xylocaine-Mpf 2%) Confirm Administered Dose 5 ml .ROUTE .STK-MED ONE Stop: 12/25/19 07:17 Midazolam HCl (Versed 1 Mg/Ml) Confirm Administered Dose 2 mg .ROUTE .STK-MED ONE Stop: 12/25/19 07:18 Naloxone HCl (Narcan) 0.1 mg IVPUSH ASDIRECTED PRN PRN Reason: Respiratory Depression Octyl Cyanoacrylate (Dermabond Advance) Confirm Administered Dose 1 applic .ROUTE .STK-MED ONE Stop: 12/25/19 08:43 Ondansetron HCl (Zofran) Confirm Administered Dose 4 mg .ROUTE .STK-MED ONE Stop: 12/25/19 07:17 Propofol (Diprivan 20 Ml) Confirm Administered Dose 200 mg .ROUTE .STK-MED ONE Stop: 12/25/19 07:18 Rocuronium [place] (Rocuronium [place]) Confirm Administered Dose 50 mg .ROUTE .STK-MED ONE Stop: 12/25/19 07:18 Vasopressin (Vasopressin) Confirm Administered Dose 20 units .ROUTE .STK-MED ONE Stop: 12/25/19 08:19 - Exam Lungs: Clear to Auscultation Cardiovascular: Regular Rhythm Sepsis Event Note - Evaluation Sepsis Screening Result: No Definite Risk - Focused Exam Vital Signs: Vital Signs Temp Resp BP BP Pulse Ox 12/26/19 08:36 114/58 L 12/26/19 08:00 13 114/58 L 90 L 12/26/19 07:00 12 111/65 90 L 12/26/19 06:00 14 116/70 93 L 12/26/19 05:00 12 112/63 92 L 12/26/19 04:00 98.4 F 18 100/63 92 L 12/26/19 03:00 12 102/69 90 L 10/24/20 02:00 13 100/64 91 L 12/26/19 01:00 17 109/64 93 L 12/26/19 00:00 98.2 F 14 103/65 92 L 12/25/19 23:00 12 99/64 92 L 12/25/19 22:00 12 100/60 92 L - Problem List Review Problem List Initiated/Reviewed/Updated: Yes - My Orders Last 24 Hours: Active Orders 24 hr Category Date Time Status Admission Status [Patient Status] [ADT] Routine ADT 12/25/19 09:45 Active Blood Glucose Check, Bedside [RC] PRN Care 12/25/19 09:09 Active Cardiac Monitoring [RC] Q8H Care 12/25/19 12:10 Active Communication Order [RC] ROUTINE Care 12/25/19 13:35 Active Height and Weight [RC] DAILY Care 12/25/19 12:09 Active Intake and Output [RC] QSHIFT Care 12/25/19 12:10 Active Notify Provider Consults [RC] ASDIRECTED Care 12/25/19 09:47 Active Notify Provider Vital Signs [RC] ASDIRECTED Care 12/25/19 09:09 Active Oxygen Therapy [RC] PRN Care 12/25/19 09:09 Active RT Aerosol Therapy [RC] ASDIRECTED Care 12/25/19 09:09 Active RT Aerosol Therapy [RC] ASDIRECTED Care 12/25/19 09:09 Active Up With Assistance [RC] ASDIRECTED Care 12/25/19 12:09 Active VTE/DVT Education [RC] PER UNIT ROUTINE Care 12/25/19 12:09 Active Vital Signs [RC] Q1H Care 12/25/19 09:09 Active Vital Signs [RC] Q1HR Care 12/25/19 12:09 Active Weight Daily [Height and Weight] [RC] DAILY Care 12/26/19 09:46 Active Consult to Physician [CONS] Urgent Cons 12/25/19 09:46 Active Full Liquid Diet [DIET] Diet 12/26/19 Lunch Active NPO Now [Nothing per Oral Now Diet] [DIET] Diet 12/25/19 Lunch Active Chest w Cont [CT] Urgent Exams 12/26/19 09:47 Ordered Echo Comp wo Cont [US] Urgent Exams 12/25/19 12:07 Taken ARIPiprazole [Abilify] Med 12/25/19 21:00 Active 5 mg PO BEDTIME Acetaminophen/oxyCODONE [Percocet 325-5 MG] Med 12/25/19 09:47 Active 1 tab PO Q4H PRN Carboxymethylcellulose Sodium [Refresh Plus 0.5%] Med 12/25/19 17:00 Active 1 each EYERT ASDIRECTED PRN DULoxetine [Cymbalta] Med 12/25/19 21:00 Active 60 mg PO BEDTIME Folic Acid Med 12/25/19 21:00 Active 1 mg PO BEDTIME Lactated Ringers [Ringers, Lactated] 1,000 ml Med 12/25/19 10:00 Active IV ASDIRECTED Levothyroxine Med 12/26/19 07:30 Active 150 mcg PO ACBREAKFAST Ondansetron [Zofran] Med 12/25/19 09:54 Active 4 mg IVPUSH Q8H PRN Pantoprazole [ProTONIX IV] 40 mg Med 12/26/19 09:00 Active Sodium Chloride 0.9% [Normal Saline] 10 ml IV DAILY Thiamine [Vitamin B-1] Med 12/25/19 21:00 Active 100 mg PO BEDTIME amLODIPine [Norvasc] Med 12/26/19 09:00 Active 10 mg PO DAILY fentaNYL [Sublimaze] Med 12/25/19 09:09 Active 50 - 100 mcg IVPUSH Q5M PRN hydroCHLOROthiazide Med 12/26/19 09:00 Active 25 mg PO DAILY Medication Orders Amlodipine Besylate (Norvasc) 10 mg PO DAILY [facility] Last Admin: 12/26/19 08:36 Dose: 10 mg Documented by: NAS Aripiprazole (Abilify) 5 mg PO BEDTIME [facility] Last Admin: 12/25/19 20:06 Dose: 5 mg Documented by: BRAN Artificial Tears (Refresh Plus 0.5%) 1 each EYERT ASDIRECTED PRN PRN Reason: Dry Eyes Last Admin: 12/26/19 01:20 Dose: 1 drop Documented by: Admin: 12/25/19 18:53 Dose: 1 drop Documented by: CARMEN Duloxetine HCl (Cymbalta) 60 mg PO BEDTIME [facility] Last Admin: 12/25/19 20:05 Dose: 60 mg Documented by: BRAN Fentanyl (Sublimaze) 50 - 100 mcg IVPUSH Q5M PRN PRN Reason: Pain Last Admin: 12/25/19 10:31 Dose: 50 mcg Documented by: LEEANNA Folic Acid (Folic Acid) 1 mg PO BEDTIME [facility] Last Admin: 12/25/19 20:06 Dose: 1 mg Documented by: BRAN Hydrochlorothiazide (Hydrochlorothiazide) 25 mg PO DAILY [facility] Last Admin: 12/26/19 08:38 Dose: Not Given Documented by: NAS Lactated Ringer's (Ringers, Lactated) 1,000 mls @ 125 mls/hr IV ASDIRECTED [facility] Last Admin: 12/26/19 04:56 Dose: 125 mls/hr Documented by: Infusion: 12/25/19 20:58 Dose: 125 mls/hr Documented by: Admin: 12/25/19 12:58 Dose: 125 mls/hr Documented by: NAS Pantoprazole Sodium 40 mg/ (Sodium Chloride) 10 mls @ 300 mls/hr IV DAILY [facility] Last Admin: 12/26/19 08:35 Dose: 300 mls/hr Documented by: NAS Levothyroxine Sodium (Levothyroxine) 150 mcg PO ACBREAKFAST [facility] Last Admin: 12/26/19 08:36 Dose: 150 mcg Documented by: NAS Ondansetron HCl (Zofran) 4 mg IVPUSH Q8H PRN PRN Reason: Nausea/Vomiting Oxycodone/Acetaminophen (Percocet 325-5 Mg) 1 tab PO Q4H PRN PRN Reason: Pain Last Admin: 12/26/19 08:41 Dose: 1 tab Documented by: Admin: 12/26/19 04:09 Dose: 1 tab Documented by: Admin: 12/26/19 00:07 Dose: 1 tab Documented by: Admin: 12/25/19 15:56 Dose: 1 tab Documented by: Admin: 12/25/19 11:38 Dose: 1 tab Documented by: CARMEN Scopolamine (Transderm-Scop) 1.5 mg TRDERM Q72H PRN PRN Reason: Nausea Last Admin: 12/25/19 07:29 Dose: 1.5 mg Documented by: ROBERT Thiamine HCl (Vitamin B-1) 100 mg PO BEDTIME [facility] Last Admin: 12/25/19 20:06 Dose: 100 mg Documented by: BRAN - Assessment Assessment (Free Text/Narrative):: clinically doing well, up diet, await hosp input; hypoxemia postop, on 4 L w 91% sat; sent for CT w constrast, PE protocol; thanks for hosp input. - Plan Plan (Free Text/Narrative):: clinically doing well, up diet, await hosp input; hypoxemia postop, on 4 L w 91% sat; sent for CT w constrast, PE protocol; thanks for hosp input.
[2019-12-26] MEDS ORDERED: Iopamidol 755 MG/ML 500 ML Multipack Bottle IVPUSH ONE (12:13)
--- NOTE | 2019-12-26 13:13 | CT ---
TECHNIQUE: CT pulmonary angiogram, Isovue-370 contrast 100 mL intravenous. Coronal and sagittal reformats. INDICATION: Postoperative hypoxemia. COMPARISON: Chest radiograph 07/18/2019. FINDINGS: Central airways patent. Partial compressed atelectasis of the bilateral lower lobes. Trace right pleural effusion. No pneumothorax. Normal cardiac size. No pericardial effusion. No pulmonary arterial filling defect identified. No thoracic lymphadenopathy. Unremarkable thyroid. Large hiatal hernia. Fat stranding throughout the zeke hepatis and gallbladder fossa, likely corresponding with postsurgical changes of recent cholecystectomy. No aggressive osseous lesion. Mild T12 central vertebral height loss with superior endplate deformity and suspected Schmorl`s node, age-indeterminate but likely nonacute. IMPRESSION: 1. No evidence of acute PE. 2. Partial compressive atelectasis of the bilateral lower lobes 3. Large hiatal hernia. 4. Trace right pleural effusion. 5. Fat stranding in the gallbladder fossa/zeke hepatis, likely corresponding with reported history of recent cholecystectomy. Please note that all CT scans at this facility use dose modulation, iterative reconstruction, and/or weight-based dosing when appropriate to reduce radiation dose to as low as reasonably achievable. Dictated by Ananda Walden MD @ Dec 26 2019 1:12PM Signed by Dr. Ananda Walden @ Dec 26 2019 1:12PM
[2019-12-26] MEDS: Albuterol 0.083% 2.5 MG/3 ML Neb Soln NEB SCH ×2 (13:53→17:59)
[2019-12-26] MEDS: Fluticasone/Salmeterol 250-50 MCG Inhalation Powder 14/Diskus INH SCH ×2 (14:06→20:37)
--- NOTE | 2019-12-26 15:34 | PCM.CONSN ---
- General Info Date of Service: 12/26/19 - Review of Systems Systems Review Comment:: patient feels like her asthma is acting up, short of breath. - Patient Data Vitals - Most Recent: Last Vital Signs Temp 36.9 C 12/26/19 04:00 Pulse 92 12/25/19 10:30 Resp 14 12/26/19 11:24 BP 100/63 12/26/19 11:24 Pulse Ox 89 L 12/26/19 11:24 Weight - Most Recent: 81.258 kg I&O - Last 24 Hours: Intake & Output 12/26/19 12/26/19 12/26/19 06:59 14:59 22:59 Intake Total 2680 1080 Output Total 3280 Balance -600 1080 Lab Results Last 24 Hours: Laboratory Results - last 24 hr 12/26/19 Range/Units 06:15 Sodium 140 (136-145) mmol/L Potassium 3.6 (3.5-5.1) mmol/L Chloride 104 (98-107) mmol/L Carbon Dioxide 31.2 (21.0-32.0) mmol/L BUN 7 (7.0-18.0) mg/dL Creatinine 0.7 (0.6-1.0) mg/dL Est Cr Clr Drug Dosing 65.06 mL/min Estimated GFR (MDRD) > 60.0 ml/min Glucose 109 H (74-106) mg/dL Calcium 8.3 L (8.5-10.1) mg/dL Magnesium 1.8 (1.8-2.4) mg/dL Med Orders - Current: Current Medications Albuterol (Proventil Neb Soln) 2.5 mg NEB Q6HRRT [facility] Last Admin: 12/26/19 13:53 Dose: 2.5 mg Documented by: Amlodipine Besylate (Norvasc) 10 mg PO DAILY [facility] Last Admin: 12/26/19 08:36 Dose: 10 mg Documented by: Aripiprazole (Abilify) 5 mg PO BEDTIME [facility] Last Admin: 12/25/19 20:06 Dose: 5 mg Documented by: Artificial Tears (Refresh Plus 0.5%) 1 each EYERT ASDIRECTED PRN PRN Reason: Dry Eyes Last Admin: 12/26/19 01:20 Dose: 1 drop Documented by: Duloxetine HCl (Cymbalta) 60 mg PO BEDTIME [facility] Last Admin: 12/25/19 20:05 Dose: 60 mg Documented by: Fentanyl (Sublimaze) 50 - 100 mcg IVPUSH Q5M PRN PRN Reason: Pain Last Admin: 12/25/19 10:31 Dose: 50 mcg Documented by: Folic Acid (Folic Acid) 1 mg PO BEDTIME [facility] Last Admin: 12/25/19 20:06 Dose: 1 mg Documented by: Hydrochlorothiazide (Hydrochlorothiazide) 25 mg PO DAILY [facility] Last Admin: 12/26/19 08:38 Dose: Not Given Documented by: Pantoprazole Sodium 40 mg/ (Sodium Chloride) 10 mls @ 300 mls/hr IV DAILY [facility] Last Admin: 12/26/19 08:35 Dose: 300 mls/hr Documented by: Levothyroxine Sodium (Levothyroxine) 150 mcg PO ACBREAKFAST [facility] Last Admin: 12/26/19 08:36 Dose: 150 mcg Documented by: Ondansetron HCl (Zofran) 4 mg IVPUSH Q8H PRN PRN Reason: Nausea/Vomiting Oxycodone/Acetaminophen (Percocet 325-5 Mg) 1 tab PO Q4H PRN PRN Reason: Pain Last Admin: 12/26/19 12:42 Dose: 1 tab Documented by: Prednisone (Prednisone) 40 mg PO DAILY [facility] Fluticasone/Salmeterol (Advair Diskus 250-50) 1 puff INH BID [facility] Last Admin: 12/26/19 14:06 Dose: 1 diskus Documented by: Scopolamine (Transderm-Scop) 1.5 mg TRDERM Q72H PRN PRN Reason: Nausea Last Admin: 12/25/19 07:29 Dose: 1.5 mg Documented by: Thiamine HCl (Vitamin B-1) 100 mg PO BEDTIME [facility] Last Admin: 12/25/19 20:06 Dose: 100 mg Documented by: Discontinued Medications Albuterol (Proventil Hfa) Confirm Administered Dose 6.7 gm INH .STK-MED ONE Stop: 12/25/19 07:56 Albuterol (Proventil Neb Soln) 2.5 mg NEB ONETIME PRN PRN Reason: Wheezing Atropine Sulfate (Atropine 0.1 Mg/Ml) 0.5 mg IVPUSH ASDIRECTED PRN PRN Reason: Hypo-perfusion Atropine Sulfate (Atropine 0.1 Mg/Ml) 1 mg IVPUSH ASDIRECTED PRN PRN Reason: Hypo-Perfusion Cefoxitin Sodium (Mefoxin) Confirm Administered Dose 2 gm .ROUTE .STK-MED ONE Stop: 12/25/19 08:05 Dextrose/Water (Dextrose 50% In Water) 50 ml IVPUSH ASDIRECTED PRN PRN Reason: Hypoglycemia Ephedrine Sulfate (Ephedrine Sulfate) Confirm Administered Dose 50 mg .ROUTE .STK-MED ONE Stop: 12/25/19 08:18 Epinephrine HCl (Epinephrine 1:10,000) 1 mg IVPUSH ASDIRECTED PRN PRN Reason: ACLS Guidelines Fentanyl (Sublimaze) Confirm Administered Dose 250 mcg .ROUTE .STK-MED ONE Stop: 12/25/19 07:18 Glycopyrrolate (Robinul) Confirm Administered Dose 0.4 mg .ROUTE .STK-MED ONE Stop: 12/25/19 07:17 Cefoxitin Sodium 2 gm/ Premix 50 mls @ 100 mls/hr IV ONETIME ONE Stop: 12/25/19 05:29 Last Admin: 12/25/19 11:19 Dose: Not Given Documented by: Lactated Ringer's (Ringers, Lactated) 1,000 mls @ 125 mls/hr IV ASDIRECTED [facility] Last Admin: 12/25/19 20:45 Dose: 125 mls/hr Documented by: Bupivacaine HCl/Epinephrine Bitart (Sensorc Mpf 0.25%-Epi 1:[id number]) Confirm Administered Dose 30 mls @ as directed .ROUTE .STK-MED ONE Stop: 12/25/19 07:18 Sodium Chloride (Normal Saline) Confirm Administered Dose 20 mls @ as directed .ROUTE .STK-MED ONE Stop: 12/25/19 08:05 Lactated Ringer's (Ringers, Lactated) 1,000 mls @ 125 mls/hr IV ASDIRECTED [facility] Last Admin: 12/26/19 04:56 Dose: 125 mls/hr Documented by: Iopamidol (Isovue Multipack-370 (76%)) 100 ml IVPUSH ONETIME ONE Stop: 12/26/19 12:14 Last Admin: 12/26/19 12:15 Dose: 100 ml Documented by: Labetalol HCl (Normodyne) Confirm Administered Dose 100 mg .ROUTE .STK-MED ONE Stop: 12/25/19 08:35 Lidocaine (Xylocaine-Mpf 2%) Confirm Administered Dose 5 ml .ROUTE .STK-MED ONE Stop: 12/25/19 07:17 Midazolam HCl (Versed 1 Mg/Ml) Confirm Administered Dose 2 mg .ROUTE .STK-MED ONE Stop: 12/25/19 07:18 Naloxone HCl (Narcan) 0.1 mg IVPUSH ASDIRECTED PRN PRN Reason: Respiratory Depression Octyl Cyanoacrylate (Dermabond Advance) Confirm Administered Dose 1 applic .ROUTE .STK-MED ONE Stop: 12/25/19 08:43 Ondansetron HCl (Zofran) Confirm Administered Dose 4 mg .ROUTE .STK-MED ONE Stop: 12/25/19 07:17 Propofol (Diprivan 20 Ml) Confirm Administered Dose 200 mg .ROUTE .STK-MED ONE Stop: 12/25/19 07:18 Rocuronium [place] (Rocuronium [place]) Confirm Administered Dose 50 mg .ROUTE .STK-MED ONE Stop: 12/25/19 07:18 Vasopressin (Vasopressin) Confirm Administered Dose 20 units .ROUTE .STK-MED ONE Stop: 12/25/19 08:19 - Exam General: Alert, Oriented Neck: Supple Lungs: Normal Respiratory Effort, Wheezing GI/Abdominal Exam: Normal Bowel Sounds, Soft, Non-Tender Extremities: Non-Tender, No Pedal Edema Skin: Warm, Dry, Intact Neurological: No New Focal Deficit Sepsis Event Note - Evaluation Sepsis Screening Result: No Definite Risk - Focused Exam Vital Signs: Vital Signs Temp Resp BP BP Pulse Ox 12/26/19 11:24 14 100/63 89 L 12/26/19 10:09 13 102/46 L 91 L 12/26/19 09:09 15 118/72 92 L 12/26/19 08:36 114/58 L 12/26/19 08:00 13 114/58 L 90 L 12/26/19 07:00 12 111/65 90 L 12/26/19 06:00 14 116/70 93 L 12/26/19 05:00 12 112/63 92 L 12/26/19 04:00 36.9 C 18 100/63 92 L Consult PN Assessment/Plan Procedures: Procedures ASSAY OF FERRITIN (06/15/16) ASSAY OF FOLIC ACID SERUM (12/19/15) ASSAY OF FREE THYROXINE (10/10/15) ASSAY OF MAGNESIUM (11/20/17) ASSAY OF SERUM POTASSIUM (10/16/13) ASSAY THYROID STIM HORMONE (04/09/17) AUTOMATED RETICULOCYTE COUNT (03/16/16) BLOOD TRANSFUSION SERVICE (02/12/17) BLOOD TYPE ANTIGEN DONOR EA (02/12/17) BLOOD TYPING SEROLOGIC ABO (02/12/17) BLOOD TYPING SEROLOGIC RH(D) (02/12/17) CHEST X-RAY 1 VIEW FRONTAL (08/13/14) CHEST X-RAY 2VW FRONTAL&LATL (12/20/15) COMPATIBILITY TEST ANTIGLOB (02/12/17) COMPATIBILITY TEST INCUBATE (02/12/17) COMPATIBILITY TEST SPIN (02/12/17) COMPLETE CBC AUTOMATED (04/09/17) COMPLETE CBC W/AUTO DIFF WBC (10/27/19) COMPREHEN METABOLIC PANEL (10/27/19) CT HEAD/BRAIN W/O DYE (11/20/17) CYTOPATH FL NONGYN SMEARS (12/19/15) DIAGNOSTIC COLONOSCOPY (11/25/19) DRUG TEST PRSMV DIR OPT OBS (11/20/17) EGD BIOPSY SINGLE/MULTIPLE (11/25/19) ELECTROCARDIOGRAM TRACING (06/12/14) EMERGENCY DEPT VISIT (11/20/17) EMERGENCY DEPT VISIT (08/27/14) EMERGENCY DEPT VISIT (08/13/14) EMERGENCY DEPT VISIT (08/13/14) FREE ASSAY (FT-3) (10/10/15) GLUCOSE BLOOD TEST (11/20/17) HEMATOCRIT (05/21/16) HEMOGLOBIN (05/21/16) HYDRATE IV INFUSION ADD-ON (11/20/17) INTRINSIC FACTOR ANTIBODY (02/12/17) IRON BINDING TEST (02/12/17) LIPID PANEL (04/09/17) MICROSOMAL ANTIBODY EACH (10/10/15) OCCULT BLD FECES 1-3 TESTS (12/04/19) PROTHROMBIN TIME (11/20/17) RBC ANTIBODY IDENTIFICATION (06/15/16) RBC ANTIBODY SCREEN (02/12/17) ROUTINE VENIPUNCTURE (10/27/19) SARS-COV2 COVID-19 AMP PRB (12/22/19) THER/PROPH/DIAG INJ IV PUSH (08/13/14) THER/PROPH/DIAG IV INF ADDON (02/28/17) THER/PROPH/DIAG IV INF INIT (11/20/17) THROMBOPLASTIN TIME PARTIAL (12/19/15) THYROGLOBULIN ANTIBODY (10/10/15) TTE W/DOPPLER COMPLETE (09/14/19) TX/PRO/DX INJ NEW DRUG ADDON (03/01/15) TX/PRO/DX INJ SAME DRUG SPECIAL SERVICES AGENT (03/01/15) URINALYSIS AUTO W/SCOPE (11/20/17) VITAMIN B-12 (04/09/17) X-RAY EXAM OF ABDOMEN (03/16/16) Problem List Initiated/Reviewed/Updated: Yes My Orders Last 24 Hours: My Active Orders 12/26/19 13:40 RT Aerosol Therapy [RC] ASDIRECTED RT Post Treatment Assessment [RC] Click to Edit RT Pre-Treatment Assessment [RC] Click to Edit 12/26/19 13:45 Albuterol [Proventil Neb Soln] 2.5 mg NEB Q6HRRT Fluticasone/Salmeterol [Advair Diskus 250-50] 1 puff INH BID 12/26/19 15:30 predniSONE 40 mg PO DAILY Plan: 64 yo female s/p cholecystectomy, We will continue telemetery as patient had nonsustained SVT during surgery Will give albuterol nebs and prednisone for asthma exacerbation CT angio chest negative for PE, showed atelectases, encourage incentive spirometry use.
[2019-12-26] MEDS: predniSONE 10 MG Tab PO SCH (16:29)
[2019-12-26] MEDS: Folic Acid 1 MG Tab PO SCH (20:28)
[2019-12-26] MEDS: ARIPiprazole 10 MG Tab PO SCH (20:28)
[2019-12-26] MEDS: DULoxetine 60 MG Cap PO SCH (20:29)
[2019-12-26] MEDS: Thiamine 100 MG Tab PO SCH (20:30)
[2019-12-27] MEDS: Albuterol 0.083% 2.5 MG/3 ML Neb Soln NEB SCH ×3 (00:29→11:36)
[2019-12-27] MEDS: Acetaminophen/oxyCODONE 325-5 MG Tab PO PRN ×4 (00:29→13:00)
[2019-12-27] MEDS: Levothyroxine 150 MCG Tab PO SCH (07:21)
[2019-12-27 07:57] VITALS: PULSE 93
[2019-12-27] MEDS: predniSONE 10 MG Tab PO SCH (08:39)
[2019-12-27] MEDS: Hydrochlorothiazide 25 MG Tab PO SCH (08:40)
[2019-12-27] MEDS: Pantoprazole 40 MG in Sodium Chloride 0.9% 10 ML IV SCH (08:41)
[2019-12-27] MEDS: amLODIPine 5 MG Tab PO SCH (08:45)
[2019-12-27 08:47] VITALS: BP 122/64
[2019-12-27] MEDS: Fluticasone/Salmeterol 250-50 MCG Inhalation Powder 14/Diskus INH SCH (09:52)
--- NOTE | 2019-12-27 12:03 | PCM.CONSN ---
- General Info Date of Service: 12/27/19 - Review of Systems Systems Review Comment:: patient reports improvement in breathing, no chest pain. - Patient Data Vitals - Most Recent: Last Vital Signs Temp 36.6 C 12/27/19 07:47 Pulse 93 12/27/19 07:47 Resp 16 12/27/19 07:47 BP 122/64 12/27/19 08:45 Pulse Ox 93 L 12/27/19 07:47 Weight - Most Recent: 90.083 kg I&O - Last 24 Hours: Intake & Output 12/26/19 12/27/19 12/27/19 22:59 06:59 14:59 Intake Total 1540 1600 Output Total 3200 2600 Balance -1660 -1000 Med Orders - Current: Current Medications Albuterol (Proventil Neb Soln) 2.5 mg NEB Q6HRRT [facility] Last Admin: 12/27/19 11:36 Dose: 2.5 mg Documented by: Amlodipine Besylate (Norvasc) 10 mg PO DAILY [facility] Last Admin: 12/27/19 08:45 Dose: 10 mg Documented by: Aripiprazole (Abilify) 5 mg PO BEDTIME [facility] Last Admin: 12/26/19 20:28 Dose: 5 mg Documented by: Artificial Tears (Refresh Plus 0.5%) 1 each EYERT ASDIRECTED PRN PRN Reason: Dry Eyes Last Admin: 12/26/19 01:20 Dose: 1 drop Documented by: Duloxetine HCl (Cymbalta) 60 mg PO BEDTIME [facility] Last Admin: 12/26/19 20:29 Dose: 60 mg Documented by: Fentanyl (Sublimaze) 50 - 100 mcg IVPUSH Q5M PRN PRN Reason: Pain Last Admin: 12/25/19 10:31 Dose: 50 mcg Documented by: Folic Acid (Folic Acid) 1 mg PO BEDTIME [facility] Last Admin: 12/26/19 20:28 Dose: 1 mg Documented by: Hydrochlorothiazide (Hydrochlorothiazide) 25 mg PO DAILY [facility] Last Admin: 12/27/19 08:40 Dose: 25 mg Documented by: Pantoprazole Sodium 40 mg/ (Sodium Chloride) 10 mls @ 300 mls/hr IV DAILY [facility] Last Admin: 12/27/19 08:41 Dose: 300 mls/hr Documented by: Levothyroxine Sodium (Levothyroxine) 150 mcg PO ACBREAKFAST [facility] Last Admin: 12/27/19 07:21 Dose: 150 mcg Documented by: Ondansetron HCl (Zofran) 4 mg IVPUSH Q8H PRN PRN Reason: Nausea/Vomiting Oxycodone/Acetaminophen (Percocet 325-5 Mg) 1 tab PO Q4H PRN PRN Reason: Pain Last Admin: 12/27/19 08:38 Dose: 1 tab Documented by: Prednisone (Prednisone) 40 mg PO DAILY [facility] Last Admin: 12/27/19 08:39 Dose: 40 mg Documented by: Fluticasone/Salmeterol (Advair Diskus 250-50) 1 puff INH BID [facility] Last Admin: 12/27/19 09:52 Dose: 1 puff Documented by: Scopolamine (Transderm-Scop) 1.5 mg TRDERM Q72H PRN PRN Reason: Nausea Last Admin: 12/25/19 07:29 Dose: 1.5 mg Documented by: Thiamine HCl (Vitamin B-1) 100 mg PO BEDTIME [facility] Last Admin: 12/26/19 20:30 Dose: 100 mg Documented by: Discontinued Medications Albuterol (Proventil Hfa) Confirm Administered Dose 6.7 gm INH .STK-MED ONE Stop: 12/25/19 07:56 Albuterol (Proventil Neb Soln) 2.5 mg NEB ONETIME PRN PRN Reason: Wheezing Atropine Sulfate (Atropine 0.1 Mg/Ml) 0.5 mg IVPUSH ASDIRECTED PRN PRN Reason: Hypo-perfusion Atropine Sulfate (Atropine 0.1 Mg/Ml) 1 mg IVPUSH ASDIRECTED PRN PRN Reason: Hypo-Perfusion Cefoxitin Sodium (Mefoxin) Confirm Administered Dose 2 gm .ROUTE .STK-MED ONE Stop: 12/25/19 08:05 Dextrose/Water (Dextrose 50% In Water) 50 ml IVPUSH ASDIRECTED PRN PRN Reason: Hypoglycemia Ephedrine Sulfate (Ephedrine Sulfate) Confirm Administered Dose 50 mg .ROUTE .STK-MED ONE Stop: 12/25/19 08:18 Epinephrine HCl (Epinephrine 1:10,000) 1 mg IVPUSH ASDIRECTED PRN PRN Reason: ACLS Guidelines Fentanyl (Sublimaze) Confirm Administered Dose 250 mcg .ROUTE .STK-MED ONE Stop: 12/25/19 07:18 Glycopyrrolate (Robinul) Confirm Administered Dose 0.4 mg .ROUTE .STK-MED ONE Stop: 12/25/19 07:17 Cefoxitin Sodium 2 gm/ Premix 50 mls @ 100 mls/hr IV ONETIME ONE Stop: 12/25/19 05:29 Last Admin: 12/25/19 11:19 Dose: Not Given Documented by: Lactated Ringer's (Ringers, Lactated) 1,000 mls @ 125 mls/hr IV ASDIRECTED [facility] Last Admin: 12/25/19 20:45 Dose: 125 mls/hr Documented by: Bupivacaine HCl/Epinephrine Bitart (Sensorc Mpf 0.25%-Epi [id number]) Confirm Administered Dose 30 mls @ as directed .ROUTE .STK-MED ONE Stop: 12/25/19 07:18 Sodium Chloride (Normal Saline) Confirm Administered Dose 20 mls @ as directed . ROUTE .STK-MED ONE Stop: 12/25/19 08:05 Lactated Ringer's (Ringers, Lactated) 1,000 mls @ 125 mls/hr IV ASDIRECTED [facility] Last Admin: 12/26/19 04:56 Dose: 125 mls/hr Documented by: Iopamidol (Isovue Multipack-370 (76%)) 100 ml IVPUSH ONETIME ONE Stop: 12/26/19 12:14 Last Admin: 12/26/19 12:15 Dose: 100 ml Documented by: Labetalol HCl (Normodyne) Confirm Administered Dose 100 mg .ROUTE .STK-MED ONE Stop: 12/25/19 08:35 Lidocaine (Xylocaine-Mpf 2%) Confirm Administered Dose 5 ml .ROUTE .STK-MED ONE Stop: 12/25/19 07:17 Midazolam HCl (Versed 1 Mg/Ml) Confirm Administered Dose 2 mg .ROUTE .STK-MED ONE Stop: 12/25/19 07:18 Naloxone HCl (Narcan) 0.1 mg IVPUSH ASDIRECTED PRN PRN Reason: Respiratory Depression Octyl Cyanoacrylate (Dermabond Advance) Confirm Administered Dose 1 applic .ROUTE .STK-MED ONE Stop: 12/25/19 08:43 Ondansetron HCl (Zofran) Confirm Administered Dose 4 mg .ROUTE .STK-MED ONE Stop: 12/25/19 07:17 Propofol (Diprivan 20 Ml) Confirm Administered Dose 200 mg .ROUTE .STK-MED ONE Stop: 12/25/19 07:18 Rocuronium [place] (Rocuronium [place]) Confirm Administered Dose 50 mg .ROUTE .STK-MED ONE Stop: 12/25/19 07:18 Vasopressin (Vasopressin) Confirm Administered Dose 20 units .ROUTE .STK-MED ONE Stop: 12/25/19 08:19 - Exam General: Alert, Oriented Neck: Supple Lungs: Clear to Auscultation, Normal Respiratory Effort Cardiovascular: Regular Rate, Regular Rhythm GI/Abdominal Exam: Soft, Non-Tender, No Distention Extremities: Non-Tender, No Pedal Edema Skin: Warm, Dry, Intact Neurological: No New Focal Deficit Sepsis Event Note - Evaluation Sepsis Screening Result: No Definite Risk - Focused Exam Vital Signs: Vital Signs Temp Pulse Resp BP BP Pulse Ox 12/27/19 08:45 122/64 12/27/19 07:47 36.6 C 93 16 118/74 93 L 12/27/19 04:23 36.4 C 87 16 111/65 92 L Consult PN Assessment/Plan Procedures: Procedures ASSAY OF FERRITIN (06/15/16) ASSAY OF FOLIC ACID SERUM (12/19/15) ASSAY OF FREE THYROXINE (10/10/15) ASSAY OF MAGNESIUM (11/20/17) ASSAY OF SERUM POTASSIUM (10/16/13) ASSAY THYROID STIM HORMONE (04/09/17) AUTOMATED RETICULOCYTE COUNT (03/16/16) BLOOD TRANSFUSION SERVICE (02/12/17) BLOOD TYPE ANTIGEN DONOR EA (02/12/17) BLOOD TYPING SEROLOGIC ABO (02/12/17) BLOOD TYPING SEROLOGIC RH(D) (02/12/17) CHEST X-RAY 1 VIEW FRONTAL (08/13/14) CHEST X-RAY 2VW FRONTAL&LATL (12/20/15) COMPATIBILITY TEST ANTIGLOB (02/12/17) COMPATIBILITY TEST INCUBATE (02/12/17) COMPATIBILITY TEST SPIN (02/12/17) COMPLETE CBC AUTOMATED (04/09/17) COMPLETE CBC W/AUTO DIFF WBC (10/27/19) COMPREHEN METABOLIC PANEL (10/27/19) CT HEAD/BRAIN W/O DYE (11/20/17) CYTOPATH FL NONGYN SMEARS (12/19/15) DIAGNOSTIC COLONOSCOPY (11/25/19) DRUG TEST PRSMV DIR OPT OBS (11/20/17) EGD BIOPSY SINGLE/MULTIPLE (11/25/19) ELECTROCARDIOGRAM TRACING (06/12/14) EMERGENCY DEPT VISIT (11/20/17) EMERGENCY DEPT VISIT (08/27/14) EMERGENCY DEPT VISIT (08/13/14) EMERGENCY DEPT VISIT (08/13/14) FREE ASSAY (FT-3) (10/10/15) GLUCOSE BLOOD TEST (11/20/17) HEMATOCRIT (05/21/16) HEMOGLOBIN (05/21/16) HYDRATE IV INFUSION ADD-ON (11/20/17) INTRINSIC FACTOR ANTIBODY (02/12/17) IRON BINDING TEST (02/12/17) LIPID PANEL (04/09/17) MICROSOMAL ANTIBODY EACH (10/10/15) OCCULT BLD FECES 1-3 TESTS (12/04/19) PROTHROMBIN TIME (11/20/17) RBC ANTIBODY IDENTIFICATION (06/15/16) RBC ANTIBODY SCREEN (02/12/17) ROUTINE VENIPUNCTURE (10/27/19) SARS-COV2 COVID-19 AMP PRB (12/22/19) THER/PROPH/DIAG INJ IV PUSH (08/13/14) THER/PROPH/DIAG IV INF ADDON (02/28/17) THER/PROPH/DIAG IV INF INIT (11/20/17) THROMBOPLASTIN TIME PARTIAL (12/19/15) THYROGLOBULIN ANTIBODY (10/10/15) TTE W/DOPPLER COMPLETE (09/14/19) TX/PRO/DX INJ NEW DRUG ADDON (03/01/15) TX/PRO/DX INJ SAME DRUG THIRD MATE (03/01/15) URINALYSIS AUTO W/SCOPE (11/20/17) VITAMIN B-12 (04/09/17) X-RAY EXAM OF ABDOMEN (03/16/16) Problem List Initiated/Reviewed/Updated: Yes My Orders Last 24 Hours: My Active Orders 12/26/19 13:40 RT Aerosol Therapy [RC] ASDIRECTED RT Post Treatment Assessment [RC] Click to Edit RT Pre-Treatment Assessment [RC] Click to Edit 12/26/19 13:45 Albuterol [Proventil Neb Soln] 2.5 mg NEB Q6HRRT Fluticasone/Salmeterol [Advair Diskus 250-50] 1 puff INH BID 12/26/19 15:30 predniSONE 40 mg PO DAILY 12/26/19 17:41 Pulse Oximetry Continuous Monitoring [OM.PC] Routine Plan: Patient has been weened off oxygen. I wrote prescription for Advair for patient to take at home as she likely need more than albuterol inhaler for her asthma.
--- NOTE | 2019-12-27 12:51 | PCM.SURGPN ---
- General Info Date of Service: 12/27/19 Functional Status: Reports: Pain Controlled (weaned off oxygen) - Review of Systems General: Reports: No Symptoms - Patient Data Vitals - Most Recent: Last Vital Signs Temp 97.9 F 12/27/19 07:47 Pulse 93 12/27/19 07:47 Resp 16 12/27/19 07:47 BP 122/64 12/27/19 08:45 Pulse Ox 93 L 12/27/19 07:47 Weight - Most Recent: 198 lb 9.6 oz I&O - Last 24 Hours: Intake & Output 12/26/19 12/27/19 12/27/19 22:59 06:59 14:59 Intake Total 1540 1600 Output Total 3200 2600 Balance -1660 -1000 Med Orders - Current: Current Medications Albuterol (Proventil Neb Soln) 2.5 mg NEB Q6HRRT [facility] Last Admin: 12/27/19 11:36 Dose: 2.5 mg Documented by: Amlodipine Besylate (Norvasc) 10 mg PO DAILY [facility] Last Admin: 12/27/19 08:45 Dose: 10 mg Documented by: Aripiprazole (Abilify) 5 mg PO BEDTIME [facility] Last Admin: 12/26/19 20:28 Dose: 5 mg Documented by: Artificial Tears (Refresh Plus 0.5%) 1 each EYERT ASDIRECTED PRN PRN Reason: Dry Eyes Last Admin: 12/26/19 01:20 Dose: 1 drop Documented by: Duloxetine HCl (Cymbalta) 60 mg PO BEDTIME [facility] Last Admin: 12/26/19 20:29 Dose: 60 mg Documented by: Fentanyl (Sublimaze) 50 - 100 mcg IVPUSH Q5M PRN PRN Reason: Pain Last Admin: 12/25/19 10:31 Dose: 50 mcg Documented by: Folic Acid (Folic Acid) 1 mg PO BEDTIME [facility] Last Admin: 12/26/19 20:28 Dose: 1 mg Documented by: Hydrochlorothiazide (Hydrochlorothiazide) 25 mg PO DAILY [facility] Last Admin: 12/27/19 08:40 Dose: 25 mg Documented by: Pantoprazole Sodium 40 mg/ (Sodium Chloride) 10 mls @ 300 mls/hr IV DAILY [facility] Last Admin: 12/27/19 08:41 Dose: 300 mls/hr Documented by: Levothyroxine Sodium (Levothyroxine) 150 mcg PO ACBREAKFAST [facility] Last Admin: 12/27/19 07:21 Dose: 150 mcg Documented by: Ondansetron HCl (Zofran) 4 mg IVPUSH Q8H PRN PRN Reason: Nausea/Vomiting Oxycodone/Acetaminophen (Percocet 325-5 Mg) 1 tab PO Q4H PRN PRN Reason: Pain Last Admin: 12/27/19 08:38 Dose: 1 tab Documented by: Prednisone (Prednisone) 40 mg PO DAILY [facility] Last Admin: 12/27/19 08:39 Dose: 40 mg Documented by: Fluticasone/Salmeterol (Advair Diskus 250-50) 1 puff INH BID [facility] Last Admin: 12/27/19 09:52 Dose: 1 puff Documented by: Scopolamine (Transderm-Scop) 1.5 mg TRDERM Q72H PRN PRN Reason: Nausea Last Admin: 12/25/19 07:29 Dose: 1.5 mg Documented by: Thiamine HCl (Vitamin B-1) 100 mg PO BEDTIME [facility] Last Admin: 12/26/19 20:30 Dose: 100 mg Documented by: Discontinued Medications Albuterol (Proventil Hfa) Confirm Administered Dose 6.7 gm INH .STK-MED ONE Stop: 12/25/19 07:56 Albuterol (Proventil Neb Soln) 2.5 mg NEB ONETIME PRN PRN Reason: Wheezing Atropine Sulfate (Atropine 0.1 Mg/Ml) 0.5 mg IVPUSH ASDIRECTED PRN PRN Reason: Hypo-perfusion Atropine Sulfate (Atropine 0.1 Mg/Ml) 1 mg IVPUSH ASDIRECTED PRN PRN Reason: Hypo-Perfusion Cefoxitin Sodium (Mefoxin) Confirm Administered Dose 2 gm .ROUTE .STK-MED ONE Stop: 12/25/19 08:05 Dextrose/Water (Dextrose 50% In Water) 50 ml IVPUSH ASDIRECTED PRN PRN Reason: Hypoglycemia Ephedrine Sulfate (Ephedrine Sulfate) Confirm Administered Dose 50 mg .ROUTE .STK-MED ONE Stop: 12/25/19 08:18 Epinephrine HCl (Epinephrine 1:10,000) 1 mg IVPUSH ASDIRECTED PRN PRN Reason: ACLS Guidelines Fentanyl (Sublimaze) Confirm Administered Dose 250 mcg .ROUTE .STK-MED ONE Stop: 12/25/19 07:18 Glycopyrrolate (Robinul) Confirm Administered Dose 0.4 mg .ROUTE .STK-MED ONE Stop: 12/25/19 07:17 Cefoxitin Sodium 2 gm/ Premix 50 mls @ 100 mls/hr IV ONETIME ONE Stop: 12/25/19 05:29 Last Admin: 12/25/19 11:19 Dose: Not Given Documented by: Lactated Ringer's (Ringers, Lactated) 1,000 mls @ 125 mls/hr IV ASDIRECTED [facility] Last Admin: 12/25/19 20:45 Dose: 125 mls/hr Documented by: Bupivacaine HCl/Epinephrine Bitart (Sensorc Mpf 0.25%-Epi [id number]) Confirm Administered Dose 30 mls @ as directed .ROUTE .STK-MED ONE Stop: 12/25/19 07:18 Sodium Chloride (Normal Saline) Confirm Administered Dose 20 mls @ as directed .ROUTE .STK-MED ONE Stop: 12/25/19 08:05 Lactated Ringer's (Ringers, Lactated) 1,000 mls @ 125 mls/hr IV ASDIRECTED [facility] Last Admin: 12/26/19 04:56 Dose: 125 mls/hr Documented by: Iopamidol (Isovue Multipack-370 (76%)) 100 ml IVPUSH ONETIME ONE Stop: 12/26/19 12:14 Last Admin: 12/26/19 12:15 Dose: 100 ml Documented by: Labetalol HCl (Normodyne) Confirm Administered Dose 100 mg .ROUTE .STK-MED ONE Stop: 12/25/19 08:35 Lidocaine (Xylocaine-Mpf 2%) Confirm Administered Dose 5 ml .ROUTE .STK-MED ONE Stop: 12/25/19 07:17 Midazolam HCl (Versed 1 Mg/Ml) Confirm Administered Dose 2 mg .ROUTE .STK-MED ONE Stop: 12/25/19 07:18 Naloxone HCl (Narcan) 0.1 mg IVPUSH ASDIRECTED PRN PRN Reason: Respiratory Depression Octyl Cyanoacrylate (Dermabond Advance) Confirm Administered Dose 1 applic .ROUTE .STK-MED ONE Stop: 12/25/19 08:43 Ondansetron HCl (Zofran) Confirm Administered Dose 4 mg .ROUTE .STK-MED ONE Stop: 12/25/19 07:17 Propofol (Diprivan 20 Ml) Confirm Administered Dose 200 mg .ROUTE .STK-MED ONE Stop: 12/25/19 07:18 Rocuronium [place] (Rocuronium [place]ff[place]) Confirm Administered Dose 50 mg .ROUTE .STK-MED ONE Stop: 12/25/19 07:18 Vasopressin (Vasopressin) Confirm Administered Dose 20 units .ROUTE .STK-MED ONE Stop: 12/25/19 08:19 - Exam Wound/Incisions: Healing Well Lungs: Clear to Auscultation Cardiovascular: Regular Rate GI/Abdominal Exam: Soft Sepsis Event Note - Evaluation Sepsis Screening Result: No Definite Risk - Focused Exam Vital Signs: Vital Signs Temp Pulse Resp BP BP Pulse Ox 12/27/19 08:45 122/64 12/27/19 07:47 97.9 F 93 16 118/74 93 L 12/27/19 04:23 97.6 F 87 16 111/65 92 L - Problem List Review Problem List Initiated/Reviewed/Updated: Yes - My Orders Last 24 Hours: Active Orders 24 hr Category Date Time Status Transfer Patient (Change bed) [ADT] Routine ADT 12/26/19 16:43 Ordered Discontinue Telemetry Monitoring [Cardiac Monitoring Care 12/26/19 16:44 Active Discontinue] [RC] Click to Edit RT Aerosol Therapy [RC] ASDIRECTED Care 12/26/19 13:40 Active RT Post Treatment Assessment [RC] Click to Edit Care 12/26/19 13:40 Active RT Pre-Treatment Assessment [RC] Click to Edit Care 12/26/19 13:40 Active Remove Carlos Catheter [Urinary Catheter Removal] [RC] Care 12/26/19 13:53 Active PER UNIT ROUTINE Albuterol [Proventil Neb Soln] Med 12/26/19 13:45 Active 2.5 mg NEB Q6HRRT Fluticasone/Salmeterol [Advair Diskus 250-50] Med 12/26/19 13:45 Active 1 puff INH BID predniSONE Med 12/26/19 15:30 Active 40 mg PO DAILY Pulse Oximetry Continuous Monitoring [OM.PC] Routine Oth 12/26/19 17:41 Ordered Medication Orders Albuterol (Proventil Neb Soln) 2.5 mg NEB Q6HRRT [facility] Last Admin: 12/27/19 11:36 Dose: 2.5 mg Documented by: Admin: 12/27/19 06:00 Dose: 2.5 mg Documented by: Admin: 12/27/19 00:29 Dose: 2.5 mg Documented by: Admin: 12/26/19 17:59 Dose: 2.5 mg Documented by: Admin: 12/26/19 13:53 Dose: 2.5 mg Documented by: ANDRES Amlodipine Besylate (Norvasc) 10 mg PO DAILY [facility] Last Admin: 12/27/19 08:45 Dose: 10 mg Documented by: Admin: 12/26/19 08:36 Dose: 10 mg Documented by: NAS Aripiprazole (Abilify) 5 mg PO BEDTIME [facility] Last Admin: 12/26/19 20:28 Dose: 5 mg Documented by: Admin: 12/25/19 20:06 Dose: 5 mg Documented by: BRAN Artificial Tears (Refresh Plus 0.5%) 1 each EYERT ASDIRECTED PRN PRN Reason: Dry Eyes Last Admin: 12/26/19 01:20 Dose: 1 drop Documented by: Admin: 12/25/19 18:53 Dose: 1 drop Documented by: CARMEN Duloxetine HCl (Cymbalta) 60 mg PO BEDTIME [facility] Last Admin: 12/26/19 20:29 Dose: 60 mg Documented by: Admin: 12/25/19 20:05 Dose: 60 mg Documented by: BRAN Fentanyl (Sublimaze) 50 - 100 mcg IVPUSH Q5M PRN PRN Reason: Pain Last Admin: 12/25/19 10:31 Dose: 50 mcg Documented by: LEEANNA Folic Acid (Folic Acid) 1 mg PO BEDTIME [facility] Last Admin: 12/26/19 20:28 Dose: 1 mg Documented by: Admin: 12/25/19 20:06 Dose: 1 mg Documented by: BRAN Hydrochlorothiazide (Hydrochlorothiazide) 25 mg PO DAILY [facility] Last Admin: 12/27/19 08:40 Dose: 25 mg Documented by: Admin: 12/26/19 08:38 Dose: Not Given Documented by: NAS Pantoprazole Sodium 40 mg/ (Sodium Chloride) 10 mls @ 300 mls/hr IV DAILY [facility] Last Admin: 12/27/19 08:41 Dose: 300 mls/hr Documented by: Infusion: 12/26/19 08:37 Dose: 300 mls/hr Documented by: Admin: 12/26/19 08:35 Dose: 300 mls/hr Documented by: NAS Levothyroxine Sodium (Levothyroxine) 150 mcg PO ACBREAKFAST [facility] Last Admin: 12/27/19 07:21 Dose: 150 mcg Documented by: Admin: 12/26/19 08:36 Dose: 150 mcg Documented by: NAS Ondansetron HCl (Zofran) 4 mg IVPUSH Q8H PRN PRN Reason: Nausea/Vomiting Oxycodone/Acetaminophen (Percocet 325-5 Mg) 1 tab PO Q4H PRN PRN Reason: Pain Last Admin: 12/27/19 08:38 Dose: 1 tab Documented by: Admin: 12/27/19 04:42 Dose: 1 tab Documented by: Admin: 12/27/19 00:29 Dose: 1 tab Documented by: Admin: 12/26/19 20:28 Dose: 1 tab Documented by: Admin: 12/26/19 16:31 Dose: 1 tab Documented by: Admin: 12/26/19 12:42 Dose: 1 tab Documented by: Admin: 12/26/19 08:41 Dose: 1 tab Documented by: Admin: 12/26/19 04:09 Dose: 1 tab Documented by: Admin: 12/26/19 00:07 Dose: 1 tab Documented by: Admin: 12/25/19 15:56 Dose: 1 tab Documented by: Admin: 12/25/19 11:38 Dose: 1 tab Documented by: CARMEN Prednisone (Prednisone) 40 mg PO DAILY [facility] Last Admin: 12/27/19 08:39 Dose: 40 mg Documented by: Admin: 12/26/19 16:29 Dose: 40 mg Documented by: NAS Fluticasone/Salmeterol (Advair Diskus 250-50) 1 puff INH BID [facility] Last Admin: 12/27/19 09:52 Dose: 1 puff Documented by: Admin: 12/26/19 20:37 Dose: 1 puff Documented by: Admin: 12/26/19 14:06 Dose: 1 diskus Documented by: ANDRES Scopolamine (Transderm-Scop) 1.5 mg TRDERM Q72H PRN PRN Reason: Nausea Last Admin: 12/25/19 07:29 Dose: 1.5 mg Documented by: ROBERT Thiamine HCl (Vitamin B-1) 100 mg PO BEDTIME [facility] Last Admin: 12/26/19 20:30 Dose: 100 mg Documented by: Admin: 12/25/19 20:06 Dose: 100 mg Documented by: BRAN - Assessment Assessment (Free Text/Narrative):: doing well, off o2, amb by self, javan po diet; home on full liquid; fu 1 - 2 wks - Plan Plan (Free Text/Narrative):: doing well, off o2, amb by self, javan po diet; home on full liquid; fu 1 - 2 wks
[2019-12-27] MEDS ORDERED: Pneumococcal 23-Valent Conjugate Vaccine 0.5 ML Syringe IM ONE (13:30)
== END 2019-12-27 12:56 | disposition home or self-care (01) ==
LOC: MW.SDS 06:30 → MW.OB 10:17 → MW.ICU 10:37 → MW.MS 12-26 18:31
PROVIDERS: ADMIT Surgery; ATTEND Surgery
DX: K80.10 Calculus of gallbladder with chronic cholecystitis without obstruction (principal); K74.00 Hepatic fibrosis, unspecified; F41.9 Anxiety disorder, unspecified; J45.909 Unspecified asthma, uncomplicated; F32.9 Major depressive disorder, single episode, unspecified; I10 Essential (primary) hypertension; E03.9 Hypothyroidism, unspecified; E78.00 Pure hypercholesterolemia, unspecified; D64.9 Anemia, unspecified; E66.9 Obesity, unspecified; G25.81 Restless legs syndrome; Z88.5 Allergy status to narcotic agent; Z88.8 Allergy status to other drugs, medicaments and biological substances; Z79.899 Other long term (current) drug therapy; Z79.890 Hormone replacement therapy; Z68.32 Body mass index [BMI] 32.0-32.9, adult
CPT/HCPCS: 36415; 47562; 71275; 80048; 83735; 84443; 85027; 88304; 88305; 88312; 90471; 90732; 93005; 93306; 94640; 94660; 94664; 96361; 96372; 96376; A9270; C9113; G0378; J0694; J2001; J2250; J2704; J3010; J3490; J7120; Q9967; 00790; 99212; 99213; G0009; J2405